=== PATIENT | male | born 1950 | race Caucasian/White ===

== ENCOUNTER 2018-01-09 10:57 | Day surgery (SDC) | payer MEDICARE, OTHER, SELFPAY ==
[2018-01-09] VITALS (7 sets, daily range): BP systolic 111–142; BP diastolic 48–86; PULSE 61–77; RESP 16; TEMP 36.2–37.3; O2SAT 96–100; BMI 25.4
--- NOTE | 2018-01-09 13:11 | PCM.OPRPT ---
Report of Operation Date of Procedure: 01/09/18 Pre-Operative Diagnosis: Left spermatocele Post-Operative Diagnosis: The same Surgery/Procedure Performed:: Left spermatocelectomy Description of Surgical Findings:: 67-year-old male taken back to the operating room after smooth induction of anesthesia he has been testicles were prepped and draped in usual sterile fashion palpated the spermatocele above the left testicle made a small incision above the left testicle infiltrated with Marcaine, dissected to the skin dartos layer and then came back on the 2 tunica snap on the tunica cut to the tunica and then delivered the spermatocele greatest medicine seal with a clamp and then dissected the spermatocele using electrocautery off the testicle top obtain hemostasis and then closed the small incision with 2 layers of chromic stitches. Type of Anesthesia:: General Drains: none - Admit VTE Documentation VTE Present on Admission: No
[2018-01-09] MEDS: Bupivacaine 0.25% 30 ML Vial (13:50)
--- NOTE | 2018-01-09 14:10 | PCM.DC.HER ---
Discharge Diet: Light diet - advance as tolerated Discharge Activity: Return to Normal Activity, May Not Drive - for 2-3 days or while taking narcotic pain meds., May Shower - 1 day after surgery. Lifting Restrictions: 20 pounds for 6 weeks. Additional Activity Instructions:: Climbing stairs is fine, walking is encouraged. Sitting in bed may be uncomfortable. Sitting up using your lateral muscles (sitting up sideways) is usually more comfortable. Do not drive, work heavy equipment of sign legal documents for 24 hours. If your hernia repair was an ingunial repair, you may have scrotal swelling, an ice pack and/or athletic support can provide more comfort. Pain medications may cause nausea, you should typically eat light foods as you take your pain medications. Pain medications may also cause constipation. If you have difficulty with this, discuss with your doctor. Call your doctor if your incision/area has: Continuous Slow Oozing, Sudden Increased Bleeding, Increased Pain/ Swelling, Increased Redness, Foul Smelling Discharge Call your doctor if you observe: Fever of 101 or Higher Suture Line Care: Avoid Pulling/Pushing, Avoid Pinching/Bending Cleanse incision/area with: Keep Dressing Clean & Dry Additional Instructions: Resume aspirin on Sunday. Allergies/Adverse Reactions: Allergies amoxicillin Allergy (Mild, Verified 01/01/18 08:18) rash Sulfa (Sulfonamide Antibiotics) Allergy (Verified 01/01/18 08:18) Rash Medications to take at Discharge Aspirin [Aspirin, Baby] 81 mg PO DAILY@0800 09/30/16 Oxycodone HCl/Acetaminophen [Percocet 5/325] 1 - 2 tablet PO Q4H PRN PRN 7 Days #30 tablet 01/09/18 The following prescriptions were given: Oxycodone HCl/Acetaminophen [Percocet 5/325] 1 - 2 tablet PO Q4H PRN PRN 7 Days #30 tablet PRN Reason: Pain Orders to be completed after discharge: 12 Lead EKG [[facility]] Time Frame: 01/09/18, Location: None Selected Primary Care Physician: Vijay Zarco MD [Primary Care Provider] - Test Results: Test results from this visit will be discussed in further detail at your follow-up appointment, if applicable. Please Follow Up With: Foster Liu MD When: Call tomorrow to make 2 week follow up appt [phone] Please Follow Up With: Luis Dwyer MD When: call for appointment
--- NOTE | 2018-01-09 14:13 | DCINST_ITS ---
Discharge Diet: Light diet - advance as tolerated Discharge Activity: Return to Normal Activity, May Not Drive - for 2-3 days or while taking narcotic pain meds., May Shower - 1 day after surgery. Lifting Restrictions: 20 pounds for 6 weeks. Additional Activity Instructions:: Climbing stairs is fine, walking is encouraged. Sitting in bed may be uncomfortable. Sitting up using your lateral muscles (sitting up sideways) is usually more comfortable. Do not drive, work heavy equipment of sign legal documents for 24 hours. If your hernia repair was an ingunial repair, you may have scrotal swelling, an ice pack and/or athletic support can provide more comfort. Pain medications may cause nausea, you should typically eat light foods as you take your pain medications. Pain medications may also cause constipation. If you have difficulty with this, discuss with your doctor. Call your doctor if your incision/area has: Continuous Slow Oozing, Sudden Increased Bleeding, Increased Pain/ Swelling, Increased Redness, Foul Smelling Discharge Call your doctor if you observe: Fever of 101 or Higher Suture Line Care: Avoid Pulling/Pushing, Avoid Pinching/Bending Cleanse incision/area with: Keep Dressing Clean & Dry Additional Instructions: Resume aspirin on Sunday. Allergies/Adverse Reactions: Allergies amoxicillin Allergy (Mild, Verified 01/01/18 08:18) rash Sulfa (Sulfonamide Antibiotics) Allergy (Verified 01/01/18 08:18) Rash Medications to take at Discharge Aspirin [Aspirin, Baby] 81 mg PO DAILY@0800 09/30/16 Oxycodone HCl/Acetaminophen [Percocet 5/325] 1 - 2 tablet PO Q4H PRN PRN 7 Days #30 tablet 01/09/18 The following prescriptions were given: Oxycodone HCl/Acetaminophen [Percocet 5/325] 1 - 2 tablet PO Q4H PRN PRN 7 Days #30 tablet PRN Reason: Pain Orders to be completed after discharge: 12 Lead EKG [[facility]] Time Frame: 01/09/18, Location: None Selected Primary Care Physician: Vijay Zarco MD [Primary Care Provider] - Test Results: Test results from this visit will be discussed in further detail at your follow- up appointment, if applicable. Please Follow Up With: Foster Liu MD When: Call tomorrow to make 2 week follow up appt [phone] Please Follow Up With: Luis Dwyer MD When: call for appointment
--- NOTE | 2018-01-10 08:26 | OP.PCM_ITS ---
Problem List (1) Left inguinal hernia Status: Acute Report of Operation Date of Procedure: 01/09/18 Pre-Operative Diagnosis: Left inguinal hernia Post-Operative Diagnosis: The same Surgery/Procedure Performed:: Left inguinal hernia repair with mesh Type of Anesthesia:: General Drains: none Description of Procedure: Patient was brought back to the operating room and general anesthesia was induced. Patient had a spermatocelectomy by Dr Dwyer at the beginning of the procedure. Once he was done with his portion of the procedure I took over for the inguinal hernia repair. The patient's skin was marked in an area between the pubic tubercle and ASIS on the left. A scalpel was used to make an incision and deepened down to the external aponeurosis. Once the external aponeurosis and external ring were identified a scalpel was used to open the external aponeurosis and hemostats were used to grasp this and elevate them and scissors were used to extend this to the external ring opening the external ring of the inguinal canal. Next the spermatic cord was dissected free and elevated with a Katherine drain. The floor of the inguinal canal was inspected and the patient appeared to have a direct hernia. There appeared to be no indirect component. The hernia contents were imbricated into the abdomen using interrupted 3-0 Vicryl sutures and a keyhole mesh was then tacked to the pubic tubercle with 0 PDS suture. Next the mesh was sutured laterally to the shelving portion of the inguinal ligament with interrupted 0 PDS sutures. The medial portion of the mesh was sutured to the conjoined tendon using interrupted 0 PDS sutures as well. Next the tails were placed around the spermatic cord and sutured to themselves with an 0 PDS suture. There was ensured to be enough space as the pinky finger of the barrel lathe operator outside was placed into the hole adjacent to the spermatic cord. Next the tails were tucked under the external aponeurosis and inguinal canal was irrigated and suctioned dry. The nerves that were spared at the beginning of the case were brought back into the inguinal canal and the external aponeurosis was reapproximated with a running 3-0 Vicryl suture. This was left open enough to ensure adequate passage of the spermatic cord. Next the Olena's fascia was reapproximated using interrupted 3-0 Vicryl sutures. The skin was then anesthetized with Marcaine and the skin was closed with a running 4-0 Monocryl suture as well as glue. The testicles were checked at the end the case and both were present in the scrotum. The patient was awoken and taken to PACU in stable condition. The patient tolerated procedure well. Grafts/Implants Used: Bard keyhole polypropylene mesh - Admit VTE Documentation VTE Mechan Device Prophylaxis: SCD's
--- OUTSIDE RECORDS SUMMARY | 2018-03-06 19:33 | XMS RPT_ITS ---
:1950 Author Organization OHIP Care Team Providers Name Role Phone Ottoniel REYES (SAMEERC) Attending Unavailable Ottoniel REYES (PAJ LuisC) Referring Unavailable EDGARDO ZARCO Attending Unavailable EDGARDO ZARCO Referring Unavailable NAYAN PARNELL Attending Unavailable EDGARDO ZARCO Referring Unavailable EDGARDO ZARCO Referring Unavailable EDGARDO ZARCO Referring Unavailable HAROLDOEDGARDO Referring Unavailable SOHEILA, NAYAN T Attending Unavailable SOHEILA NAYAN T Referring Unavailable SOHEILA, NAYAN T Admitting Unavailable SOHEILA, NAYAN T Attending Unavailable SOHEILA, NAYAN T Referring Unavailable EDGARDO ZARCO Attending Unavailable EDGARDO ZARCO Referring Unavailable VANITA ENRIQUEZ ([facility]) Attending Unavailable HAM PATEL Attending Unavailable Emanuel Barboza Attending Unavailable Foster Liu Referring Unavailable Foster Liu Attending Unavailable Edgardo Zarco Referring Unavailable Foster Liu Attending Unavailable Edgardo Zarco Referring Unavailable Foster Liu Attending Unavailable Foster Liu Referring Unavailable Edgardo Zarco Primary Care Unavailable Foster Liu Attending Unavailable Calabretta, Foster Referring Unavailable Haroldo Edgardo Primary Care Unavailable Foster Liu Consulting Unavailable PROBLEMS PROBLEMS DATE TYPE CONDITION / CODE ATTENDING STATUS SOURCE 01/21/2018 Unknown K40.90 - Chas Liu Unilateral Foster Formerly [facility], [facility] inguinal hernia, Hospital without Repository obstruction or gangrene, not specified as recurrent / K40.90(ICD-10) 01/21/2018 Unknown R00.1 - Emanuel Barboza Active [facility], Community unspecified / Hospital R00.1(ICD-10) Repository 08/02/2017 Active Disorder of NA Active [facility] kidney and [place] ureter, Repository unspecified / N28.9(ICD-10) 06/19/2017 Active Testicular pain, NA Active [facility] unspecified / [place] N50.819(ICD-10) Repository 06/19/2017 Active Unknown / NA Active [facility] UNK(Unknown) [place] Repository 06/07/2017 Active Left lower NA Active [facility] quadrant pain / [place] R10.32(ICD-10) Repository 06/07/2017 Active Abnormal level of NA Active [facility] blood mineral / [place] R79.0(ICD-10) Repository 04/03/2017 Active Encounter for Active [facility] screening for [place] malignant Repository neoplasm of colon / Z12.11(ICD-10) PROCEDURES PROCEDURES No Procedure Records FoundRESULTS RESULTS SURGERY VISIT REPORT Observed: 01/23/2018 Status: F Source: [place] 9:51 AM [facility] REPOSITORY [facility] [address] [place] [address] [address] [place] [address] OFFICE VISIT Date of Service: 01/23/18 MR#: [id number] Acct: [id number] Name: TERRI MORALES Rep #: [id number] : 1950 Provider: Foster Liu MD Age/Sex: 67/M Location: [facility] Status: Signed Intake Intake Visit Reasons: LIH Repair 01/09 Chief Complaint: LIH and left spermatocele 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 He does experience some numbness just inferior to the incision. Objective Details: Incision is clean dry and intact. Assessment AND Plan Problems 1. Left inguinal hernia K40.90 Plan 1. Patient is doing well after inguinal hernia repair. He is having a little bit of numbness inferior to the incision. I explained that this could be nerve in. I would expect that it should decrease but I would not do anything for it for at least 6 weeks. 2. I explained he can return to full activity 6 weeks after surgery. Follow-up as needed. Foster Liu MD Pager: [facility] [address] [place] [address], [address] [place] [address] Office: Coding Level of Care Code Global Post Op Diagnoses Left inguinal hernia K40.90 01/23/18 0951 <Electronically signed by Foster Liu MD> Date Foster Liu MD Cosigner Signature: Date (if applicable) CC: Edgardo Zarco MD OPERATIVE REPORT Observed: 01/10/2018 Status: F Source: [place] 8:26 AM [facility] REPOSITORY [facility] Medical Records Department [address] [place] [address] Operative Report 01/10/18 0822 MR#: [id number] Acct: [id number] Name: TERRI MORALES Rep #: [id number] : 1950 67 From: Foster Liu MD PCP: Edgardo Zarco MD Status: DEP [facility] Y Location: [facility] Problem List (1) Left inguinal hernia Status: Acute Report of Operation Date of Procedure: 01/09/18 Pre-Operative Diagnosis: Left inguinal hernia Post-Operative Diagnosis: The same Surgery/Procedure Performed:: Left inguinal hernia repair with mesh Type of Anesthesia:: General Drains: none Description of Procedure: Patient was brought back to the operating room and general anesthesia was induced. Patient had a spermatocelectomy by Dr Dwyer at the beginning of the procedure. Once he was done with his portion of the procedure I took over for the inguinal hernia repair. The patient's skin was marked in an area between the pubic tubercle and ASIS on the left. A scalpel was used to make an incision and deepened down to the external aponeurosis. Once the external aponeurosis and external ring were identified a scalpel was used to open the external aponeurosis and hemostats were used to grasp this and elevate them and scissors were used to extend this to the external ring opening the external ring of the inguinal canal. Next the spermatic cord was dissected free and elevated with a Katherine drain. The floor of the inguinal canal was inspected and the patient appeared to have a direct hernia. There appeared to be no indirect component. The hernia contents were imbricated into the abdomen using interrupted 3-0 Vicryl sutures and a keyhole mesh was then tacked to the pubic tubercle with 0 PDS suture. Next the mesh was sutured laterally to the shelving portion of the inguinal ligament with interrupted 0 PDS sutures. The medial portion of the mesh was sutured to the conjoined tendon using interrupted 0 PDS sutures as well. Next the tails were placed around the spermatic cord and sutured to themselves with an 0 PDS suture. There was ensured to be enough space as the pinky finger of the press operator was placed into the hole adjacent to the spermatic cord. Next the tails were tucked under the external aponeurosis and inguinal canal was irrigated and suctioned dry. The nerves that were spared at the beginning of the case were brought back into the inguinal canal and the external aponeurosis was reapproximated with a running 3-0 Vicryl suture. This was left open enough to ensure adequate passage of the spermatic cord. Next the Olena's fascia was reapproximated using interrupted 3-0 Vicryl sutures. The skin was then anesthetized with Marcaine and the skin was closed with a running 4-0 Monocryl suture as well as glue. The testicles were checked at the end the case and both were present in the scrotum. The patient was awoken and taken to PACU in stable condition. The patient tolerated procedure well. Grafts/Implants Used: Bard keyhole polypropylene mesh - Admit VTE Documentation VTE Mechan Device Prophylaxis: SCD's 01/10/18 0826 <Electronically signed by Foster Liu MD> Date Foster Liu MD CC: Foster Liu MD; Edgardo Zarco MD Signed DISCHARGE INSTRUCTION Observed: 01/09/2018 Status: F Source: [place] 2:13 PM [facility] REPOSITORY [facility] Medical Records Department [address] [place] [address] [place] [address] Instructions for Home/Discharge Instructions 01/09/18 1410 MR#: [id number] Acct: [id number] Name: TERRI MORALES Rep #: [id number] : 1950 67 From: Foster Liu MD PCP: Edgardo Zarco MD Status: REG SDC Discharge Diet: Light diet - advance as tolerated Discharge Activity: Return to Normal Activity, May Not Drive - for 2-3 days or while taking narcotic pain meds., May Shower - 1 day after surgery. Lifting Restrictions: 20 pounds for 6 weeks. Additional Activity Instructions:: Climbing stairs is fine, walking is encouraged. Sitting in bed may be uncomfortable. Sitting up using your lateral muscles (sitting up sideways) is usually more comfortable. Do not drive, work heavy equipment of sign legal documents for 24 hours. If your hernia repair was an ingunial repair, you may have scrotal swelling, an ice pack and/or athletic support can provide more comfort. Pain medications may cause nausea, you should typically eat light foods as you take your pain medications. Pain medications may also cause constipation. If you have difficulty with this, discuss with your doctor. Call your doctor if your incision/area has: Continuous Slow Oozing, Sudden Increased Bleeding, Increased Pain/ Swelling, Increased Redness, Foul Smelling Discharge Call your doctor if you observe: Fever of 101 or Higher Suture Line Care: Avoid Pulling/Pushing, Avoid Pinching/Bending Cleanse incision/area with: Keep Dressing Clean AND Dry Additional Instructions: Resume aspirin on Sunday. Allergies/Adverse Reactions: Allergies amoxicillin Allergy (Mild, Verified 01/01/18 08:18) rash Sulfa (Sulfonamide Antibiotics) Allergy (Verified 01/01/18 08:18) Rash Medications to take at Discharge Aspirin [Aspirin, Baby] 81 mg PO DAILY@0800 09/30/16 Oxycodone HCl/Acetaminophen [Percocet 5/325] 1 - 2 tablet PO Q4H PRN PRN 7 Days #30 tablet 01/09/18 The following prescriptions were given: Oxycodone HCl/Acetaminophen [Percocet 5/325] 1 - 2 tablet PO Q4H PRN PRN 7 Days #30 tablet PRN Reason: Pain Orders to be completed after discharge: 12 Lead EKG [[facility]] Time Frame: 01/09/18, Location: None Selected Primary Care Physician: Edgardo Zarco MD [Primary Care Provider] - Test Results: Test results from this visit will be discussed in further detail at your follow-up appointment, if applicable. Please Follow Up With: Foster Liu MD When: Call tomorrow to make 2 week follow up appt [phone] Please Follow Up With: Luis Dwyer MD When: call for appointment 01/09/18 4362 <Electronically signed by Foster Liu MD> Date Foster Liu MD CC: Edgardo Zarco MD OPERATIVE REPORT Observed: 01/09/2018 Status: F Source: [place] 1:13 PM [facility] REPOSITORY [facility] Medical Records Department [address] [place] [address] Operative Report 01/09/18 1311 MR#: [id number] Acct: [id number] Name: TERRI MORALES Rep #: [id number] : 1950 67 From: Luis Dwyer MD PCP: Edgardo Zarco MD Status: REG [facility] Y Location: [place] [address] Report of Operation Date of Procedure: 01/09/18 Pre-Operative Diagnosis: Left spermatocele Post-Operative Diagnosis: The same Surgery/Procedure Performed:: Left spermatocelectomy Description of Surgical Findings:: 67-year-old male taken back to the operating room after smooth induction of anesthesia he has been testicles were prepped and draped in usual sterile fashion palpated the spermatocele above the left testicle made a small incision above the left testicle infiltrated with Marcaine, dissected to the skin dartos layer and then came back on the 2 tunica snap on the tunica cut to the tunica and then delivered the spermatocele greatest medicine seal with a clamp and then dissected the spermatocele using electrocautery off the testicle top obtain hemostasis and then closed the small incision with 2 layers of chromic stitches. Type of Anesthesia:: General Drains: none - Admit VTE Documentation VTE Present on Admission: No 01/09/18 1313 <Electronically signed by Luis Dwyer MD> Date Luis Dwyer MD CC: Foster Liu MD; Luis Dwyer MD; Edgardo Zarco MD Signed SURGERY VISIT REPORT Observed: 12/17/2017 Status: F Source: [place] 11:[address] 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 Required: No Is patient in pain?: Yes Pain scale (1-10): 1 Allergies amoxicillin Allergy (Mild, Verified 12/17/17 09:43) rash Sulfa (Sulfonamide Antibiotics) Allergy (Verified 12/17/17 09:43) Rash Medications Aspirin [Aspirin, Baby] 81 mg PO DAILY@0800 09/30/16 [History Confirmed 09/30/16] PFS Medical History Hemorrhoids (Acute) Left inguinal hernia (Acute) Osteoarthritis (Acute) Spermatocele (Acute) Surgical History History of arthroscopy of left knee (Acute) History of colonoscopy (Acute 2018) Family History Father Heart disease Mother Diabetes Social History Smoking Status: Never smoker HPI HPI HPI: TERRI MORALES, is a 66 M who presents to the office today for left groin bulging. The patient reports he has had this for years and it does not hinder his daily activity. He likes to lift weights and this interferes with that. He says the bulge gets much worse when he lifts weight. The patient also has a left spermatocele which is scheduled to be removed by urology. ROS General General: No weight change, appetite, fatigue, colon cancer, breast cancer or weakness HEENT HEENT: No difficulty swallowing, eye injury, eye surgery, swollen glands or hoarseness Endo Endocrine: No thyroid disease, diabetes mellitus, thyroid cancer, Hair loss, heat intolerance or cold intolerance Musc Musculoskeletal: Yes arthritis; no back problems, rheumatoid arthritis, gout or joint pain Cardio Cardiovascular: No murmur, pacemaker, heart disease, atrial fibrillation, high blood pressure, heart attack, heart stent, palpitations, shortness of breat with exertion or chest pain Resp Respiratory: No shortness of breath, No sleep apnea, No cough, No COPD, No asthma, No emphysema, No wheezing Gastro Gastrointestinal: Yes abdominal pain, No nausea or vomiting, No diarrhea, No constipation, No blood in stool, No acid reflux, Yes hemorrhoids, No ulcers, No gallbladder problem, No black,tarry stools Santos Hematologic: No blood thinners, No blood disorders, No bleeding, No anemia, No blood clots Neuro Neurologic: No weakness Exam Const General: cooperative Orientation: alert, oriented x3 Resp Effort AND Inspection: normal respiratory effort Auscultation: clear to auscultation bilaterally Cardio Rate: regular rate Rhythm: regular rhythm Heart Sounds: no murmurs GI Inspection: non-distended Palpation: soft, nontender Other: Patient does have a left inguinal hernia which appears to be direct. It is easily reducible and soft. Assessment AND Plan Problems 1. Left inguinal hernia K40.90 Plan 1. The patient does have a left inguinal hernia which appears to be direct in nature. It is soft and reducible. The patient also has a left spermatocele in the scrotum. 2. I explained left inguinal hernia repair with mesh. I explained that I would place mesh over the defect to buttress this. I explained that the patient would not be able lift anything for 6 weeks. I explained the risks including but not limited to bleeding, infection, chronic groin pain, spermatic cord injury, hernia recurrence. The patient understands all the risks and is willing to proceed with hernia repair at the same time his spermatocelectomy. Foster Liu MD Pager: [facility] [address] [place] [address] [address] [place] [address] Office: Coding Level of Care Code Off vis,new,level 3 Diagnoses Left inguinal hernia K40.90 12/17/17 1139 <Electronically signed by Foster Liu MD> Date Foster Liu MD [facility] Signature: Date (if applicable) CC: Luis Dwyer MD; Edgardo Zarco MD CNOV Observed: 12/08/2017 Status: COMPLETED Source: [place] 11:20 AM [facility] REPOSITORY Office Visit (INTMWS) TERRI MORALES ([id number]) 1950 M Date Time Provider Department 12/08/17 11:20 AM [facility] During your visit today, we recorded the following information about you: Referring Provider: SELF [200] Allergies As of Date: 12/08/2017 Noted Allergy Reaction AMOXIL (AMOXICILLIN) 01/14/2010 2 - Rash Comments: Generalized body rash- drug reaction Does well with omnicef SULFA (SULFONAMIDE ANTIBIOTICS) 03/02/2005 Date Reviewed: 12/07/2017 Reviewed by: Ban ChristinaRn) SEDA Hewitt - Fully Assessed Reason for Visit: Patient Left Without Being Seen [2006] Primary Visit Diagnosis:Patient left without being seen [Z53.21] Prescriptions as of 12/08/2017 Sig: IBUPROFEN 200 MG TABLET Take 200 mg by mouth every 6 * * ASPIRIN 81 MG TABLET Take 1 tablet by mouth once d* Problem List As Of Date 12/08/2017 Noted Resolved Diarrhea [R19.7] INVALID FOR*02/23/2014 INT HEMORRHOID W/O COMPL [K64.8] INVALID FOR* HEPATITIS IN VIRAL DIS [B19.9] INVALID FOR* Venous varices [I83.90] INVALID FOR* Encounter Status:Closed by CESAR LONGORIA CMA on 12/08/17 TABATHA Observed: 12/08/2017 Status: COMPLETED Source: [place] 12:00 AM [facility] REPOSITORY [facility] TERRI MORALES ([id number]) 1950 M Date Time Provider Department 12/08/17 EDGARDO ZARCO [facility] During your visit today, we recorded the following information about you: Neli Tobar Ma 12/08/2017 12:30 PM Signed Patient comes to office because he was advised by NOC. This NOEMY was advised by PCP that if patient was in acute distress, he would need to go to emergency dept. When speaking with patient, he said he is not in acute distress. The pain is the same, but has increased some. When asked if he has made appointment with urology, he said he did not want to travel and wanted to stay local. He asked that we schedule him with [facility]. I asked patient if he still would like to be seen today and patient declined as he felt it was unnecessary. Patient was advised that if pain became worse, he was to go to ED. Patient agrees. Edgardo Zarco MD 12/08/2017 12:45 PM Signed agree Neli Tobar Ma 12/10/2017 8:51 AM Signed This NOEMY called [facility] and scheduled patient on 12/13/17 at 9 am with Kadi Rodriguez. Call to patient, informed him of appt information and patient is agreeable. Office notes, images, and labs faxed to [facility]. Neli Tobar Ma Allergies As of Date: 12/08/2017 Noted Allergy Reaction AMOXIL (AMOXICILLIN) 01/14/2010 2 - Rash Comments: Generalized body rash- drug reaction Does well with omnicef SULFA (SULFONAMIDE ANTIBIOTICS) 03/02/2005 Date Reviewed: 12/07/2017 Reviewed by: Ban (Rn) SEDA Hewitt - Fully Assessed Reason for Visit: Testicular Pain [823] Prescriptions as of 12/08/2017 Sig: IBUPROFEN 200 MG TABLET Take 200 mg by mouth every 6 * * ASPIRIN 81 MG TABLET Take 1 tablet by mouth once d* Problem List As Of Date 12/08/2017 Noted Resolved Diarrhea [R19.7] INVALID FOR*02/23/2014 INT HEMORRHOID W/O COMPL [K64.8] INVALID FOR* HEPATITIS IN VIRAL DIS [B19.9] INVALID FOR* Venous varices [I83.90] INVALID FOR* Encounter Status:Closed by EDGARDO ZARCO MD on 12/08/17 PROGRESS Observed: 09/27/2017 Status: COMPLETED Source: [place] 11:15 AM [facility] [employer] REPOSITORY [facility] ID: [id number] Author: Vanita Enriquez Service: (none) Author Type: Nurse Practitioner Type: Progress Notes Filed: 09/27/2017 3:59 PM Note Text: This is a 66 year old male who presents today with: Patient presents with: Abdominal Pain: LLQ- radiates down to left testicle HISTORY OF PRESENT ILLNESS: Terri Morales is a 66 year old male. Patient presents with: Abdominal Pain: LLQ- radiates down to left testicle Pt presents today with ongoing complaint so LLQ pain and testicular pain. Requesting referral to urology for further eval. More bothered by the testicular pain. Feels as if something is pulling. Refers that it is most bothersome at night when he is trying to sleep -- not painful on his back, but painful on both sides. Refers that he lifting doesn't hurt, but more pressure. Not really pain. No diarrhea/constipation. No problems with urinary stream. No penile discharge. Up X 1, maybe twice over night to urinate. He had an u/s. IMPRESSION: Bilateral epididymal cysts and/or spermatocele. Small bilateral hydrocele. Left varicocele. No evidence of solid testicular mass. CT: Scans through the pelvis show no evidence of ascites or mass. ?No lymphadenopathy is seen. ?Partially visualized appendix appears normal. ? No bowel obstruction. Had eval by surg and didn't feel that pain r/t small hernia. PAST MEDICAL HISTORY: PAST MEDICAL HISTORY Diagnosis Date - Diarrhea - Internal hemorrhoids without mention of complication PAST SURGICAL HISTORY Procedure Laterality Date - COLONOSCOP W/ OR W/O BRSH SPEC 07/17/2017 Colonoscopy - COLONOSCOPY W/BX 01/02/06 - KNEE SCOPE,DIAGNOSTIC 2002 Arthroscopy, knee ALLERGIES Amoxil [Amoxicillin]; Sulfa (Sulfonamide Antibiotics) MEDICATIONS Current Outpatient Prescriptions: ibuprofen (MOTRIN) 200 mg tablet Take 200 mg by mouth every 6 hours as needed. Aspirin 81 mg Tab Take 1 tablet by mouth once daily. Take with food. No current facility-administered medications for this visit. FAMILY HISTORY Problem Relation Age of Onset - Diabetes Mother - Heart Father Social History Marital status: Single Spouse name: Years of education: Number of children: 2 Occupational History Occupation Employer Comment [employer] Social History Main Topics Smoking status: Never Smoker Smokeless tobacco: Never Used Alcohol use: No Drug use: No EXAM: BP 124/70 (BP Site: Left Arm, BP Position: Sitting, BP Cuff Size: Regular Adult) Pulse 72 Temp 36.2 ?C (97.2 ?F) (Left Tympanic) Resp 14 Wt 86.8 kg (191 lb 6.4 oz) BMI 26.50 kg/m? PHYSICAL EXAM: General Appearance: Well appearing, alert, in no acute distress, well-hydrated, well nourished.. Skin: Skin color, texture, turgor normal, no suspicious rashes or lesions. Head: Normocephalic, no masses, lesions, tenderness or abnormalities. Eyes: Anicteric sclera. Extraocular movements are intact. . Lungs: Lungs clear to auscultation. No wheezing, rhonchi, rales. Heart: RRR without murmur, gallop, or rubs. No ectopy. Abdomen: Abdomen soft, non-tender. Bowel sounds normal. No masses, organomegaly. Neurologic: Gait normal. ASSESSMENT/PLAN: 1. Testicular pain, left - ICD9: 608.9, ICD10: N50.812 (primary diagnosis) - CONSULT TO UROLOGY - discussed propping. Can also try support. 2. Chronic LLQ pain - ICD9: 789.04, 338.29, ICD10: R10.32, G89.29 Negative work-up thus far. ? If radiation from testicle. Urology referral. Discussed treatment plan and patient voices understanding. Patient's questions answered appropriately. Medications and potential side effects were discussed and patient voices understanding. Return to the office as scheduled or as needed for worsening/no improvement. Vanita Enriquez APRN.CNP CNOV Observed: 09/27/2017 Status: COMPLETED Source: [place] 10:40 AM [facility] REPOSITORY Office Visit (FAMPWS) TERRI MORALES ([id number]) 1950 M Date Time Provider Department 09/27/17 10:40 AM VANITA ENRIQUEZ (JAIME) [facility] During your visit today, we recorded the following information about you: Temperature Pulse Respiration Blood pressure 97.2 degrees 72/minute 14/minute 124/70 Weight 86.8 kg Vanita Enriquez APRN.CNP 09/27/2017 3:59 PM Signed This is a 66 year old male who presents today with: Patient presents with: Abdominal Pain: LLQ- radiates down to left testicle HISTORY OF PRESENT ILLNESS: Terri Morales is a 66 year old male. Patient presents with: Abdominal Pain: LLQ- radiates down to left testicle Pt presents today with ongoing complaint so LLQ pain and testicular pain. Requesting referral to urology for further eval. More bothered by the testicular pain. Feels as if something is pulling. Refers that it is most bothersome at night when he is trying to sleep -- not painful on his back, but painful on both sides. Refers that he lifting doesn't hurt, but more pressure. Not really pain. No diarrhea/constipation. No problems with urinary stream. No penile discharge. Up X 1, maybe twice over night to urinate. He had an u/s. IMPRESSION: Bilateral epididymal cysts and/or spermatocele. Small bilateral hydrocele. Left varicocele. No evidence of solid testicular mass. CT: Scans through the pelvis show no evidence of ascites or mass. ?No lymphadenopathy is seen. ?Partially visualized appendix appears normal. ? No bowel obstruction. Had eval by surg and didn't feel that pain r/t small hernia. PAST MEDICAL HISTORY: PAST MEDICAL HISTORY Diagnosis Date - Diarrhea - Internal hemorrhoids without mention of complication PAST SURGICAL HISTORY Procedure Laterality Date - COLONOSCOP W/ OR W/O [facility] SPEC 07/17/2017 Colonoscopy - COLONOSCOPY W/BX 01/02/06 - KNEE SCOPE,DIAGNOSTIC 2002 Arthroscopy, knee ALLERGIES Amoxil [Amoxicillin]; Sulfa (Sulfonamide Antibiotics) MEDICATIONS Current Outpatient Prescriptions: ibuprofen (MOTRIN) 200 mg tablet Take 200 mg by mouth every 6 hours as needed. Aspirin 81 mg Tab Take 1 tablet by mouth once daily. Take with food. No current facility-administered medications for this visit. FAMILY HISTORY Problem Relation Age of Onset - Diabetes Mother - Heart Father Social History Marital status: Single Spouse name: Years of education: Number of children: 2 Occupational History Occupation Employer Comment [employer] Social History Main Topics Smoking status: Never Smoker Smokeless tobacco: Never Used Alcohol use: No Drug use: No EXAM: BP 124/70 (BP Site: Left Arm, BP Position: Sitting, BP Cuff Size: Regular Adult) Pulse 72 Temp 36.2 ?C (97.2 ?F) (Left Tympanic) Resp 14 Wt 86.8 kg (191 lb 6.4 oz) BMI 26.50 kg/m? PHYSICAL EXAM: General Appearance: Well appearing, alert, in no acute distress, well-hydrated, well nourished.. Skin: Skin color, texture, turgor normal, no suspicious rashes or lesions. Head: Normocephalic, no masses, lesions, tenderness or abnormalities. Eyes: Anicteric sclera. Extraocular movements are intact. . Lungs: Lungs clear to auscultation. No wheezing, rhonchi, rales. Heart: RRR without murmur, gallop, or rubs. No ectopy. Abdomen: Abdomen soft, non-tender. Bowel sounds normal. No masses, organomegaly. Neurologic: Gait normal. ASSESSMENT/PLAN: 1. Testicular pain, left - ICD9: 608.9, ICD10: N50.812 (primary diagnosis) - CONSULT TO UROLOGY - discussed propping. Can also try support. 2. Chronic LLQ pain - ICD9: 789.04, 338.29, ICD10: R10.32, G89.29 Negative work-up thus far. ? If radiation from testicle. Urology referral. Discussed treatment plan and patient voices understanding. Patient's questions answered appropriately. Medications and potential side effects were discussed and patient voices understanding. Return to the office as scheduled or as needed for worsening/no improvement. Vanita Enriquez APRN.SCALING MACHINE OPERATOR Referring Provider: SELF [200] Allergies As of Date: 09/27/2017 Noted Allergy Reaction AMOXIL (AMOXICILLIN) 01/14/2010 2 - Rash Comments: Generalized body rash- drug reaction Does well with omnicef SULFA (SULFONAMIDE ANTIBIOTICS) 03/02/2005 Date Reviewed: 09/27/2017 Reviewed by: Nancy Valentine Cement Conveyor Operator - Fully Assessed Reason for Visit: Abdominal Pain [1] Cmt: LLQ- radiates down to left testicle Primary Visit Diagnosis:Testicular pain, left [N50.812] Other Visit Diagnosis:Chronic LLQ pain [R10.32, G89.29] Order(s):CONSULT TO UROLOGY [9041] Order #: [id number]: 1 Prescriptions as of 09/27/2017 Sig: IBUPROFEN 200 MG TABLET Take 200 mg by mouth every 6 * * ASPIRIN 81 MG TABLET Take 1 tablet by mouth once d* Problem List As Of Date 09/27/2017 Noted Resolved Diarrhea [R19.7] INVALID FOR*02/23/2014 INT HEMORRHOID W/O COMPL [K64.8] INVALID FOR* HEPATITIS IN VIRAL DIS [B19.9] INVALID FOR* Venous varices [I83.90] INVALID FOR* Follow-up and Disposition History Recorded Encounter Status:Closed by VANITA ENRIQUEZ CNP on 09/27/17 CNCO Observed: 08/03/2017 Status: COMPLETED Source: [place] 12:00 AM [facility] REPOSITORY Letter Text Edgardo Zarco MD [facility] Terri Shin [address] [facility] [address] Clinic #: [id number] 08/03/2017 Dear Mr. Morales, I have received the results of your recent tests. The results of your BMP (Basi Metabolic Panel) tests were either normal or within the acceptable range. We can discuss this at your next visit. Please do not hesitate to contact me with any questions. Sincerely, Edgardo Zarco MD [facility] Department electronically signed to expedite mailing BASIC METABOLIC PANL Collected: 08/02/2017 Status: F Source: [place] 8:42 AM [facility] REPOSITORY TYPE CODE TESTS RESULT OUT OF REFERENCE UNITS RANGE LAB GLU 74-99 mg/dL Glucose 95 Result Comment: The [place] Diabetes [employer] (ADA) provides guidance for cutoff values for fasting glucose and random glucose. The ADA defines fasting as no caloric intake for at least 8 hours. Fas ting plasma glucose results between 100 to 125 mg/dL indicate increased risk for diabetes (prediabetes). Fasting plasma glucose results greater than or equal to 126 mg/dL meet the criteria for diagnosis of diabetes. In the absence of unequivocal hyperglycemia, results should be confirmed by repeat testing. In a patient with classic symptoms of hyperglycemia or hyperglycemic crisis, random plasma glucose results greater than or equal to 200 mg/dL meet the criteria for diagnosis of diabetes. Reference: Standards of Medical Care in Diabetes 2016, [place] [employer]. Diabetes Care. 2016.39(Suppl 1). LAB BUN 9-24 mg/dL BUN 17 LAB CRET 0.73-1.22 mg/dL Creatinine 1.11 LAB NA 136-144 mmol/L Sodium 139 LAB K 3.7-5.1 mmol/L Potassium 4.4 LAB CL 97-105 mmol/L Chloride 100 LAB CO2 22-30 mmol/L CO2 30 LAB AGAP 9-18 mmol/L Anion Gap 9 LAB CA 8.5-10.2 mg/dL Calcium, Total 9.3 LAB GFRAA eGFR- Amer. >60 LAB GFRNAA . eGFR-All Other Races >60 Result Comment: eGFR (Estimated GFR) Units of measure: mL/min/1.73 meters squared eGFR is derived from the reexpressed MDRD Study equation using the following parameters: serum creatinine, age, gender and race. The creatinine assay has been calibrated to be traceable to IDMS. An eGFR <60 mL/min/1.73m2 for >3 months is consistent with chronic kidney disease. Refer to KDOQI guidelines for clinical interpretation. In patients with unstable renal function, e.g. those with acute kidney injury, the eGFR may not accurately reflect actual GFR. Performed By: #### BMP #### [facility] [address], [place] [address] PROGRESS Observed: 08/02/2017 Status: COMPLETED Source: [place] 8:19 AM [facility] REPOSITORY HNO ID: [id number] Author: Edgardo Zarco Service: (none) Author Type: Physician Type: Progress Notes Filed: 08/02/2017 8:40 AM Note Text: Patient presents with: Abdominal Pain Mole HPI: Patient presents today for office visit for follow up. Nursing Notes: Neli Tobar Ma 08/02/2017 8:03 AM Signed ABDOMINAL PAIN: Pt still c/o LLQ pain. Pt saw general surgery and had colonoscopy done, normal. Pain wakes him up at night. MOLE: Mole on top of his head for one month. Has had ct and negative gi work up. Has been there for years. He does have some pain in his back as well. Offered urology referral if he desires. Has a lot of gas pain. Has used metamucil in the past which helped some. Offered bentyl. Xray and possible physical therapy. Suggested fluids and fiber and he will call if any issues. His renal function was slightly reduced. Discussed avoiding nsaids. Has a mole on his scalp for three or four weeks. No pain or itching. See previous notes: ABDOMINAL PAIN: Pt complains of LLQ pain intermittently. It will wake him up at night. About 12 years ago was diagnosed with Diverticulitis and pain feels similar to that. Pt had a normal colonoscopy over 10 years ago. Has been happening on and off for years. No fever or chills. No constipation or diarrhea. No bloody or black stools. No issues with urination. Last episode was several nights ago. ABDOMINAL PAIN: Pt c/o LLQ pain for the last 2 months. The pain occurs about 3-4 hours after going to bed. He will wake up with severe pain that feels like something pulling. Pain radiates into left testicle. He has in most nights, intensity of pain will vary. Patient has a history of diverticulitis in 2005, pain is in same location and similar. He did have a colonoscopy which was normal. ? Seen in September for pain in lower abd that had been on and off for 12 years. Was to have ct of the abdomen and to see gi. Was also asked several times to follow up in two weeks and did not return. He did come in for repeat iron which was ok and had an ifobt that was negative. ? He says it feels different than that. He has been getting a pain that is on his left side. Four or five hours into sleep it is pulling. Mild back pain. Is uncomfortable now. Was feeling normal between September and now it was ok. No cough or sneeze. No issues with lifting. Has been exercising regularly. No urinary symptoms. No testicular swelling. No nausea or vomiting or changes in the bowels. No radicular pain in the leg. He has had issues that are similar on and off in the chart for years. Also had an ultrasound several years ago that he was to have a repeat ultrasound on the testicle when I reviewed old records. ? MEDICATIONS: Current Outpatient Prescriptions: ibuprofen (MOTRIN) 200 mg tablet Take 200 mg by mouth every 6 hours as needed. Aspirin 81 mg Tab Take 1 tablet by mouth once daily. Take with food. No current facility-administered medications for this visit. ALLERGIES: ALLERGIES Allergen Reactions - Amoxil [Amoxicillin] Rash Generalized body rash- drug reaction Does well with omnicef - Sulfa (Sulfonamide * PAST MEDICAL HISTORY Diagnosis Date - Diarrhea - Internal hemorrhoids without mention of complication PAST SURGICAL HISTORY Procedure Laterality Date - COLONOSCOP W/ OR W/O [facility] SPEC 07/17/2017 Colonoscopy - COLONOSCOPY W/BX 01/02/06 - KNEE SCOPE,DIAGNOSTIC 2003 Arthroscopy, knee FAMILY HISTORY Problem Relation Age of Onset - Diabetes Mother - Heart Father Social History Marital status: Single Spouse name: Years of education: Number of children: 2 Occupational History Occupation Employer Comment [employer] Social History Main Topics Smoking status: Never Smoker Smokeless tobacco: Never Used Alcohol use: No Drug use: No Reviewed current medications, allergies, past medical history, surgical history, family history and social history today. REVIEW OF SYSTEMS All other reviewed and negative other than HPI. VITALS: BP 132/74 Pulse 64 Resp 16 Wt 86.6 kg (191 lb) BMI 26.45 kg/m? Last 4 Encounter Wt Readings: Date: Wt: 08/02/2017 86.6 kg (191 lb) 07/10/2017 89.4 kg (197 lb 1.5 oz) 06/11/2017 89.4 kg (197 lb) 04/03/2017 91.2 kg (201 lb) PHYSICAL EXAMINATION: General appearance: Well appearing, alert, in no acute distress, well-hydrated, well nourished. Skin: benign appearing mole. Appears to be a small sk. Lungs: Lungs clear to auscultation. No wheezing, rhonchi, rales Heart: RRR without murmur, gallop, or rubs. No ectopy Abdomen: Normal abdominal exam, Abdomen soft, non-tender. Bowel sounds normal. No masses, organomegaly Extremities: No deformities, edema, skin discoloration, clubbing or cyanosis. Good capillary refill. Musculoskeletal: No joint swelling, deformity, or tenderness ASSESSMENT/PLAN: 1. LLQ abdominal pain - ICD9: 789.04, ICD10: R10.32 (primary diagnosis) - Offered a number of options as above. For now he wishes to simply watch things. Suggested fluids and fiber. Call if worsens. 2. Skin lesion - ICD9: 709.9, ICD10: L98.9 - Red flags for re-assessment reviewed with patient in detail. 3. Renal insufficiency - ICD9: 593.9, ICD10: N28.9 - push fluids and avoid nsaids. - BASIC METABOLIC PNL Edgardo Zarco MD CNOV Observed: 08/02/2017 Status: COMPLETED Source: [place] 8:00 AM [facility] REPOSITORY Office Visit (FAMPWS) TERRI MORALES ([id number]) 1950 M Date Time Provider Department 08/02/17 8:00 AM [facility] During your visit today, we recorded the following information about you: Pulse Respiration Blood pressure Weight 64/minute 16/minute 132/74 86.6 kg Neli Tobar Ma 08/02/2017 8:03 AM Signed ABDOMINAL PAIN: Pt still c/o LLQ pain. Pt saw general surgery and had colonoscopy done, normal. Pain wakes him up at night. MOLE: Mole on top of his head for one month. Edgardo Zarco MD 08/02/2017 8:40 AM Signed Patient presents with: Abdominal Pain Mole HPI: Patient presents today for office visit for follow up. Nursing Notes: Neli Tobar Ma 08/02/2017 8:03 AM Signed ABDOMINAL PAIN: Pt still c/o LLQ pain. Pt saw general surgery and had colonoscopy done, normal. Pain wakes him up at night. MOLE: Mole on top of his head for one month. Has had ct and negative gi work up. Has been there for years. He does have some pain in his back as well. Offered urology referral if he desires. Has a lot of gas pain. Has used metamucil in the past which helped some. Offered bentyl. Xray and possible physical therapy. Suggested fluids and fiber and he will call if any issues. His renal function was slightly reduced. Discussed avoiding nsaids. Has a mole on his scalp for three or four weeks. No pain or itching. See previous notes: ABDOMINAL PAIN: Pt complains of LLQ pain intermittently. It will wake him up at night. About 12 years ago was diagnosed with Diverticulitis and pain feels similar to that. Pt had a normal colonoscopy over 10 years ago. Has been happening on and off for years. No fever or chills. No constipation or diarrhea. No bloody or black stools. No issues with urination. Last episode was several nights ago. ABDOMINAL PAIN: Pt c/o LLQ pain for the last 2 months. The pain occurs about 3-4 hours after going to bed. He will wake up with severe pain that feels like something pulling. Pain radiates into left testicle. He has in most nights, intensity of pain will vary. Patient has a history of diverticulitis in 2005, pain is in same location and similar. He did have a colonoscopy which was normal. ? Seen in September for pain in lower abd that had been on and off for 12 years. Was to have ct of the abdomen and to see gi. Was also asked several times to follow up in two weeks and did not return. He did come in for repeat iron which was ok and had an ifobt that was negative. ? He says it feels different than that. He has been getting a pain that is on his left side. Four or five hours into sleep it is pulling. Mild back pain. Is uncomfortable now. Was feeling normal between September and now it was ok. No cough or sneeze. No issues with lifting. Has been exercising regularly. No urinary symptoms. No testicular swelling. No nausea or vomiting or changes in the bowels. No radicular pain in the leg. He has had issues that are similar on and off in the chart for years. Also had an ultrasound several years ago that he was to have a repeat ultrasound on the testicle when I reviewed old records. ? MEDICATIONS: Current Outpatient Prescriptions: ibuprofen (MOTRIN) 200 mg tablet Take 200 mg by mouth every 6 hours as needed. Aspirin 81 mg Tab Take 1 tablet by mouth once daily. Take with food. No current facility-administered medications for this visit. ALLERGIES: ALLERGIES Allergen Reactions - Amoxil [Amoxicillin] Rash Generalized body rash- drug reaction Does well with omnicef - Sulfa (Sulfonamide * PAST MEDICAL HISTORY Diagnosis Date - Diarrhea - Internal hemorrhoids without mention of complication PAST SURGICAL HISTORY Procedure Laterality Date - COLONOSCOP W/ OR W/O [facility] SPEC 07/17/2017 Colonoscopy - COLONOSCOPY W/BX 01/02/06 - KNEE SCOPE,DIAGNOSTIC 2003 Arthroscopy, knee FAMILY HISTORY Problem Relation Age of Onset - Diabetes Mother - Heart Father Social History Marital status: Single Spouse name: Years of education: Number of children: 2 Occupational History Occupation Employer Comment [employer] Social History Main Topics Smoking status: Never Smoker Smokeless tobacco: Never Used Alcohol use: No Drug use: No Reviewed current medications, allergies, past medical history, surgical history, family history and social history today. REVIEW OF SYSTEMS All other reviewed and negative other than HPI. VITALS: BP 132/74 Pulse 64 Resp 16 Wt 86.6 kg (191 lb) BMI 26.45 kg/m? Last 4 Encounter Wt Readings: Date: Wt: 08/02/2017 86.6 kg (191 lb) 07/10/2017 89.4 kg (197 lb 1.5 oz) 06/11/2017 89.4 kg (197 lb) 04/03/2017 91.2 kg (201 lb) PHYSICAL EXAMINATION: General appearance: Well appearing, alert, in no acute distress, well-hydrated, well nourished. Skin: benign appearing mole. Appears to be a small sk. Lungs: Lungs clear to auscultation. No wheezing, rhonchi, rales Heart: RRR without murmur, gallop, or rubs. No ectopy Abdomen: Normal abdominal exam, Abdomen soft, non-tender. Bowel sounds normal. No masses, organomegaly Extremities: No deformities, edema, skin discoloration, clubbing or cyanosis. Good capillary refill. Musculoskeletal: No joint swelling, deformity, or tenderness ASSESSMENT/PLAN: 1. LLQ abdominal pain - ICD9: 789.04, ICD10: R10.32 (primary diagnosis) - Offered a number of options as above. For now he wishes to simply watch things. Suggested fluids and fiber. Call if worsens. 2. Skin lesion - ICD9: 709.9, ICD10: L98.9 - Red flags for re-assessment reviewed with patient in detail. 3. Renal insufficiency - ICD9: 593.9, ICD10: N28.9 - push fluids and avoid nsaids. - BASIC METABOLIC PNL Edgardo Zarco MD Referring Provider: SELF [200] Allergies As of Date: 08/02/2017 Noted Allergy Reaction AMOXIL (AMOXICILLIN) 01/14/2010 2 - Rash Comments: Generalized body rash- drug reaction Does well with omnicef SULFA (SULFONAMIDE ANTIBIOTICS) 03/02/2005 Date Reviewed: 08/02/2017 Reviewed by: Neli Tobar Ma - Fully Assessed Reason for Visit: Abdominal Pain [1] Mole [923] Primary Visit Diagnosis:LLQ abdominal pain [R10.32] Other Visit Diagnoses:Skin lesion [L98.9] Renal insufficiency [N28.9] Order(s):BASIC METABOLIC PNL [SQBMP] Order #: [id number] FUTURE Prescriptions as of 08/02/2017 Sig: IBUPROFEN 200 MG TABLET Take 200 mg by mouth every 6 * * ASPIRIN 81 MG TABLET Take 1 tablet by mouth once d* Problem List As Of Date 08/02/2017 Noted Resolved Diarrhea [R19.7] INVALID FOR*02/23/2014 INT HEMORRHOID W/O COMPL [K64.8] INVALID FOR* HEPATITIS IN VIRAL DIS [B19.9] INVALID FOR* Venous varices [I83.90] INVALID FOR* Visit Notes: >> Neli Tobar Ma [facility] Aug 02, 2017 8:00 AM Status: Signed ABDOMINAL PAIN: Pt still c/o LLQ pain. Pt saw general surgery and had colonoscopy done, normal. Pain wakes him up at night. MOLE: Mole on top of his head for one month. Disposition: Return if symptoms worsen or fail to improve. Follow-up and Disposition History Recorded Encounter Status:Closed by EDGARDO ZARCO MD on 08/02/17 NURSING PROG Observed: 07/17/2017 Status: COMPLETED Source: [place] 7:45 AM [facility] REPOSITORY HNO ID: [id number] Author: Flor Rubio RN Service: (none) Author Type: Registered Nurse Type: Nursing Progress Note Filed: 07/17/2017 7:46 AM Note Text: Patient did not experience a fall prior to discharge. Patient did not experience a burn prior to discharge. Flor Rubio RN NURSING PROG Observed: 07/17/2017 Status: COMPLETED Source: [place] 7:31 AM [facility] REPOSITORY HNO ID: [id number] Author: Flor Rubio RN Service: (none) Author Type: Registered Nurse Type: Nursing Progress Note Filed: 07/17/2017 7:32 AM Note Text: Pt sitting up in bed tolerating snack and drink. Denies pain or nausea. Girlfriend at bedside. Abd soft and nondistended. No complaints. Flor Rubio RN NURSING PROG Observed: 07/17/2017 Status: COMPLETED Source: [place] 7:20 AM [facility] REPOSITORY HNO ID: [id number] Author: Flor ChristinaRnKaye Rubio RN Service: (none) Author Type: Registered Nurse Type: Nursing Progress Note Filed: 07/17/2017 7:25 AM Note Text: Dr. Parnell was by and spoke with pt and girlfriend Demetria. Flor Rubio RN PT ED Observed: 07/17/2017 Status: COMPLETED Source: [place] 7:18 AM [facility] REPOSITORY HNO ID: [id number] Author: Flor Rubio RN Service: (none) Author Type: Registered Nurse Type: Patient Education Filed: 07/17/2017 7:18 AM Note Text: POST OP LEARNING RESPONSE INSTRUCTION PROVIDED TO: Patient and Significant Other METHOD OF INSTRUCTION: Individual instruction Written instruction - handouts Verbal instruction PATIENT / FAMILY RESPONSE: Verbalizes understanding of: MEDICAL REGIMEN-Importance of following prescribed medical regimen POST-PROCEDURE INSTRUCTIONS-Correct actions to take to reduce post procedure complications WORSENING CONDITION-Signs and symptoms of a worsening condition that warrant a call to the physician FOLLOW-UP PLAN: Patient instructed to call with any further issues Follow up phone call. Contact information given. SUPPLEMENTAL MATERIAL: Procedure discharge instructions REFERRAL (RECOMMENDATION): None Electronically Signed By: Flor Rubio RN In Department: AMBULATORY SURGERY NURSING PROG Observed: 07/17/2017 Status: COMPLETED Source: [place] 7:08 AM [facility] REPOSITORY HNO ID: [id number] Author: Breanna Mullins RN Service: Nursing Author Type: Registered Nurse Type: Nursing Progress Note Filed: 07/17/2017 7:09 AM Note Text: Patient did not experience a fall within the Intraoperative area. Patient did not experience a burn within the Intraoperative area. Breanna Mullins RN NURSING PROG Observed: 07/17/2017 Status: COMPLETED Source: [place] 6:36 AM [facility] REPOSITORY HNO ID: [id number] Author: Peyton ChristinaRnKaye Malagon RN Service: Nursing Author Type: Registered Nurse Type: Nursing Progress Note Filed: 07/17/2017 6:40 AM Note Text: [facility] PRE-OP NURSING HAND OFF NOTE SBAR Hand off given to Breanna Mullins RN. Hand off was communicated verbally and at the patient's bedside and all questions were answered. FALLS/BRAND Patient did not experience a fall within the Preoperative area. Patient did not experience a burn within the Preoperative area. Peyton Malagon RN HISTORY PHYSICAL Observed: 07/17/2017 Status: COMPLETED Source: [place] 6:21 AM [facility] REPOSITORY HNO ID: [id number] Author: Nayan Janelle Parnell Service: General Surgery Author Type: Physician Type: HANDP Filed: 07/17/2017 6:21 AM Note Text: HISTORY AND PHYSICAL ? Terri Morales 1950 ? ? REFERRING PHYSICIAN: Edgardo Zarco MD ? CHIEF COMPLAINT: Consult (abdominal pain) ? HPI: The patient is a 66 year old male with a complaint of left lower quadrant pain. The patient notes a long-standing history of episodic left lower quadrant pain. The patient's noted. He has had this pain for greater than 12 years. The patient was seen in the past and had a colonoscopy for both diarrhea and left lower quadrant pain in 2005, which was unremarkable. This was performed by Dr. Calderon. The patient had a low volume prep and blamed liver function abnormalities/questionable hepatitis on the bowel prep at that time. He also comes stating that he is not wish to consider other colonoscopy and and states he was informed by his physician that a stool card test is more accurate than an endoscopy. ? He had a CT scan of the abdomen and pelvis in 2007, which was also relatively unremarkable but my review that scan does show what looked like a small left inguinal hernia at that time. ? The patient denies pain after eating. He denies pain with lifting or moving. He notes the pain will typically bother him occasionally at night. He is seen primary care for these complaints. He has orders for both CT scans and ultrasound of the scrotum, which he has not had performed yet. ? ? The patient is being seen by me today at the request of Dr. Edgardo Zarco MD for my opinion and advice regarding left lower quadrant pain. ? Follow-up CT scan was reviewed unremarkable, but I still felt there was likely a small left inguinal hernia present. ? PAST MEDICAL HISTORY PAST MEDICAL HISTORY Diagnosis Date - Diarrhea ? - Internal hemorrhoids without mention of complication ? ? ? PAST SURGICAL HISTORY PAST SURGICAL HISTORY Procedure Laterality Date - COLONOSCOPY W/BX ? 01/02/06 - KNEE SCOPE,DIAGNOSTIC ? 2002 ? Arthroscopy, knee ? ? ? CURRENT MEDICATIONS ? Current Outpatient Prescriptions: ibuprofen (MOTRIN) 200 mg tablet Take 200 mg by mouth every 6 hours as needed. Aspirin 81 mg Tab Take 1 tablet by mouth once daily. Take with food. ? No current facility-administered medications for this visit. ? ALLERGIES: Amoxil [Amoxicillin]; Sulfa (Sulfonamide Antibiotics) ? PERSONAL HISTORY: SOCIAL HISTORY Social History Marital status: Single Spouse name: Years of education: Number of children: 2 ? Occupational History Occupation Employer Comment [employer] ? Social History Main Topics Smoking status: Never Smoker ? Smokeless tobacco: Never Used Alcohol use: No Drug use: No ? FAMILY HISTORY: FAMILY HISTORY FAMILY HISTORY Problem Relation Age of Onset - Diabetes Mother ? - Heart Father ? ? ? REVIEW OF SYMPTOMS: The review of systems data was entered by the nurse and reviewed by me ? There are no exam notes on file for this visit. PHYSICAL EXAMINATION: ? General: The patient is 66 year old male, well nourished, well hydrated in no acute distress. The patient is oriented to time, place, and person. ? VITALS: There were no vitals taken for this visit. ? HEENT: Normal cephalic, ataumatic, pupils are equally round, sclera are anicteric, mucous membranes are moist, oropharynx is clear. Neck has no masses, asymmetry or lymphadenopathy. Thyroid is unremarkable. ? Respiratory: Clear to auscultation and percussion. Normal respiratory excursion and pattern. ? Cardiac: Examination is regular rate and rhythm. ? Abdominal exam: Soft, nontender, with no palpable masses. No hepatosplenomegaly. A small , reducible left inguinal hernia, otherwise no umbilical or right palpable hernias. ? Rectal exam: exam deferred ? Extremities: no clubbing, cyanosis or edema. No adenopathy. ? Other: ? ? LABORATORY VALUES: As Noted ? RADIOLOGIC STUDIES: As Noted ? Assessment IMPRESSION: Left lower quadrant pain, clinically not suspicious for chronic diverticulitis. Atypical for a left inguinal hernia ? PLAN: I would recommend colonoscopy. We discussed the risk and benefits of colonoscopy versus fecal occult blood testing versus new stool DNA type testing. I discussed with the patient that this would not demonstrate any abnormalities related to chronic diverticulitis or colonic narrowing which might be causing his symptoms. He will return after CT scan and we will discuss the next steps in his evaluation. The patient has elected to undergo colonoscopy. We discussed the risks and benefits of the planned endoscopy. I have informed the patient that complications can occur including failure to complete the endoscopy and perforation. The patient had the opportunity to ask questions concerning the planned endoscopy. My staff has also explained the procedure to the patient in understandable terms and has given the patient printed material concerning the procedure. The patient freely consents to surgery. ? ? Diagnoses: (Z12.11) Screening for colon cancer (primary encounter diagnosis) ? My findings have been communicated to Dr. Edgardo Zarco MD via shared medical record. This note will be forwarded to Dr. Edgardo Zarco MD. Return to Clinic: The patient is instructed to follow-up with me after the testing has been completed. ? This note was partially generated using VeriWave voice recognition system, and there may be some incorrect words, spellings, and punctuation that were not noted in checking the note before saving. ? Nayan Parnell MD PT ED Observed: 07/17/2017 Status: COMPLETED Source: [place] 6:05 AM [facility] REPOSITORY HNO ID: [id number] Author: Peyton (Rn) SEDA Malagon Service: Nursing Author Type: Registered Nurse Type: Patient Education Filed: 07/17/2017 6:05 AM Note Text: PRE OP LEARNING ASSESSMENT PROCEDURE/SURGERY: GI PROCEDURES: Colonoscopy READINESS TO LEARN COGNITIVE ABILITY: Alert and oriented MOTIVATION TO LEARN: Eager Interested FAMILY SUPPORT: None - Unavailable/disinterested PATIENT LEARNS BEST BY: Individual Instruction Written Instruction - Hand-outs Verbal Instruction FACTORS AFFECTING LEARNING: None PHYSICAL LIMITATIONS AFFECTING LEARNING: None Electronically Signed By: Peyton Malagon RN In Department: AMBULATORY SURGERY PROGRESS Observed: 07/11/2017 Status: COMPLETED Source: [place] 7:45 PM [facility] REPOSITORY HNO ID: [id number] Author: Nayan Parnell Service: (none) Author Type: Physician Type: Progress Notes Filed: 07/11/2017 7:46 PM Note Text: HISTORY AND PHYSICAL Terri Morales 1950 REFERRING PHYSICIAN: Edgardo Zarco MD CHIEF COMPLAINT: Consult (abdominal pain) HPI: The patient is a 66 year old male with a complaint of left lower quadrant pain. The patient notes a long-standing history of episodic left lower quadrant pain. The patient's noted. He has had this pain for greater than 12 years. The patient was seen in the past and had a colonoscopy for both diarrhea and left lower quadrant pain in 2005, which was unremarkable. This was performed by Dr. Calderon. The patient had a low volume prep and blamed liver function abnormalities/questionable hepatitis on the bowel prep at that time. He also comes stating that he is not wish to consider other colonoscopy and and states he was informed by his physician that a stool card test is more accurate than an endoscopy. He had a CT scan of the abdomen and pelvis in 2007, which was also relatively unremarkable but my review that scan does show what looked like a small left inguinal hernia at that time. The patient denies pain after eating. He denies pain with lifting or moving. He notes the pain will typically bother him occasionally at night. He is seen primary care for these complaints. He has orders for both CT scans and ultrasound of the scrotum, which he has not had performed yet. The patient is being seen by me today at the request of Dr. Edgardo Zarco MD for my opinion and advice regarding left lower quadrant pain. Follow-up CT scan was reviewed unremarkable, but I still felt there was likely a small left inguinal hernia present. PAST MEDICAL HISTORY Diagnosis Date - Diarrhea - Internal hemorrhoids without mention of complication PAST SURGICAL HISTORY Procedure Laterality Date - COLONOSCOPY W/BX 01/02/06 - KNEE SCOPE,DIAGNOSTIC 2002 Arthroscopy, knee Current Outpatient Prescriptions: ibuprofen (MOTRIN) 200 mg tablet Take 200 mg by mouth every 6 hours as needed. Aspirin 81 mg Tab Take 1 tablet by mouth once daily. Take with food. No current facility-administered medications for this visit. ALLERGIES: Amoxil [Amoxicillin]; Sulfa (Sulfonamide Antibiotics) PERSONAL HISTORY: Social History Marital status: Single Spouse name: Years of education: Number of children: 2 Occupational History Occupation Employer Comment [employer] Social History Main Topics Smoking status: Never Smoker Smokeless tobacco: Never Used Alcohol use: No Drug use: No FAMILY HISTORY: FAMILY HISTORY Problem Relation Age of Onset - Diabetes Mother - Heart Father REVIEW OF SYMPTOMS: The review of systems data was entered by the nurse and reviewed by me There are no exam notes on file for this visit. PHYSICAL EXAMINATION: General: The patient is 66 year old male, well nourished, well hydrated in no acute distress. The patient is oriented to time, place, and person. VITALS: There were no vitals taken for this visit. HEENT: Normal cephalic, ataumatic, pupils are equally round, sclera are anicteric, mucous membranes are moist, oropharynx is clear. Neck has no masses, asymmetry or lymphadenopathy. Thyroid is unremarkable. Respiratory: Clear to auscultation and percussion. Normal respiratory excursion and pattern. Cardiac: Examination is regular rate and rhythm. Abdominal exam: Soft, nontender, with no palpable masses. No hepatosplenomegaly. A small , reducible left inguinal hernia, otherwise no umbilical or right palpable hernias. Rectal exam: exam deferred Extremities: no clubbing, cyanosis or edema. No adenopathy. Other: LABORATORY VALUES: As Noted RADIOLOGIC STUDIES: As Noted Assessment IMPRESSION: Left lower quadrant pain, clinically not suspicious for chronic diverticulitis. Atypical for a left inguinal hernia PLAN: I would recommend colonoscopy. We discussed the risk and benefits of colonoscopy versus fecal occult blood testing versus new stool DNA type testing. I discussed with the patient that this would not demonstrate any abnormalities related to chronic diverticulitis or colonic narrowing which might be causing his symptoms. He will return after CT scan and we will discuss the next steps in his evaluation. The patient has elected to undergo colonoscopy. We discussed the risks and benefits of the planned endoscopy. I have informed the patient that complications can occur including failure to complete the endoscopy and perforation. The patient had the opportunity to ask questions concerning the planned endoscopy. My staff has also explained the procedure to the patient in understandable terms and has given the patient printed material concerning the procedure. The patient freely consents to surgery. Diagnoses: (Z12.11) Screening for colon cancer (primary encounter diagnosis) My findings have been communicated to Dr. Edgardo Zarco MD via shared medical record. This note will be forwarded to Dr. Edgardo Zarco MD. Return to Clinic: The patient is instructed to follow-up with me after the testing has been completed. This note was partially generated using VeriWave voice recognition system, and there may be some incorrect words, spellings, and punctuation that were not noted in checking the note before saving. Nayan Parnell MD CNOV Observed: 07/10/2017 Status: COMPLETED Source: [place] 3:30 PM [facility] REPOSITORY Office Visit (GENSWS) MORALESTERRI Shin ([id number]) 1950 M Date Time Provider Department 07/10/17 3:30 PM NAYAN PARNELL During your visit today, we recorded the following information about you: Nayan Parnell MD 07/10/2017 5:03 PM Signed How to Prepare for Your Colonoscopy Using Golytely, Nulytely, Trilyte or Colyte Preparations with Conscious Sedation IMPORTANT - Read These Instructions at Least 2 Weeks Before your Colonoscopy [place] Instructions: ? Your bowel must be empty so that your doctor can clearly view your colon. Follow all of the instructions in this handout EXACTLY as they are written. If you do NOT follow the directions for when to start drinking the bowel preparation, your colonoscopy WILL be cancelled. ? Do NOT eat any solid food the ENTIRE day before your colonoscopy. ? Buy your bowel preparation at least 5 days before your colonoscopy. ? Do NOT mix the solution until the day before your colonoscopy. Designated Mat Machine Tender on the Day of Your Exam A responsible family member or friend MUST come with you to your colonoscopy and REMAIN in the endoscopy area until you are discharged. You are NOT ALLOWED to drive, take a taxi or bus, or leave the Endoscopy Center ALONE. If you do not have a responsible certified driver examiner (family member or friend) with you to take you home, you exam cannot be done with sedation and will be cancelled. Medications Some of the medications you take may need to be stopped or adjusted before your colonoscopy. You MUST call the doctor who ordered any of the following medicines at least 2 weeks before your colonoscopy. ? Blood thinners - such as Coumadin (warfarin), Plavix (clopidogrel), Ticlid (ticlopidine hydrochloride), Agrylin (anagrelide), Xarelto (Rivaroxaban), Pradaxa (Dabigatran), Eliquis (Apixaban), and Effient (Prasugrel). ? Insulin or diabetes pills. Please call the doctor that monitors your glucose levels. Your insulin dosage may need to be adjusted due to the diet restrictions required with this bowel preparation. (Please bring your diabetes medicines with you on the day of your procedure.) If you take aspirin, take it and ALL other medications prescribed by your doctor. On the day of your colonoscopy, take your medications with a sip of water. Five (5) Days Before Your Colonoscopy ? Do NOT take medicines that stop diarrhea - such as Imodium, Kaopectate, or Pepto Bismol. ? Do NOT take fiber supplements - such as Metamucil, Citrucel, or Perdiem. ? Do NOT take products that contain iron - such as multi-vitamins (the label lists what is in the products). ? Do NOT take Vitamin E. Buy the prescription bowel preparation solution at your local pharmacy or drugstore pharmacy. Three (3) Days Before Your Colonoscopy ? Do NOT eat high-fiber foods - such as popcorn, beans, seeds (flax, sunflower, quinoa), multigrain bread, nuts, salad/vegetables, or fresh and dried fruit. One (1) Day Before Your Colonoscopy Only drink clear liquids the ENTIRE DAY before your colonoscopy. Do NOT eat any solid foods. Drink at least 8 ounces of clear liquids every hour after waking up. The clear liquids you can drink include: ? Water, apple, or white grape juice; broth; coffee or tea (without milk or creamer); clear carbonated beverages such as maxim aidee or lemon-seldovia soda; Gatorade or other sports drinks (not red); Jt-Aid or other flavored drinks (not red). You may eat plain jello or other gelatins (not red) or popsicles (not red). Do NOT drink alcohol on the day before or the day of the procedure. When to Mix and Drink Your Bowel Prep Follow the instructions on the label. After mixing, place the solution in the refrigerator for a couple of hours before drinking. You may add the flavor pack that came with the bowel preparation. Do NOT add ice, sugar or any flavorings to the solution. Morning Appointment (Before 12 noon) Step 1: ? Start drinking the bowel preparation at 6 PM the evening before your colonoscopy. Drink an 8-oz glass of bowel preparation every 10 minutes for a total of 8 glasses. ? You may continue to drink clear liquids until bedtime. Step 2: The day of the colonoscopy (4 hours before your exam). ? Drink an 8-oz glass of bowel preparation every 10 minutes for a total of 8 glasses. ? You may continue to drink clear liquids up to 2 hours before your exam. If you take aspirin, take it and ALL other prescribed medicines with a sip of water on the day of your colonoscopy. Afternoon Appointment (After 12 noon) ? Start drinking the bowel preparation at 6 AM the day of your colonoscopy. Drink an 8-oz glass of bowel preparation every 10 minutes. You must finish drinking the solution by 9 AM. ? You may continue to drink clear liquids up to 2 hours before your exam. If you take aspirin, take it and ALL other prescribed medicines with a sip of water on the day of your colonoscopy. Nayan Parnell MD 07/11/2017 7:46 PM Signed HISTORY AND PHYSICAL Terri Lisa Morales 1950 REFERRING PHYSICIAN: Edgardo Zarco MD CHIEF COMPLAINT: Consult (abdominal pain) HPI: The patient is a 66 year old male with a complaint of left lower quadrant pain. The patient notes a long-standing history of episodic left lower quadrant pain. The patient's noted. He has had this pain for greater than 12 years. The patient was seen in the past and had a colonoscopy for both diarrhea and left lower quadrant pain in 2005, which was unremarkable. This was performed by Dr. Calderon. The patient had a low volume prep and blamed liver function abnormalities/questionable hepatitis on the bowel prep at that time. He also comes stating that he is not wish to consider other colonoscopy and and states he was informed by his physician that a stool card test is more accurate than an endoscopy. He had a CT scan of the abdomen and pelvis in 2007, which was also relatively unremarkable but my review that scan does show what looked like a small left inguinal hernia at that time. The patient denies pain after eating. He denies pain with lifting or moving. He notes the pain will typically bother him occasionally at night. He is seen primary care for these complaints. He has orders for both CT scans and ultrasound of the scrotum, which he has not had performed yet. The patient is being seen by me today at the request of Dr. Edgardo Zarco MD for my opinion and advice regarding left lower quadrant pain. Follow-up CT scan was reviewed unremarkable, but I still felt there was likely a small left inguinal hernia present. PAST MEDICAL HISTORY Diagnosis Date - Diarrhea - Internal hemorrhoids without mention of complication PAST SURGICAL HISTORY Procedure Laterality Date - COLONOSCOPY W/BX 01/02/06 - KNEE SCOPE,DIAGNOSTIC 2002 Arthroscopy, knee Current Outpatient Prescriptions: ibuprofen (MOTRIN) 200 mg tablet Take 200 mg by mouth every 6 hours as needed. Aspirin 81 mg Tab Take 1 tablet by mouth once daily. Take with food. No current facility-administered medications for this visit. ALLERGIES: Amoxil [Amoxicillin]; Sulfa (Sulfonamide Antibiotics) PERSONAL HISTORY: Social History Marital status: Single Spouse name: Years of education: Number of children: 2 Occupational History Occupation Employer Comment [employer] Social History Main Topics Smoking status: Never Smoker Smokeless tobacco: Never Used Alcohol use: No Drug use: No FAMILY HISTORY: FAMILY HISTORY Problem Relation Age of Onset - Diabetes Mother - Heart Father REVIEW OF SYMPTOMS: The review of systems data was entered by the nurse and reviewed by me There are no exam notes on file for this visit. PHYSICAL EXAMINATION: General: The patient is 66 year old male, well nourished, well hydrated in no acute distress. The patient is oriented to time, place, and person. VITALS: There were no vitals taken for this visit. HEENT: Normal cephalic, ataumatic, pupils are equally round, sclera are anicteric, mucous membranes are moist, oropharynx is clear. Neck has no masses, asymmetry or lymphadenopathy. Thyroid is unremarkable. Respiratory: Clear to auscultation and percussion. Normal respiratory excursion and pattern. Cardiac: Examination is regular rate and rhythm. Abdominal exam: Soft, nontender, with no palpable masses. No hepatosplenomegaly. A small , reducible left inguinal hernia, otherwise no umbilical or right palpable hernias. Rectal exam: exam deferred Extremities: no clubbing, cyanosis or edema. No adenopathy. Other: LABORATORY VALUES: As Noted RADIOLOGIC STUDIES: As Noted Assessment IMPRESSION: Left lower quadrant pain, clinically not suspicious for chronic diverticulitis. Atypical for a left inguinal hernia PLAN: I would recommend colonoscopy. We discussed the risk and benefits of colonoscopy versus fecal occult blood testing versus new stool DNA type testing. I discussed with the patient that this would not demonstrate any abnormalities related to chronic diverticulitis or colonic narrowing which might be causing his symptoms. He will return after CT scan and we will discuss the next steps in his evaluation. The patient has elected to undergo colonoscopy. We discussed the risks and benefits of the planned endoscopy. I have informed the patient that complications can occur including failure to complete the endoscopy and perforation. The patient had the opportunity to ask questions concerning the planned endoscopy. My staff has also explained the procedure to the patient in understandable terms and has given the patient printed material concerning the procedure. The patient freely consents to surgery. Diagnoses: (Z12.11) Screening for colon cancer (primary encounter diagnosis) My findings have been communicated to Dr. Edgardo Zarco MD via shared medical record. This note will be forwarded to Dr. Edgardo Zarco MD. Return to Clinic: The patient is instructed to follow-up with me after the testing has been completed. This note was partially generated using VeriWave voice recognition system, and there may be some incorrect words, spellings, and punctuation that were not noted in checking the note before saving. Nayan Parnell MD Referring Provider: NAYAN PARNELL [[id number]] Allergies As of Date: 07/10/2017 Noted Allergy Reaction AMOXIL (AMOXICILLIN) 01/14/2010 2 - Rash Comments: Generalized body rash- drug reaction Does well with omnicef SULFA (SULFONAMIDE ANTIBIOTICS) 03/02/2005 Date Reviewed: 07/10/2017 Reviewed by: Mykel Engel LPN - Fully Assessed Reason for Visit: Established Patient [175] Cmt: F/u Abd pain /CT results Reason For Visit History Recorded Primary Visit Diagnosis:Screening for colon cancer [Z12.11] Order(s):[] peg 3350-Electrolytes (GOLYTELY) 236-22.74-6.74 -5.86 gram suspensionTake 4,000 mL by mouth one time only for 1 dose. Refer to printed prep instructions from your doctor.Disp: 1 BottleRfl: 0 FAY PT ED DIGESTIVE DISEASES [[id number]] Order #: [id number]. #:[id number]: 1 COLONOSCOPY SCRN NOT HIGH RISK [[id number]] Order #: [id number] FUTURE Prescriptions as of 07/10/2017 Sig: IBUPROFEN 200 MG TABLET Take 200 mg by mouth every 6 * * ASPIRIN 81 MG TABLET Take 1 tablet by mouth once d* PEG 3350-ELECTROLYTES 236 GRA* Take 4,000 mL by mouth one ti* Problem List As Of Date 07/10/2017 Noted Resolved Diarrhea [R19.7] INVALID FOR*02/23/2014 INT HEMORRHOID W/O COMPL [K64.8] INVALID FOR* HEPATITIS IN VIRAL DIS [B19.9] INVALID FOR* Venous varices [I83.90] INVALID FOR* Other instructions from your clinician: How to Prepare for Your Colonoscopy Using Golytely, Nulytely, Trilyte or Colyte Preparations with Conscious Sedation IMPORTANT - Read These Instructions at Least 2 Weeks Before your Colonoscopy [place] Instructions: ? Your bowel must be empty so that your doctor can clearly view your colon. Follow all of the instructions in this handout EXACTLY as they are written. If you do NOT follow the directions for when to start drinking the bowel preparation, your colonoscopy WILL be cancelled. ? Do NOT eat any solid food the ENTIRE day before your colonoscopy. ? Buy your bowel preparation at least 5 days before your colonoscopy. ? Do NOT mix the solution until the day before your colonoscopy. Designated Mat Machine Tender on the Day of Your Exam A responsible family member or friend MUST come with you to your colonoscopy and REMAIN in the endoscopy area until you are discharged. You are NOT ALLOWED to drive, take a taxi or bus, or leave the Endoscopy Center ALONE. If you do not have a responsible certified driver examiner (family member or friend) with you to take you home, you exam cannot be done with sedation and will be cancelled. Medications Some of the medications you take may need to be stopped or adjusted before your colonoscopy. You MUST call the doctor who ordered any of the following medicines at least 2 weeks before your colonoscopy. ? Blood thinners - such as Coumadin (warfarin), Plavix (clopidogrel), Ticlid (ticlopidine hydrochloride), Agrylin (anagrelide), Xarelto (Rivaroxaban), Pradaxa (Dabigatran), Eliquis (Apixaban), and Effient (Prasugrel). ? Insulin or diabetes pills. Please call the doctor that monitors your glucose levels. Your insulin dosage may need to be adjusted due to the diet restrictions required with this bowel preparation. (Please bring your diabetes medicines with you on the day of your procedure.) If you take aspirin, take it and ALL other medications prescribed by your doctor. On the day of your colonoscopy, take your medications with a sip of water. Five (5) Days Before Your Colonoscopy ? Do NOT take medicines that stop diarrhea - such as Imodium, Kaopectate, or Pepto Bismol. ? Do NOT take fiber supplements - such as Metamucil, Citrucel, or Perdiem. ? Do NOT take products that contain iron - such as multi- vitamins (the label lists what is in the products). ? Do NOT take Vitamin E. Buy the prescription bowel preparation solution at your local pharmacy or drugstore pharmacy. Three (3) Days Before Your Colonoscopy ? Do NOT eat high-fiber foods - such as popcorn, beans, seeds (flax, sunflower, quinoa), multigrain bread, nuts, salad/vegetables, or fresh and dried fruit. One (1) Day Before Your Colonoscopy Only drink clear liquids the ENTIRE DAY before your colonoscopy. Do NOT eat any solid foods. Drink at least 8 ounces of clear liquids every hour after waking up. The clear liquids you can drink include: ? Water, apple, or white grape juice; broth; coffee or tea (without milk or creamer); clear carbonated beverages such as maxim aidee or lemon-seldovia soda; Gatorade or other sports drinks (not red); Jt- Aid or other flavored drinks (not red). You may eat plain jello or other gelatins (not red) or popsicles (not red). Do NOT drink alcohol on the day before or the day of the procedure. When to Mix and Drink Your Bowel Prep Follow the instructions on the label. After mixing, place the solution in the refrigerator for a couple of hours before drinking. You may add the flavor pack that came with the bowel preparation. Do NOT add ice, sugar or any flavorings to the solution. Morning Appointment (Before 12 noon) Step 1: ? Start drinking the bowel preparation at 6 PM the evening before your colonoscopy. Drink an 8-oz glass of bowel preparation every 10 minutes for a total of 8 glasses. ? You may continue to drink clear liquids until bedtime. Step 2: The day of the colonoscopy (4 hours before your exam). ? Drink an 8-oz glass of bowel preparation every 10 minutes for a total of 8 glasses. ? You may continue to drink clear liquids up to 2 hours before your exam. If you take aspirin, take it and ALL other prescribed medicines with a sip of water on the day of your colonoscopy. Afternoon Appointment (After 12 noon) ? Start drinking the bowel preparation at 6 AM the day of your colonoscopy. Drink an 8-oz glass of bowel preparation every 10 minutes. You must finish drinking the solution by 9 AM. ? You may continue to drink clear liquids up to 2 hours before your exam. If you take aspirin, take it and ALL other prescribed medicines with a sip of water on the day of your colonoscopy. Prescriptions ordered this encounter Disp Refills Start End PEG 3350-ELECTROLYTES 236 GRAM-22.74* 1 Alber* 0 07/10/2017 07/10/2017 Route: ORAL Sig: Take 4,000 mL by mouth one time only for 1 dose. Refer to printed prep instructions from your doctor. Encounter Status:Closed by NAYAN PARNELL MD on 07/11/17 HOSP Observed: 07/10/2017 Status: COMPLETED Source: [place] 12:00 AM [facility] REPOSITORY Patient:Terri Morales MRN: <[id number]> Height:5' 11.26(1.81 m) Weight:197 lb 1.5 oz (89.4 kg) Outpatient Medications as of 07/17/17: ibuprofen (MOTRIN) 200 mg tablet Aspirin 81 mg Tab Admission/Clinic Administered Medications as of 07/17/17: lactated ringers infusion Problem List: Internal hemorrhoids without mention of complication [K64.8] Hepatitis in viral diseases classified elsewhere(573.1) [B19.9] Venous varices [I83.90] Allergies: Amoxil [Amoxicillin] Sulfa (Sulfonamide Antibiotics) Date Verified: 07/17/17 Lab Values No results within the last 30 days for the following basenames: K,HCT Progress Notes ([facility]): Matt Maurer Surg Coord 07/10/2017 5:14 PM Signed 07-17-2017 Colon [facility] Matt Maurer Surg Coord Progress Notes ([facility]): Nayan Parnell MD 07/10/2017 5:03 PM Signed How to Prepare for Your Colonoscopy Using Golytely, Nulytely, Trilyte or Colyte Preparations with Conscious Sedation IMPORTANT - Read These Instructions at Least 2 Weeks Before your Colonoscopy Graham Instructions: ? Your bowel must be empty so that your doctor can clearly view your colon. Follow all of the instructions in this handout EXACTLY as they are written. If you do NOT follow the directions for when to start drinking the bowel preparation, your colonoscopy WILL be cancelled. ? Do NOT eat any solid food the ENTIRE day before your colonoscopy. ? Buy your bowel preparation at least 5 days before your colonoscopy. ? Do NOT mix the solution until the day before your colonoscopy. Designated Mat Machine Tender on the Day of Your Exam A responsible family member or friend MUST come with you to your colonoscopy and REMAIN in the endoscopy area until you are discharged. You are NOT ALLOWED to drive, take a taxi or bus, or leave the Endoscopy Center ALONE. If you do not have a responsible certified driver examiner (family member or friend) with you to take you home, you exam cannot be done with sedation and will be cancelled. Medications Some of the medications you take may need to be stopped or adjusted before your colonoscopy. You MUST call the doctor who ordered any of the following medicines at least 2 weeks before your colonoscopy. ? Blood thinners - such as Coumadin (warfarin), Plavix (clopidogrel), Ticlid (ticlopidine hydrochloride), Agrylin (anagrelide), Xarelto (Rivaroxaban), Pradaxa (Dabigatran), Eliquis (Apixaban), and Effient (Prasugrel). ? Insulin or diabetes pills. Please call the doctor that monitors your glucose levels. Your insulin dosage may need to be adjusted due to the diet restrictions required with this bowel preparation. (Please bring your diabetes medicines with you on the day of your procedure.) If you take aspirin, take it and ALL other medications prescribed by your doctor. On the day of your colonoscopy, take your medications with a sip of water. Five (5) Days Before Your Colonoscopy ? Do NOT take medicines that stop diarrhea - such as Imodium, Kaopectate, or Pepto Bismol. ? Do NOT take fiber supplements - such as Metamucil, Citrucel, or Perdiem. ? Do NOT take products that contain iron - such as multi-vitamins (the label lists what is in the products). ? Do NOT take Vitamin E. Buy the prescription bowel preparation solution at your local pharmacy or drugstore pharmacy. Three (3) Days Before Your Colonoscopy ? Do NOT eat high-fiber foods - such as popcorn, beans, seeds (flax, sunflower, quinoa), multigrain bread, nuts, salad/vegetables, or fresh and dried fruit. One (1) Day Before Your Colonoscopy Only drink clear liquids the ENTIRE DAY before your colonoscopy. Do NOT eat any solid foods. Drink at least 8 ounces of clear liquids every hour after waking up. The clear liquids you can drink include: ? Water, apple, or white grape juice; broth; coffee or tea (without milk or creamer); clear carbonated beverages such as maxim aidee or lemon-seldovia soda; Gatorade or other sports drinks (not red); Jt-Aid or other flavored drinks (not red). You may eat plain jello or other gelatins (not red) or popsicles (not red). Do NOT drink alcohol on the day before or the day of the procedure. When to Mix and Drink Your Bowel Prep Follow the instructions on the label. After mixing, place the solution in the refrigerator for a couple of hours before drinking. You may add the flavor pack that came with the bowel preparation. Do NOT add ice, sugar or any flavorings to the solution. Morning Appointment (Before 12 noon) Step 1: ? Start drinking the bowel preparation at 6 PM the evening before your colonoscopy. Drink an 8-oz glass of bowel preparation every 10 minutes for a total of 8 glasses. ? You may continue to drink clear liquids until bedtime. Step 2: The day of the colonoscopy (4 hours before your exam). ? Drink an 8-oz glass of bowel preparation every 10 minutes for a total of 8 glasses. ? You may continue to drink clear liquids up to 2 hours before your exam. If you take aspirin, take it and ALL other prescribed medicines with a sip of water on the day of your colonoscopy. Afternoon Appointment (After 12 noon) ? Start drinking the bowel preparation at 6 AM the day of your colonoscopy. Drink an 8-oz glass of bowel preparation every 10 minutes. You must finish drinking the solution by 9 AM. ? You may continue to drink clear liquids up to 2 hours before your exam. If you take aspirin, take it and ALL other prescribed medicines with a sip of water on the day of your colonoscopy. Nayan Parnell MD 07/11/2017 7:46 PM Signed HISTORY AND PHYSICAL Terri Lisa Morales 1950 REFERRING PHYSICIAN: Edgardo Zarco MD CHIEF COMPLAINT: Consult (abdominal pain) HPI: The patient is a 66 year old male with a complaint of left lower quadrant pain. The patient notes a long-standing history of episodic left lower quadrant pain. The patient's noted. He has had this pain for greater than 12 years. The patient was seen in the past and had a colonoscopy for both diarrhea and left lower quadrant pain in 2005, which was unremarkable. This was performed by Dr. Calderon. The patient had a low volume prep and blamed liver function abnormalities/questionable hepatitis on the bowel prep at that time. He also comes stating that he is not wish to consider other colonoscopy and and states he was informed by his physician that a stool card test is more accurate than anendoscopy. He had a CT scan of the abdomen and pelvis in 2007, which was also relatively unremarkable but my review that scan does show what looked like a small left inguinal hernia at that time. The patient denies pain after eating. He denies pain with lifting or moving. He notes the pain will typically bother him occasionally at night. He is seen primary care for these complaints. He has orders for both CT scans and ultrasound of the scrotum, which he has not had performed yet. The patient is being seen by me today at the request of Dr. Edgardo Zarco MD for my opinion and advice regarding left lower quadrant pain. Follow-up CT scan was reviewed unremarkable, but I still felt there was likely a small left inguinal hernia present. PAST MEDICAL HISTORY Diagnosis Date - Diarrhea - Internal hemorrhoids without mention of complication PAST SURGICAL HISTORY Procedure Laterality Date - COLONOSCOPY W/BX 01/02/06 - KNEE SCOPE,DIAGNOSTIC 2002 Arthroscopy, knee Current Outpatient Prescriptions: ibuprofen (MOTRIN) 200 mg tablet Take 200 mg by mouth every 6 hours as needed. Aspirin 81 mg Tab Take 1 tablet by mouth once daily. Take with food. No current facility-administered medications for this visit. ALLERGIES: Amoxil [Amoxicillin]; Sulfa (Sulfonamide Antibiotics) PERSONAL HISTORY: Social History Marital status: Single Spouse name: Years of education: Number of children: 2 Occupational History Occupation Employer Comment [employer] Social History Main Topics Smoking status: Never Smoker Smokeless tobacco: Never Used Alcohol use: No Drug use: No FAMILY HISTORY: FAMILY HISTORY Problem Relation Age of Onset - Diabetes Mother - Heart Father REVIEW OF SYMPTOMS: The review of systems data was entered by the nurse and reviewed by me There are no exam notes on file for this visit. PHYSICAL EXAMINATION: General: The patient is 66 year old male, well nourished, well hydrated in no acute distress. The patient is oriented to time, place, and person. VITALS: There were no vitals taken for this visit. HEENT: Normal cephalic, ataumatic, pupils are equally round, sclera are anicteric, mucous membranes are moist, oropharynx is clear. Neck has no masses, asymmetry or lymphadenopathy. Thyroid is unremarkable. Respiratory: Clear to auscultation and percussion. Normal respiratory excursion and pattern. Cardiac: Examination is regular rate and rhythm. Abdominal exam: Soft, nontender, with no palpable masses. No hepatosplenomegaly. A small , reducible left inguinal hernia, otherwise no umbilical or right palpable hernias. Rectal exam: exam deferred Extremities: no clubbing, cyanosis or edema. No adenopathy. Other: LABORATORY VALUES: As Noted RADIOLOGIC STUDIES: As Noted Assessment IMPRESSION: Left lower quadrant pain, clinically not suspicious for chronic diverticulitis. Atypical for a left inguinal hernia PLAN: I would recommend colonoscopy. We discussed the risk and benefits of colonoscopy versus fecal occult blood testing versus new stool DNA type testing. I discussed with the patient that this would not demonstrate any abnormalities related to chronic diverticulitis or colonic narrowing which might be causing his symptoms. He will return after CT scan and we will discuss the next steps in his evaluation. The patient has elected to undergo colonoscopy. We discussed the risks and benefits of the planned endoscopy. I have informed the patient that complications can occur including failure to complete the endoscopy and perforation. The patient had the opportunity to ask questions concerning the planned endoscopy. My staff has also explained the procedure to the patient in understandable terms and has given the patient printed material concerning the procedure. The patient freely consents to surgery. Diagnoses: (Z12.11) Screening for colon cancer (primary encounter diagnosis) My findings have been communicated to Dr. Edgardo Zarco MD via shared medical record. This note will be forwarded to Dr. Edgardo Zarco MD. Return to Clinic: The patient is instructed to follow-up with me after the testing has been completed. This note was partially generated using [employer] voice recognition system, and there may be some incorrect words, spellings, and punctuation that were not noted in checking the note before saving. Nayan Parnell MD PROGRESS Observed: 06/19/2017 Status: COMPLETED Source: [place] 10:54 AM [facility] REPOSITORY O ID: [id number] Author: Patti Matthews Service: (none) Author Type: (none) Type: Progress Notes Filed: 06/19/2017 10:55 AM Note Text: Radiology Service Progress Note PATIENT NAME: Terri Morales DATE OF SERVICE: June 19, 2017 TIME: 10:55 AM PATIENT IDENTITY VERIFICATION COMPLETED USING TWO (2) METHODS: Patient confirmed name verbally and Date of . PATIENT GENDER DATA: Male PATIENT RELEVANT IMPLANT DATA REVIEWED: Not Applicable CONTRAST INDUCED NEPHROPATHY RISK FACTORS: Patient age > 60 years CREATININE: Creatinine Date Value Ref Range Status 06/07/2017 1.27 (H) 0.73 - 1.22 mg/dL Final 04/15/2016 1.10 0.73 - 1.22 mg/dL Final 02/23/2014 1.20 0.70 - 1.40 mg/dL Final eGFR-All Other Races Date Value Ref Range Status 06/07/2017 57 . Final Comment: eGFR (Estimated GFR) Units of measure: mL/min/1.73 meters squared eGFR is derived from the reexpressed MDRD Study equation using the following parameters: serum creatinine, age, gender and race. The creatinine assay has been calibrated to be traceable to IDMS. An eGFR <60 mL/min/1.73m2 for >3 months is consistent with chronic kidney disease. Refer to KDOQI guidelines for clinical interpretation. In patients with unstable renal function, e.g. those with acute kidney injury, the eGFR may not accurately reflect actual GFR. eGFR- Date Value Ref Range Status 06/07/2017 >60 Final P.O.C.T. RESULTS: POC done: Yes, See Lab Tab June 19, 2017 RADIOLOGIST NOTIFIED?: No ALLERGIES: Reviewed and unchanged CONTRAST ALLERGY: NO. PERIPHERAL IV ACCESS: Ambulatory: IV type: A peripheral IV was started in the Left antecubital site with a Angio cath: 20 gauge., Site assessment: Clean,Dry and Intact, Site disposition Discontinued RADIOLOGY DEPARTMENT: CT; Exam(s) Completed: Abdomen/Pelvis SIGNED BY: Patti Haque Ct June 19, 2017 10:55 AM [employer] Observed: 06/19/2017 Status: F Source: [place] 10:43 AM [facility] REPOSITORY * * *Final Report* * * DATE OF EXAM: Jun 19 2017 10:43AM [facility] 1250 - [employer] / PROCEDURE REASON: Testicular pain, unspecified * * * * Physician Interpretation * * * * HISTORY: Left scrotal pain COMPARISON: 05/10/2007 TECHNIQUE: Color flow Doppler imaging and spectral analysis was performed for duplex scans of the scrotal contents. RESULT: The testicles are normal in size, configuration and echogenicity. No focal abnormality or solid mass on either side. The right measures 4.2 x 1.8 x 3.2 cm. The left measures 3.9 x 1.6 x 3.2 cm. Arterial and venous Doppler interrogation of both testicles is normal. Right epididymal head measures 1.3 x 1 x 1 cm. The left measures 1.4 x 1 x 1.1 cm. Multiple epididymal cysts are seen bilaterally. The largest on the right is 1.3 cm. The largest on the left is 2.3 cm. Small bilateral hydrocele. Left varicocele. IMPRESSION: Bilateral epididymal cysts and/or spermatocele. Small bilateral hydrocele. Left varicocele. No evidence of solid testicular mass. Pipe Fittings Molder: PSCB Transcribe Date/Time: Jun 19 2017 1:12P Dictated by : YUNIEL GARCIA MD This examination was interpreted and the report reviewed and electronically signed by: YUNIEL GARCIA MD on Jun 19 2017 1:17PM EST [id number] US SCROTUM AND Observed: 06/19/2017 Status: F Source: [facility] 10:43 AM [facility] REPOSITORY * * *Final Report* * * DATE OF EXAM: Jun 19 2017 10:43AM [facility] 1063 - US SCROTUM AND CONTENTS / PROCEDURE REASON: Testicular pain, unspecified * * * * Physician Interpretation * * * * HISTORY: Left scrotal pain COMPARISON: 05/10/2007 TECHNIQUE: Color flow Doppler imaging and spectral analysis was performed for duplex scans of the scrotal contents. RESULT: The testicles are normal in size, configuration and echogenicity. No focal abnormality or solid mass on either side. The right measures 4.2 x 1.8 x 3.2 cm. The left measures 3.9 x 1.6 x 3.2 cm. Arterial and venous Doppler interrogation of both testicles is normal. Right epididymal head measures 1.3 x 1 x 1 cm. The left measures 1.4 x 1 x 1.1 cm. Multiple epididymal cysts are seen bilaterally. The largest on the right is 1.3 cm. The largest on the left is 2.3 cm. Small bilateral hydrocele. Left varicocele. IMPRESSION: Bilateral epididymal cysts and/or spermatocele. Small bilateral hydrocele. Left varicocele. No evidence of solid testicular mass. Pipe Fittings Molder: TAMIR Transcribe Date/Time: Jun 19 2017 1:12P Dictated by : YUNIEL GARCIA MD This examination was interpreted and the report reviewed and electronically signed by: YUNIEL GARCIA MD on Jun 19 2017 1:17PM EST [id number] PROGRESS Observed: 06/19/2017 Status: COMPLETED Source: [place] 9:57 AM [facility] REPOSITORY HNO ID: [id number] Author: Ana Rosa Amos Rdms Service: (none) Author Type: (none) Type: Progress Notes Filed: 06/19/2017 10:44 AM Note Text: Radiology Service Progress Note PATIENT NAME: Terri Morales DATE OF SERVICE: June 19, 2017 TIME: 9:57 AM PATIENT IDENTITY VERIFICATION COMPLETED USING TWO (2) METHODS: Patient confirmed name verbally and Date of . PATIENT GENDER DATA: Male PATIENT RELEVANT IMPLANT DATA REVIEWED: Not Applicable RADIOLOGY DEPARTMENT: Ultrasound PERIPHERAL IV DATA: Not applicable SIGNED BY: Ana Rosa Amos Rdms June 19, 2017 9:[address] ABD/PEL W IVCON Observed: 06/19/2017 Status: F Source: [place] 9:56 AM [facility] REPOSITORY * * *Final Report* * * DATE OF EXAM: Jun 19 2017 9:56AM [facility] 0530 - CT ABD/PEL W IVCON / PROCEDURE REASON: Left lower quadrant pain * * * * Physician Interpretation * * * * HISTORY: Left lower abdominal pain TECHNIQUE: Contrast 1: [address] Contrast 2: 50 50ML Omnipaque [address] Ionizing Radiation: CT Dose Length Product (DLP): 595 mG*y cm CT Dose Reduction Employed: Automated exposure control (AEC) RESULT: Scans through the abdomen and pelvis are performed following oral and intravenous contrast administration. Comparison is made with 06/13/2007. Minimal atelectasis or fibrosis is seen at both lung bases. Unchanged. No developing focal hepatic or splenic abnormality is seen. The adrenal glands and pancreas appear normal. Left renal cysts are unchanged. No definite solid renal mass or gross obstructive uropathy. No ascites or lymphadenopathy within the abdomen. Scans through the pelvis show no evidence of ascites or mass. No lymphadenopathy is seen. Partially visualized appendix appears normal. No bowel obstruction. The bony structures appear intact. IMPRESSION: Renal cysts. No developing suspicious mass or adenopathy within the abdomen or pelvis. Pipe Fittings Molder: PSCB Transcribe Date/Time: Jun 19 2017 1:17P Dictated by : YUNIEL GARCIA MD This examination was interpreted and the report reviewed and electronically signed by: YUNIEL GARCIA MD on Jun 19 2017 1:24PM EST [id number] PROGRESS Observed: 06/11/2017 Status: COMPLETED Source: [place] 4:53 PM [facility] REPOSITORY HNO ID: [id number] Author: Nayan Parnell Service: (none) Author Type: Physician Type: Progress Notes Filed: 06/11/2017 5:07 PM Note Text: HISTORY AND PHYSICAL Terri Morales 1950 REFERRING PHYSICIAN: Edgardo Zarco MD CHIEF COMPLAINT: Consult (abdominal pain) HPI: The patient is a 66 year old male with a complaint of left lower quadrant pain. The patient notes a long-standing history of episodic left lower quadrant pain. The patient's noted. He has had this pain for greater than 12 years. The patient was seen in the past and had a colonoscopy for both diarrhea and left lower quadrant pain in 2005, which was unremarkable. This was performed by Dr. Calderon. The patient had a low volume prep and blamed liver function abnormalities/questionable hepatitis on the bowel prep at that time. He also comes stating that he is not wish to consider other colonoscopy and and states he was informed by his physician that a stool card test is more accurate than an endoscopy. He had a CT scan of the abdomen and pelvis in 2007, which was also relatively unremarkable but my review that scan does show what looked like a small left inguinal hernia at that time. The patient denies pain after eating. He denies pain with lifting or moving. He notes the pain will typically bother him occasionally at night. He is seen primary care for these complaints. He has orders for both CT scans and ultrasound of the scrotum, which he has not had performed yet. The patient is being seen by me today at the request of Dr. Edgardo Zarco MD for my opinion and advice regarding left lower quadrant pain. PAST MEDICAL HISTORY Diagnosis Date - Diarrhea - Internal hemorrhoids without mention of complication PAST SURGICAL HISTORY Procedure Laterality Date - COLONOSCOPY W/BX 01/02/06 - KNEE SCOPE,DIAGNOSTIC 2002 Arthroscopy, knee Current Outpatient Prescriptions: ibuprofen (MOTRIN) 200 mg tablet Take 200 mg by mouth every 6 hours as needed. Aspirin 81 mg Tab Take 1 tablet by mouth once daily. Take with food. No current facility-administered medications for this visit. ALLERGIES: Amoxil [Amoxicillin]; Sulfa (Sulfonamide Antibiotics) PERSONAL HISTORY: Social History Marital status: Single Spouse name: Years of education: Number of children: 2 Occupational History Occupation Employer Comment [employer] Social History Main Topics Smoking status: Never Smoker Smokeless tobacco: Never Used Alcohol use: No Drug use: No FAMILY HISTORY: FAMILY HISTORY Problem Relation Age of Onset - Diabetes Mother - Heart Father REVIEW OF SYMPTOMS: The review of systems data was entered by the nurse and reviewed by me Nursing Notes: Mykel Engel LPN 06/11/2017 10:00 AM Signed REVIEW OF SYSTEMS: General: The patient denies fatigue, denies weight loss, denies weight gain, denies feeling hot, and denies feelings of cold. Eyes: The patient denies glaucoma, denies eye injury/surgery, wears glasses or contacts. Ear/Nose/Throat: The patient NOTES allergies, denies hayfever, denies ear infections, and denies bloody noses. Cardiovascular: The patient denies chest pain, denies heart disease, denies high blood pressure,denies cardiac stent, denies prior heart attack, denies irregular heart beat, denies high cholesterol, denies poor circulation, denies heart failure, other cardiac issues, denies claudication, denies cold feet, denies peripheral arterial stent. Respiratory: The patient denies tuberculosis, denies pneumonia, denies frequent cough, denies pulmonary embolism, NOTES shortness of breath, and denies coughing up blood. Gastrointestinal: The patient denies difficulty swallowing, denies acid reflux, denies ulcers, denies vomiting, denies jaundice/hepatitis, denies gallbladder problems, denies black or tarry stools, NOTES hemorrhoids, denies bleeding from rectum, denies diverticulitis, denies constipation, denies diarrhea, denies loss of stool control, and denies hernias. Kidney/Bladder: The patient denies kidney stones, denies urine infections, and denies bloody urine. Skin: The patient denies a history of skin cancer, denies bleeding/changing moles, and denies a history of skin rash. Neurologic: The patient denies a history of epilepsy/convulsions, denies headaches, denies head/spinal injuries, and denies stroke/TIA. Psychiatric: The patient denies psychiatric medications, denies depression, and denies voices, denies substance abuse. Endocrine: The patient denies thyroid disorders, denies diabetes, and denies hormonal problems. Hematologic: The patient denies a history of bruising, denies bleeding, and denies anemia, denies blood clots. Infections: The patient NOTES a history of measles and mumps, denies rheumatic fever, and denies sexually transmitted diseases. Musculoskeletal: The patient denies back pain/injury, NOTES back problems, NOTES sciatica, denies knee/foot trouble, denies arthritis, or denies gout. When was patient's last Mammogram screening? N/A Last Colonoscopy: 2005 Mykel Engel STATU[employer] PAINTER PHYSICAL EXAMINATION: General: The patient is 66 year old male, well nourished, well hydrated in no acute distress. The patient is oriented to time, place, and person. VITALS: Blood pressure 164/80, pulse 60, temperature 36.2 ?C (97.2 ?F), weight 89.4 kg (197 lb). HEENT: Normal cephalic, ataumatic, pupils are equally round, sclera are anicteric, mucous membranes are moist, oropharynx is clear. Neck has no masses, asymmetry or lymphadenopathy. Thyroid is unremarkable. Respiratory: Clear to auscultation and percussion. Normal respiratory excursion and pattern. Cardiac: Examination is regular rate and rhythm. Abdominal exam: Soft, nontender, with no palpable masses. No hepatosplenomegaly. A small , reducible left inguinal hernia, otherwise no umbilical or right palpable hernias. Rectal exam: exam deferred Extremities: no clubbing, cyanosis or edema. No adenopathy. Other: LABORATORY VALUES: As Noted RADIOLOGIC STUDIES: As Noted Assessment IMPRESSION: Left lower quadrant pain, clinically not suspicious for chronic diverticulitis. Atypical for a left inguinal hernia PLAN: I did recommend the patient undergo his CT scan area if there are changes in the left lower quadrant incision consistent with chronic diverticulitis, then I would recommend colonoscopy. We discussed the risk and benefits of colonoscopy versus fecal occult blood testing versus new stool DNA type testing. I discussed with the patient that this would not demonstrate any abnormalities related to chronic diverticulitis or colonic narrowing which might be causing his symptoms. He will return after CT scan and we will discuss the next steps in his evaluation. Diagnoses: (R10.32) LLQ pain (primary encounter diagnosis) (K40.90) Left inguinal hernia My findings have been communicated to Dr. Edgardo Zarco MD via shared medical record. This note will be forwarded to Dr. Edgardo Zarco MD. Return to Clinic: The patient is instructed to follow-up with me after the testing has been completed. This note was partially generated using VeriWave voice recognition system, and there may be some incorrect words, spellings, and punctuation that were not noted in checking the note before saving. Nayan Parnell MD CNOV Observed: 06/11/2017 Status: COMPLETED Source: [place] 9:30 AM [facility] REPOSITORY Office Visit (GENSWS) ANDREWTERRI ([id number]) 1950 M Date Time Provider Department 06/11/17 9:30 AM NAYAN PARNELL During your visit today, we recorded the following information about you: Temperature Pulse Blood pressure Weight 97.2 degrees 60/minute 164/80 89.4 kg Mykel Engel [facility] 06/11/2017 10:00 AM Signed REVIEW OF SYSTEMS: General: The patient denies fatigue, denies weight loss, denies weight gain, denies feeling hot, and denies feelings of cold. Eyes: The patient denies glaucoma, denies eye injury/surgery, wears glasses or contacts. Ear/Nose/Throat: The patient NOTES allergies, denies hayfever, denies ear infections, and denies bloody noses. Cardiovascular: The patient denies chest pain, denies heart disease, denies high blood pressure,denies cardiac stent, denies prior heart attack, denies irregular heart beat, denies high cholesterol, denies poor circulation, denies heart failure, other cardiac issues, denies claudication, denies cold feet, denies peripheral arterial stent. Respiratory: The patient denies tuberculosis, denies pneumonia, denies frequent cough, denies pulmonary embolism, NOTES shortness of breath, and denies coughing up blood. Gastrointestinal: The patient denies difficulty swallowing, denies acid reflux, denies ulcers, denies vomiting, denies jaundice/hepatitis, denies gallbladder problems, denies black or tarry stools, NOTES hemorrhoids, denies bleeding from rectum, denies diverticulitis, denies constipation, denies diarrhea, denies loss of stool control, and denies hernias. Kidney/Bladder: The patient denies kidney stones, denies urine infections, and denies bloody urine. Skin: The patient denies a history of skin cancer, denies bleeding/changing moles, and denies a history of skin rash. Neurologic: The patient denies a history of epilepsy/convulsions, denies headaches, denies head/spinal injuries, and denies stroke/TIA. Psychiatric: The patient denies psychiatric medications, denies depression, and denies voices, denies substance abuse. Endocrine: The patient denies thyroid disorders, denies diabetes, and denies hormonal problems. Hematologic: The patient denies a history of bruising, denies bleeding, and denies anemia, denies blood clots. Infections: The patient NOTES a history of measles and mumps, denies rheumatic fever, and denies sexually transmitted diseases. Musculoskeletal: The patient denies back pain/injury, NOTES back problems, NOTES sciatica, denies knee/foot trouble, denies arthritis, or denies gout. When was patient's last Mammogram screening? N/A Last Colonoscopy: 2005 Mykel Parnell MD 06/11/2017 5:07 PM Signed HISTORY AND PHYSICAL Terri Callejaston 1950 REFERRING PHYSICIAN: Edgardo Zarco MD CHIEF COMPLAINT: Consult (abdominal pain) HPI: The patient is a 66 year old male with a complaint of left lower quadrant pain. The patient notes a long-standing history of episodic left lower quadrant pain. The patient's noted. He has had this pain for greater than 12 years. The patient was seen in the past and had a colonoscopy for both diarrhea and left lower quadrant pain in 2005, which was unremarkable. This was performed by Dr. Calderon. The patient had a low volume prep and blamed liver function abnormalities/questionable hepatitis on the bowel prep at that time. He also comes stating that he is not wish to consider other colonoscopy and and states he was informed by his physician that a stool card test is more accurate than an endoscopy. He had a CT scan of the abdomen and pelvis in 2007, which was also relatively unremarkable but my review that scan does show what looked like a small left inguinal hernia at that time. The patient denies pain after eating. He denies pain with lifting or moving. He notes the pain will typically bother him occasionally at night. He is seen primary care for these complaints. He has orders for both CT scans and ultrasound of the scrotum, which he has not had performed yet. The patient is being seen by me today at the request of Dr. Edgardo Zarco MD for my opinion and advice regarding left lower quadrant pain. PAST MEDICAL HISTORY Diagnosis Date - Diarrhea - Internal hemorrhoids without mention of complication PAST SURGICAL HISTORY Procedure Laterality Date - COLONOSCOPY W/BX 01/02/06 - KNEE SCOPE,DIAGNOSTIC 2002 Arthroscopy, knee Current Outpatient Prescriptions: ibuprofen (MOTRIN) 200 mg tablet Take 200 mg by mouth every 6 hours as needed. Aspirin 81 mg Tab Take 1 tablet by mouth once daily. Take with food. No current facility-administered medications for this visit. ALLERGIES: Amoxil [Amoxicillin]; Sulfa (Sulfonamide Antibiotics) PERSONAL HISTORY: Social History Marital status: Single Spouse name: Years of education: Number of children: 2 Occupational History Occupation Employer [employer] Social History Main Topics Smoking status: Never Smoker Smokeless tobacco: Never Used Alcohol use: No Drug use: No FAMILY HISTORY: FAMILY HISTORY Problem Relation Age of Onset - Diabetes Mother - Heart Father REVIEW OF SYMPTOMS: The review of systems data was entered by the nurse and reviewed by me Nursing Notes: Mykel Engel LPN 06/11/2017 10:00 AM Signed REVIEW OF SYSTEMS: General: The patient denies fatigue, denies weight loss, denies weight gain, denies feeling hot, and denies feelings of cold. Eyes: The patient denies glaucoma, denies eye injury/surgery, wears glasses or contacts. Ear/Nose/Throat: The patient NOTES allergies, denies hayfever, denies ear infections, and denies bloody noses. Cardiovascular: The patient denies chest pain, denies heart disease, denies high blood pressure,denies cardiac stent, denies prior heart attack, denies irregular heart beat, denies high cholesterol, denies poor circulation, denies heart failure, other cardiac issues, denies claudication, denies cold feet, denies peripheral arterial stent. Respiratory: The patient denies tuberculosis, denies pneumonia, denies frequent cough, denies pulmonary embolism, NOTES shortness of breath, and denies coughing up blood. Gastrointestinal: The patient denies difficulty swallowing, denies acid reflux, denies ulcers, denies vomiting, denies jaundice/hepatitis, denies gallbladder problems, denies black or tarry stools, NOTES hemorrhoids, denies bleeding from rectum, denies diverticulitis, denies constipation, denies diarrhea, denies loss of stool control, and denies hernias. Kidney/Bladder: The patient denies kidney stones, denies urine infections, and denies bloody urine. Skin: The patient denies a history of skin cancer, denies bleeding/changing moles, and denies a history of skin rash. Neurologic: The patient denies a history of epilepsy/convulsions, denies headaches, denies head/spinal injuries, and denies stroke/TIA. Psychiatric: The patient denies psychiatric medications, denies depression, and denies voices, denies substance abuse. Endocrine: The patient denies thyroid disorders, denies diabetes, and denies hormonal problems. Hematologic: The patient denies a history of bruising, denies bleeding, and denies anemia, denies blood clots. Infections: The patient NOTES a history of measles and mumps, denies rheumatic fever, and denies sexually transmitted diseases. Musculoskeletal: The patient denies back pain/injury, NOTES back problems, NOTES sciatica, denies knee/foot trouble, denies arthritis, or denies gout. When was patient's last Mammogram screening? N/A Last Colonoscopy: 2005 Mykel Engel STATUARY PAINTER PHYSICAL EXAMINATION: General: The patient is 66 year old male, well nourished, well hydrated in no acute distress. The patient is oriented to time, place, and person. VITALS: Blood pressure 164/80, pulse 60, temperature 36.2 ?C (97.2 ?F), weight 89.4 kg (197 lb). HEENT: Normal cephalic, ataumatic, pupils are equally round, sclera are anicteric, mucous membranes are moist, oropharynx is clear. Neck has no masses, asymmetry or lymphadenopathy. Thyroid is unremarkable. Respiratory: Clear to auscultation and percussion. Normal respiratory excursion and pattern. Cardiac: Examination is regular rate and rhythm. Abdominal exam: Soft, nontender, with no palpable masses. No hepatosplenomegaly. A small , reducible left inguinal hernia, otherwise no umbilical or right palpable hernias. Rectal exam: exam deferred Extremities: no clubbing, cyanosis or edema. No adenopathy. Other: LABORATORY VALUES: As Noted RADIOLOGIC STUDIES: As Noted Assessment IMPRESSION: Left lower quadrant pain, clinically not suspicious for chronic diverticulitis. Atypical for a left inguinal hernia PLAN: I did recommend the patient undergo his CT scan area if there are changes in the left lower quadrant incision consistent with chronic diverticulitis, then I would recommend colonoscopy. We discussed the risk and benefits of colonoscopy versus fecal occult blood testing versus new stool DNA type testing. I discussed with the patient that this would not demonstrate any abnormalities related to chronic diverticulitis or colonic narrowing which might be causing his symptoms. He will return after CT scan and we will discuss the next steps in his evaluation. Diagnoses: (R10.32) LLQ pain (primary encounter diagnosis) (K40.90) Left inguinal hernia My findings have been communicated to Dr. Edgardo Zarco MD via shared medical record. This note will be forwarded to Dr. Edgardo Zarco MD. Return to Clinic: The patient is instructed to follow-up with me after the testing has been completed. This note was partially generated using VeriWave voice recognition system, and there may be some incorrect words, spellings, and punctuation that were not noted in checking the note before saving. Nayan Parnell MD Referring Provider: EDGARDO ZARCO [[id number]] Allergies As of Date: 06/11/2017 Noted Allergy Reaction AMOXIL (AMOXICILLIN) 01/14/2010 2 - Rash Comments: Generalized body rash- drug reaction Does well with omnicef SULFA (SULFONAMIDE ANTIBIOTICS) 03/02/2005 Date Reviewed: 06/11/2017 Reviewed by: Nayan Parnell - Fully Assessed Reason for Visit: Consult [173] Cmt: abdominal pain Primary Visit Diagnosis:LLQ pain [R10.32] Other Visit Diagnosis:Left inguinal hernia [K40.90] Prescriptions as of 06/11/2017 Sig: IBUPROFEN 200 MG TABLET Take 200 mg by mouth every 6 * * ASPIRIN 81 MG TABLET Take 1 tablet by mouth once d* Problem List As Of Date 06/11/2017 Noted Resolved Diarrhea [R19.7] INVALID FOR*02/23/2014 INT HEMORRHOID W/O COMPL [K64.8] INVALID FOR* HEPATITIS IN VIRAL DIS [B19.9] INVALID FOR* Venous varices [I83.90] INVALID FOR* Visit Notes: >> Mykel Engel LPN SunJun 11, 2017 9:57 AM Status: Signed REVIEW OF SYSTEMS: General: The patient denies fatigue, denies weight loss, denies weight gain, denies feeling hot, and denies feelings of cold. Eyes: The patient denies glaucoma, denies eye injury/surgery, wears glasses or contacts. Ear/Nose/Throat: The patient NOTES allergies, denies hayfever, denies ear infections, and denies bloody noses. Cardiovascular: The patient denies chest pain, denies heart disease, denies high blood pressure,denies cardiac stent, denies prior heart attack, denies irregular heart beat, denies high cholesterol, denies poor circulation, denies heart failure, other cardiac issues, denies claudication, denies cold feet, denies peripheral arterial stent. Respiratory: The patient denies tuberculosis, denies pneumonia, denies frequent cough, denies pulmonary embolism, NOTES shortness of breath, and denies coughing up blood. Gastrointestinal: The patient denies difficulty swallowing, denies acid reflux, denies ulcers, denies vomiting, denies jaundice/hepatitis, denies gallbladder problems, denies black or tarry stools, NOTES hemorrhoids, denies bleeding from rectum, denies diverticulitis, denies constipation, denies diarrhea, denies loss of stool control, and denies hernias. Kidney/Bladder: The patient denies kidney stones, denies urine infections, and denies bloody urine. Skin: The patient denies a history of skin cancer, denies bleeding/changing moles, and denies a history of skin rash. Neurologic: The patient denies a history of epilepsy/convulsions, denies headaches, denies head/spinal injuries, and denies stroke/TIA. Psychiatric: The patient denies psychiatric medications, denies depression, and denies voices, denies substance abuse. Endocrine: The patient denies thyroid disorders, denies diabetes, and denies hormonal problems. Hematologic: The patient denies a history of bruising, denies bleeding, and denies anemia, denies blood clots. Infections: The patient NOTES a history of measles and mumps, denies rheumatic fever, and denies sexually transmitted diseases. Musculoskeletal: The patient denies back pain/injury, NOTES back problems, NOTES sciatica, denies knee/foot trouble, denies arthritis, or denies gout. When was patient's last Mammogram screening? N/A Last Colonoscopy: 2005 Mykel Engel LPN Encounter Status:Closed by NAYAN PARNELL MD on 06/11/17 URINALYSIS WITH Collected: 06/07/2017 Status: F Source: [facility] 5:05 PM [facility] REPOSITORY TYPE CODE TESTS RESULT OUT OF REFERENCE UNITS RANGE LAB UCOL Yellow Color Yellow LAB [facility] Clear Clarity Clear LAB UGLUC Negative mg/dL Glucose, Urine Negative LAB UBIL Negative Bilirubin, Urine Negative LAB UKET Negative Ketones, Urine Negative LAB USPG 1.005-1.030 Specific Revloc, Ur 1.019 LAB UHGB Negative Hemoglobin/Blood, Negative Ur LAB UPH 4.5-8.0 pH 6.0 LAB UPROT Negative mg/dL Protein, Urine Negative LAB UUROB Normal Urobilinogen Normal LAB UNITR Negative Nitrites Negative LAB ULKEST Negative Leukest Negative LAB UCOM Comments SEE COMMENT Result Comment: N/A LAB UMCOM Urine SEE Cain Comment COMMENT Result Comment: N/A LAB UWBC 0-5 /HPF WBC 0-5 LAB URBC 0-3 /HPF RBC 0-3 Performed By: #### UAWMIC #### [facility] [address] [place], [place] [address] Observed: 06/07/2017 Status: F Source: [place] URINE CULTURE 5:05 PM [facility] REPOSITORY Sp. Request/Comment: - Specimen received in preservative Culture Result - No growth (<1,000 CFU/ml) Performed By: #### URCUL #### [facility] [address] [place] [id number] CBC AND DIFFERENTIAL Collected: 06/07/2017 Status: F Source: [place] 4:56 PM [facility] REPOSITORY TYPE CODE TESTS RESULT OUT OF REFERENCE UNITS RANGE LAB WBC 3.70-11.00 k/uL WBC 7.74 LAB RBC 4.20-6.00 m/uL RBC 4.71 LAB HGB 13.0-17.0 g/dL Hemoglobin 14.8 LAB HCT 39.0-51.0 % Hematocrit 44.1 LAB MCV 80.0-100.0 fL MCV 93.6 LAB MCH 26.0-34.0 pG MCH 31.4 LAB MCHC 30.5-36.0 g/dL MCHC 33.6 LAB RDWCV 11.5-15.0 % RDW-CV 12.1 LAB PLTCT 150-400 k/uL Platelet Count 165 LAB MPV 9.0-12.7 fL MPV 9.9 LAB ANEUT % Neut% 62.9 LAB AANEUT 1.45-7.50 k/uL Abs Neut 4.85 LAB ALYMP % Lymph% 24.3 LAB AALYMP 1.00-4.00 k/uL Abs Lymph 1.88 LAB AMONO % [place]% 9.4 LAB AAMONO <0.87 k/uL Abs [place] 0.73 LAB AEOS % Eosin% 3.0 LAB AAEOS <0.46 k/uL Abs Eosin 0.23 LAB ABASO % Baso% 0.4 LAB AABASO <0.11 k/uL Abs Baso 0.03 LAB AUNRBC 0 /100 WBC NRBCs 0.0 LAB ABNRBC <0.01 k/uL Absolute nRBC <0.01 LAB DTYP DTYPE Auto Diff Performed By: #### CBCDIF, BMP, IRON #### [facility] [address] [place], [place] [address] BASIC METABOLIC PANL Collected: 06/07/2017 Status: F Source: [place] 4:56 PM [facility] REPOSITORY TYPE CODE TESTS RESULT OUT OF REFERENCE UNITS RANGE LAB GLU 74-99 mg/dL Glucose 96 Result Comment: The [place] [employer] (ADA) provides guidance for cutoff values for fasting glucose and random glucose. The ADA defines fasting as no caloric intake for at least 8 hours. Fas ting plasma glucose results between 100 to 125 mg/dL indicate increased risk for diabetes (prediabetes). Fasting plasma glucose results greater than or equal to 126 mg/dL meet the criteria for diagnosis of diabetes. In the absence of unequivocal hyperglycemia, results should be confirmed by repeat testing. In a patient with classic symptoms of hyperglycemia or hyperglycemic crisis, random plasma glucose results greater than or equal to 200 mg/dL meet the criteria for diagnosis of diabetes. Reference: Standards of Medical Care in Diabetes 2016, [place] [employer]. Diabetes Care. 2016.39(Suppl 1). LAB BUN 9-24 mg/dL BUN 20 LAB CRET 0.73-1.22 mg/dL Creatinine High 1.27 LAB NA 136-144 mmol/L Sodium 140 LAB K 3.7-5.1 mmol/L Potassium 4.3 LAB CL 97-105 mmol/L Chloride 100 LAB CO2 22-30 mmol/L CO2 30 LAB AGAP 9-18 mmol/L Anion Gap 10 LAB CA 8.5-10.2 mg/dL Calcium, Total 9.2 LAB GFRAA eGFR- Amer. >60 LAB GFRNAA . eGFR-All Other Races 57 Result Comment: eGFR (Estimated GFR) Units of measure: mL/min/1.73 meters squared eGFR is derived from the reexpressed MDRD Study equation using the following parameters: serum creatinine, age, gender and race. The creatinine assay has been calibrated to be traceable to IDMS. An eGFR <60 mL/min/1.73m2 for >3 months is consistent with chronic kidney disease. Refer to KDOQI guidelines for clinical interpretation. In patients with unstable renal function, e.g. those with acute kidney injury, the eGFR may not accurately reflect actual GFR. Performed By: #### CBCDIF, BMP, IRON #### [facility] [address] [place], [place] [id number] IRON AND TIBC Collected: 06/07/2017 Status: F Source: [place] 4:56 PM [facility] REPOSITORY TYPE CODE TESTS RESULT OUT OF REFERENCE UNITS RANGE LAB IRN 41-186 ug/dL Iron 44 LAB TIBC 232-386 ug/dL TIBC 263 LAB SAT 15-57 % Transferrin Saturatn 17 Performed By: #### CBCDIF, BMP, IRON #### [facility] [address] [place], [place] [id number] PROGRESS Observed: 06/07/2017 Status: COMPLETED Source: [place] 4:28 PM [facility] REPOSITORY HNO ID: [id number] Author: Edgardo Zarco Service: (none) Author Type: Physician Type: Progress Notes Filed: 06/07/2017 5:26 PM Note Text: Patient presents with: Abdominal Pain HPI: Patient presents today for office visit for follow up. Nursing Notes: Neli Tobar Ma 06/07/2017 4:16 PM Signed ABDOMINAL PAIN: Pt c/o LLQ pain for the last 2 months. The pain occurs about 3-4 hours after going to bed. He will wake up with severe pain that feels like something pulling. Pain radiates into left testicle. He has in most nights, intensity of pain will vary. Patient has a history of diverticulitis in 2005, pain is in same location and similar. He did have a colonoscopy which was normal. Seen in September for pain in lower abd that had been on and off for 12 years. Was to have ct of the abdomen and to see gi. Was also asked several times to follow up in two weeks and did not return. He did come in for repeat iron which was ok and had an ifobt that was negative. He says it feels different than that. He has been getting a pain that is on his left side. Four or five hours into sleep it is pulling. Mild back pain. Is uncomfortable now. Was feeling normal between September and now it was ok. No cough or sneeze. No issues with lifting. Has been exercising regularly. No urinary symptoms. No testicular swelling. No nausea or vomiting or changes in the bowels. No radicular pain in the leg. He has had issues that are similar on and off in the chart for years. Also had an ultrasound several years ago that he was to have a repeat ultrasound on the testicle when I reviewed old records. MEDICATIONS: Current Outpatient Prescriptions: ibuprofen (MOTRIN) 200 mg tablet Take 200 mg by mouth every 6 hours as needed. Aspirin 81 mg Tab Take 1 tablet by mouth once daily. Take with food. No current facility-administered medications for this visit. ALLERGIES: ALLERGIES Allergen Reactions - Amoxil [Amoxicillin] Rash Generalized body rash- drug reaction Does well with omnicef - Sulfa (Sulfonamide * PAST MEDICAL HISTORY Diagnosis Date - Diarrhea - Internal hemorrhoids without mention of complication PAST SURGICAL HISTORY Procedure Laterality Date - COLONOSCOPY W/BX 01/02/06 - KNEE SCOPE,DIAGNOSTIC 2003 Arthroscopy, knee FAMILY HISTORY Problem Relation Age of Onset - Diabetes Mother - Heart Father Social History Marital status: Single Spouse name: Years of education: Number of children: 2 Occupational History Occupation Employer [employer] Social History Main Topics Smoking status: Never Smoker Smokeless status: Never Used Alcohol use: No Reviewed current medications, allergies, past medical history, surgical history, family history and social history today. REVIEW OF SYSTEMS All other reviewed and negative other than HPI. VITALS: BP 132/74 Pulse 72 Temp 36.1 ?C (96.9 ?F) (Tympanic) Resp 16 Last 4 Encounter Wt Readings: Date: Wt: 04/03/2017 91.2 kg (201 lb) 06/01/2016 89.4 kg (197 lb) 04/15/2016 88.9 kg (196 lb) 03/25/2016 88.9 kg (196 lb) PHYSICAL EXAMINATION: General appearance: Well appearing, alert, in no acute distress, well-hydrated, well nourished. Skin: Skin color, texture, turgor normal, no suspicious rashes or lesions Head: Normocephalic, no masses, lesions, tenderness or abnormalities Lungs: Lungs clear to auscultation. No wheezing, rhonchi, rales Heart: RRR without murmur, gallop, or rubs. No ectopy Abdomen: Normal abdominal exam, Abdomen soft, non-tender. Bowel sounds normal. No masses, organomegaly ? Left inguinal hernia. Reducible. Not sure it is causing his symptoms. Testicle shows ? Enlarged area near the testicle No cva tenderness. ASSESSMENT/PLAN: 1. LLQ pain - ICD9: 789.04, ICD10: R10.32 (primary diagnosis) - Call if any worsening issues. - do ct to rule out masses etc. - reinforced importance. - call if worsens. - CBC + DIFF - CONSULT TO GENERAL SURGERY - BASIC METABOLIC PNL - URINALYSIS WITH MICROSCOPIC - URINE CULTURE - CT ABD/PEL W IVCON - IV CONTRAST (RADIOLOGY PROCEDURE) - ENTERIC CONTRAST (RADIOLOGY PROCEDURE) 2. Decreased iron stores - ICD9: 790.6, ICD10: R79.0 - recheck labs. - IRON + TIBC 3. Testicular pain - ICD9: 608.9, ICD10: N50.819 - do work up. - US SCROTUM AND CONTENTS 4. Unilateral inguinal hernia without obstruction or gangrene, recurrence not specified - ICD9: 550.90, ICD10: K40.90 - not sure is cause of symptoms but see surgery. Edgardo Zarco MD CNOV Observed: 06/07/2017 Status: COMPLETED Source: [place] 3:20 PM [facility] REPOSITORY Office Visit (FAMPWS) TERRI MORALES ([id number]) 1950 M Date Time Provider Department 06/07/17 3:20 PM EDGARDO ZARCO During your visit today, we recorded the following information about you: Temperature Pulse Respiration Blood pressure 96.9 degrees 72/minute 16/minute 132/74 Neli Tobar Ma 06/07/2017 4:16 PM Signed ABDOMINAL PAIN: Pt c/o LLQ pain for the last 2 months. The pain occurs about 3-4 hours after going to bed. He will wake up with severe pain that feels like something pulling. Pain radiates into left testicle. He has in most nights, intensity of pain will vary. Patient has a history of diverticulitis in 2005, pain is in same location and similar. He did have a colonoscopy which was normal. Edgardo Zarco MD 06/07/2017 5:26 PM Signed Patient presents with: Abdominal Pain HPI: Patient presents today for office visit for follow up. Nursing Notes: Neli Tobar Ma 06/07/2017 4:16 PM Signed ABDOMINAL PAIN: Pt c/o LLQ pain for the last 2 months. The pain occurs about 3-4 hours after going to bed. He will wake up with severe pain that feels like something pulling. Pain radiates into left testicle. He has in most nights, intensity of pain will vary. Patient has a history of diverticulitis in 2005, pain is in same location and similar. He did have a colonoscopy which was normal. Seen in September for pain in lower abd that had been on and off for 12 years. Was to have ct of the abdomen and to see gi. Was also asked several times to follow up in two weeks and did not return. He did come in for repeat iron which was ok and had an ifobt that was negative. He says it feels different than that. He has been getting a pain that is on his left side. Four or five hours into sleep it is pulling. Mild back pain. Is uncomfortable now. Was feeling normal between September and now it was ok. No cough or sneeze. No issues with lifting. Has been exercising regularly. No urinary symptoms. No testicular swelling. No nausea or vomiting or changes in the bowels. No radicular pain in the leg. He has had issues that are similar on and off in the chart for years. Also had an ultrasound several years ago that he was to have a repeat ultrasound on the testicle when I reviewed old records. MEDICATIONS: Current Outpatient Prescriptions: ibuprofen (MOTRIN) 200 mg tablet Take 200 mg by mouth every 6 hours as needed. Aspirin 81 mg Tab Take 1 tablet by mouth once daily. Take with food. No current facility-administered medications for this visit. ALLERGIES: ALLERGIES Allergen Reactions - Amoxil [Amoxicillin] Rash Generalized body rash- drug reaction Does well with omnicef - Sulfa (Sulfonamide * PAST MEDICAL HISTORY Diagnosis Date - Diarrhea - Internal hemorrhoids without mention of complication PAST SURGICAL HISTORY Procedure Laterality Date - COLONOSCOPY W/BX 01/02/06 - KNEE SCOPE,DIAGNOSTIC 2002 Arthroscopy, knee FAMILY HISTORY Problem Relation Age of Onset - Diabetes Mother - Heart Father Social History Marital status: Single Spouse name: Years of education: Number of children: 2 Occupational History Occupation Employer Comment [employer] Social History Main Topics Smoking status: Never Smoker Smokeless status: Never Used Alcohol use: No Reviewed current medications, allergies, past medical history, surgical history, family history and social history today. REVIEW OF SYSTEMS All other reviewed and negative other than HPI. VITALS: BP 132/74 Pulse 72 Temp 36.1 ?C (96.9 ?F) (Tympanic) Resp 16 Last 4 Encounter Wt Readings: Date: Wt: 04/03/2017 91.2 kg (201 lb) 06/01/2016 89.4 kg (197 lb) 04/15/2016 88.9 kg (196 lb) 03/25/2016 88.9 kg (196 lb) PHYSICAL EXAMINATION: General appearance: Well appearing, alert, in no acute distress, well-hydrated, well nourished. Skin: Skin color, texture, turgor normal, no suspicious rashes or lesions Head: Normocephalic, no masses, lesions, tenderness or abnormalities Lungs: Lungs clear to auscultation. No wheezing, rhonchi, rales Heart: RRR without murmur, gallop, or rubs. No ectopy Abdomen: Normal abdominal exam, Abdomen soft, non-tender. Bowel sounds normal. No masses, organomegaly ? Left inguinal hernia. Reducible. Not sure it is causing his symptoms. Testicle shows ? Enlarged area near the testicle No cva tenderness. ASSESSMENT/PLAN: 1. LLQ pain - ICD9: 789.04, ICD10: R10.32 (primary diagnosis) - Call if any worsening issues. - do ct to rule out masses etc. - reinforced importance. - call if worsens. - CBC + DIFF - CONSULT TO GENERAL SURGERY - BASIC METABOLIC PNL - URINALYSIS WITH MICROSCOPIC - URINE CULTURE - CT ABD/PEL W IVCON - IV CONTRAST (RADIOLOGY PROCEDURE) - ENTERIC CONTRAST (RADIOLOGY PROCEDURE) 2. Decreased iron stores - ICD9: 790.6, ICD10: R79.0 - recheck labs. - IRON + TIBC 3. Testicular pain - ICD9: 608.9, ICD10: N50.819 - do work up. - US SCROTUM AND CONTENTS 4. Unilateral inguinal hernia without obstruction or gangrene, recurrence not specified - ICD9: 550.90, ICD10: K40.90 - not sure is cause of symptoms but see surgery. Edgardo Zarco MD Referring Provider: SELF [200] Allergies As of Date: 06/07/2017 Noted Allergy Reaction AMOXIL (AMOXICILLIN) 01/14/2010 2 - Rash Comments: Generalized body rash- drug reaction Does well with omnicef SULFA (SULFONAMIDE ANTIBIOTICS) 03/02/2005 Date Reviewed: 06/07/2017 Reviewed by: Neli Tobar Ma - Fully Assessed Reason for Visit: Abdominal Pain [1] Primary Visit Diagnosis:LLQ pain [R10.32] Other Visit Diagnoses:Decreased iron stores [R79.0] Testicular pain [N50.819] Unilateral inguinal hernia without obstruction or gangrene, recurrence not specified [K40.90] Order(s):CBC + DIFF [SQCBCDIF] Order #: [id number] FUTURE CONSULT TO GENERAL SURGERY [9011] Order #: [id number]: 1 IRON + TIBC [SQIRON] Order #: [id number] FUTURE US SCROTUM AND CONTENTS [1469634] Order #: [id number] FUTURE BASIC METABOLIC PNL [SQBMP] Order #: [id number] FUTURE URINALYSIS WITH MICROSCOPIC [SQUAWMIC] Order #: [id number]. #:[id number] URINE CULTURE [SQURCUL] Order #: [id number] FUTURE CT ABD/PEL W IVCON [0432298] Order #: [id number] FUTURE iv contrast (radiology procedure)CT ABD/PEL -Inject, intravenously, once for 1 dose.No IV access, insert saline lock prior to the beginning of sedation, infusion, injection of imaging exam. Discontinue saline lock post exam. If Pt. has a central line or IVAD, may access for administration according to line specific nursing protocol. Once exam is complete flush line and de- access according to line specific nursing protocol in the CT contrast administration guidelines link.Disp: 1 EachRfl: 0 enteric contrast (radiology procedure)For CT ABD/PEL W IVCON Routine order Administer, As Directed One Time Only, via Oral, Rectal, both Oral and Rectal, Enteric Tube, Stoma or Indwelling Catheter, Enteric Contrast as designated per enteric contrast guidelinesDisp: 1 EachRfl: 0 Prescriptions as of 06/07/2017 Sig: IBUPROFEN 200 MG TABLET Take 200 mg by mouth every 6 * * ASPIRIN 81 MG TABLET Take 1 tablet by mouth once d* IV CONTRAST (RADIOLOGY PROCED* CT ABD/PEL -Inject, intraveno* ENTERIC CONTRAST (RADIOLOGY P* For CT ABD/PEL W IVCON Routin* Problem List As Of Date 06/07/2017 Noted Resolved Diarrhea [R19.7] INVALID FOR*02/23/2014 INT HEMORRHOID W/O COMPL [K64.8] INVALID FOR* HEPATITIS IN VIRAL DIS [B19.9] INVALID FOR* Venous varices [I83.90] INVALID FOR* Visit Notes: >> Nelilisa Tobar Ma [facility] Jun 07, 2017 4:03 PM Status: Signed ABDOMINAL PAIN: Pt c/o LLQ pain for the last 2 months. The pain occurs about 3-4 hours after going to bed. He will wake up with severe pain that feels like something pulling. Pain radiates into left testicle. He has in most nights, intensity of pain will vary. Patient has a history of diverticulitis in 2006, pain is in same location and similar. He did have a colonoscopy which was normal. Prescriptions ordered this encounter Disp Refills Start End IV CONTRAST (RADIOLOGY PROCEDURE) 1 Ea* 0 06/07/2017 06/08/2017 Class: In Office Sig: CT ABD/PEL -Inject, intravenously, once for 1 dose.No IV access, insert saline lock prior to the beginning of sedation, infusion, injection of imaging exam. Discontinue saline lock post exam. If Pt. has a central line or IVAD, may access for administration according to line specific nursing protocol. Once exam is complete flush line and de-access according to line specific nursing protocol in the CT contrast administration guidelines link. ENTERIC CONTRAST (RADIOLOGY PROCEDUR* 1 Ea* 0 06/07/2017 06/08/2017 Class: In Office Sig: For CT ABD/PEL W IVCON Routine order Administer, As Directed One Time Only, via Oral, Rectal, both Oral and Rectal, Enteric Tube, Stoma or Indwelling Catheter, Enteric Contrast as designated per enteric contrast guidelines Disposition: Return if symptoms worsen or fail to improve. Follow-up and Disposition History Recorded Encounter Status:Closed by EDGARDO ZARCO MD on 06/07/17 PROGRESS Observed: 04/06/2017 Status: COMPLETED Source: [place] 8:48 AM [facility] REPOSITORY HNO ID: [id number] Author: Deidre Fonseca Service: (none) Author Type: (none) Type: Progress Notes Filed: 04/06/2017 8:49 AM Note Text: Patient does not want to have a colonoscopy says he will do the IFOBT test when the time comes Deidre Fonseca PROGRESS Observed: 04/04/2017 Status: COMPLETED Source: [place] 8:25 AM [facility] REPOSITORY HNO ID: [id number] Author: Deidre Fonseca Service: (none) Author Type: (none) Type: Progress Notes Filed: 04/04/2017 8:26 AM Note Text: 1st failed attempt to contact patient, left voice message Deidre Fonseca XR ELBOW 3V AP/LAT/OTHER Observed: 04/03/2017 Status: F Source: [facility] 11:05 AM [facility] REPOSITORY * * *Final Report* * * DATE OF EXAM: Apr 03 2017 11:05AM WOX [id number] - XR ELBOW 3V AP/LAT/OTHER LT / PROCEDURE REASON: Encounter for screening for malignant neoplasm of colon * * * * Physician Interpretation * * * * HISTORY: 66-YEAR-OLD MALE WITH Encounter for screening for malignant neoplasm of colon . Pt. states pain posterior elbow for 1 month. Pt. has a sack around posterior elbow for 1 month. TECHNIQUE: XR ELBOW 3V AP/LAT/OTHER LT Laterality: LEFT Number of different views (projections): 3 COMPARISON: None RESULT: Elbow joint spaces are maintained. No joint effusion. There is a calcification proximal to the olecranon most likely representing either a fractured enthesophyte or possibly calcific tendinosis. There is soft tissue swelling the region of olecranon bursa consistent with olecranon bursitis. IMPRESSION: OLECRANON BURSITIS. FRACTURED OLECRANON ENTHESOPHYTE OF INDETERMINATE AGE MAY REPRESENT TRICEPS TENDON INJURY. Pipe Fittings Molder: TAMIR Transcribe Date/Time: Apr 03 2017 11:37A Dictated by : DANNY JEFFERSON MD This examination was interpreted and the report reviewed and electronically signed by: DANNY JEFFERSON MD on Apr 03 2017 11:40AM EST [id number] PROGRESS Observed: 04/03/2017 Status: COMPLETED Source: [place] 11:00 AM [facility] REPOSITORY HNO ID: [id number] Author: Grupo ChristinaRtLane Adams Service: (none) Author Type: Community Mental Health Worker Type: Progress Notes Filed: 04/03/2017 11:03 AM Note Text: Radiology Service Progress Note PATIENT NAME: Terri Morales DATE OF SERVICE: April 03, 2017 TIME: 11:00 AM PATIENT IDENTITY VERIFICATION COMPLETED USING TWO (2) METHODS: Patient confirmed name verbally and Date of . PATIENT GENDER DATA: Male PATIENT RELEVANT IMPLANT DATA REVIEWED: Not Applicable RADIOLOGY DEPARTMENT: General X-ray: Exam(s) Completed: Upper Extremity X-Ray(s): Elbow, left : PERIPHERAL IV DATA: Not applicable SIGNED BY: RT John April 03, 2017 11:00 AM PROGRESS Observed: 04/03/2017 Status: COMPLETED Source: [place] 10:16 AM [facility] REPOSITORY HNO ID: [id number] Author: Ottoniel Reyes Service: (none) Author Type: Physician Gang Leader Type: Progress Notes Filed: 04/03/2017 11:52 AM Note Text: This is a 66 year old male who presents today with left olecranon swelling over last month. Not really painful. Noted some irritation with pressure in sheets in bed. No specific injury or overuse recalled. Has been wrapping with HUMERA. No fever/chills. No new sexually partners. No gout or known RA. No pain with any ROM. PAST MEDICAL HISTORY: PAST MEDICAL HISTORY Diagnosis Date - Diarrhea - Internal hemorrhoids without mention of complication PAST SURGICAL HISTORY Procedure Laterality Date - COLONOSCOPY W/BX 01/02/06 - KNEE SCOPE,DIAGNOSTIC 2002 Arthroscopy, knee ALLERGIES Amoxil [Amoxicillin]; Sulfa (Sulfonamide Antibiotics) MEDICATIONS Current Outpatient Prescriptions: ibuprofen (MOTRIN) 200 mg tablet Take 200 mg by mouth every 6 hours as needed. Aspirin 81 mg Tab Take 1 tablet by mouth once daily. Take with food. No current facility-administered medications for this visit. FAMILY HISTORY Problem Relation Age of Onset - Diabetes Mother - Heart Father Social History Marital status: Single Spouse name: Years of education: Number of children: 2 Occupational History Occupation Employer Comment [employer] Social History Main Topics Smoking status: Never Smoker Smokeless status: Never Used Alcohol use: No EXAM: BP 130/80 Pulse 88 Temp 36.7 ?C (98 ?F) (Tympanic) Resp 20 Wt 91.2 kg (201 lb) BMI 27.83 kg/m2 Pleasant adult man in no acute distress. Skin warm, dry, pink to lips and nailbeds. No unusual rashes. Respirations regular, unlabored Chest CTA. HRRR without murmur or gallop. Right elbow with moderate olecranon swelling. No erythema or warmth. Non-tender. Full flexion, extension, suppination, pronation of forearm without pain. XR: calcific tendonitis ASSESSMENT/PLAN: 1. Olecranon bursitis of left elbow - ICD9: 726.33, ICD10: M70.22 (primary diagnosis) Discussed rest for 2 months with padding to avoid any pressure. If still swollen consider aspiration and cortisone or referral to ortho. - XR ELBOW SPECIAL VIEWS AP/LAT/OTHER LT 2. Special screening for malignant neoplasms, colon - ICD9: V76.51, ICD10: Z12.11 Patient change his mind and declined colonoscopy All questions answered F/u as above M Unruly Reyes PA-C PROGRESS Observed: 04/03/2017 Status: COMPLETED Source: [place] 10:11 AM [facility] REPOSITORY O ID: [id number] Author: Brittny Yu LPN Service: (none) Author Type: (none) Type: Progress Notes Filed: 04/03/2017 11:52 AM Note Text: WSTR OPEN ACCESS QUESTIONNAIRE 1. Are you or could you be ? No 2. Are you currently having any stomach/gastrointestinal issues at this time such as constipation, diarrhea, abdominal pain, rectal bleeding etc? Yes / some right mid abdominal pain during the night at times 3. Do you have an implanted device such as a defibrillator, pacemaker, Cardiac Stent or deep brain stimulation device? No 4. Do you have any new or past cardiac (heart) or pulmonary (lung) issues? Yes / had a collapsed lung after a fall and broken ribs. Shortness of breath at times 5. Is the patient's BMI 40 or greater? No:Body mass index is 27.83 kg/(m2).. Last Wt 04/03/17 : 91.2 kg (201 lb) Last Ht 04/15/16 : 181 cm (5' 11.26) 6. Have you had difficulty with prior sedations or complications with other procedures? No 7. Have you had difficulty with anesthesia previously re: ? Difficult intubation? No ? Other difficulty or allergic reaction to anesthesia other than post op N/V? No 8. Do you currently use oxygen or a breathing machine at night? No 9. Do you take any narcotics, depression or anti-Anxiety medications or 3 or more prescription drugs on a daily basis? No 10. Do you use any illegal or recreational drugs? No 11. Have you been hospitalized in the past 6 weeks? No 12. Are you on dialysis or have Chronic Kidney Disease? No 13. Have you been diagnosed with chronic liver disease such as hepatitis or cirrhosis? Yes, see problem list 14. Do you have a seizure disorder? No 15. Do you have difficulty swallowing? No 16. Do you have ulcerative colitis or Crohn's disease? No 17. Do you take any Blood thinners, including Aspirin or fish oil? YES:ASA 81 mg daily 18. Do you have any blood disorders (re:hemophiliac)? No 19. Are you Diabetic? No 20. Any other important health information we should be made aware of prior to your colonoscopy? No Checklist: Prior to closing the encounter: ? Complete questionnaire: Yes ? Confirm Prep order has been Ordered/Pended: Yes. ? Patient's procedure could be delayed if not given the script for the prep. Please ensure the prep is escripted to pharmacy or printed. Instructions for the prep will print upon filing or pending this smartset. ? Please send all open access questionnaires to [facility] Sched Pool #[id number] ALLERGIES ALLERGIES DATE TYPE / CODE NAME / CODE REACTION SEVERITY SOURCE 01/23/2018 Drug Sulfa (Sulfonamide Rash Unknown [place] Allergy/416 Antibiotics)/F0010 Community 114934(SNOM 50682(RXNORM) [facility] ED CT) Repository 01/23/2018 Drug amoxicillin/E04732 Rash [place] Allergy/416 3675(RXNORM) Community 457748([facility] ED CT) Repository 01/14/2010 DRUG AMOXICILLIN RASH [facility] INGREDI/[address] [place] 140903(SNOM Repository ED CT) 03/02/2005 Drug SULFA (SULFONAMIDE [facility] Class/19363 ANTIBIOTICS) [place] 1003(SNOMED Repository CT) ENCOUNTERS ENCOUNTERS ADMIT/DISCHARGE ACCOUNT ADMITTING ENCOUNTER LOCATION SOURCE NUMBER CLASS 01/23/2018/01/24/20 [id number] Ambulatory BMSBuilding:[place] [address] [place].[facility] Repository 01/10/2018 [id number] Ambulatory BMSBuilding:[place] MS.CF.[facility] Repository 01/09/2018 [id number] Ambulatory BMSBuilding:W [place] [facility] Repository 01/09/2018/01/10/20 [id number] Ambulatory [address] Hospital ing:SDCRoom: Repository AC12 12/17/2017/12/18/19 [id number] Ambulatory BMSBuilding:[place] [address] [place].[facility] Repository 12/08/2017 [id number] Ambulatory [facility] Repository 09/27/2017/09/29/19 [id number] Ambulatory [address] Repository 08/02/2017/08/03/19 [id number] Ambulatory [address] Repository 08/02/2017/08/04/19 [id number] Ambulatory [address] Repository 07/17/2017/07/18/19 [id number] [place], Ambulatory [address] Repository 07/10/2017 [id number] Ambulatory [facility] Repository 06/19/2017/06/20/19 [id number] Ambulatory [address] Repository 06/19/2017/06/22/19 [id number] Ambulatory [address] Repository 06/19/2017/06/20/19 [id number] Ambulatory [address] Repository 06/11/2017/06/13/19 [id number] Ambulatory [address] Repository 06/07/2017 [id number] Ambulatory [facility] Repository 06/07/2017/06/09/19 [id number] Ambulatory [address] Repository 04/03/2017/04/03/19 [id number] Ambulatory [address] Repository 04/03/2017/04/04/19 [id number] Ambulatory [address] Repository PAYERS PAYERS ENCOUNTER GUARANTOR PAYER SUBSCRIBER SOURCE 01/23/2018 TERRI A Primary TERRI A [place] [id number] Insurance:MEDICARE [place]OB: [facility] PART A [facility] [id number] Repository 17280Kkj: [phone] [id number] [phone] (HP) Date:2018-01-10 01/23/2018 Secondary TERRI A [place] Insurance:MEDICO [place]IA [place]: Community LIFE INS [facility] [id number] Hospital Number: Repository [id number] Date:[id number] [address]XN: 01/23/2018 Tertiary NOT GIVENUNK [place] Insurance:SELF PAY [facility] Number: Effective Repository Date:2018-01-23 01/10/2018 TERRI A Primary NOT GIVENUNK [place] [id number] Insurance:SELF PAY [place] Number: Effective Repository [id number]: [phone]) Date:2018-01-10 [id number] (HP) 01/09/2018 TERRI A Primary TERRI A [place] [id number] Insurance:MEDICARE [place]OB: [facility] PART A [facility] [id number] Number: Repository [id number]: [phone] [id number] [phone] (HP) Date:2017-12-24 01/09/2018 Secondary TERRI A [place] Insurance:MEDICO SY[place]IA [place]OB: [facility] LIFE [facility] [id number] Hospital Number: Repository [id number] Date:[id number] [address] [address]VB: 01/09/2018 Tertiary NOT GIVENUNK [place] Insurance:SELF PAY [facility] Number: Effective Repository Date:2018-01-09 01/09/2018 TERRI A Primary TERRI A [place] [id number] Insurance:MEDICARE [place]OB: [facility] PART A [facility] [id number] Number: Repository [address]Epv: [phone] [id number] [phone] () Date:2017-12-24 01/09/2018 Secondary TERRI A [place] Insurance:MEDICO SYLVIA [place]LETONDOB: Community LIFE INS COPolicy [id number] Hospital Number: Repository [id number] Date:[id number] [address] [address]RC: 01/09/2018 Tertiary NOT GIVENUNK [place] Insurance:SELF PAY [facility] Number: Effective Repository Date:2017-12-24 12/17/2017 TERRI A Primary TERRI A [place] [id number] Insurance:MEDICARE MIDDLETONDOB: [facility] PART A [facility] [id number] Number: Repository [id number]: 330 [id number] [phone] () Date:2017-12-13 12/17/2017 Secondary TERRI A [place] Insurance:MEDICO SYLVIA [place]LETONDOB: Community LIFE INS COPolicy [id number] Hospital Number: Repository [id number] Date:[id number] [address] [address]SX: 12/17/2017 Tertiary NOT GIVENUNK [place] Insurance:SELF PAY [facility] Number: Effective Repository Date:2017-12-17
== END 2018-01-09 16:38 | disposition home or self-care (01) ==
LOC: SDC 10:58 → AC 11:00
PROVIDERS: Urology; Family Provider Family Medicine; PCP Family Medicine; Referring Provider Surgery; Visit Provider Surgery
PROC: (CPT 54840; 2018-01-09 12:15)
DX: N43.41 Spermatocele of epididymis, single (principal); K40.90 Unilateral inguinal hernia, without obstruction or gangrene, not specified as recurrent; M19.90 Unspecified osteoarthritis, unspecified site; Z86.2 Personal history of diseases of the blood and blood-forming organs and certain disorders involving the immune mechanism; Z79.82 Long term (current) use of aspirin
CPT/HCPCS: 00830; 49505; 54840; J7120; C1781; J2405

== ENCOUNTER → 2018-11-20 06:27 | Outpatient (CLI) | payer MEDICARE, OTHER, SELFPAY ==
[2018-01-09 11:30] VITALS: BMI 25.4
--- NOTE | 2018-11-27 13:43 | STRESSREP ---
Stress Test Report Date: 11/20/2018 Procedure: Exercise tolerance test/imaging study Indications: Shortness of breath Consent: Per the patient Procedure: The patient exercised on a Gomez protocol for 8 minutes achieving a peak heart rate of 136 bpm (88 % predicted maximal heart rate) with a peak blood pressure 200/82 mmHg and a peak MET capacity of 10.1 METs. The baseline ECG demonstrated normal sinus rhythm. The peak exercise ECG demonstrated significant baseline artifact. However there appears to be about half a millimeter horizontal ST depressions in aVF and about [address] depression in the lateral leads. EKG during recovery revealed no significant ischemic changes [There were no significant cardiac dysrhythmias pretest, during exercise, or recovery]. Patient had occasional PVCs in the recovery. The functional capacity was considered excellent for age. There was [no complaint of chest discomfort during exercise or recovery]. The examination was discontinued secondary to shortness of breath. Impression: 1. Technically adequate (percent predicted maximal heart rate greater than 85%) exercise tolerance test 2. Stress test is negative for exercise-induced EKG changes of ischemia 3. The test test is negative for exercise-induced chest pain 4. Functional capacity is excellent for age 5. Nuclear images pending Myocardial perfusion imaging study: Technique: The patient was injected with 10 mCi of technetium 99m Cardiolite and subsequently rest SPECT Cardiolite nuclear imaging was obtained in the horizontal long, vertical long, and short axis views. The patient exercised on a Gomez protocol. Please see above for details. The patient was injected with 35 mCi of technetium 99m Cardiolite and subsequently stress SPECT Cardiolite nuclear imaging was obtained in the horizontal long, vertical long, and short axis views. A gated Cardiolite study at peak stress was obtained. Interpretation: Rest and stress SPECT Cardiolite nuclear imaging status post realignment, normalization, and attenuation correction, demonstrates mildly decreased radioisotope uptake in the inferior wall prior to attenuation correction. After attenuation correction there appears to be normal myocardial radioisotope uptake. This is suggestive of diaphragmatic attenuation artifact. The gated Cardiolite study demonstrates no significant regional wall motion abnormalities. The reported LVEF is 64 %. Impression: 1. There is no evidence of significant ischemia or infarction. 2. The gated Cardiolite study reports an LVEF of 64 %. This note was generated with [employer] software. It may contain incorrect words, spelling, and punctuation that were not noted in checking the note before signing.
== END ==
PROVIDERS: Family Provider Family Medicine; PCP Family Medicine; Referring Provider Family Medicine; Visit Provider Family Medicine
DX: R06.02 Shortness of breath (principal); Z82.49 Family history of ischemic heart disease and other diseases of the circulatory system
CPT/HCPCS: 78452; 93017; A9500; A4216

== ENCOUNTER 2020-07-20 12:30 | Outpatient (RCR) | payer MEDICARE, OTHER, SELFPAY ==
[2018-01-09 11:30] VITALS: BMI 25.4
--- NOTE | 2020-06-21 10:27 | HP.PTEVAL_ITS ---
Patient's Visit Information TERRI HERNANDEZ is a 69 year old M referred to Physical Therapy by Dr. Case Rdz DPM with a diagnosis of Achilles Tendonitis. Date of Evaluation: 06/21/20 Physical Therapist: Maye Varghese DPT - Visit Plan Frequency: 2x /Week Duration: 4 Weeks Plan: Achilles Tendonitis- Modality of Ultrasound and Graston- possible canidate for DN- Proprioception and eccentrics. HEP Given IE: gastroc stretch, solues stretch, SLS, eccentric heel raise - Subjective Left sided heel spur- has been bothering him for a couple of month- if he uses it- worse but if he stays off of it he is better. Agg: walking, stairs, s tretching, mowing the yard. Worst: 6/10 Best: 0/10 Eases: sitting down. As soon as he takes the weight off the pain goes away. The pain is located in the left heel on the bone. No radiating pain. Describes the pain as more a sharp and achy pain. No N/T. Has had x-rays taken- No MRI or injection. They gave him exercises to do- but they don't really seem to help. Is normally wearing good tennis shoes and has inserts from the podiatris but does not feel like they help a lot. Sleep: Not disturbed. If he is not standing on it its not a bother at all. 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 He does not sit very well. Fully I with ADL's just painful. No boot or night splint. No prior injuries to the left foot. PMHx:none Meds: baby asprin - Objective Posture: FH, RS, can correct but does not maintain. Gait: slight deviation- decreased stance on the left LE with poor heel/toe pattern. HR/TR: able without pain. Eccentric HR: increased pain. SLS: 3 sec then LOB and used UE to right himself. Stairs: asc/desc 8 recip- reports discomfort with descend. Observation: achilles has visible deformity and pes planus left>right - Goals Goal 1:: Patient will be I with HEP and progression Goal Time Frame: 4-6 Weeks Goal 2:: Patient will demo 10 degrees of DF Goal Time Frame: 4-6 Weeks Goal 3:: Patient will report no pain for 1 week with all ADL's Goal Time Frame: 4-6 Weeks Goal 4:: Patient will demo SLS for 15 sec without LOB Goal Time Frame: 4-6 Weeks Goal 5:: Patient will perform eccentric HR with 0/10 pain Goal Time Frame: 4-6 Weeks - Rehabilitation Potential Physical Therapy Diagnosis: Patient presents with hypomobility- he has decreased ROM, flex, proprioception and muscular endurance leading to poor posture and increased pain with gait and ADL's. Rehabilitation Potential: Fair - Anticipated Interventions Patient/Client Instruction: Educate patient on: Benefits of Fitness Program Therapeutic Exercise to Include: Strength training, Endurance training, Balance training, Agility training, Body mechanics, Postural training, Flexibilty training, Gait and locomotor training, Neuromotor development, Dynamic Lumbar Stabilization For the Purpose of:: To improve muscle performance and motor function Manual Therapy Techniques to Include: Functional dry needling, Soft tissue mobilization TENS: Yes Cryotherapy (ice pack, ice massage): Yes Thermo therapy (hot pack): Yes Ultrasound (thermal/non thermal): Yes Thank you for the opportunity to evaluate your patient. For Medicare and Medicare HMO plans, please review the plan of care and approve it. It will need to be FAXED BACK to us at [phone] for Medicare purposes. For Medicare only, by signing this I certify the plan of care. Please let me know if there are questions or concerns regarding this plan of care. Physician Signature: Date:
--- NOTE | 2020-07-20 12:54 | HP.PTDCSUM ---
It has been my pleasure to treat TERRI HERNANDEZ referred by Dr. Case Rdz DPM, with the diagnosis of Left Achilles Tendonitis for a total of 9 visit(s). Discharge Date: Please see the following information for a summary of their discharge status. Subjective: Patient reports that he is 75% better- is able to walk without pain. L Heel Pain Intensity (Out of 10): 0 % Improvement: 75 Objective/Function: Posture: FH, RS, can correct but does not maintain. Gait: no deviation noted. HR/TR: able without pain. Eccentric HR: no pain full ROM SLS: 20 sec then LOB and used UE to right himself. Stairs: asc/desc 8 recip- no pain Observation: achilles has visible deformity and pes planus left>right. ROM: WFL in all planes of the ankle Strength: 5/5 throughout, Flex: HS: moderate, Gastroc: mild Solues: mild Goal 1:: Patient will be I with HEP and progression Goal 2:: Patient will demo 10 degrees of DF Goal Progress: Goal Met Goal 3:: Patient will report no pain for 1 week with all ADL's Goal Progress: Progressing Goal 4:: Patient will demo SLS for 15 sec without LOB Goal Progress: Goal Met Goal 5:: Patient will perform eccentric HR with 0/10 pain Goal Progress: Goal Met Plan: 07/20/2020: Discharge to HEP including slant board he made. Achilles Tendonitis- Modality of Ultrasound and Graston- possible candidate for DN- Proprioception and eccentrics If there are questions or concerns regarding this patient's physical therapy, please feel free to call me at [phone]. Thank you for the referral of this patient. Sincerely, Maye Varghese DPT
== END 2020-07-20 19:00 | disposition home or self-care (01) ==
LOC: PT 12:30
PROVIDERS: PCP Family Medicine; Referring Provider Podiatrist; Visit Provider Podiatrist
DX: M76.62 Achilles tendinitis, left leg (principal); M77.32 Calcaneal spur, left foot
CPT/HCPCS: 97035; 97110; 97140; 97161; 97164

== ENCOUNTER → 2020-12-21 12:46 | Outpatient (CLI) | payer SELFPAY ==
--- NOTE | 2020-12-21 12:53 | CT_ITS ---
STUDY: CARDIAC CALCIUM SCORING - CT CHEST REASON FOR EXAM: Male, 70 years old. SOB RADIATION DOSAGE (If Supplied By Facility): CTDIvol = ( 12 ) mGy, DLP = ( 244 ) mGycm TECHNIQUE: Axial non-enhanced images were acquired through the heart for the sole purpose of measuring coronary artery calcium. Individualized dose optimization techniques were used for this CT. COMPARISON: None. FINDINGS: Visualized surrounding anatomy: Mild emphysema. Left Main Coronary Artery: 46.3 Left Anterior Descending Artery: 0 Left Circumflex Artery: 0 Right Coronary Artery: 290 Total Calcium Score: 336 CT/Limited Chest CT w/CCTA IMPRESSION: A Calcium Score of 336 places the patient in the approximate 59 percentile, based on the [facility] data calculator. Mild emphysema. Please go to: [email or web address] , for a description of the calculator. Electronically Signed: Macrelo Johnson MD at 15:45 EST Tel , Service support ,
[2020-12-21 13:03] VITALS: BP 148/84; PULSE 68; RESP 16; O2SAT 97; BMI 265.5
--- NOTE | 2020-12-21 17:48 | CA.SCORE ---
Calcium Scoring Date of Study:: 12/21/20 Coronary Calcium Scoring: High-resolution Computed Tomographic imaging of the chest was performed on 12/21/2020 with particular attention paid to the coronary arteries. Images from the examination were analyzed for the presence and extent of coronary artery calcification , using coronary calcium quantification software. The patient tolerated the procedure well and there were no complications. The results of the coronary calcification analysis are provided below. Findings Coronary Artery Left Main (LM): 46.3 Left Anterior Descending (LAD): 0 Left Circumflex (LCX): 0 Right Coronary Artery (RCA): 290 Total Agatston Score: 336.3 Percentile Ranking: According to prepublished reference is approximately 50 to 75% of patients of the same gender and/or similar age had the same and/or lower scores Calcium Scoring Interpretation: 0 No identifiable atherosclerotic plaque. Very low cardiovascular disease risk. <5% chance of presence coronary artery disease A Negative Examination 1-10 Minimal Plaque burden. Significant coronary artery disease very unlikely. 11-100 Mild plaque burden. Likely mild or minimal coronary atherosclerosis. 101-400 Moderate plaque burden Moderate non-obstructive coronary artery disease highly likely. Over 400 Extensive plaque burden. High likelihood of at least one significant coronary stenosis (>50% diameter) Calcium Score: 101 - 400 Moderate non-obstructive coronary artery disease highly like Conclusion: Continue cardiovascular evaluation and care as deemed appropriate. This note was generated using a voice recognition system and there may be incorrect words, spelling or punctuation that were not noted when reviewing the office note prior to saving.
== END ==
PROVIDERS: PCP Family Medicine
DX: J43.9 Emphysema, unspecified (principal)
CPT/HCPCS: 75571; 76380

== ENCOUNTER → 2021-02-08 14:30 | Outpatient (CLI) | payer MEDICARE, OTHER, SELFPAY ==
[2021-02-08 18:23] LABS: Absolute Lymphocyte Count 0.97 X10^3/uL (0.83-4.51); Basophil# 0.04 X10^3/uL; Basophil% 0.6 % (0-1); Eosinophil# 0.25 X10^3/uL; Eosinophils% 3.6 % (0-5); Hemoglobin 16.5 g/dL (13.0-16.5); Lymphocyte # 0.97 X10^3/ul (0.83-4.51); Lymphocyte % 13.9 % (19-41); Mean Platelet Vol. 10.3 fl (6.2-12.0); Monocyte# 0.68 X10^3/uL; Monocyte% 9.8 % (0-10); NRBC Flagged by Analyzer 0 % (0-5); Neutrophil # 4.99 X10^3/uL (2.7-7.7); Neutrophil % 71.7 % (47-70); Platelet Count 159 K/mm3 (150-450); RBC Distribution Width CV 12.6 % (11.6-14.6); Red Blood Count 5.32 M/mm3 (4.6-6.2)
[2021-02-08 18:25] LABS: Color, Urine Yellow (Yellow); Glucose, Dipstick Normal (Normal); Ketone-Dipstick Negative (Negative); Leukocyte Esterase-Dipstick Negative /ul (Negative); Nitrite-Dipstick Negative (Negative); Occult Blood-Urine Negative /ul (Negative); Protein-Dipstick Negative (Negative); Urine Bilirubin Dipstick Negative (Negative); Urine Clarity Clear (Clear); Urine Urobilinogen Normal (Normal)
[2021-02-08 19:02] LABS: AST(SGOT) 31 U/L (15-37); Alanine Aminotransfer ALT/SGPT 40 U/L (16-61); Albumin, Serum 4.3 g/dL (3.2-5.0); Alkaline Phosphatase 107 U/L (45-117); Anion Gap 6 (5-15); BUN 17 mg/dL (7-18); BUN/Creat Ratio 12.3 RATIO (10-20); Calcium,Total 9.3 mg/dL (8.5-10.1); Chloride 103 mmol/L (98-107); Creatinine, Serum 1.38 mg/dL (0.70-1.30); EST Glomerular Filtration Rate 54 mL/min (>60); Est Glom Filt Rate - Afr Amer 66 mL/min (>60); Globulin 4.2 g/dL (2.2-4.2); Glucose 98 mg/dL (74-106); Potassium 4.5 mmol/L (3.5-5.1); Protein, Total 8.5 g/dL (6.4-8.2); Protein, Urine (Random) < 6.0 mg/dL (<11.9); Protein:Creat Ratio 66 mg/g CRE (0-200); Sodium Level 139 mmol/L (136-145)
[2021-02-09 09:05] LABS: Hepatitis B Surface Antibody Non-Reactive; Hepatitis B Surface Antigen Non-Reactive (Nonreactive); Hepatitis C Antibody Non-Reactive (Nonreactive)
[2021-02-11 07:07] LABS: Dilute Prothrombin Time (dPT) 40.9 sec (0.0-47.6); Dilute Russell Viper Venom 42.3 sec (0.0-47.0); Thrombin Time 19.3 sec (0.0-23.0); dPT Confirm Ratio 1.15 Ratio (0.00-1.34)
[2021-02-11 10:07] LABS: Interpretation Comment: (.)
== END ==
PROVIDERS: PCP Family Medicine; Visit Provider Internal Medicine Rheumatology
DX: M06.4 Inflammatory polyarthropathy (principal); M19.041 Primary osteoarthritis, right hand; M19.042 Primary osteoarthritis, left hand; D86.9 Sarcoidosis, unspecified; D69.6 Thrombocytopenia, unspecified; N18.9 Chronic kidney disease, unspecified; H93.13 Tinnitus, bilateral; R76.8 Other specified abnormal immunological findings in serum
CPT/HCPCS: 36415; 80053; 81002; 82570; 84156; 85025; 86706; 86803; 87340

== ENCOUNTER 2022-07-25 06:41 | Inpatient (IN) | payer MEDICARE, OTHER, SELFPAY ==
[2022-07-25] VITALS (12 sets, daily range): BP systolic 134–180; BP diastolic 70–90; PULSE 58–81; RESP 16–21; TEMP 36.2–37.2; O2SAT 94–99; BMI 25.8; BMI 25.0
--- NOTE | 2022-07-25 06:52 | EKG12_ITS ---
Test Reason : SOB Blood Pressure : / mmHG Vent. Rate : 082 BPM Atrial Rate : 082 BPM P-R Int : 166 ms QRS Dur : 092 ms QT Int : 354 ms P-R-T Axes : 051 019 042 degrees QTc Int : 413 ms Normal sinus rhythm Nonspecific ST abnormality Abnormal ECG Confirmed by DAMIÁN CACERES, CHAD ([id number]), desk editor REMA JAMES ([id number]) on 07/26/2022 11:17:14 AM Referred By: Confirmed By:CHAD STEEL MD
--- NOTE | 2022-07-25 06:54 | RAD_ITS ---
INDICATION: chest pain EXAMINATION/TECHNIQUE: X-RAY - XR Chest 1 View COMPARISON: CT chest September 30, 2016. FINDINGS: LINES/DEVICES: None. LUNGS: Lungs symmetrically mildly hyperexpanded. No consolidation, edema or effusion. No pneumothorax. MEDIASTINUM AND CARDIOVASCULAR STRUCTURES: Cardiac silhouette not enlarged. Mild aortic atherosclerosis. BONES AND SOFT TISSUES: Unremarkable. RAD/Chest 1 View (Portable) IMPRESSION: Mild hyperexpansion as can be seen with chronic obstructive pulmonary disease. No radiographic evidence of consolidative pneumonia or florid edema. Electronically Signed: Edgar Cortez MD at 7:18 EDT ,
[2022-07-25] MEDS: Aspirin 81 MG TAB.CHEW 324 MG PO (07:02)
[2022-07-25 07:07] LABS: Absolute Lymphocyte Count 1.27 X10^3/uL (0.83-4.51); Absolute Neutrophil Count 2.4 X10^3/uL (2.0-7.7); Basophil# 0.02 X10^3/uL; Basophil% 0.4 % (0-1); Eosinophil# 0.21 X10^3/uL; Eosinophils% 4.6 % (0-5); Hematocrit 40.5 % (40-54); Hemoglobin 13.8 g/dL (13.0-16.5); Lymphocyte # 1.27 X10^3/ul (0.83-4.51); Lymphocyte % 27.7 % (19-41); Mean Corp Hgb Conc 34.1 g/dL (32-36); Mean Corpuscular Hgb 32.6 pg (27.0-32.0); Mean Corpuscular Volume 95.7 fL (80-94); Mean Platelet Vol. 9.8 fl (6.2-12.0); Monocyte# 0.71 X10^3/uL; Monocyte% 15.5 % (0-10); NRBC Flagged by Analyzer 0 % (0-5); Neutrophil # 2.37 X10^3/uL (2.7-7.7); Neutrophil % 51.6 % (47-70); Platelet Count 122 K/mm3 (150-450); RBC Distribution Width SD 42.4 fl (35.1-43.9); Red Blood Count 4.23 M/mm3 (4.6-6.2); White Blood Count 4.6 K/mm3 (4.4-11.0)
--- NOTE | 2022-07-25 07:07 | ED.VIS.CHEST ---
HPI History of Present Illness Chief Complaint: Chest Pain Narrative Narrative: 71-year-old male past medical history of COPD presents with 2 to 3 days of intermittent chest pain, right in the middle of his chest and nonradiating that is worse with exertion. He states he usually feels that from his COPD when he is walking the dogs. The other day he was walking uphill and he started having sharp chest pain. He denies any nausea or vomiting. No fevers or chills. No cough. He denies any leg swelling. No problems with prior coronary artery disease or stenting. This morning, when he awoke, while he was eating breakfast he started having the chest pain again. [facility] Medical History Hemorrhoids Left inguinal hernia Osteoarthritis Spermatocele Home Medications aspirin 81 mg chewable tablet 81 mg PO DAILY@0800 09/30/16 [History Last Taken 01/03/18] tiotropium 2.5 mcg-olodaterol 2.5 mcg/actuation mist for inhalation (InvodoolFrank & Oak Respimat) puff inhalation DAILY 07/25/22 [History Last Taken Unknown] Allergy/AdvReac Type Severity Reaction Status Date / Time amoxicillin Allergy Mild rash Verified 01/23/18 08:37 Sulfa (Sulfonamide Allergy Rash Verified 01/23/18 08:37 Antibiotics) Family History Father Heart disease Mother Diabetes Surgical History History of arthroscopy of left knee History of colonoscopy (~2017) S/P left inguinal hernia repair (~01/09/18) Social History Smoking Status: Never smoker ROS ROS ED ROS Narrative Constitutional: No fever, no chills. HEENT: No sore throat. No neck pain. No loss of vision. No rhinorrhea. Cardiovascular: Midsternal chest pain. No palpitations. No pedal edema. Respiratory: No cough, no shortness of breath. Abdominal: No abdominal pain. No nausea. No vomiting. Genitourinary: No dysuria. No hematuria. Musculoskeletal: No myalgias. No arthralgias. Neurologic: No headaches. No dizziness. No lightheadedness. Skin: No rash. No change in color. Psychiatric: No depression. No anxiety. EXAM Physical Exam Narrative Exam Narrative: Afebrile. Vital signs noted. HEENT: Normocephalic. Atraumatic. PERRL, EOMI. Neck soft and supple. No point tenderness or step off. Cardiovascular: Regular rate and rhythm. No murmurs, rubs, or gallops appreciated. Respiratory: No tachypnea. Lungs clear to auscultation bilaterally. Gastrointestinal: Abdomen soft, nontender, with normoactive bowel sounds. No rebound or guarding. Neurological: Awake. Alert. Nonfocal, nonlateralizing. Skin: No rash. Normal color. No pallor. Musculoskeletal: No pedal edema. Full range of motion extremities. Const Vital Signs: 07/25/22 06:41 07/25/22 06:53 07/25/22 06:55 Temperature 97.2 F L Temperature Source Temporal Pulse Rate 80 Respiratory Rate 19 H Respiratory Effort Normal Non-Labored Respiratory Pattern Irregular Blood Pressure 180/87 H Blood Pressure Mean 118 Pulse Ox 97 Oxygen Delivery Method Room Air Room Air 07/25/22 06:56 07/25/22 08:06 07/25/22 09:46 Temperature Temperature Source Pulse Rate 81 65 Respiratory Rate 21 H Respiratory Effort Respiratory Pattern Blood Pressure 167/90 H 163/87 H Blood Pressure Mean 115 Pulse Ox 99 Oxygen Delivery Method Room Air Room Air 07/25/22 09:51 Temperature Temperature Source Pulse Rate 74 Respiratory Rate Respiratory Effort Respiratory Pattern Blood Pressure 141/79 H Blood Pressure Mean 99 Pulse Ox Oxygen Delivery Method Heart Score History: Slightly/Non-Suspicious ECG: Normal Age: >/= 65 years Risk Factors: 1 or 2 Risk Factors Score: 3 MDM MDM MDM Narrative Medical decision making narrative: Chest pain work-up was pursued. In the differential is esophageal spasm versus acute coronary syndrome versus COPD exacerbation. He does have elevated blood pressure at 180/87 here. Chest pain protocol orders were entered and he was administered aspirin. Also in the differential is pulmonary embolism. D-dimer will be obtained with age adjustment. EKG interpreted by myself independently demonstrates normal sinus rhythm at 82 bpm without ectopy or acute ST changes. No STEMI. I reviewed his laboratory work, he has a normal white count of 4.6, hemoglobin normal at 13.8, hematocrit 40.5, platelet count low at 122, he has had thrombocytopenia in the past. D-dimer was elevated at 1.59, above his age-adjusted cutoff limit. CTA of the chest was obtained which shows on review of the radiology report no evidence of a pulmonary embolism or consolidation, no reason for his pleuritic chest pain. Patient had stated that he felt well before going to the CT scanner. Upon repeat examination, at around 8 10 in the morning he states he was having numbness underneath both of his arms, and chest pain. His blood pressure has come down to 167/90 even without the hydralazine that I had ordered. Review of his BMP shows slightly elevated creatinine of 1.37 but he has chronic kidney injury in review of his labs from the past. His initial high-sensitivity troponin was 38. Repeat 2-hour troponin is elevated at 127. He was having intermittent bouts of pain with slight elevation of his blood pressure in the 170 systolic. He was written for nitroglycerin. I will start him on heparin for his unstable angina and NSTEMI. I discussed the patient with the managed care manager, Dr. Dodson who would like the patient admitted to the hospitalist service for future heart catheterization. He does not want to take him to the catheterization lab emergently. I will discuss the patient with the hospitalist for admission. Patient was discussed with Dr. Almanza for admission to the PCU. Patient is in stable condition. History & Record Review Discussion w/independent historian: Patient and Significant other Additional record(s) reviewed:: Prior ED visit and Prior labs Lab Data Attestation: I reviewed the patient's lab results. Labs: Laboratory Results - last 24 hr 07/25/22 07/25/22 07/25/22 06:57 06:57 06:57 WBC 4.6 Corrected WBC RBC 4.23 L Hgb 13.8 Hct 40.5 MCV 95.7 H MCH 32.6 H MCHC 34.1 RDW Std Deviation 42.4 RDW Coeff of Opal 12.0 Plt Count 122 L MPV 9.8 Immature Gran % (Auto) 0.200 Neut % (Auto) 51.6 Lymph % (Auto) 27.7 [place] % (Auto) 15.5 H Eos % (Auto) 4.6 Baso % (Auto) 0.4 Absolute Neuts (auto) 2.4 Absolute Lymphs (auto) 1.27 Total Counted Neutrophils % (Manual) Band Neutrophils % Lymphocytes % (Manual) Monocytes % (Manual) Eosinophils % (Manual) Basophils % (Manual) Metamyelocytes % Myelocytes % Promyelocytes % Blast Cells % Plasma Cell % (Manual) Other Cells % Nucleated RBC % 0 Nucleated RBCs/100 WBC Differential Comment Diff Path Review Hypersegmented Neuts Atypical Lymphocytes Reactive Lymphocytes Smudge Cells Toxic Granulation Toxic Vacuolation Dohle Bodies Keyonna Rods Platelet Estimate Plt Morphology Comment RBC Morphology Polychromasia Hypochromasia Poikilocytosis Basophilic Stippling Anisocytosis Microcytosis Macrocytosis Spherocytes Sickle Cells Target Cells Tear Drop Cells Ovalocytes Stomatocytes [place] Bodies Tracy Cells Bite Cells Crenated Cell Acanthocytes (Spur) Rouleaux Schistocytes PT INR APTT D-Dimer Quant (PE/DVT) 1.59 H* Sodium 141 Potassium 4.1 Chloride 108 H Carbon Dioxide 28.0 Anion Gap 5 BUN 25 H Creatinine 1.37 H Estim Creat Clear Calc 55.07 Est GFR (MDRD) Af Amer 66 Est GFR (MDRD) Non-Af 55 L BUN/Creatinine Ratio 18.2 Glucose 104 Calcium 8.8 Troponin I High Sens 38 07/25/22 07/25/22 07/25/22 06:57 06:57 06:57 WBC Cancelled Corrected WBC Cancelled RBC Cancelled Hgb Cancelled Hct Cancelled MCV Cancelled MCH Cancelled MCHC Cancelled RDW Std Deviation Cancelled RDW Coeff of Opal Cancelled Plt Count Cancelled MPV Cancelled Immature Gran % (Auto) Cancelled Neut % (Auto) Cancelled Lymph % (Auto) Cancelled [place] % (Auto) Cancelled Eos % (Auto) Cancelled Baso % (Auto) Cancelled Absolute Neuts (auto) Cancelled Absolute Lymphs (auto) Cancelled Total Counted Cancelled Neutrophils % (Manual) Cancelled Band Neutrophils % Cancelled Lymphocytes % (Manual) Cancelled Monocytes % (Manual) Cancelled Eosinophils % (Manual) Cancelled Basophils % (Manual) Cancelled Metamyelocytes % Cancelled Myelocytes % Cancelled Promyelocytes % Cancelled Blast Cells % Cancelled Plasma Cell % (Manual) Cancelled Other Cells % Cancelled Nucleated RBC % Cancelled Nucleated RBCs/100 WBC Cancelled Differential Comment Cancelled Diff Path Review Cancelled Hypersegmented Neuts Cancelled Atypical Lymphocytes Cancelled Reactive Lymphocytes Cancelled Smudge Cells Cancelled Toxic Granulation Cancelled Toxic Vacuolation Cancelled Dohle Bodies Cancelled Keyonna Rods Cancelled Platelet Estimate Cancelled Plt Morphology Comment Cancelled RBC Morphology Cancelled Polychromasia Cancelled Hypochromasia Cancelled Poikilocytosis Cancelled Basophilic Stippling Cancelled Anisocytosis Cancelled Microcytosis Cancelled Macrocytosis Cancelled Spherocytes Cancelled Sickle Cells Cancelled Target Cells Cancelled Tear Drop Cells Cancelled Ovalocytes Cancelled Stomatocytes Cancelled [place] Bodies Cancelled Kavita Cells Cancelled Bite Cells Cancelled Crenated Cell Cancelled Acanthocytes (Spur) Cancelled Rouleaux Cancelled Schistocytes Cancelled PT 14.8 INR 1.2 APTT 31.7 D-Dimer Quant (PE/DVT) Sodium Cancelled Potassium Cancelled Chloride Cancelled Carbon Dioxide Cancelled Anion Gap Cancelled BUN Cancelled Creatinine Cancelled Estim Creat Clear Calc Cancelled Est GFR (MDRD) Af Amer Cancelled Est GFR (MDRD) Non-Af Cancelled BUN/Creatinine Ratio Cancelled Glucose Cancelled Calcium Cancelled Troponin I High Sens Cancelled 07/25/22 08:56 WBC Corrected WBC RBC Hgb Hct MCV MCH MCHC RDW Std Deviation RDW Coeff of Opal Plt Count MPV Immature Gran % (Auto) Neut % (Auto) Lymph % (Auto) [place] % (Auto) Eos % (Auto) Baso % (Auto) Absolute Neuts (auto) Absolute Lymphs (auto) Total Counted Neutrophils % (Manual) Band Neutrophils % Lymphocytes % (Manual) Monocytes % (Manual) Eosinophils % (Manual) Basophils % (Manual) Metamyelocytes % Myelocytes % Promyelocytes % Blast Cells % Plasma Cell % (Manual) Other Cells % Nucleated RBC % Nucleated RBCs/100 WBC Differential Comment Diff Path Review Hypersegmented Neuts Atypical Lymphocytes Reactive Lymphocytes Smudge Cells Toxic Granulation Toxic Vacuolation Dohle Bodies Keyonna Rods Platelet Estimate Plt Morphology Comment RBC Morphology Polychromasia Hypochromasia Poikilocytosis Basophilic Stippling Anisocytosis Microcytosis Macrocytosis Spherocytes Sickle Cells Target Cells Tear Drop Cells Ovalocytes Stomatocytes [place] Bodies [place]av[place] Cells Bite Cells Crenated Cell Acanthocytes (Spur) Rouleaux Schistocytes PT INR APTT D-Dimer Quant (PE/DVT) Sodium Potassium Chloride Carbon Dioxide Anion Gap BUN Creatinine Estim Creat Clear Calc Est GFR (MDRD) Af Amer Est GFR (MDRD) Non-Af BUN/Creatinine Ratio Glucose Calcium Troponin I High Sens 127 H* Radiography Diagnostic Testing: Clinical Impression(s) from Imaging Studies Chest X-Ray 07/25/22 06:54 IMPRESSION: Mild hyperexpansion as can be seen with chronic obstructive pulmonary disease. No radiographic evidence of consolidative pneumonia or florid edema. Electronically Signed: Edgar Cortez MD at 7:18 EDT , Chest CTA 07/25/22 07:31 IMPRESSION: No pulmonary embolus. No thoracic aortic aneurysm or dissection. No pulmonary infiltrates or pleural effusions. Electronically Signed: Marcelo Johnson MD at 8:04 EDT , Management Discussion w/another healthcare provider: Hospitalist and Continuous Miner Operator Helper Critical Care Time Critical Care Time: Yes Critical care time (excluding procedures): 30-74 minutes (31), Including time spent:, Discussing w/Patient &/or Family/Cargo Mate, Discussing w/Consultants (Dr. Dodson, Dr. Almanza), Arranging Admission or Transfer and Performing Direct Patient Care at Bedside Discharge Plan Dx/Rx/DC Orders Clinical Impression: Chest pain, Unstable angina, Non-ST elevation PR (NSTEMI) Disposition Disposition: Acute Care [facility]
[2022-07-25 07:24] LABS: D-Dimer Quantitative (DVT/PE) 1.59 FEU/ug/m (0.27-0.49)
[2022-07-25 07:25] LABS: Anion Gap 5 (5-15); BUN 25 mg/dL (7-18); BUN/Creat Ratio 18.2 RATIO (10-20); Calcium,Total 8.8 mg/dL (8.5-10.1); Chloride 108 mmol/L (98-107); Creatinine, Serum 1.37 mg/dL (0.70-1.30); EST Glomerular Filtration Rate 55 mL/min (>60); Est Glom Filt Rate - Afr Amer 66 mL/min (>60); Estimated Creatinine Clearance 55.07 ml/min; Glucose 104 mg/dL (74-106); Potassium 4.1 mmol/L (3.5-5.1); Sodium Level 141 mmol/L (136-145); Troponin-I HS (w/2H Reflex) 38 pg/mL (3.0-78.0)
--- NOTE | 2022-07-25 07:31 | CT_ITS ---
STUDY: CTA CHEST WITH CONTRAST REASON FOR EXAM: Male, 71 years old. Chest pain. Elevated d-dimer. RADIATION DOSAGE (If Supplied By Facility): CTDIvol = ( 10.98 ) mGy, DLP = ( 447.31 ) mGycm TECHNIQUE: Transaxial imaging was performed following intravenous administration of 100 ml of Isovue-370 contrast material. Coronal and sagittal reformatted images were created. 3D post processed images were created. Individualized dose optimization techniques were used for this CT. COMPARISON: 09/30/2016 FINDINGS: LUNGS: There are no pulmonary infiltrates. There are stable mild emphysematous changes. There are no pulmonary nodules or masses. PLEURAL SPACE: There are no pleural effusions. There is no pneumothorax. MEDIASTINUM: The heart and pericardium are within normal limits. There is no pneumomediastinum. There is no thoracic lymphadenopathy. VESSELS There is no pulmonary embolus. The pulmonary artery is normal in caliber. There is no thoracic aortic aneurysm or dissection. UPPER ABDOMEN: Images through the upper abdomen demonstrate no significant abnormality. BONES: There are mild degenerative changes noted in the spine. There are no destructive osseous lesions. SOFT TISSUES: The visualized soft tissues are unremarkable. CT/CTA Chest W/WO Contrast IMPRESSION: No pulmonary embolus. No thoracic aortic aneurysm or dissection. No pulmonary infiltrates or pleural effusions. Electronically Signed: Marcelo Johnson MD at 8:04 EDT ,
[2022-07-25 09:02] LABS: Reflex Troponin-HS? (from REC) Y
[2022-07-25 09:32] LABS: Troponin-I HS 127 pg/mL (3.0-78.0)
[2022-07-25] MEDS: Nitroglycerin SL (ED/IMG/CATH) 0.4 MG TABLET SL (09:46)
[2022-07-25 09:54] LABS: International Normalized Ratio 1.2; Prothrombin Time (Protime)PT. 14.8 SECONDS (11.7-14.9)
[2022-07-25 09:55] LABS: Partial Thromboplast Time 31.7 Seconds (24.1-36.2)
[2022-07-25] MEDS: Heparin Injection (Vial) 5,000 UNIT/ML VIAL 4000 UNIT IV (10:18)
[2022-07-25] MEDS: HEPARIN/D5w 25,000 UNITS 25,000 UNITS/250 ML IV.SOLN. 10 UNITS CONT INF (10:19)
--- NOTE | 2022-07-25 11:26 | PCM.HP.STD ---
HPI - General General Date of Admission: 07/25/22 Date of Service: 07/25/22 Chief Complaint: Chest pain HPI Narrative TERRI HERNANDEZ, is a 71 M who presents with chest pain. Symptoms began on Sunday. At that time, was related with exertion such as going up a hill and that were resolved. Persisted but it today, it was occurring mostly at rest. Symptoms were patient was having chest pain across his chest and was short of breath. Patient said he had similar symptom in the past when he had shingles that involved the right side of his chest. Patient denies any current rash. Patient presented to the emergency room and his troponins went from 38-1 27. They contacted cardiology recommended heparin drip and cardiology was seen in consultation. [facility] Medical History Hemorrhoids Left inguinal hernia Osteoarthritis Spermatocele Home Medications aspirin 81 mg chewable tablet 81 mg PO DAILY@0800 09/30/16 [History Last Taken 01/03/18] tiotropium 2.5 mcg-olodaterol 2.5 mcg/actuation mist for inhalation (Stiolto Respimat) puff inhalation DAILY 07/25/22 [History Last Taken Unknown] Allergy/AdvReac Type Severity Reaction Status Date / Time amoxicillin Allergy Mild rash Verified 01/23/18 08:37 Sulfa (Sulfonamide Allergy Rash Verified 01/23/18 08:37 Antibiotics) Family History Father Heart disease Mother Diabetes Surgical History History of arthroscopy of left knee History of colonoscopy (~2017) S/P left inguinal hernia repair (~01/09/18) Social History Smoking Status: Never smoker ROS ROS Narrative States for the past several months he does get dizzy when he stands per bends over and straightens up quickly. All review of systems were negative except as mentioned above in the history of present illness and the other review of systems. Vital Signs Vital Signs Vital Signs: 07/25/22 06:41 07/25/22 06:53 07/25/22 06:55 Temperature 36.2 C L Temperature Source Temporal Pulse Rate 80 Respiratory Rate 19 H Respiratory Effort Normal Non-Labored Respiratory Pattern Irregular Blood Pressure 180/87 H Blood Pressure Mean 118 Pulse Ox 97 Oxygen Delivery Method Room Air Room Air 07/25/22 06:56 07/25/22 08:06 07/25/22 09:46 Temperature Temperature Source Pulse Rate 81 65 Respiratory Rate 21 H Respiratory Effort Respiratory Pattern Blood Pressure 167/90 H 163/87 H Blood Pressure Mean 115 Pulse Ox 99 Oxygen Delivery Method Room Air Room Air 07/25/22 09:51 07/25/22 10:54 Temperature 36.2 C L Temperature Source Temporal Pulse Rate 74 80 Respiratory Rate 16 Respiratory Effort Respiratory Pattern Blood Pressure 141/79 H 167/90 H Blood Pressure Mean 99 115 Pulse Ox 97 Oxygen Delivery Method Room Air Weight Weight: 86.3 kg Body Mass Index (BMI) 25.8 Physical Exam Const alert and no apparent distress HEENT normocephalic and head/scalp atraumatic Neck no lymphadenopathy Neck Narrative: Bruit on the right Resp normal respiratory effort, no retractions and no use of accessory muscles Cardio regular rate, regular rhythm, S1 normal heart sound and S2 normal heart sound GI normal to inspection, nondistended, normoactive bowel sounds, soft to palpation, non-tender and non-distended Extremity normal to inspection and full ROM Neuro Sensorium / Orientation: awake and alert Psych affect normal Results Lab / Micro Data Attestation: I reviewed the patient's lab results. Result Diagrams: 07/25/22 06:57 07/25/22 06:57 Labs: Laboratory Results - last 24 hr 07/25/22 06:57: WBC 4.6, RBC 4.23 L, Hgb 13.8, Hct 40.5, MCV 95.7 H, MCH 32.6 H, MCHC 34.1, RDW Std Deviation 42.4, RDW Coeff of Opal 12.0, Plt Count 122 L, MPV 9.8, Immature Gran % (Auto) 0.200, Neut % (Auto) 51.6, Lymph % (Auto) 27.7, [place] % (Auto) 15.5 H, Eos % (Auto) 4.6, Baso % (Auto) 0.4, Absolute Neuts (auto) 2.4, Absolute Lymphs (auto) 1.27, Nucleated RBC % 0 07/25/22 06:57: Sodium 141, Potassium 4.1, Chloride 108 H, Carbon Dioxide 28.0, Anion Gap 5, BUN 25 H, Creatinine 1.37 H, Estim Creat Clear Calc 55.07, Est GFR (MDRD) Af Amer 66, Est GFR (MDRD) Non-Af 55 L, BUN/Creatinine Ratio 18.2, Glucose 104, Calcium 8.8, Troponin I High Sens 38 07/25/22 06:57: D-Dimer Quant (PE/DVT) 1.59 H* 07/25/22 06:57: WBC Cancelled, Corrected WBC Cancelled, RBC Cancelled, Hgb Cancelled, Hct Cancelled, MCV Cancelled, MCH Cancelled, MCHC Cancelled, RDW Std Deviation Cancelled, RDW Coeff of Opal Cancelled, Plt Count Cancelled, MPV Cancelled, Immature Gran % (Auto) Cancelled, Neut % (Auto) Cancelled, Lymph % (Auto) Cancelled, [place] % (Auto) Cancelled, Eos % (Auto) Cancelled, Baso % (Auto) Cancelled, Absolute Neuts (auto) Cancelled, Absolute Lymphs (auto) Cancelled, Total Counted Cancelled, Neutrophils % (Manual) Cancelled, Band Neutrophils % Cancelled, Lymphocytes % (Manual) Cancelled, Monocytes % (Manual) Cancelled, Eosinophils % (Manual) Cancelled, Basophils % (Manual) Cancelled, Metamyelocytes % Cancelled, Myelocytes % Cancelled, Promyelocytes % Cancelled, Blast Cells % Cancelled, Plasma Cell % (Manual) Cancelled, Other Cells % Cancelled, Nucleated RBC % Cancelled, Nucleated RBCs/100 WBC Cancelled, Differential Comment Cancelled, Diff Path Review Cancelled, Hypersegmented Neuts Cancelled, Atypical Lymphocytes Cancelled, Reactive Lymphocytes Cancelled, Smudge Cells Cancelled, Toxic Granulation Cancelled, Toxic Vacuolation Cancelled, Dohle Bodies Cancelled, Keyonna Rods Cancelled, Platelet Estimate Cancelled, Plt Morphology Comment Cancelled, RBC Morphology Cancelled, Polychromasia Cancelled, Hypochromasia Cancelled, Poikilocytosis Cancelled, Basophilic Stippling Cancelled, Anisocytosis Cancelled, Microcytosis Cancelled, Macrocytosis Cancelled, Spherocytes Cancelled, Sickle Cells Cancelled, Target Cells Cancelled, Tear Drop Cells Cancelled, Ovalocytes Cancelled, Stomatocytes Cancelled, [place] Bodies Cancelled, [place] Cells Cancelled, Bite Cells Cancelled, Crenated Cell Cancelled, Acanthocytes (Spur) Cancelled, Rouleaux Cancelled, Schistocytes Cancelled 07/25/22 06:57: Sodium Cancelled, Potassium Cancelled, Chloride Cancelled, Carbon Dioxide Cancelled, Anion Gap Cancelled, BUN Cancelled, Creatinine Cancelled, Estim Creat Clear Calc Cancelled, Est GFR (MDRD) Af Amer Cancelled, Est GFR (MDRD) Non-Af Cancelled, BUN/Creatinine Ratio Cancelled, Glucose Cancelled, Calcium Cancelled, Troponin I High Sens Cancelled 07/25/22 06:57: PT 14.8, INR 1.2, APTT 31.7 07/25/22 08:56: Troponin I High Sens 127 H* EKG Initial EKG: Attestation: I personally reviewed and interpreted this EKG as follows: Prior EKG tracings: available for review EKG Rhythm Intrepretation: Sinus Rhythm Radiology Impression Chest X-Ray 07/25/22 06:54 IMPRESSION: Mild hyperexpansion as can be seen with chronic obstructive pulmonary disease. No radiographic evidence of consolidative pneumonia or florid edema. Electronically Signed: Edgar Cortez MD at 7:18 EDT , Chest CTA 07/25/22 07:31 IMPRESSION: No pulmonary embolus. No thoracic aortic aneurysm or dissection. No pulmonary infiltrates or pleural effusions. Electronically Signed: Marcelo Johnson MD at 8:04 EDT , Assessment & Plan Assessment/Plan (1) Non-ST elevation MA (NSTEMI): PLAN: Started on heparin drip. Patient received aspirin in the emergency room and will continue on the floor. Consult cardiology Check echocardiogram Plan is for PCI in the next 1 to 2 days. (2) Carotid bruit: PLAN: Patient with dizziness when he straightens up. Check carotid duplex PLAN: Plan Chronic conditions COPD: Stable VTE prophylaxis: Not indicated as patient is anticoagulated. CODE STATUS addressed with the patient. Patient wishes to be full code. Charges/Coding Visit Charges Inpatient E&M: 39133 Init Hosp L2
--- NOTE | 2022-07-25 11:28 | CDU_ITS ---
Reason For Study: Rt Carotid Bruit Rt. Velocities/BP Lt. Velocities/BP Prox CCA 74.3/12.7 cm/sec. Prox CCA 95.3/17.9 cm/sec. Mid CCA 84.2/14.9 cm/sec. Mid CCA 80.6/16.7 cm/sec. Dist CCA 83.1/17.1 cm/sec. Dist CCA 76.9/16.7 cm/sec. Prox ICA 83.1/23.7 cm/sec. Prox ICA 76.9/22.8 cm/sec. Mid ICA 86.4/23.7 cm/sec. Mid ICA 80.6/21.6 cm/sec. Dist ICA 85.3/26.7 cm/sec. Dist ICA 74.4/25.3 cm/sec. Rt. ICA/CCA = 1.0. Lt. ICA/CCA = 1.0. Prox ECA 88.1/6.9 cm/sec. Prox ECA 87.5/11.7 cm/sec. Rt. Vert. 42.4/10.1 cm/sec. Lt. Vert. 63.4/16.7 cm/sec. Right Extracranial There is homogeneous, smooth atherosclerotic plaque noted in the right common carotid artery. There is homogeneous, smooth atherosclerotic plaque noted in the right internal carotid artery. There is intimal thickening but no significant atherosclerotic plaque noted in the right external carotid artery. Antegrade flow is noted in the right vertebral artery. Left Extracranial There is heterogeneous, irregular atherosclerotic plaque noted in the left common carotid artery. There is intimal thickening but no significant atherosclerotic plaque noted in the left internal carotid artery. There is heterogeneous, irregular atherosclerotic plaque noted in the left external carotid artery. Antegrade flow is noted in the left vertebral artery. Procedure Carotid Duplex 81694. This is a Carotid Duplex examination using B-mode, color flow and specral Doppler. The exam was diagnostic. Exam performed portable in patient room. VL/Carotid Duplex Ultrasound Interpretation Summary Smooth plaque at the proximal right internal carotid artery with less than 50% stenosis Less than 50% stenosis right external carotid artery Intimal thickening at the proximal left internal carotid artery with less than 50% stenosis Less than 50% stenosis left external carotid artery Patent and antegrade vertebral arteries bilaterally Ordering Physician: Jose Antonio Almanza Referring Physician: Vijay Zarco Performed By: Barry Barba RVT
--- NOTE | 2022-07-25 11:28 | ECHOD_ITS ---
Reason For Study: NSTEMI Procedure This was a 2D Doppler, Color Flow transthoracic echocardiogram. Exam performed portable in patient room. Left Ventricle Normal LV size. The estimated ejection fraction is 60 %. No evidence for diastolic dysfunction. No regional wall motion abnormalities noted. Right Ventricle Normal RV size. Normal systolic function. Atria Normal left atrium. Normal right atrium. No doppler evidence for ASD. Mitral Valve There is no mitral valve stenosis. Trivial mitral valve insufficiency. Tricuspid Valve There is no tricuspid stenosis. Trivial tricuspid valve insufficiency. Unable to estimate RV systolic pressure due to insufficient tricuspid regurgitant envelope. Aortic Valve Trisinus/trileaflet aortic valve. There is no aortic stenosis. Trivial aortic valve insufficiency. Pulmonic Valve There is no pulmonic valvular stenosis. No pulmonic valve insufficiency. Great Vessels Normal aortic root. Pericardium/Pleural No pericardial effusion. MMode/2D Measurements & Calculations LVIDd: 5.5 cm IVSd: 0.76 cm Ao root diam: 3.8 cm LVIDs: 4.0 cm LVPWd: 0.76 cm FS: 28.3 % LAV(MOD-bp): 52.9 ml LVAd ap4: 27.7 cm2 SV(MOD-sp4): 50.1 ml LAV(MOD-bp) Indexed: 25.7 ml/m2 LVLd ap4: 7.6 cm LAV(MOD-sp2): 57.7 ml EDV(MOD-sp4): 83.6 ml LAV(MOD-sp4): 42.0 ml EDV(sp4-el): 86.1 ml LVAs ap4: 15.8 cm2 LVLs ap4: 6.3 cm ESV(MOD-sp4): 33.5 ml ESV(sp4-el): 33.7 ml EF(MOD-sp4): 59.9 % EF(sp4-el): 60.8 % SV(sp4-el): 52.3 ml LA A4 area: 15.9 cm2 LA dimension(2D): 4.0 cm RA A4 area: 19.1 cm2 Time Measurements MV dec time: 0.27 sec Doppler Measurements & Calculations MV E max travis: 52.9 cm/sec Lat Peak E' Travis: 10.8 cm/sec Med Peak E' Travis: 9.5 cm/sec MV A max travis: 63.2 cm/sec E/E' lat: 4.9 E/E' med: 5.6 MV E/A: 0.84 MV V2 max: 69.9 cm/sec Ao V2 max: 108.1 cm/sec MV max P.0 mmHg MV dec slope: 216.7 cm/sec2 Ao max P.7 mmHg MV V2 mean: 42.5 cm/sec Ao V2 mean: 77.3 cm/sec MV mean P.81 mmHg Ao mean P.7 mmHg MV V2 VTI: 20.4 cm Ao V2 VTI: 24.3 cm AV (velocity ratio): 0.86 LV V1 max: 92.0 cm/sec PA V2 max: 95.8 cm/sec TR max travis: 261.5 cm/sec LV V1 max P.4 mmHg PA V2 mean: 62.5 cm/sec TR max P.3 mmHg LV V1 mean P.7 mmHg LV V1 mean: 60.7 cm/sec LV V1 VTI: 20.8 cm ECHO/Echo Complete Interpretation Summary The estimated ejection fraction is 60 %. No evidence for diastolic dysfunction. Trivial mitral valve insufficiency. Trivial aortic valve insufficiency. Ordering Physician: Jose Antonio Almanza Referring Physician: EDGARDO DEE Performed By: Ketty Berry RCS
--- NOTE | 2022-07-25 11:28 | EKG12_ITS ---
Test Reason : PCI Blood Pressure : / mmHG Vent. Rate : 074 BPM Atrial Rate : 074 BPM P-R Int : 142 ms QRS Dur : 088 ms QT Int : 398 ms P-R-T Axes : 026 007 088 degrees QTc Int : 441 ms Normal sinus rhythm T wave abnormality, consider anterolateral ischemia Abnormal ECG Confirmed by DAMIÁN CACERES, CHAD ([id number]), editorial director REMA JAMES ([id number]) on 07/26/2022 1:58:20 PM Referred By: SERGE Confirmed By:CHAD STEEL MD
[2022-07-25 12:26] LABS: Troponin-I HS 241 pg/mL (3.0-78.0)
--- NOTE | 2022-07-25 15:50 | PCM.CONS.C ---
Assessment & Plan Assessment/Plan (1) Chest pain: PLAN: Atypical chest pain. 2D echo reveals no significant regional wall motion abnormalities. Consider coronary angiography versus proceeding with stress testing. Due to the atypical nature of the chest pain and the intermediate level of troponin elevation it is reasonable to proceed with Lexiscan stress test. (2) Non-ST elevation MS (NSTEMI): PLAN: Patient had elevated calcium score on past CT. It is reasonable to keep the patient on aspirin, statin. We will proceed with stress testing tomorrow unless there is a clinical change overnight. HPI Consult Data Date of Consult: 07/25/22 HPI Narrative Reason for Consultation: Chest pain, elevated troponin HPI Narrative: TERRI HERNANDEZ, is a 71 M who presents with chest pain that has been going on for about 2 days. It is sharp, retrosternal worse with deep inspiration. His D-dimer was elevated and he had a chest CTA which was negative for PE. Patient has history of COPD and has been noticing slow worsening of dyspnea on exertion over several weeks to months. Patient's troponin went up to around 250. He is currently chest pain-free. He had a 2D echo which revealed no significant regional wall motion abnormalities. EF is preserved. Review of systems: All systems reviewed. All else is negative except as in HPI PFS Medical History Hemorrhoids Left inguinal hernia Osteoarthritis Spermatocele Home Medications aspirin 81 mg chewable tablet 81 mg PO DAILY@0800 09/30/16 [History Last Taken 01/03/18] tiotropium 2.5 mcg-olodaterol 2.5 mcg/actuation mist for inhalation (Stiolto Respimat) puff inhalation DAILY 07/25/22 [History Last Taken Unknown] Allergy/AdvReac Type Severity Reaction Status Date / Time amoxicillin Allergy Mild rash Verified 01/23/18 08:37 Sulfa (Sulfonamide Allergy Rash Verified 01/23/18 08:37 Antibiotics) Family History Father Heart disease Mother Diabetes Surgical History History of arthroscopy of left knee History of colonoscopy (~2017) S/P left inguinal hernia repair (~01/09/18) Social History Smoking Status: Never smoker Physical Exam Const alert and oriented x3 HEENT normocephalic Eyes no scleral icterus Resp normal respiratory effort Cardio regular rate Extremity no pedal edema Skin no rashes or lesions noted Risk Stratification Risk Stratification Applicable: No Charges/Coding Visit Charges Inpatient E&M: 48060 Init Hosp L2 Objective Data Vital Signs: Vital Signs Temp Pulse Resp BP Pulse Ox O2 Del Method 97.9 F 63 17 152/87 H 96 Room Air 07/25/22 11:29 07/25/22 11:55 07/25/22 11:29 07/25/22 11:55 07/25/22 12:00 07/25/22 12:28 Oxygen Delivery Method Room Air Weight: 184 lb 8.43 oz Body Mass Index (BMI) 25.0 Lab / Micro Data Result Diagrams: 07/25/22 06:57 07/25/22 06:57 Labs: Laboratory Results - last 24 hr 07/25/22 06:57: WBC 4.6, RBC 4.23 L, Hgb 13.8, Hct 40.5, MCV 95.7 H, MCH 32.6 H, MCHC 34.1, RDW Std Deviation 42.4, RDW Coeff of Opal 12.0, Plt Count 122 L, MPV 9.8, Immature Gran % (Auto) 0.200, Neut % (Auto) 51.6, Lymph % (Auto) 27.7, [place] % (Auto) 15.5 H, Eos % (Auto) 4.6, Baso % (Auto) 0.4, Absolute Neuts (auto) 2.4, Absolute Lymphs (auto) 1.27, Nucleated RBC % 0 07/25/22 06:57: Sodium 141, Potassium 4.1, Chloride 108 H, Carbon Dioxide 28.0, Anion Gap 5, BUN 25 H, Creatinine 1.37 H, Estim Creat Clear Calc 55.07, Est GFR (MDRD) Af Amer 66, Est GFR (MDRD) Non-Af 55 L, BUN/Creatinine Ratio 18.2, Glucose 104, Calcium 8.8, Troponin I High Sens 38 07/25/22 06:57: D-Dimer Quant (PE/DVT) 1.59 H* 07/25/22 06:57: WBC Cancelled, Corrected WBC Cancelled, RBC Cancelled, Hgb Cancelled, Hct Cancelled, MCV Cancelled, MCH Cancelled, MCHC Cancelled, RDW Std Deviation Cancelled, RDW Coeff of Opal Cancelled, Plt Count Cancelled, MPV Cancelled, Immature Gran % (Auto) Cancelled, Neut % (Auto) Cancelled, Lymph % (Auto) Cancelled, [place] % (Auto) Cancelled, Eos % (Auto) Cancelled, Baso % (Auto) Cancelled, Absolute Neuts (auto) Cancelled, Absolute Lymphs (auto) Cancelled, Total Counted Cancelled, Neutrophils % (Manual) Cancelled, Band Neutrophils % Cancelled, Lymphocytes % (Manual) Cancelled, Monocytes % (Manual) Cancelled, Eosinophils % (Manual) Cancelled, Basophils % (Manual) Cancelled, Metamyelocytes % Cancelled, Myelocytes % Cancelled, Promyelocytes % Cancelled, Blast Cells % Cancelled, Plasma Cell % (Manual) Cancelled, Other Cells % Cancelled, Nucleated RBC % Cancelled, Nucleated RBCs/100 WBC Cancelled, Differential Comment Cancelled, Diff Path Review Cancelled, Hypersegmented Neuts Cancelled, Atypical Lymphocytes Cancelled, Reactive Lymphocytes Cancelled, Smudge Cells Cancelled, Toxic Granulation Cancelled, Toxic Vacuolation Cancelled, Dohle Bodies Cancelled, Keyonna Rods Cancelled, Platelet Estimate Cancelled, Plt Morphology Comment Cancelled, RBC Morphology Cancelled, Polychromasia Cancelled, Hypochromasia Cancelled, Poikilocytosis Cancelled, Basophilic Stippling Cancelled, Anisocytosis Cancelled, Microcytosis Cancelled, Macrocytosis Cancelled, Spherocytes Cancelled, Sickle Cells Cancelled, Target Cells Cancelled, Tear Drop Cells Cancelled, Ovalocytes Cancelled, Stomatocytes Cancelled, [place] Bodies Cancelled, [place] Cells Cancelled, Bite Cells Cancelled, Crenated Cell Cancelled, Acanthocytes (Spur) Cancelled, Rouleaux Cancelled, Schistocytes Cancelled 07/25/22 06:57: Sodium Cancelled, Potassium Cancelled, Chloride Cancelled, Carbon Dioxide Cancelled, Anion Gap Cancelled, BUN Cancelled, Creatinine Cancelled, Estim Creat Clear Calc Cancelled, Est GFR (MDRD) Af Amer Cancelled, Est GFR (MDRD) Non-Af Cancelled, BUN/Creatinine Ratio Cancelled, Glucose Cancelled, Calcium Cancelled, Troponin I High Sens Cancelled 07/25/22 06:57: PT 14.8, INR 1.2, APTT 31.7 07/25/22 08:56: Troponin I High Sens 127 H* 07/25/22 11:50: Troponin I High Sens 241 H* Cardiology Labs/Tests 07/25/22 06:57: WBC 4.6, RBC 4.23 L, Hgb 13.8, Hct 40.5, MCV 95.7 H, MCH 32.6 H, MCHC 34.1, Plt Count 122 L, MPV 9.8, Immature Gran % (Auto) 0.200, Neut % (Auto) 51.6, Lymph % (Auto) 27.7, [place] % (Auto) 15.5 H, Eos % (Auto) 4.6, Baso % (Auto) 0.4, Absolute Neuts (auto) 2.4, Nucleated RBC % 0 07/25/22 06:57: Sodium 141, Potassium 4.1, Chloride 108 H, Carbon Dioxide 28.0, Anion Gap 5, BUN 25 H, Creatinine 1.37 H, Est GFR (MDRD) Af Amer 66, Est GFR (MDRD) Non-Af 55 L, BUN/Creatinine Ratio 18.2, Glucose 104, Calcium 8.8 07/25/22 06:57: D-Dimer Quant (PE/DVT) 1.59 H* 07/25/22 06:57: WBC Cancelled, Corrected WBC Cancelled, RBC Cancelled, Hgb Cancelled, Hct Cancelled, MCV Cancelled, MCH Cancelled, MCHC Cancelled, Plt Count Cancelled, MPV Cancelled, Immature Gran % (Auto) Cancelled, Neut % (Auto) Cancelled, Lymph % (Auto) Cancelled, [place] % (Auto) Cancelled, Eos % (Auto) Cancelled, Baso % (Auto) Cancelled, Absolute Neuts (auto) Cancelled, Total Counted Cancelled, Neutrophils % (Manual) Cancelled, Band Neutrophils % Cancelled, Lymphocytes % (Manual) Cancelled, Monocytes % (Manual) Cancelled, Eosinophils % (Manual) Cancelled, Basophils % (Manual) Cancelled, Metamyelocytes % Cancelled, Myelocytes % Cancelled, Promyelocytes % Cancelled, Blast Cells % Cancelled, Plasma Cell % (Manual) Cancelled, Other Cells % Cancelled, Nucleated RBC % Cancelled 07/25/22 06:57: Sodium Cancelled, Potassium Cancelled, Chloride Cancelled, Carbon Dioxide Cancelled, Anion Gap Cancelled, BUN Cancelled, Creatinine Cancelled, Est GFR (MDRD) Af Amer Cancelled, Est GFR (MDRD) Non-Af Cancelled, BUN/Creatinine Ratio Cancelled, Glucose Cancelled, Calcium Cancelled 07/25/22 06:57: PT 14.8, INR 1.2, APTT 31.7 Rhythm: EKG: ECHO: Stress Test: Cardiac Cath: PCI: CT Surgery: Holter monitor: EPS: PPM: CXR: Chest CT Scan: Radiography Diagnostic Testing: Radiology Impression Chest X-Ray 07/25/22 06:54 IMPRESSION: Mild hyperexpansion as can be seen with chronic obstructive pulmonary disease. No radiographic evidence of consolidative pneumonia or florid edema. Electronically Signed: Edgar Cortez MD at 7:18 EDT , Chest CTA 07/25/22 07:31 IMPRESSION: No pulmonary embolus. No thoracic aortic aneurysm or dissection. No pulmonary infiltrates or pleural effusions. Electronically Signed: Marcelo Johnson MD at 8:04 EDT , Echocardiogram 07/25/22 11:28 Interpretation Summary The estimated ejection fraction is 60 %. No evidence for diastolic dysfunction. Trivial mitral valve insufficiency. Trivial aortic valve insufficiency. Ordering Physician: Jose Antonio Almanza Referring Physician: EDGARDO DEE Performed By: Ketty Berry RCS
[2022-07-25 16:53] LABS: Partial Thromboplast Time 143.4 Seconds (24.1-36.2)
[2022-07-25] MEDS: 0.9% Saline Lock 10 ML Syringe IV (17:00)
[2022-07-25] MEDS: Ipratropium/Albuterol Sulfate 3 ML AMPUL.NEB INHALATION (18:43)
[2022-07-26] VITALS (27 sets, daily range): BP systolic 110–166; BP diastolic 16–79; PULSE 69–83; RESP 16–22; TEMP 36.5–37.1; O2SAT 95–98
[2022-07-26 00:47] LABS: Partial Thromboplast Time 58.7 Seconds (24.1-36.2)
--- NOTE | 2022-07-26 04:57 | EKG12_ITS ---
Test Reason : am ekg Blood Pressure : / mmHG Vent. Rate : 075 BPM Atrial Rate : 075 BPM P-R Int : 152 ms QRS Dur : 090 ms QT Int : 352 ms P-R-T Axes : 041 007 013 degrees QTc Int : 393 ms Normal sinus rhythm ST elevation consider anterior ischemia Abnormal ECG When compared with ECG of 25-JUL-2022 11:51, ST now depressed in Inferior leads T wave inversion now evident in Inferior leads Confirmed by DAMIÁN CACERES, CHAD ([id number]), editor farm journal REMA JAMES ([id number]) on 07/31/2022 11:17:33 AM Referred By: Cami Confirmed By:CHAD STEEL MD
[2022-07-26] MEDS: Aspirin 81 MG TAB.CHEW PO (05:08)
--- NOTE | 2022-07-26 05:08 | NURSING ---
PT CALLED C/O [facility] CP, 11/21, RESP WAS IN THE ROOM TO DO THE EKG PRIOR TO STRESS TEST, SHOWING AN ST ELEVATION AND INFARCT.
--- NOTE | 2022-07-26 05:25 | EKG12_ITS ---
Test Reason : CP Blood Pressure : / mmHG Vent. Rate : 059 BPM Atrial Rate : 059 BPM P-R Int : 190 ms QRS Dur : 092 ms QT Int : 380 ms P-R-T Axes : 048 016 054 degrees QTc Int : 376 ms Sinus bradycardia Otherwise normal ECG When compared with ECG of 09-JAN-2018 11:19, No significant change was found Confirmed by DAMIÁN CACERES, CHAD ([id number]), avid editor REMA JAMES ([id number]) on 07/26/2022 1:59:11 PM Referred By: Confirmed By:CHAD STEEL MD
[2022-07-26] MEDS: Nitroglycerin (INPATIENT USE) 0.4 MG TAB.SUBL SL ×2 (05:35→07:13)
--- NOTE | 2022-07-26 05:55 | EKG12_ITS ---
Test Reason : Blood Pressure : / mmHG Vent. Rate : 084 BPM Atrial Rate : 084 BPM P-R Int : 134 ms QRS Dur : 088 ms QT Int : 352 ms P-R-T Axes : 038 012 058 degrees QTc Int : 415 ms Normal sinus rhythm Normal ECG When compared with ECG of 25-JUL-2022 11:51, MANUAL COMPARISON REQUIRED, DATA IS UNCONFIRMED Confirmed by DAMIÁN CACERES, CHAD ([id number]), editor house organ REMA JAMES ([id number]) on 07/26/2022 1:58:35 PM Referred By: Cami Confirmed By:CHAD STEEL MD
[2022-07-26 06:22] LABS: Absolute Lymphocyte Count 0.91 X10^3/uL (0.83-4.51); Absolute Neutrophil Count 5.3 X10^3/uL (2.0-7.7); Basophil# 0.02 X10^3/uL; Basophil% 0.3 % (0-1); Eosinophil# 0.16 X10^3/uL; Eosinophils% 2.2 % (0-5); Hematocrit 40.9 % (40-54); Lymphocyte # 0.91 X10^3/ul (0.83-4.51); Lymphocyte % 12.7 % (19-41); Mean Corp Hgb Conc 34.2 g/dL (32-36); Mean Corpuscular Hgb 32.6 pg (27.0-32.0); Mean Corpuscular Volume 95.1 fL (80-94); Monocyte# 0.71 X10^3/uL; Monocyte% 9.9 % (0-10); NRBC Flagged by Analyzer 0 % (0-5); Neutrophil # 5.34 X10^3/uL (2.7-7.7); Neutrophil % 74.8 % (47-70); Platelet Count 117 K/mm3 (150-450); RBC Distribution Width CV 11.9 % (11.6-14.6); RBC Distribution Width SD 41.6 fl (35.1-43.9); White Blood Count 7.2 K/mm3 (4.4-11.0)
[2022-07-26 06:31] LABS: Partial Thromboplast Time 57.5 Seconds (24.1-36.2)
[2022-07-26 06:38] LABS: Cholesterol 117 mg/dL (200); High Density Lipoprotein 39 mg/dL; Triglycerides 95 mg/dL; Very Low Density Lipoprotein 19 mg/dL (5-40)
[2022-07-26 06:40] LABS: Anion Gap 4 (5-15); BUN 19 mg/dL (7-18); BUN/Creat Ratio 15.4 RATIO (10-20); Chloride 106 mmol/L (98-107); Creatinine, Serum 1.23 mg/dL (0.70-1.30); EST Glomerular Filtration Rate 62 mL/min (>60); Est Glom Filt Rate - Afr Amer 75 mL/min (>60); Estimated Creatinine Clearance 61.34 ml/min; Glucose 115 mg/dL (74-106); Potassium 3.8 mmol/L (3.5-5.1); Sodium Level 140 mmol/L (136-145); Troponin-I HS 98 pg/mL (3.0-78.0)
[2022-07-26] MEDS: Ipratropium/Albuterol Sulfate 3 ML AMPUL.NEB INHALATION ×3 (06:54→19:13)
[2022-07-26] MEDS: TICAGRELOR 90 MG TABLET 180 MG PO (06:58)
--- NOTE | 2022-07-26 07:56 | PCM.PN.HOSP ---
Reason for Visit Reason for Visit: Diagnoses Non-ST elevation (NSTEMI) myocardial infarction (07/25/22) Chest pain, unspecified (07/25/22) Other specified symptoms and signs involving the circulatory and respiratory systems (07/25/22) Subjective Subjective Had chest pain overnight. 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 Objective Data Objective Data Vital Signs: Vital Signs Temp Pulse Resp BP Pulse Ox O2 Del Method 36.9 C 82 16 153/71 H 96 Room Air 07/26/22 04:18 07/26/22 07:13 07/26/22 04:18 07/26/22 07:13 07/26/22 04:18 07/26/22 04:18 Oxygen Delivery Method Room Air Weight: 83.7 kg Body Mass Index (BMI) 25.0 Intake & Output: Intake and Output for Last 24 Hours 07/24/22 07/25/22 07/26/22 23:59 23:59 23:59 Intake Total 466.67 / 466.67 45.85 / 45.85 Balance 466.67 / 466.67 45.85 / 45.85 Lab / Micro Data Result Diagrams: 07/26/22 06:00 07/26/22 06:00 Labs: Laboratory Results - last 24 hr 07/25/22 06:57: PT 14.8, INR 1.2, APTT 31.7 07/25/22 08:56: Troponin I High Sens 127 H* 07/25/22 11:50: Troponin I High Sens 241 H* 07/25/22 16:15: APTT 143.4 H* 07/26/22 00:20: APTT 58.7 H 07/26/22 06:00: Triglycerides 95, Cholesterol 117, LDL Cholesterol 59, VLDL Cholesterol 19, HDL Cholesterol 39 L 07/26/22 06:00: APTT 57.5 H 07/26/22 06:00: WBC 7.2, RBC 4.30 L, Hgb 14.0, Hct 40.9, MCV 95.1 H, MCH 32.6 H, MCHC 34.2, RDW Std Deviation 41.6, RDW Coeff of Opal 11.9, Plt Count 117 L, MPV 10.0, Immature Gran % (Auto) 0.100, Neut % (Auto) 74.8 H, Lymph % (Auto) 12.7 L, [place] % (Auto) 9.9, Eos % (Auto) 2.2, Baso % (Auto) 0.3, Absolute Neuts (auto) 5.3, Absolute Lymphs (auto) 0.91, Nucleated RBC % 0 07/26/22 06:00: Sodium 140, Potassium 3.8, Chloride 106, Carbon Dioxide 30.0, Anion Gap 4 L, BUN 19 H, Creatinine 1.23, Estim Creat Clear Calc 61.34, Est GFR (MDRD) Af Amer 75, Est GFR (MDRD) Non-Af 62, BUN/Creatinine Ratio 15.4, Glucose 115 H, Calcium 9.0, Troponin I High Sens 98 H Radiography Diagnostic Testing: Radiology Impression Chest CTA 07/25/22 07:31 IMPRESSION: No pulmonary embolus. No thoracic aortic aneurysm or dissection. No pulmonary infiltrates or pleural effusions. Electronically Signed: Marcelo Johnson MD at 8:04 EDT , Carotid Duplex 07/25/22 11:28 Interpretation Summary Smooth plaque at the proximal right internal carotid artery with less than 50% stenosis Less than 50% stenosis right external carotid artery Intimal thickening at the proximal left internal carotid artery with less than 50% stenosis Less than 50% stenosis left external carotid artery Patent and antegrade vertebral arteries bilaterally Ordering Physician: oJse Antonio Almanza Referring Physician: Vijay Dee Performed By: Barry Barba Janelle Echocardiogram 07/25/22 11:28 Interpretation Summary The estimated ejection fraction is 60 %. No evidence for diastolic dysfunction. Trivial mitral valve insufficiency. Trivial aortic valve insufficiency. Ordering Physician: Jose Antonio Almanza Referring Physician: VIJAY DEE Performed By: Ketty Berry RCS Physical Exam Const alert and no apparent distress HEENT head/scalp atraumatic and moist oral mucous membranes Resp normal respiratory effort, no retractions, no use of accessory muscles and clear to auscultation bilaterally Cardio regular rate, regular rhythm, S1 normal heart sound and S2 normal heart sound GI normal to inspection, nondistended, normoactive bowel sounds, soft to palpation, non-tender and non-distended Extremity normal to inspection Assessment & Plan Assessment/Plan (1) Non-ST elevation [place] (NSTEMI): PLAN: Started on heparin drip. Patient received aspirin in the emergency room and will continue on the floor. Consult cardiology echocardiogram shows EF 60% PCI on 07/26: 90% stenosis LAD (2) Carotid bruit: PLAN: Patient with dizziness when he straightens up. Carotid duplex showed less than 50% stenosis bilaterally. PLAN: Plan Chronic conditions COPD: Stable VTE prophylaxis: Not indicated as patient is anticoagulated. CODE STATUS addressed with the patient. Patient wishes to be full code. Charges/Coding Visit Charges Inpatient E&M: 04985 Subs Hosp L2
--- NOTE | 2022-07-26 10:00 | EKG12_ITS ---
Test Reason : AM EKG Blood Pressure : / mmHG Vent. Rate : 070 BPM Atrial Rate : 070 BPM P-R Int : 178 ms QRS Dur : 098 ms QT Int : 390 ms P-R-T Axes : 048 024 092 degrees QTc Int : 421 ms Normal sinus rhythm with sinus arrhythmia Marked T wave abnormality, consider anterolateral ischemia Abnormal ECG When compared with ECG of 26-JUL-2022 10:19, No significant change was found Confirmed by DAMIÁN CACERES, CHAD ([id number]), state editor REMA JAMES ([id number]) on 07/31/2022 11:14:57 AM Referred By: Confirmed By:CHAD STEEL MD
--- NOTE | 2022-07-26 10:15 | CL.I_ITS ---
Patient Name: TERRI HERNANDEZ Study Date: 07/26/2022 Performing: Parviz Ddoson MD Ht: 72 inches 182.88 cm : 1950 Wt: 184.8 lbs 83.7 kg Age: 71 Gender: male BSA: 2.06 PROCEDURE(S) PERFORMED DC01-(31893)LHC/COR/LV IC12-(77123/C9600)ROBERT W/WO PTCA, SINGLE CORONARY ARTERY CLINICAL PROFILE AND CO-MORBIDITIES Heart Failure: None CAD Presentations: Non-STEMI. CONCLUSIONS CAD as described. Preserved EF. No significant or MR. Successful ROBERT to pLAD RECOMMENDATIONS DESCRIPTION OF PROCEDURE The patient arrived to the procedure lab. The risks and benefits of the procedure as well as a full description of our services here and lack of surgical backup were fully explained to the patient and/or their significant other prior to the catheterization. The Timeout was completed, verifying the correct patient and procedure. The patient's procedural site was prepped and draped in the usual fashion. Local anesthetic was given subcutaneously to right radial region with Lidocaine 2%. Using a modified Seldinger technique, arterial access was obtained via the right radial artery, a 6Fr sheath was inserted.. Left Coronary Artery selective angiography was performed in multiple views using a 5 Fr. JL3.5 catheter. Left Ventriculography was performed in LEE projection using a 5 Fr. JR4 catheter. LV to AO pullback pressures were then recorded. Right Coronary Artery selective angiography was then performed in multiple views using a 5 Fr. JR 4 catheterThe images were reviewed and options discussed. A decision was then made to proceed with an Intervention, IVUS or other adjunct procedure. XB 3.0 Guide catheter was inserted and engaged into the LCA. BMW Guide wire was advanced to the LAD. 2.5X8 RESOLUTE Drug Eluting stent was inserted. Drug Eluting stent was advanced across the lesion in the LAD, proximal. Angiogram performed post stent deployment. The arterial sheath was pulled and a TR Band was applied for hemostasis-10 cc air CORONARY ANGIOGRAPHY DOMINANCE: Right Dominant LEFT HEART ASSESSMENT Left Ventricular Ejection Fraction: by LV Gram 65 % Normal LV wall motion LEFT MAIN: Mild luminal irregularities LEFT ANTERIOR DESCENDING ARTERY: PROX LAD: 90 % Stenosis DIAGONAL 1: Ostial - 60 % Stenosis, Proximal - 60 % Stenosis CIRCUMFLEX ARTERY: Mild luminal irregularities RIGHT CORONARY ARTERY: Mild luminal irregularities VALVE FINDINGS: No Aortic Valve Stenosis No Mitral Insufficency INTERVENTION INFORMATION LESION SITE: LAD (Ostial) Lesion Complexity: High/C, chronic total occlusion: No, lesion at bifurcation: Yes, thrombus present: No, lesion length: 8 mm, culprit lesion: Yes, Previously treated lesion: No Pre Stenosis: 90 % Pre intervention BRAIN flow: 3 PROCEDURE: Drug Eluting Stent Post Stenosis: 0 % Post intervention BRAIN flow: 3 Lesion Devices: Cordis 6 Fr XB3.0 100cm Guide Catheter Hummel .014 190cm BMW [place] Straight Medtronic Resolute Morrison RX ROBERT 2.5x08 COMPLICATIONS No Complications PROCEDURE MEDICATIONS Versed 1 mg IV Fentanyl 50 mcg IV Oxygen: 2 L/min via nasal cannula Heparin given IA 07/26/2022 08:37:32 Heparin 3000 unit(s) IV 07/26/2022 08:51:54 Verapamil 2.5mg, Ntg 100mcgs, 3000 units of Heparin given IA 07/26/2022 08:37:32 SUMMARY OF HEMODYNAMIC DATA Time AIR REST ECG 08:27:16 AO 97/54 (74) SA 08:41:16 LV 116/0, 4 08:48:22 LV 112/0, 3 08:48:30 LVp 122/-11, 5 08:48:52 AOp 116/53 (79) 08:48:59 LV 116/53, 57 08:49:06 AO 118/56 (82) 08:55:06 Signed By Parviz Dodson MD On 07/27/2022 08:05:08 Signed By Parviz Dodson MD On 07/26/2022 10:14:37 Parviz Dodson MD
[2022-07-26] MEDS: 0.9% Normal Saline 1,000 ML 150 ML IV (11:51)
[2022-07-26] MEDS: Metoprolol Tartrate 25 MG Tablet 12.5 MG PO ×2 (11:53→20:57)
--- NOTE | 2022-07-26 12:00 | CASEMGMT ---
RN CM Face to Face with patient for initial transition planning/care coordination assessment. RN CM introduced self and role at [facility]. Patient lying in bed, alert and oriented. Patient willing to participate in assessment and is able to answer all questions appropriately. Care providers, pharmacy, and demographics verified. Patient wishes to discharge home, denies need for home health at this time. Patient states he has no further needs or concerns at this time. CM to follow for discharge planning needs that may arise. PCP: [facility] Specialists: Pulmonary LD [facility] Preferred Pharmacy: [facility] Insurance: [employer] other Prescription Benefit: yes Living Will/HPOA: none LNOK: Girlfriend Living Arrangements: Patient lives with girlfriend in a single story home with no steps to enter. Patient states he is independent at home. Transportation: self, Girlfriend DME/HHC: Patient denies DME. No previous HHC or SNF. Disposition Plan: Patient to discharge home with family support and follow-up plans in place. Janet HDEZ, RN, CM
--- NOTE | 2022-07-26 13:49 | CRPHASE1_ITS ---
Patient Communication PHII Cardiac Rehab Discussed with Patient:: Yes Guide to Cardiac Rehab Given to Patient:: Yes Cardiac Rehab Facility Choice List Given to Patient:: Yes Choice Program [facility] CR PHII:: Communication Given to CR Grain Mill Worker:: Chadd Dodson Phase II Cardiac Rehab:: Yes Sessions:: 36 sessions - 3 days/wk, 12 weeks Cardiac Rehabilitation Info Cardiac Rehabilitation Program Information: Cardiac Rehab The cardiac rehab team at [facility] consists of highly skilled exercise physiologists, nurses, respiratory therapists and physicians working together with you. Our purpose is to help you have a full recovery and achieve the goals you set for yourself. Over the years many of our patients have returned to activities they assumed they would never do again! We can help restore your confidence and motivation to make lifestyle changes that can have a significant impact on your health and quality of life! We can help answer questions and concerns you may have about exercise, lifestyle, medications, diet, stress and anxiety which are common following a hospitalization. WE monitor ECG and vital signs during exercise and discuss your progress with you and report to your physician(s). Cardiac Rehab is proven to help reduce readmissions, improve functional capacity and lower recurrence of problems with your heart. Our Cardiac Rehab program is Certified by the [place] [employer]io-Vascular and Pulmonary Rehabilitation (AACVPR) and Accredited by the [place] [employer] through our [facility]. You can contact us at . We invite you to call us with your questions or to get started in our program. If you have other questions or concerns be sure to ask your physician/provider during your follow-up visit. WE look forward to seeing you!
--- NOTE | 2022-07-26 13:50 | CRPH1.INSTRU ---
General Education CAD and cardiac anatomy and function:: Patient communicates acknowledgment, Needs reinforcement Explanation of diagnoses and procedures:: Patient communicates acknowledgment, Needs reinforcement Sign/Symptoms of DC:: Patient communicates acknowledgment, Needs reinforcement Antiplatelet therapy: Patient communicates acknowledgment, Needs reinforcement Proper use of NTG-SL: Patient communicates acknowledgment, Needs reinforcement Emergency procedures and activation of EMS: Patient communicates acknowledgment, Needs reinforcement Compliance of all prescribed medications: Patient communicates acknowledgment, Needs reinforcement Smoking Patient Nicotine/Smoking Risk Factors Are:: Non-smoker Dyslipidemia Patient Dyslipidemia Risk Factors Are:: Total Cholesterol, Triglycerides, HDL, LDL Recommendations Include:: Lipid profile not available Dyslipidemia Response Code:: Patient communicates acknowledgment, Needs reinforcement Overweight/Obesity Patient Overweight/Obesity Risk Factors Are:: BMI Normal [24-29 & > 65 years old] Recommendations Include:: Weight loss of 5-10%, Reduced calorie diet, Exercise 5-7 times/week Overweight/Obesity:: Patient communicates acknowledgment, Needs reinforcement Hypertension Patient Hypertension Risk Factors Are:: No documented hx of HTN Diabetes Patient Diabetes Risk Factors Are:: No documented hx of diabetes Sedentary Patient Sedentary Risk Factors Are:: Lack of regular exercise Recommendations Include:: Aerobic exercise 5-7 times/week for 20-30 minutes continuously, Benefits of regular exercise, Discussed home walking program, Monitored Outpatient Cardiac Rehab Sedentary Response Code:: Patient communicates acknowledgment, Needs reinforcement
[2022-07-26] MEDS: Atorvastatin Calcium 40 MG Tablet PO (20:57)
[2022-07-26] MEDS: TICAGRELOR 90 MG TABLET PO (20:57)
[2022-07-27 03:00] VITALS: BP 121/74; PULSE 78; RESP 14; TEMP 36.6; O2SAT 98
[2022-07-27 05:39] LABS: Hematocrit 39.7 % (40-54); Hemoglobin 13.4 g/dL (13.0-16.5); Mean Corp Hgb Conc 33.8 g/dL (32-36); Mean Corpuscular Hgb 32.3 pg (27.0-32.0); Mean Corpuscular Volume 95.7 fL (80-94); Mean Platelet Vol. 10.1 fl (6.2-12.0); Platelet Count 117 K/mm3 (150-450); RBC Distribution Width CV 12.1 % (11.6-14.6); RBC Distribution Width SD 42.3 fl (35.1-43.9); Red Blood Count 4.15 M/mm3 (4.6-6.2); White Blood Count 5.9 K/mm3 (4.4-11.0)
[2022-07-27 06:18] LABS: AST(SGOT) 23 U/L (15-37); Alanine Aminotransfer ALT/SGPT 22 U/L (16-61); Albumin, Serum 3.3 g/dL (3.2-5.0); Alkaline Phosphatase 78 U/L (45-117); Anion Gap 4 (5-15); BUN 19 mg/dL (7-18); BUN/Creat Ratio 14.4 RATIO (10-20); Chloride 107 mmol/L (98-107); Creatinine, Serum 1.32 mg/dL (0.70-1.30); EST Glomerular Filtration Rate 57 mL/min (>60); Est Glom Filt Rate - Afr Amer 69 mL/min (>60); Estimated Creatinine Clearance 57.15 ml/min; Globulin 3.4 g/dL (2.2-4.2); Glucose 100 mg/dL (74-106); Potassium 4.3 mmol/L (3.5-5.1); Protein, Total 6.7 g/dL (6.4-8.2); Sodium Level 140 mmol/L (136-145)
--- NOTE | 2022-07-27 07:44 | PN.HOSP_ITS ---
Reason for Visit Reason for Visit: Diagnoses Non-ST elevation (NSTEMI) myocardial infarction (07/25/22) Chest pain, unspecified (07/25/22) Other specified symptoms and signs involving the circulatory and respiratory systems (07/25/22) Subjective Subjective Feels good overnight. Objective Data Objective Data Vital Signs: Vital Signs Temp Pulse Resp BP Pulse Ox O2 Del Method O2 Flow Rate 36.6 C 78 14 121/74 H 98 Room Air 3 07/27/22 03:00 07/27/22 03:00 07/27/22 03:00 07/27/22 03:00 07/27/22 03:00 07/27/22 03:53 07/26/22 06:54 Oxygen Flow Rate (L/min) 3 Oxygen Delivery Method Room Air Weight: 83.7 kg Body Mass Index (BMI) 25.0 Intake & Output: Intake and Output for Last 24 Hours 07/25/22 07/26/22 07/27/22 23:59 23:59 23:59 Intake Total 466.67 / 466.67 1506.17 / 1506.17 Balance 466.67 / 466.67 1506.17 / 1506.17 Lab / Micro Data Result Diagrams: 07/27/22 05:12 07/27/22 05:12 Labs: Laboratory Results - last 24 hr 07/27/22 05:12: WBC 5.9, RBC 4.15 L, Hgb 13.4, Hct 39.7 L, MCV 95.7 H, MCH 32.3 H, MCHC 33.8, RDW Std Deviation 42.3, RDW Coeff of Opal 12.1, Plt Count 117 L, MPV 10.1 07/27/22 05:12: Sodium 140, Potassium 4.3, Chloride 107, Carbon Dioxide 29.0, Anion Gap 4 L, BUN 19 H, Creatinine 1.32 H, Estim Creat Clear Calc 57.15, Est GFR (MDRD) Af Amer 69, Est GFR (MDRD) Non-Af 57 L, BUN/Creatinine Ratio 14.4, Glucose 100, Calcium 9.0, Total Bilirubin 0.70, AST 23, ALT 22, Alkaline Phosphatase 78, Total Protein 6.7, Albumin 3.3, Globulin 3.4, Albumin/Globulin Ratio 1.0 Physical Exam Const alert and no apparent distress HEENT head/scalp atraumatic and moist oral mucous membranes Resp normal respiratory effort, no retractions and no use of accessory muscles Cardio regular rate, regular rhythm, S1 normal heart sound and S2 normal heart sound GI normal to inspection, nondistended, normoactive bowel sounds, soft to palpation, non-tender and non-distended Assessment & Plan Assessment/Plan (1) Non-ST elevation [place] (NSTEMI): PLAN: echocardiogram shows EF 60% PCI on 07/26: 90% stenosis LAD Treatment w ASA, Atorvastatin, Ticagrelor, metoprolol tartrate (2) Carotid bruit: PLAN: Patient with dizziness when he straightens up. Carotid duplex showed less than 50% stenosis bilaterally. PLAN: Plan Chronic conditions * COPD: Stable VTE prophylaxis: Not indicated as patient is anticoagulated. CODE STATUS addressed with the patient. Patient wishes to be full code.
[2022-07-27] MEDS: Ipratropium/Albuterol Sulfate 3 ML AMPUL.NEB INHALATION (07:47)
[2022-07-27 07:49] VITALS: PULSE 71; RESP 18; O2SAT 96
[2022-07-27 08:16] VITALS: BP 148/73; PULSE 73; RESP 16; TEMP 36.6; O2SAT 95
[2022-07-27 08:22] VITALS: BP 148/73; PULSE 73
[2022-07-27] MEDS: Metoprolol Tartrate 25 MG Tablet 12.5 MG PO (08:22)
[2022-07-27] MEDS: TICAGRELOR 90 MG TABLET PO (08:22)
[2022-07-27] MEDS: Aspirin 81 MG TAB.CHEW PO (08:22)
--- NOTE | 2022-07-27 10:00 | EKG12_ITS ---
Test Reason : cp Blood Pressure : / mmHG Vent. Rate : 072 BPM Atrial Rate : 072 BPM P-R Int : 154 ms QRS Dur : 096 ms QT Int : 390 ms P-R-T Axes : 040 027 072 degrees QTc Int : 427 ms Normal sinus rhythm T wave abnormality, consider anterior ischemia Abnormal ECG When compared with ECG of 25-JUL-2022 11:51, QT has lengthened Confirmed by DAMIÁN CACERES, CHAD ([id number]), senior technical editor REMA JAMES ([id number]) on 07/31/2022 11:15:30 AM Referred By: Mable Confirmed By:CHAD STEEL MD
--- NOTE | 2022-07-27 10:39 | PCM.DC ---
Discharge Instructions Diet Discharge Diet: Low fat / Low cholesterol Dressing / Incision Call your doctor if you observe: Shortness of breath and Chest pain Follow Up Care Test Results: Test results from this visit will be discussed in further detail at your follow-up appointment, if applicable. Discharge Plan Admission Admit Date/Time: 07/25/22 10:03 Primary Reason for Your Visit: Myocardial infarction. Attending Provider: Jose Antonio Almanza Primary Care Provider: Vijay Zarco Consulting Providers: Chadd Dodson Instructions Additional Instructions / Restrictions: You had a myocardial infarction (heart attack). You have a stent in a cardiac vessel. It is very important that you take your medication. Follow up with cardiology. Discharge Orders/Prescriptions Prescriptions: New atorvastatin 40 mg Tablet 40 mg PO QHS Qty: 30 0RF metoprolol tartrate 25 mg Tablet 12.5 mg PO BID Qty: 60 0RF Brilinta 90 mg Tablet 90 mg PO BID Qty: 60 0RF Continued aspirin 81 MG tablet,chewable 81 mg PO DAILY@0800 Stiolto Respimat 2.5-2.5 mcg/actuation mist INHALATION DAILY Referrals / Follow Up: [facility] [Provider Group] - Within 1 Month Vijay Zarco MD [Primary Care Provider] - Within 2 Weeks Disposition Disposition (needs filled in before D/C Order can be placed): Home, Self Care
--- NOTE | 2022-07-27 10:42 | DS.PCM_ITS ---
Providers Date of Admission: 07/25/22 Primary Care Physician: Dr. Vijay Zarco MD Consultations 07/25/22 11:28 Consult: Cardiology Routine Consulting Provider: Chadd Dodson Reason for Consult: NSTEMI EMERGENT Consult: No MD Notified: Yes Date Notified: 07/25/22 Time Notified: 10:06 Method of Notification: ED Physician Initiated Reason For Visit: NSTEMI Diagnosis Discharge Diagnosis (1) Non-ST elevation [place] (NSTEMI): Status: Acute Code(s): I21.4 - Non-ST elevation (NSTEMI) myocardial infarction Plan: echocardiogram shows EF 60% PCI on 07/26: 90% stenosis LAD Treatment w ASA, Atorvastatin, Ticagrelor, metoprolol tartrate (2) Carotid bruit: Status: Acute Code(s): R09.89 - Other specified symptoms and signs involving the circulatory and respiratory systems Plan: Patient with dizziness when he straightens up. Carotid duplex showed less than 50% stenosis bilaterally. Plan Chronic conditions * COPD: Stable VTE prophylaxis: Not indicated as patient is anticoagulated. CODE STATUS addressed with the patient. Patient wishes to be full code. Medications at Discharge Home Medications aspirin 81 mg chewable tablet 81 mg PO DAILY@0800 09/30/16 tiotropium 2.5 mcg-olodaterol 2.5 mcg/actuation mist for inhalation (Stiolto Respimat) puff inhalation DAILY 07/25/22 atorvastatin 40 mg tablet 40 mg PO QHS #30 tabs 07/27/22 metoprolol tartrate 25 mg tablet 12.5 mg PO BID #60 tabs 07/27/22 ticagrelor 90 mg tablet (Brilinta) 90 mg PO BID #60 tabs 07/27/22 Hospital Course Procedures 2-D Echocardiogram and Cardiac catheterization Summary of Care Provided Minutes Spent on Discharge: 28 Hospital Course: Patient presents with chest pain. Patient was found to have a ST elevation myocardial infarction. Troponins peaked at 241. Patient was still having ongoing chest pain. Initial plan was for patient go to stress test but given his ongoing chest pain, patient was taken to the [facility] where he had a stent placed in the LAD for 90% stenosis. Afterwards, patient felt well. Patient was observed overnight and had no issues. Patient had echocardiogram showed EF of 60%. Patient was aspirin, but also started on ticagrelor, atorvastatin and metoprolol tartrate. Patient will follow-up with cardiology as outpatient and likely benefit from cardiac rehab. Weight / BMI Weight Weight: 83.7 kg Body Mass Index (BMI) 25.0 ABG / Lab / Microbiology Data Result Diagrams: 07/27/22 05:12 07/27/22 05:12 Laboratory: Laboratory Results - last 24 hr 07/27/22 05:12: WBC 5.9, RBC 4.15 L, Hgb 13.4, Hct 39.7 L, MCV 95.7 H, MCH 32.3 H, MCHC 33.8, RDW Std Deviation 42.3, RDW Coeff of Opal 12.1, Plt Count 117 L, MPV 10.1 07/27/22 05:12: Sodium 140, Potassium 4.3, Chloride 107, Carbon Dioxide 29.0, A nion Gap 4 L, BUN 19 H, Creatinine 1.32 H, Estim Creat Clear Calc 57.15, Est GFR (MDRD) Af Amer 69, Est GFR (MDRD) Non-Af 57 L, BUN/Creatinine Ratio 14.4, Glucose 100, Calcium 9.0, Total Bilirubin 0.70, AST 23, ALT 22, Alkaline Phosphatase 78, Total Protein 6.7, Albumin 3.3, Globulin 3.4, Albumin/Globulin Ratio 1.0 D/C Instructions Discharge Diet: Low fat / Low cholesterol Call your doctor if you observe: Shortness of breath and Chest pain Meaningful Use Info Meaningful Use Diagnoses (Choose all that apply): None applicable and AMI AMI/Post PCI/Angioplasty Aspirin given w/in 24hrs of arrival?: Yes ASA at discharge?: Yes Antiplatelet Therapy at Discharge:: Yes Statins at discharge?: Yes Maverick/ARB at discharge?: No Reason Maverick/ARB not ordered:: Not indicated Beta Jonny at discharge?: Yes Done w/ Acute [place] measure.: Yes Documented LVEF (%): 60 Discharge Plan Admission Admit Date/Time: 07/25/22 10:03 Primary Reason for Your Visit: Myocardial infarction. Attending Provider: Jose Antonio Almanza Primary Care Provider: Vijay Zarco Consulting Providers: Chadd Dodson Instructions Additional Instructions / Restrictions: You had a myocardial infarction (heart attack). You have a stent in a cardiac vessel. It is very important that you take your medication. Follow up with cardiology. Discharge Orders/Prescriptions Prescriptions: New atorvastatin 40 mg Tablet 40 mg PO QHS Qty: 30 0RF metoprolol tartrate 25 mg Tablet 12.5 mg PO BID Qty: 60 0RF Brilinta 90 mg Tablet 90 mg PO BID Qty: 60 0RF Continued aspirin 81 MG tablet,chewable 81 mg PO DAILY@0800 Stiolto Respimat 2.5-2.5 mcg/actuation mist INHALATION DAILY Referrals / Follow Up: [facility] [Provider Group] - Within 1 Month Vijay Zarco MD [Primary Care Provider] - Within 2 Weeks Disposition Disposition (needs filled in before D/C Order can be placed): Home, Self Care Charges/Coding Visit Charges Inpatient E&M: 50371 Disch Hosp
--- NOTE | 2022-07-27 11:04 | CASEMGMT ---
SEDA BERNARD updated that patient is discharge. Patient discharging on Brilinta, SEDA BERNARD called [facility] Rx regarding cost. Patient has copay of $89.12, savings card applied. SEDA BERNARD updated patient, patient had no further questions or concerns at this time.
== END 2022-07-27 12:13 | disposition home or self-care (01) | DRG 247 ==
LOC: ED 09:43 → PCU 10:27
PROVIDERS: Specialist; Emergency Provider Emergency Medicine; PCP Family Medicine
DX: I21.4 Non-ST elevation (NSTEMI) myocardial infarction (principal); I65.23 Occlusion and stenosis of bilateral carotid arteries; J44.9 Chronic obstructive pulmonary disease, unspecified; I25.110 Atherosclerotic heart disease of native coronary artery with unstable angina pectoris; Z79.82 Long term (current) use of aspirin; Z79.899 Other long term (current) drug therapy
CPT/HCPCS: 36415; 71045; 71275; 80048; 80053; 80061; 84484; 85025; 85027; 85379; 85610; 85730; 92928; 93005; 93306; 93458; 93880; 94640; 99152; 99153; 99252; 99284; J7030; J7040; Q9967; A4216; C1769; C1874; C1887; C1894; C9600; G0463

== ENCOUNTER 2022-08-07 11:13 | Emergency (ER) | payer MEDICARE, OTHER, SELFPAY ==
[2022-08-07 11:14] VITALS: BP 112/64; PULSE 62; RESP 16; TEMP 36.3; O2SAT 98
--- NOTE | 2022-08-07 11:32 | CT_ITS ---
INDICATION: Vertigo EXAMINATION: CT BRAIN - CT Head or Brain W/O Contrast Injection TECHNIQUE: Multiple axial images were obtained of the head without intravenous contrast. A radiation dose optimization technique was used for this scan. IV Contrast dosage and agent: None. RADIATION DOSAGE (If Supplied By Facility): CTDIvol = ( 44.99 ) mGy, DLP = ( 812.98 ) mGycm COMPARISON: None available at this time. FINDINGS: BRAIN PARENCHYMA: No intra- or extra-axial hemorrhage. No evidence of acute infarct. No intracranial mass or mass effect. There is preservation of the salgado/white matter interface. Posterior fossa structures are unremarkable. CSF SPACES: Appropriate for age. No hydrocephalus. Basal cisterns are patent. CALVARIUM, SKULL BASE, PARANASAL SINUSES AND MASTOID AIR CELLS: Clear. No discrete lytic or blastic abnormalities. ORBITS: Both globes, extraocular muscles, optic nerves and retrobulbar fat appear unremarkable. ASPECTS Score for Acute Strokes: 10 CT/Brain/Head without Contrast IMPRESSION: Negative Brain CT without contrast. Electronically Signed: Kaveh Barajas MD at 12:02 EDT ,
--- NOTE | 2022-08-07 11:33 | EX.ED.DYSGE1 ---
HPI History of Present Illness Chief Complaint: Dizziness Informant: patient Onset/Context/Timing Onset: Month(s) (2) Context: Sudden Onset Timing: Intermittent and Lasts (couple mins) Quality: spinning Location: head Current Severity: Gone Maximum Severity: Moderate Worsened by: Position changing, bending over, getting up from lying down, etc. Relieved by: Remaining still Narrative Narrative: Patient presents out of concern for continuous episodes of vertigo. Has been having these episodes of spinning dizziness for the past 2 months or so, he had a stent placed in his heart 2 weeks or so ago, states he has been getting worse symptoms since then. He notices being off balance and spinning whenever he is walking up a flight of stairs, after he gets up out of bed and stands up, and especially if he bends over and then stands back up. States turning his head does not typically trigger this, he does rarely feel lightheaded or near syncopal. He denies any new headaches but he has had a pain at the base of his skull posteriorly, he feels like it is in his neck and hurts worse to turn his head that is associated when he gets the symptoms, and he has had occasional tinnitus in both ears, and decreased hearing that is temporary in both ears. When he gets these episodes they last for couple minutes until he rests and remain still and then it goes away, right the second sitting in the bed he is asymptomatic. He denies any more chest discomfort or shortness of breath but he was having that when he had a heart attack in the stent. He states he has had brief episodes of vertigo similarly in the past but never this bad or persistent. [facility] Medical History 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[place] heart without angina pectoris Hemorrhoids Left inguinal hernia Osteoarthritis Spermatocele Home Medications aspirin 81 mg chewable tablet 81 mg PO DAILY@0800 [facility] 09/30/16 [History Last Taken 01/03/18] tiotropium 2.5 mcg-olodaterol 2.5 mcg/actuation mist for inhalation (Stiolto Respimat) puff inhalation DAILY BREATHING 07/25/22 [History Last Taken Unknown] atorvastatin 40 mg tablet 40 mg PO QHS #30 tabs 07/27/22 [Rx Last Taken Unknown] metoprolol tartrate 25 mg tablet 12.5 mg PO BID #60 tabs 07/27/22 [Rx Last Taken Unknown] ticagrelor 90 mg tablet (Brilinta) 90 mg PO BID #60 tabs 07/27/22 [Rx Last Taken Unknown] meclizine 25 mg tablet 25 mg PO Q6H PRN PRN Dizziness #20 tabs 08/07/22 [Rx Last Taken Unknown] Allergy/AdvReac Type Severity Reaction Status Date / Time amoxicillin Allergy Mild rash Verified 08/07/22 11:17 Sulfa (Sulfonamide Allergy Rash Verified 08/07/22 11:17 Antibiotics) Family History Father Heart disease Mother Diabetes Surgical History History of arthroscopy of left knee History of colonoscopy (~2017) History of coronary artery stent placement (~07/26/22) S/P left inguinal hernia repair (~01/09/18) Social History Smoking Status: Never smoker ROS ROS ED Constitutional Constitutional ED: Denies chills or fever(s) Eyes Eyes: Denies change in vision or diplopia ENT ENT ED: Reports as per HPI, abnormal hearing, tinnitus and vertigo; Denies ear pain, rhinorrhea or sore throat Cardiovascular Cardiovascular: Denies chest pain or palpitations Respiratory/Chest Respiratory/Chest: Denies cough or dyspnea Gastrointestinal Gastrointestinal: Denies abdominal pain, diarrhea, nausea or vomiting Genitourinary Genitourinary ED: Denies dysuria or hematuria Musculoskeletal Musculoskeletal: Reports neck pain; Denies back pain Integumentary Denies abscess or rash Neurologic Neurologic: Denies headache(s), paresthesias or weakness Psychiatric Psychiatric: Denies anxiety or suicidal thoughts EXAM Physical Exam Const Vital Signs: 08/07/22 11:14 Temperature 97.3 F L Temperature Source Temporal Pulse Rate 62 Respiratory Rate 16 Blood Pressure 112/64 Blood Pressure Mean 80 Pulse Ox 98 Oxygen Delivery Method Room Air Positive well nourished and well developed General Appearance ED: well developed and NAD HEENT Reports moist mucous membranes normocephalic and atraumatic Eyes PERRL and EOMs intact bilaterally Eyes Narrative: No pathologic nystagmus; fatigable normal nystagmus to the right, no nonfatigable horizontal nor vertical/rotatory nystagmus noted. Neck full ROM and supple Resp normal respiratory effort and clear to auscultation bilaterally Cardio regular rate, regular rhythm and no murmurs Rate: Negative for tachycardic GI non-tender and non-distended Auscultation: normoactive bowel sounds Palpation: soft Back/Spine no CVA tenderness General Back: other FROM Extremity normal to inspection General Extremety ED: Negative for edema, pulses abnormal or tenderness General Extremity: Negative for edema or pulses abnormal Neuro oriented x3, CN's II-XII intact bilaterally and no sensory deficits noted Neuro Narrative: Normal [id number] and [id number] bilaterally, NIHSS 0. Negative Simran-Hallpike's bilaterally. Sensorium / Orientation: awake and alert Motor Exam: strength 5/5 throughout Psych mental status grossly normal Skin no rashes or lesions noted and no wounds MDM MDM MDM Narrative Medical decision making narrative: Differential here is less likely to be central vascular, much more likely to be peripheral, BPPV is in the differential but usually with that I can trigger the symptoms with the [place]-Hallpike and I could not today. Also cerebellar pontine angle mass is in the differential, we obtained a CT it was negative this does not fully rule that out but it is still rare and less likely. Since he has been having symptoms for a couple of months I recommend following up with otolaryngology, he was given that referral and given a prescription for meclizine to use as needed as well as a dose here. He is comfortable with that plan and understands. Radiography Diagnostic Testing: Clinical Impression(s) from Imaging Studies Brain CT 08/07/22 11:32 IMPRESSION: Negative Brain CT without contrast. Electronically Signed: Kaveh Barajas MD at 12:02 EDT , Rhythm Strip Rhythm Strip: Sinus Rhythm Rate: 60 Ectopy: None EKG Initial EKG: Attestation: I personally reviewed and interpreted this EKG as follows: Interpretation: Sinus Rhythm and No Acute Injury Pattern Discharge Plan Triage Chief Complaint: Dizziness ED Provider: David Richards Dx/Rx/DC Orders Clinical Impression: Peripheral vertigo, unspecified Instructions: ED Vertigo, Unspecified Prescriptions: New meclizine [meclizine] 25 mg tablet 25 mg PO Q6H PRN PRN (Reason: Dizziness) Qty: 20 0RF No Action aspirin 81 MG tablet,chewable 81 mg PO DAILY@0800 Stiolto Respimat 2.5-2.5 mcg/actuation mist INHALATION DAILY atorvastatin 40 mg Tablet 40 mg PO QHS Qty: 30 0RF metoprolol tartrate 25 mg Tablet 12.5 mg PO BID Qty: 60 0RF Brilinta 90 mg Tablet 90 mg PO BID Qty: 60 0RF Primary Care Provider: Vijay Zarco Referrals: Fercho Díaz MD [Med Staff - Active Staff] - As soon as possible Vijay Zarco MD [Primary Care Provider] - Disposition Disposition: Home, Self Care
[2022-08-07] MEDS: Meclizine HCl 25 MG Tablet PO (11:37)
[2022-08-07 11:44] VITALS: BMI 25.6
--- NOTE | 2022-08-07 12:49 | EKG12_ITS ---
Test Reason : DIZINESS Blood Pressure : / mmHG Vent. Rate : 059 BPM Atrial Rate : 059 BPM P-R Int : 162 ms QRS Dur : 094 ms QT Int : 388 ms P-R-T Axes : 045 019 064 degrees QTc Int : 384 ms Sinus bradycardia Otherwise normal ECG Confirmed by DAMIÁN CACERES, CHAD ([id number]), loan expeditor REMA JAMES ([id number]) on 08/08/2022 9:14:43 AM Referred By: BB Confirmed By:CHAD STEEL MD
[2022-08-07 12:54] VITALS: BP 129/67; PULSE 58; RESP 16; O2SAT 97
== END 2022-08-07 13:00 | disposition home or self-care (01) ==
PROVIDERS: Emergency Provider Emergency Medicine; PCP Family Medicine; Visit Provider Emergency Medicine
DX: R42 Dizziness and giddiness (principal); I25.10 Atherosclerotic heart disease of native coronary artery without angina pectoris; Z95.5 Presence of coronary angioplasty implant and graft
CPT/HCPCS: 70450; 93005; 99282

== ENCOUNTER 2022-08-11 09:41 | Emergency (ER) | payer MEDICARE, OTHER, SELFPAY ==
[2022-08-11 09:42] VITALS: BP 108/58; PULSE 61; RESP 16; TEMP 36.3; O2SAT 98; BMI 24.9
--- NOTE | 2022-08-11 10:20 | EKG12_ITS ---
Test Reason : DIZZINESS Blood Pressure : / mmHG Vent. Rate : 058 BPM Atrial Rate : 058 BPM P-R Int : 158 ms QRS Dur : 094 ms QT Int : 384 ms P-R-T Axes : 050 040 070 degrees QTc Int : 376 ms Sinus bradycardia Otherwise normal ECG Confirmed by DAMIÁN CACERES, CHAD ([id number]), research editor REMA JAMES ([id number]) on 08/14/2022 12:43:46 PM Referred By: ARTHUR Confirmed By:CHAD STEEL MD
--- NOTE | 2022-08-11 10:21 | EDS_ITS ---
HPI History of Present Illness Chief Complaint: Dizziness Detail of Chief Complaint: Lightheaded with standing. Informant: patient and spouse/S.O. Onset/Context/Timing Onset: Days Context: Sudden Onset Timing: Intermittent Current Severity: Mild Maximum Severity: Mild Narrative Narrative: 71-year-old male recent cardiac cath with stent placement. Prior to that he was not on blood pressure medication he has been placed on metoprolol 12 and half milligrams twice a day. Says when he stands up he is been feeling lightheaded. He thinks the blood pressure medication is too much.. He denies headache or chest pain. He denies abdominal pain. He denies shortness of breath other than with his chronic COPD. He denies any nausea, vomiting, diarrhea or melena. Today was seen in urgent care reportedly had orthostatic hypotension and was sent to the ER. Prior similar symptoms: No Recent Illness/Hospitalization: Yes [facility] Medical History 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[place] heart without angina pectoris Hemorrhoids Left inguinal hernia Osteoarthritis Spermatocele Home Medications aspirin 81 mg chewable tablet 81 mg PO DAILY@0800 [facility] 09/30/16 [History Last Taken 01/03/18] tiotropium 2.5 mcg-olodaterol 2.5 mcg/actuation mist for inhalation (Stiolto Respimat) puff inhalation DAILY BREATHING 07/25/22 [History Last Taken Unknown] atorvastatin 40 mg tablet 40 mg PO QHS #30 tabs 07/27/22 [Rx Last Taken Unknown] metoprolol tartrate 25 mg tablet 12.5 mg (1/2 x 25 mg) PO BID #60 tabs 07/27/22 [Rx Last Taken Unknown] ticagrelor 90 mg tablet (Brilinta) 90 mg PO BID #60 tabs 07/27/22 [Rx Last Taken Unknown] meclizine 25 mg tablet 25 mg PO Q6H PRN PRN Dizziness #20 tabs 08/07/22 [Rx Last Taken Unknown] Allergy/AdvReac Type Severity Reaction Status Date / Time amoxicillin Allergy Mild rash Verified 08/07/22 11:17 Sulfa (Sulfonamide Allergy Rash Verified 08/07/22 11:17 Antibiotics) Family History Father Heart disease Mother Diabetes Surgical History History of arthroscopy of left knee History of colonoscopy (~2017) History of coronary artery stent placement (~07/26/22) S/P left inguinal hernia repair (~01/09/18) Social History Smoking Status: Never smoker ROS ROS ED ROS Narrative Denies recent illness. Review of Systems ROS Unobtainable: Denies due to encephalopathy Constitutional Constitutional ED: Denies chills or fever(s) Eyes Eyes: Denies blurry vision ENT ENT ED: Denies ear pain Cardiovascular Cardiovascular: Denies chest pain Respiratory/Chest Respiratory/Chest: Denies cough Gastrointestinal Gastrointestinal: Denies abdominal pain Musculoskeletal Musculoskeletal: Denies arthralgias Integumentary Denies abscess Neurologic Neurologic: Denies headache(s) Psychiatric Psychiatric: Denies anxiety Endocrine Endocrinology: Denies cold intolerance Hematologic/Lymphatic Hematologic/Lymphatic: Reports none Allergic/Immunologic Allergic/Immunologic ED: Denies mouth swelling or tongue swelling EXAM Physical Exam Narrative Exam Narrative: 71-year-old male no acute distress. Vital signs stable afebrile. His current blood pressure is 108/58. He does not look septic toxic in any distress. at bedside. H EENT exam unremarkable. Moist extremities. Pupils round reactive light. Normal speech. Neck nontender no JVD. Lungs clear to auscultation. Heart regular rate and rhythm rate about 60 no murmur. Chest wall nontender. Abdomen soft nontender. Moving all 4 extremities. Calves are nontender without edema or cords. Normal motor strength. Back nontender. Neurologically is awake and alert with no focal motor deficits. Const Vital Signs: 08/11/22 09:42 08/11/22 10:48 08/11/22 10:20 Temperature 97.4 F L Temperature Source Temporal Pulse Rate 61 Pulse Rate [Lying] 59 L Pulse Rate [Sitting (for 1 minute prior to obtaining)] 57 L Pulse Rate [Standing (for 1 minute prior to obtaining)] 78 Respiratory Rate 16 Respiratory Effort Normal Non-Labored Respiratory Pattern Normal Blood Pressure 108/58 L Blood Pressure [Lying] 131/67 H Blood Pressure [Sitting (for 1 minute prior to obtaining)] 135/70 H Blood Pressure [Standing (for 1 minute prior to obtaining)] 97/60 Blood Pressure Mean 74 Blood Pressure Mean [Lying] 88 Blood Pressure Mean [Sitting (for 1 minute prior to obtaining)] 91 Blood Pressure Mean [Standing (for 1 minute prior to obtaining)] 72 Pulse Ox 98 Oxygen Delivery Method Room Air 08/11/22 10:20 Temperature Temperature Source Pulse Rate Pulse Rate [Lying] Pulse Rate [Sitting (for 1 minute prior to obtaining)] Pulse Rate [Standing (for 1 minute prior to obtaining)] Respiratory Rate Respiratory Effort Respiratory Pattern Blood Pressure Blood Pressure [Lying] Blood Pressure [Sitting (for 1 minute prior to obtaining)] Blood Pressure [Standing (for 1 minute prior to obtaining)] Blood Pressure Mean Blood Pressure Mean [Lying] Blood Pressure Mean [Sitting (for 1 minute prior to obtaining)] Blood Pressure Mean [Standing (for 1 minute prior to obtaining)] Pulse Ox Oxygen Delivery Method Room Air Positive well nourished and well developed; Negative for obese, cachectic, contractures or unkempt General Appearance ED: well developed and NAD; Negative for unkempt, cachectic, contractures, cyanotic, diaphoretic or pallor Nutritional Appearance: Negative for cachectic or obese HEENT Reports moist mucous membranes Negative for trauma or tenderness Eyes PERRL and EOMs intact bilaterally General Eye ED: Negative for pale conjunctiva or scleral icterus Neck no lymphadenopathy, supple and no JVD General: Negative for tenderness Lymph Lymphatic: Negative for other Chest Wall inspection of chest normal and palpation of chest normal Chest: Negative for other Resp normal respiratory effort and clear to auscultation bilaterally Effort and Inspection: Negative for retractions Auscultation: Negative for rales, rhonchi or wheezes Cardio regular rate, regular rhythm, S1 normal heart sound, S2 normal heart sound and no murmurs Palpation: Negative for palpable S3 Rate: Negative for bradycardia Rhythm: Negative for abnormal rhythm GI normal to inspection, nondistended, normoactive bowel sounds, non-tender, non- distended and no masses Inspection: Negative for abdominal distention Auscultation: normoactive bowel sounds Palpation: soft; Negative for tender or guarding Back/Spine no CVA tenderness General Back: Negative for CVA tenderness Cervical Spine: Negative for cervical spine tenderness Thoracic Spine / Upper Back: Negative for thoracic spinal tenderness Lumbar Spine / Lower Back: Negative for lumbar spinal tenderness Extremity normal to inspection General Extremety ED: Negative for edema or tenderness General Extremity: Negative for edema Neuro oriented x3 and CN's II-XII intact bilaterally Sensorium / Orientation: alert; Negative for orientation impaired, lethargic or stuporous Motor Exam: strength 5/5 throughout; Negative for general weakness Psych mental status grossly normal Appearance: Negative for unkempt Attitude: No agitated Mood & Affect: Negative for depressed or anxious Skin no rashes or lesions noted, no wounds and skin turgor normal General Skin Exam: Negative for elasticity normal, jaundice or pallor Lesions: No lesion noted Rashes: No rashes noted Trauma: Negative for abrasion Wounds: Negative for wounds noted MDM MDM MDM Narrative Medical decision making narrative: 79-year-old male recent heart catheter recently newly placed on blood pressure medication. Reportedly has orthostatic hypotension. Clinically stating when he stands he gets lightheaded. Exam is benign. Undergo a work-up including labs and orthostatic vital signs. This may be as simple as just adjusting his blood pressure medication having follow-up. Repeat exam patient doing well at 11:45 AM. His orthostatic vital signs were positive from a sitting of 135/72 standing and 97/60 with symptoms. He was given a liter normal saline. Patient be discharged home. He is currently on metoprolol 12 and half milligrams twice daily. I will decrease that to 12 and half milligrams once a day in the evening before bedtime. They will monitor his blood pressure and follow-up with his appointment with his environmental research scientist and then they can adjust his blood pressure medications as needed. If fever continues to run low and has symptoms he may need to stop the medication altogether are comfortable with the plan. History & Record Review Discussion w/independent historian: Patient Additional record(s) reviewed:: Prior inpatient record, Prior outpatient record, Prior ED visit and Prior labs Lab Data Attestation: I reviewed the patient's lab results. Lab results narrative: CBC shows white count 5.9. H&H 13.8 and 40. Platelets slightly low at 148. Electrolytes show a gap of 2. BUN and creatinine 20 and 1.45. Glucose 114. Troponin is normal at 10. Labs are not significantly changed from prior. Labs: Laboratory Results - last 24 hr 08/11/22 09:56 WBC 5.9 RBC 4.21 L Hgb 13.8 Hct 40.6 MCV 96.4 H MCH 32.8 H MCHC 34.0 RDW Std Deviation 43.8 RDW Coeff of Opal 12.5 Plt Count 148 L MPV 10.1 Immature Gran % (Auto) 0.300 Neut % (Auto) 77.0 H Lymph % (Auto) 9.1 L Reagan % (Auto) 10.3 H Eos % (Auto) 3.0 Baso % (Auto) 0.3 Absolute Neuts (auto) 4.6 Absolute Lymphs (auto) 0.54 L Nucleated RBC % 0 Differential Comment COMMENT Sodium 139 Potassium 4.3 Chloride 108 H Carbon Dioxide 29.0 Anion Gap 2 L BUN 20 H Creatinine 1.45 H Estim Creat Clear Calc 52.03 Est GFR (MDRD) Af Amer 62 Est GFR (MDRD) Non-Af 51 L BUN/Creatinine Ratio 13.8 Glucose 114 H Calcium 9.1 Troponin I High Sens 10 Discharge Plan Triage Chief Complaint: Dizziness ED Provider: Raj Justice Dx/Rx/DC Orders Clinical Impression: Orthostatic hypotension, Chronic anticoagulation, Medication reaction, History of coronary artery disease Instructions: ED Hypotension, Orthostatic Prescriptions: No Action aspirin 81 MG tablet,chewable 81 mg PO DAILY@0800 Stiolto Respimat 2.5-2.5 mcg/actuation mist INHALATION DAILY atorvastatin 40 mg Tablet 40 mg PO QHS Qty: 30 0RF metoprolol tartrate 25 mg Tablet 12.5 mg PO BID Qty: 60 0RF Brilinta 90 mg Tablet 90 mg PO BID Qty: 60 0RF meclizine [meclizine] 25 mg tablet 25 mg PO Q6H PRN PRN (Reason: Dizziness) Qty: 20 0RF Primary Care Provider: Vijay Zarco Referrals: Vijay Zarco MD [Primary Care Provider] - As Needed Activity Restrictions/Additional Instructions: I think your symptoms of feeling dizzy when you stand is from orthostatic hypotension. Caused by the blood pressure medication. Lets decrease your blood pressure medication to only once a day before bedtime. Log your blood pressures twice daily. If you are still having significant symptoms and your blood pressure is running low 110 or less I would stop the medication altogether for now. Make sure when you follow-up with your environmental research scientist you take your blood pressure readings so they can determine how to adjust or change her blood pressure medication long-term. Disposition Disposition: Home, Self Care
[2022-08-11 10:48] VITALS: BP 131/67; BP 135/70; BP 97/60; PULSE 57; PULSE 59; PULSE 78
[2022-08-11 11:06] LABS: Anion Gap 2 (5-15); BUN 20 mg/dL (7-18); BUN/Creat Ratio 13.8 RATIO (10-20); Calcium,Total 9.1 mg/dL (8.5-10.1); Chloride 108 mmol/L (98-107); Creatinine, Serum 1.45 mg/dL (0.70-1.30); EST Glomerular Filtration Rate 51 mL/min (>60); Est Glom Filt Rate - Afr Amer 62 mL/min (>60); Estimated Creatinine Clearance 52.03 ml/min; Glucose 114 mg/dL (74-106); Potassium 4.3 mmol/L (3.5-5.1); Sodium Level 139 mmol/L (136-145); Troponin-I HS 10 pg/mL (3.0-78.0)
[2022-08-11 11:11] LABS: Absolute Lymphocyte Count 0.54 X10^3/uL (0.83-4.51); Absolute Neutrophil Count 4.6 X10^3/uL (2.0-7.7); Basophil# 0.02 X10^3/uL; Basophil% 0.3 % (0-1); Eosinophil# 0.18 X10^3/uL; Hematocrit 40.6 % (40-54); Hemoglobin 13.8 g/dL (13.0-16.5); Lymphocyte # 0.54 X10^3/ul (0.83-4.51); Lymphocyte % 9.1 % (19-41); Mean Corpuscular Hgb 32.8 pg (27.0-32.0); Mean Corpuscular Volume 96.4 fL (80-94); Mean Platelet Vol. 10.1 fl (6.2-12.0); Monocyte# 0.61 X10^3/uL; Monocyte% 10.3 % (0-10); NRBC Flagged by Analyzer 0 % (0-5); Neutrophil # 4.56 X10^3/uL (2.7-7.7); POSITIVE DIFFERENTIAL YES; Platelet Count 148 K/mm3 (150-450); RBC Distribution Width CV 12.5 % (11.6-14.6); RBC Distribution Width SD 43.8 fl (35.1-43.9); Red Blood Count 4.21 M/mm3 (4.6-6.2); White Blood Count 5.9 K/mm3 (4.4-11.0)
[2022-08-11] MEDS: 0.9% Normal Saline 1,000 ML 999 ML IV (11:11)
[2022-08-11 11:12] LABS: Differential Indicated SCAN CRITERIA MET
[2022-08-11 12:09] VITALS: BP 157/92; PULSE 78
== END 2022-08-11 12:12 | disposition home or self-care (01) ==
PROVIDERS: Emergency Provider Emergency Medicine; PCP Family Medicine; Visit Provider Emergency Medicine
DX: I95.2 Hypotension due to drugs (principal); J44.9 Chronic obstructive pulmonary disease, unspecified; T44.7X5A Adverse effect of beta-adrenoreceptor antagonists, initial encounter; I25.10 Atherosclerotic heart disease of native coronary artery without angina pectoris; Z95.5 Presence of coronary angioplasty implant and graft; Z79.01 Long term (current) use of anticoagulants; Z79.82 Long term (current) use of aspirin; Z79.899 Other long term (current) drug therapy
CPT/HCPCS: 80048; 84484; 85025; 93005; 96360; 99285; J7030; A4216

== ENCOUNTER 2022-08-21 20:07 | Inpatient (IN) | payer MEDICARE, OTHER, SELFPAY ==
[2022-08-21 20:08] VITALS: BP 129/62; PULSE 63; RESP 14; TEMP 36.5; O2SAT 98; BMI 25.7
[2022-08-21 20:54] VITALS: BP 134/58; PULSE 57; RESP 24; O2SAT 98
--- NOTE | 2022-08-21 21:08 | EKG12_ITS ---
Test Reason : HYPOTENSION Blood Pressure : / mmHG Vent. Rate : 062 BPM Atrial Rate : 062 BPM P-R Int : 160 ms QRS Dur : 092 ms QT Int : 406 ms P-R-T Axes : 054 014 046 degrees QTc Int : 412 ms Normal sinus rhythm Normal ECG Confirmed by DAMIÁN CACERES, CHAD ([id number]), editorial manager REMA JAMES ([id number]) on 08/23/2022 10:12:05 AM Referred By: SHAQ Confirmed By:CHAD STEEL MD
--- NOTE | 2022-08-21 21:09 | EDS_ITS ---
HPI History of Present Illness Chief Complaint: Hypotension Narrative Narrative: 71-year-old male with headache with lightheadedness. He states he has had low blood pressures in the 80s and 90s today. He states previously he was on metoprolol 25 mg p.o. twice daily but was told to have this and was taking 12.5 mg p.o. twice daily. He still having lightheadedness and was told to take it once a day. He notes his blood pressures have been low all day. Its worse when he stands and walks. When he sitting he does not any symptoms. He denies chest pain. Patient with history of CAD and cardiac stent placement 07/26/2022. No fevers or chills. No nausea or vomiting. He states he is eating and drinking normally. He states he is making normal urine and stool. No black or bloody stools. [facility] Medical History 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[place] heart without angina pectoris Hemorrhoids Left inguinal hernia Osteoarthritis Spermatocele Home Medications aspirin 81 mg chewable tablet 81 mg PO DAILY@0800 [facility] [place] 09/30/16 [History Last Taken 01/03/18] tiotropium 2.5 mcg-olodaterol 2.5 mcg/actuation mist for inhalation (Stiolto Respimat) puff inhalation DAILY BREATHING 07/25/22 [History Last Taken Unknown] atorvastatin 40 mg tablet 40 mg PO QHS #30 tabs 07/27/22 [Rx Last Taken Unknown] metoprolol tartrate 25 mg tablet 12.5 mg (1/2 x 25 mg) PO BID #60 tabs 07/27/22 [Rx Last Taken Unknown] ticagrelor 90 mg tablet (Brilinta) 90 mg PO BID #60 tabs 07/27/22 [Rx Last Taken Unknown] meclizine 25 mg tablet 25 mg PO Q6H PRN PRN Dizziness #20 tabs 08/07/22 [Rx Last Taken Unknown] Allergy/AdvReac Type Severity Reaction Status Date / Time amoxicillin Allergy Mild rash Verified 08/21/22 20:08 Sulfa (Sulfonamide Allergy Rash Verified 08/21/22 20:08 Antibiotics) Family History Father Heart disease Mother Diabetes Surgical History History of arthroscopy of left knee History of colonoscopy (~2017) History of coronary artery stent placement (~07/26/22) S/P left inguinal hernia repair (~01/09/18) Social History Smoking Status: Never smoker ROS ROS ED Constitutional Constitutional ED: Denies chills, fever(s) or sweats Eyes Eyes: Denies blurry vision or change in vision ENT ENT ED: Denies ear pain or sore throat Cardiovascular Cardiovascular: Reports other Details: Lightheadedness ; Denies chest pain, palpitations or racing heartbeat Respiratory/Chest Respiratory/Chest: Denies cough, dyspnea or sputum Gastrointestinal Gastrointestinal: Denies abdominal pain, constipation, diarrhea, nausea or vomiting Genitourinary Genitourinary ED: Denies dysuria, hematuria or urinary frequency Musculoskeletal Musculoskeletal: Denies arthralgias, myalgias or neck pain Integumentary Denies abscess, Abrasions or rash Neurologic Neurologic: Denies headache(s), paresthesias or weakness Psychiatric Psychiatric: Denies anxiety, depression, suicidal ideation or suicidal thoughts Endocrine Endocrinology: Denies polydipsia or polyuria EXAM Physical Exam Const Vital Signs: 08/21/22 20:08 08/21/22 20:53 08/21/22 20:54 Temperature 97.7 F L Temperature Source Temporal Pulse Rate 63 57 L Pulse Rate [Lying] Pulse Rate [Sitting (for 1 minute prior to obtaining)] Pulse Rate [Standing (for 1 minute prior to obtaining)] Respiratory Rate 14 24 H Respiratory Effort Normal Non-Labored Respiratory Pattern Normal Blood Pressure 129/62 H 134/58 H Blood Pressure [Lying] Blood Pressure [Sitting (for 1 minute prior to obtaining)] Blood Pressure [Standing (for 1 minute prior to obtaining)] Blood Pressure Mean 84 83 Blood Pressure Mean [Lying] Blood Pressure Mean [Sitting (for 1 minute prior to obtaining)] Blood Pressure Mean [Standing (for 1 minute prior to obtaining)] Pulse Ox 98 98 Oxygen Delivery Method Room Air 08/21/22 21:14 08/21/22 21:31 08/21/22 22:30 Temperature Temperature Source Pulse Rate 57 L Pulse Rate [Lying] 59 L Pulse Rate [Sitting (for 1 minute prior to obtaining)] 76 Pulse Rate [Standing (for 1 minute prior to obtaining)] 81 Respiratory Rate 20 H Respiratory Effort Respiratory Pattern Blood Pressure 138/70 H Blood Pressure [Lying] 136/67 H Blood Pressure [Sitting (for 1 minute prior to obtaining)] 112/60 Blood Pressure [Standing (for 1 minute prior to obtaining)] 92/59 L Blood Pressure Mean 89 Blood Pressure Mean [Lying] 90 Blood Pressure Mean [Sitting (for 1 minute prior to obtaining)] 77 Blood Pressure Mean [Standing (for 1 minute prior to obtaining)] 70 Pulse Ox 98 Oxygen Delivery Method Room Air Positive well nourished General Appearance ED: NAD; Negative for pallor HEENT Reports moist mucous membranes Eyes PERRL and EOMs intact bilaterally Chest Wall inspection of chest normal Resp normal respiratory effort and clear to auscultation bilaterally Auscultation: Negative for rales, rhonchi or wheezes Cardio regular rate and regular rhythm GI normal to inspection, nondistended, normoactive bowel sounds Extremity normal to inspection General Extremety ED: Negative for edema or tenderness General Extremity: Negative for edema Neuro oriented x3 and CN's II-XII intact bilaterally Sensorium / Orientation: alert Motor Exam: strength 5/5 throughout Psych mental status grossly normal Skin no rashes or lesions noted and no wounds General Skin Exam: Negative for jaundice or pallor MDM MDM MDM Narrative Medical decision making narrative: Patient presenting with lightheadedness. I will check orthostatics. Differential includes acute coronary syndrome, dehydration, anemia, electrolyte abnormalities, dehydration, medication side effect, pneumonia. CBC to assess white blood cell count, hemoglobin, platelets. BMP to assess renal function, electrolytes. High-sensitivity troponin and EKG to assess for ischemia and dysrhythmia. Chest x-ray to rule out pneumonia. CBC is unremarkable. Creatinine is appears to be at baseline. Electrolytes unremarkable. High-sensi tivity troponin is 8. EKG is normal sinus rhythm with a ventricular rate of 62 bpm without sign of ischemic change or ectopy on my interpretation. Chest x-ray is negative for acute cardiopulmonary process on my interpretation. Radiologist interprets this and agrees. Patient significant orthostatic. He was given IV fluids. Discussed with Dr. Harden who is on-call for cardiology. He recommended holding the patient's metoprolol and admitting for observation and hydration. Patient was amenable to this. He is admitted in stable condition. Impression: 1. Orthostatic hypotension Lab Data Labs: Laboratory Results - last 24 hr 08/21/22 21:30 WBC 6.0 RBC 4.24 L Hgb 13.6 Hct 41.2 MCV 97.2 H MCH 32.1 H MCHC 33.0 RDW Std Deviation 45.2 H RDW Coeff of Opal 12.7 Plt Count 122 L MPV 9.9 Immature Gran % (Auto) 0.300 Neut % (Auto) 68.0 Lymph % (Auto) 15.1 L [place] % (Auto) 12.6 H Eos % (Auto) 3.7 Baso % (Auto) 0.3 Absolute Neuts (auto) 4.1 Absolute Lymphs (auto) 0.90 Nucleated RBC % 0 Sodium 140 Potassium 4.3 Chloride 107 Carbon Dioxide 32.0 Anion Gap 1 L BUN 20 H Creatinine 1.37 H Estim Creat Clear Calc 55.07 Est GFR (MDRD) Af Amer 66 Est GFR (MDRD) Non-Af 55 L BUN/Creatinine Ratio 14.6 Glucose 94 Calcium 9.0 Troponin I High Sens 8 Radiography Diagnostic Testing: Clinical Impression(s) from Imaging Studies Chest X-Ray 08/21/22 21:25 IMPRESSION: 1. No radiographic evidence of acute cardiopulmonary disease. Electronically Signed: Ponce Rivero DO at 21:55 EDT , Discharge Plan Triage Chief Complaint: Hypotension ED Provider: Keith Villar Dx/Rx/DC Orders Prescriptions: No Action aspirin 81 MG tablet,chewable 81 mg PO DAILY@0800 Stiolto Respimat 2.5-2.5 mcg/actuation mist INHALATION DAILY atorvastatin 40 mg Tablet 40 mg PO QHS Qty: 30 0RF metoprolol tartrate 25 mg Tablet 12.5 mg PO BID Qty: 60 0RF Brilinta 90 mg Tablet 90 mg PO BID Qty: 60 0RF meclizine [meclizine] 25 mg tablet 25 mg PO Q6H PRN PRN (Reason: Dizziness) Qty: 20 0RF Primary Care Provider: Vijay Zarco Referrals: Vijay Zarco MD [Primary Care Provider] -
[2022-08-21 21:14] VITALS: BP 112/60; BP 136/67; BP 92/59; PULSE 59; PULSE 76; PULSE 81
--- NOTE | 2022-08-21 21:25 | RAD_ITS ---
INDICATION: chest pain EXAMINATION/TECHNIQUE: X-RAY - XR Chest 1 View COMPARISON: Prior exam July 25, 2022. FINDINGS: LINES/DEVICES: None. LUNGS: Symmetric normal lung volumes. No airspace opacity or abnormal interstitial pattern. No nodule or mass. No pleural effusion or pneumothorax. MEDIASTINUM AND CARDIOVASCULAR STRUCTURES: Normal size and contour of the cardiomediastinal silhouette. No evidence of pulmonary vascular congestion. BONES AND SOFT TISSUES: No fracture or focal osseous lesion. RAD/Chest 1 View (Portable) IMPRESSION: 1. No radiographic evidence of acute cardiopulmonary disease. Electronically Signed: Ponce Rivero DO at 21:55 EDT ,
[2022-08-21 21:41] LABS: Absolute Neutrophil Count 4.1 X10^3/uL (2.0-7.7); Basophil# 0.02 X10^3/uL; Basophil% 0.3 % (0-1); Eosinophil# 0.22 X10^3/uL; Eosinophils% 3.7 % (0-5); Hematocrit 41.2 % (40-54); Hemoglobin 13.6 g/dL (13.0-16.5); Lymphocyte % 15.1 % (19-41); Mean Corpuscular Hgb 32.1 pg (27.0-32.0); Mean Corpuscular Volume 97.2 fL (80-94); Mean Platelet Vol. 9.9 fl (6.2-12.0); Monocyte# 0.75 X10^3/uL; Monocyte% 12.6 % (0-10); NRBC Flagged by Analyzer 0 % (0-5); Neutrophil # 4.05 X10^3/uL (2.7-7.7); Platelet Count 122 K/mm3 (150-450); RBC Distribution Width CV 12.7 % (11.6-14.6); RBC Distribution Width SD 45.2 fl (35.1-43.9); Red Blood Count 4.24 M/mm3 (4.6-6.2)
[2022-08-21] MEDS: 0.9% Normal Saline 1,000 ML 999 ML IV (21:46)
[2022-08-21 22:07] LABS: Anion Gap 1 (5-15); BUN 20 mg/dL (7-18); BUN/Creat Ratio 14.6 RATIO (10-20); Chloride 107 mmol/L (98-107); Creatinine, Serum 1.37 mg/dL (0.70-1.30); EST Glomerular Filtration Rate 55 mL/min (>60); Est Glom Filt Rate - Afr Amer 66 mL/min (>60); Estimated Creatinine Clearance 55.07 ml/min; Glucose 94 mg/dL (74-106); Potassium 4.3 mmol/L (3.5-5.1); Sodium Level 140 mmol/L (136-145); Troponin-I HS (w/2H Reflex) 8 pg/mL (3.0-78.0)
[2022-08-21 22:30] VITALS: BP 138/70; PULSE 57; RESP 20; O2SAT 98
[2022-08-21 23:33] LABS: Reflex Troponin-HS? (from REC) Y
[2022-08-22] VITALS (8 sets, daily range): BP systolic 69–165; BP diastolic 49–81; PULSE 44–84; RESP 16–20; TEMP 36.4–36.9; O2SAT 95–100; BMI 25.7
--- NOTE | 2022-08-22 00:04 | HP.PCM.HOS_ITS ---
[facility] - General General Date of Admission: 08/22/22 Date of Service: 08/22/22 HPI Narrative TERRI HERNANDEZ, is a 71 M who presents to the emergency room with chief c omplaint of dizziness and lightheadedness. Patient has significant past medical history of coronary artery disease status post [place] 1 month ago for which she received a stent and is about to start cardiac rehab. The patient has been reducing his beta-jada due to feeling lightheaded and dizzy but has continued to take it at a lesser dose. He continues to complain of lightheadedness and dizziness and is positive for orthostatic hypotension. Laboratory studies and chest x-ray are unremarkable. ER physician spoke with cardiology who requested observation overnight and to discontinue beta-jada therapy. The patient denies any chest pain, shortness of breath, fever or chills at this time. [facility] Medical History 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[place] heart without angina pectoris Hemorrhoids Left inguinal hernia Osteoarthritis Spermatocele Home Medications aspirin 81 mg chewable tablet 81 mg PO DAILY@0800 [facility] 09/30/16 [History Last Taken 01/03/18] tiotropium 2.5 mcg-olodaterol 2.5 mcg/actuation mist for inhalation (Stiolto Respimat) puff inhalation DAILY BREATHING 07/25/22 [History Last Taken Unknown] atorvastatin 40 mg tablet 40 mg PO QHS #30 tabs 07/27/22 [Rx Last Taken Unknown] metoprolol tartrate 25 mg tablet 12.5 mg (1/2 x 25 mg) PO BID #60 tabs 07/27/22 [Rx Last Taken Unknown] ticagrelor 90 mg tablet (Brilinta) 90 mg PO BID #60 tabs 07/27/22 [Rx Last Taken Unknown] meclizine 25 mg tablet 25 mg PO Q6H PRN PRN Dizziness #20 tabs 08/07/22 [Rx Last Taken Unknown] Allergy/AdvReac Type Severity Reaction Status Date / Time amoxicillin Allergy Mild rash Verified 08/21/22 20:08 Sulfa (Sulfonamide Allergy Rash Verified 08/21/22 20:08 Antibiotics) Family History Father Heart disease Mother Diabetes Surgical History History of arthroscopy of left knee History of colonoscopy (~2017) History of coronary artery stent placement (~07/26/22) S/P left inguinal hernia repair (~01/09/18) Social History Smoking Status: Never smoker ROS Constitutional Constitutional: Denies chills or fever(s) Eyes Eyes: Denies change in vision ENT HEENT: Denies abnormal hearing Cardiovascular Cardiovascular: Reports lightheadedness; Denies chest pain Respiratory/Chest Respiratory/Chest: Denies dyspnea Gastrointestinal Gastrointestinal: Denies abdominal pain Genitourinary Genitourinary: Denies difficulty urinating Musculoskeletal Musculoskeletal: Denies arthralgias Neurologic Neurologic: Denies abnormal gait Psychiatric Psychiatric: Denies anxiety Endocrine Endocrinology: Denies change in body appearance Hematologic/Lymphatic Hematologic/Lymphatic: Denies easy bleeding Vital Signs Vital Signs Vital Signs: 08/21/22 20:08 08/21/22 20:53 08/21/22 20:54 Temperature 97.7 F L Temperature Source Temporal Pulse Rate 63 57 L Pulse Rate [Lying] Pulse Rate [Sitting (for 1 minute prior to obtaining)] Pulse Rate [Standing (for 1 minute prior to obtaining)] Respiratory Rate 14 24 H Respiratory Effort Normal Non-Labored Respiratory Pattern Normal Blood Pressure 129/62 H 134/58 H Blood Pressure [Lying] Blood Pressure [Sitting (for 1 minute prior to obtaining)] Blood Pressure [Standing (for 1 minute prior to obtaining)] Blood Pressure Mean 84 83 Blood Pressure Mean [Lying] Blood Pressure Mean [Sitting (for 1 minute prior to obtaining)] Blood Pressure Mean [Standing (for 1 minute prior to obtaining)] Pulse Ox 98 98 Oxygen Delivery Method Room Air 08/21/22 21:14 08/21/22 21:31 08/21/22 22:30 Temperature Temperature Source Pulse Rate 57 L Pulse Rate [Lying] 59 L Pulse Rate [Sitting (for 1 minute prior to obtaining)] 76 Pulse Rate [Standing (for 1 minute prior to obtaining)] 81 Respiratory Rate 20 H Respiratory Effort Respiratory Pattern Blood Pressure 138/70 H Blood Pressure [Lying] 136/67 H Blood Pressure [Sitting (for 1 minute prior to obtaining)] 112/60 Blood Pressure [Standing (for 1 minute prior to obtaining)] 92/59 L Blood Pressure Mean 89 Blood Pressure Mean [Lying] 90 Blood Pressure Mean [Sitting (for 1 minute prior to obtaining)] 77 Blood Pressure Mean [Standing (for 1 minute prior to obtaining)] 70 Pulse Ox 98 Oxygen Delivery Method Room Air Weight Weight: 189 lb 14.4 oz Body Mass Index (BMI) 25.7 Physical Exam Const oriented x3 General Appearance: cooperative HEENT normocephalic and head/scalp atraumatic Eyes PERRL Neck no lymphadenopathy Resp normal respiratory effort, no use of accessory muscles and clear to auscultation bilaterally Cardio regular rate, regular rhythm, S1 normal heart sound and S2 normal heart sound GI soft to palpation and non-tender Extremity normal to inspection Neuro oriented x3 and CN's II-XII intact bilaterally Sensorium / Orientation: awake, alert and oriented to person Psych affect normal Results Lab / Micro Data 08/21/22 21:30 08/21/22 21:30 Labs: Laboratory Results - last 24 hr 08/21/22 21:30: WBC 6.0, RBC 4.24 L, Hgb 13.6, Hct 41.2, MCV 97.2 H, MCH 32.1 H, MCHC 33.0, RDW Std Deviation 45.2 H, RDW Coeff of Opal 12.7, Plt Count 122 L, MPV 9.9, Immature Gran % (Auto) 0.300, Neut % (Auto) 68.0, Lymph % (Auto) 15.1 L, [place] % (Auto) 12.6 H, Eos % (Auto) 3.7, Baso % (Auto) 0.3, Absolute Neuts (auto) 4.1, Absolute Lymphs (auto) 0.90, Nucleated RBC % 0, Sodium 140, Potassium 4.3, Chloride 107, Carbon Dioxide 32.0, Anion Gap 1 L, BUN 20 H, Creatinine 1.37 H, Estim Creat Clear Calc 55.07, Est GFR (MDRD) Af Amer 66, Est GFR (MDRD) Non-Af 55 L, BUN/Creatinine Ratio 14.6, Glucose 94, Calcium 9.0, Troponin I High Sens 8 Radiology Impression Chest X-Ray 08/21/22 21:25 IMPRESSION: 1. No radiographic evidence of acute cardiopulmonary disease. Electronically Signed: Ponce Rivero DO at 21:55 EDT , Assessment & Plan Assessment/Plan (1) History of coronary artery stent placement: (2) 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[place] heart without angina pectoris: (3) Orthostatic hypotension: PLAN: Plan 1 orthostatic hypotension?admit patient for observation to progressive care unit?continue telemetry, IV normal saline at a rate of 75 cc/h overnight, repeat BMP in the morning, orthostatic vital signs in the morning and discontinue beta- jada 2. coronary artery disease status post stent 1 mos ago 3. DVT prophylaxis?low molecular weight heparin Charges/Coding Visit Charges OBSV E&M: 46418 Observ/hosp same date L2
[2022-08-22 00:15] LABS: Troponin-I HS 9 pg/mL (3.0-78.0)
[2022-08-22] MEDS: 0.9% Normal Saline 1,000 ML 75 ML IV ×3 (01:30→21:41)
[2022-08-22] MEDS: 0.9% Saline Lock 10 ML Syringe IV (01:38)
[2022-08-22 06:43] LABS: Absolute Lymphocyte Count 0.88 X10^3/uL (0.83-4.51); Absolute Neutrophil Count 3.1 X10^3/uL (2.0-7.7); Basophil# 0.02 X10^3/uL; Basophil% 0.4 % (0-1); Eosinophil# 0.21 X10^3/uL; Eosinophils% 4.4 % (0-5); Hematocrit 37.6 % (40-54); Lymphocyte # 0.88 X10^3/ul (0.83-4.51); Lymphocyte % 18.5 % (19-41); Mean Corp Hgb Conc 34.6 g/dL (32-36); Mean Corpuscular Hgb 32.9 pg (27.0-32.0); Mean Corpuscular Volume 95.2 fL (80-94); Mean Platelet Vol. 10.5 fl (6.2-12.0); Monocyte# 0.56 X10^3/uL; Monocyte% 11.8 % (0-10); NRBC Flagged by Analyzer 0 % (0-5); Neutrophil # 3.06 X10^3/uL (2.7-7.7); Neutrophil % 64.5 % (47-70); POSITIVE COUNT YES; Platelet Count 103 K/mm3 (150-450); RBC Distribution Width CV 12.9 % (11.6-14.6); RBC Distribution Width SD 45.1 fl (35.1-43.9); Red Blood Count 3.95 M/mm3 (4.6-6.2); White Blood Count 4.8 K/mm3 (4.4-11.0)
[2022-08-22 06:44] LABS: Differential Indicated SCAN CRITERIA MET
[2022-08-22 07:13] LABS: Macrocytosis RARE; Platelet Estimate SLT DEC (ADEQ)
[2022-08-22 07:16] LABS: Anion Gap 2 (5-15); BUN 16 mg/dL (7-18); BUN/Creat Ratio 13.9 RATIO (10-20); Calcium,Total 8.4 mg/dL (8.5-10.1); Chloride 110 mmol/L (98-107); Creatinine, Serum 1.15 mg/dL (0.70-1.30); EST Glomerular Filtration Rate 67 mL/min (>60); Est Glom Filt Rate - Afr Amer 81 mL/min (>60); Glucose 90 mg/dL (74-106); Sodium Level 142 mmol/L (136-145)
--- NOTE | 2022-08-22 07:44 | PCM.PN.HOSP ---
Reason for Visit Reason for Visit: Diagnoses Atherosclerotic heart disease of [place] coronary artery without angina pectoris (08/22/22) Orthostatic hypotension (08/22/22) Presence of coronary angioplasty implant and graft (08/22/22) Subjective Subjective Was orthostatic again this AM. Objective Data Objective Data Vital Signs: Vital Signs Temp Pulse Resp BP Pulse Ox O2 Del Method 36.6 C 68 18 139/78 H 96 Room Air 08/22/22 05:51 08/22/22 05:51 08/22/22 05:51 08/22/22 05:51 08/22/22 05:51 08/22/22 05:51 Oxygen Delivery Method Room Air Weight: 86.1 kg Body Mass Index (BMI) 25.7 Intake & Output: Intake and Output for Last 24 Hours 08/20/22 08/21/22 08/22/22 23:59 23:59 23:59 Intake Total 1000 / 1000 Balance 1000 / 1000 Lab / Micro Data 08/22/22 05:43 08/22/22 05:43 Labs: Laboratory Results - last 24 hr 08/21/22 21:30: WBC 6.0, RBC 4.24 L, Hgb 13.6, Hct 41.2, MCV 97.2 H, MCH 32.1 H, MCHC 33.0, RDW Std Deviation 45.2 H, RDW Coeff of Opal 12.7, Plt Count 122 L, MPV 9.9, Immature Gran % (Auto) 0.300, Neut % (Auto) 68.0, Lymph % (Auto) 15.1 L, [place] % (Auto) 12.6 H, Eos % (Auto) 3.7, Baso % (Auto) 0.3, Absolute Neuts (auto) 4.1, Absolute Lymphs (auto) 0.90, Nucleated RBC % 0, Sodium 140, Potassium 4.3, Chloride 107, Carbon Dioxide 32.0, Anion Gap 1 L, BUN 20 H, Creatinine 1.37 H, Estim Creat Clear Calc 55.07, Est GFR (MDRD) Af Amer 66, Est GFR (MDRD) Non-Af 55 L, BUN/Creatinine Ratio 14.6, Glucose 94, Calcium 9.0, Troponin I High Sens 8 08/21/22 23:55: Troponin I High Sens 9 08/22/22 05:43: WBC 4.8, RBC 3.95 L, Hgb 13.0, Hct 37.6 L, MCV 95.2 H, MCH 32.9 H, MCHC 34.6, RDW Std Deviation 45.1 H, RDW Coeff of Opal 12.9, Plt Count 103 L, MPV 10.5, Immature Gran % (Auto) 0.400, Neut % (Auto) 64.5, Lymph % (Auto) 18.5 L, [place] % (Auto) 11.8 H, Eos % (Auto) 4.4, Baso % (Auto) 0.4, Absolute Neuts (auto) 3.1, Absolute Lymphs (auto) 0.88, Nucleated RBC % 0, Platelet Estimate SLT DEC, Macrocytosis RARE, Sodium 142, Potassium 4.0, Chloride 110 H, Carbon Dioxide 30.0, Anion Gap 2 L, BUN 16, Creatinine 1.15, Estim Creat Clear Calc 65.60, Est GFR (MDRD) Af Amer 81, Est GFR (MDRD) Non-Af 67, BUN/Creatinine Ratio 13.9, Glucose 90, Calcium 8.4 L Radiography Diagnostic Testing: Radiology Impression Chest X-Ray 08/21/22 21:25 IMPRESSION: 1. No radiographic evidence of acute cardiopulmonary disease. Electronically Signed: Ponce Rivero DO at 21:55 EDT , Physical Exam Const alert and no apparent distress Resp normal respiratory effort, no retractions, no use of accessory muscles and clear to auscultation bilaterally Cardio regular rate, regular rhythm, S1 normal heart sound and S2 normal heart sound GI normal to inspection, nondistended, normoactive bowel sounds, soft to palpation, non-tender and non-distended Extremity normal to inspection Assessment & Plan Assessment/Plan (1) Orthostatic hypotension: PLAN: Symptomatic. Adrenal insuf. POTS less likely. Doubt iatrogenic given low dose of metoprolol that he was on. IV normal saline at a rate of 75 cc/h BB held recheck orthostatic vitals Has had chronic dizziness Cortisol 6.3, which normal, but on the low-end Check ACTH stim in AM. PLAN: Plan Chronic conditions: coronary artery disease status post stent 1 mos ago. Continue ASA, ticagrelor and atorvastatin DVT prophylaxis?low molecular weight heparin Charges/Coding Visit Charges Inpatient E&M: 60980 Subs Hosp L2
[2022-08-22] MEDS: Aspirin 81 MG TAB.CHEW PO (09:16)
[2022-08-22] MEDS: TICAGRELOR 90 MG TABLET PO ×2 (09:16→21:41)
[2022-08-22] MEDS: Atorvastatin Calcium 40 MG Tablet PO (21:41)
[2022-08-23 03:19] VITALS: BP 151/73; PULSE 64; RESP 18; TEMP 36.5; O2SAT 98
[2022-08-23] MEDS: Cosyntropin 0.25 MG in 0.9% Normal Saline (Pres. free 1 ML 30 MG IV (06:05)
--- NOTE | 2022-08-23 08:23 | PN.HOSP_ITS ---
Reason for Visit Reason for Visit: Diagnoses Atherosclerotic heart disease of [place] coronary artery without angina pectoris (08/22/22) Orthostatic hypotension (08/22/22) Presence of coronary angioplasty implant and graft (08/22/22) Subjective Subjective Feels better. Yesterday was getting up and was feeling woozy but has not felt that way today. Objective Data Objective Data Vital Signs: Vital Signs Temp Pulse Resp BP Pulse Ox O2 Del Method 36.5 C L 64 18 151/73 H 98 Room Air 08/23/22 03:19 08/23/22 03:19 08/23/22 03:19 08/23/22 03:19 08/23/22 03:19 08/23/22 03:19 Oxygen Delivery Method Room Air Weight: 86.1 kg Body Mass Index (BMI) 25.7 Intake & Output: Intake and Output for Last 24 Hours 08/21/22 08/22/22 08/23/22 23:59 23:59 23:59 Intake Total 1000 / 1000 1513.75 / 1513.75 Balance 1000 / 1000 1513.75 / 1513.75 Lab / Micro Data 08/22/22 05:43 08/22/22 05:43 Labs: Laboratory Results - last 24 hr 08/22/22 05:43: Cortisol 6.30 08/23/22 06:05: Cortisol 10.40 08/23/22 07:05: Cortisol 25.00 H Physical Exam Const alert and no apparent distress Neuro Sensorium / Orientation: awake Psych affect normal Assessment & Plan Assessment/Plan (1) Orthostatic hypotension: PLAN: Ongoing, but currently asymptomatic. Unclear etiology. Adrenal insufficiency ruled out (ACTH stim test pre cortisol 10.4, post 25, not consistent with adrenal insufficiency.) POTS less likely as he has not been tachycardia (though he was on a beta jada). Doubt iatrogenic given low dose of metoprolol that he was on. 08/23: Patient still orthostatic where his blood pressure went from 141/80 laying down to 108/61 standing. Patient felt fine during this episode. Discussed with the patient and the plan is to continue to hold the metoprolol. Advised wearing compression stockings. Patient states that he already has compression sleeves at home and to get up slowly from laying. It may be advisable for the patient to have permissive hypertension in the future. No additional work-up at this time. PLAN: Plan Chronic conditions: * coronary artery disease status post stent 1 month ago. Continue ASA, ticagrelor and atorvastatin DVT prophylaxis?low molecular weight heparin
[2022-08-23 08:34] VITALS: BP 108/61; BP 117/65; BP 141/80; PULSE 70; PULSE 71; PULSE 79
[2022-08-23 08:40] VITALS: BP 141/80; PULSE 70; RESP 18; TEMP 36.6; O2SAT 96
[2022-08-23] MEDS: Aspirin 81 MG TAB.CHEW PO (08:41)
[2022-08-23] MEDS: TICAGRELOR 90 MG TABLET PO (08:41)
[2022-08-23] MEDS: Enoxaparin 40 MG/0.4 ML Syringe SC (08:42)
--- NOTE | 2022-08-23 10:42 | DCINST_ITS ---
Discharge Instructions Diet Discharge Diet: Low fat / Low cholesterol Dressing / Incision Call your doctor if you observe: Fainting spells and Chest pain Follow Up Care Test Results: Test results from this visit will be discussed in further detail at your follow- up appointment, if applicable. Discharge Plan Admission Admit Date/Time: 08/22/22 14:36 Primary Reason for Your Visit: orthostatic hypotension. Attending Provider: Jose Antonio Almanza Primary Care Provider: Vijay Zarco Consulting Providers: Emanuel Shen Instructions Additional Instructions / Restrictions: You presented with a symptomatic orthostatic hypotension, blood pressure drop when you stand. We have held your metoprolol and tamsulosin (Flomax). Your blood pressure still drops when you stand up but you have felt better. It is unclear if the discontinuing the metoprolol and tamsulosin has helped or not. I do recommend that you get up slowly from laying. If you do have further events please contact your physician or return to the emergency room. Discharge Orders/Prescriptions Prescriptions: Continued aspirin 81 MG tablet,chewable 81 mg PO DAILY@0800 Stiolto Respimat 2.5-2.5 mcg/actuation mist 2 puff INHALATION DAILY atorvastatin 40 mg Tablet 40 mg PO QHS Qty: 30 0RF Brilinta 90 mg Tablet 90 mg PO BID Qty: 60 0RF meclizine 25 mg tablet 25 mg PO Q6H PRN PRN (Reason: Dizziness) Qty: 20 0RF Discontinued tamsulosin 0.4 mg capsule 0.4 mg PO Q24H metoprolol tartrate 25 mg Tablet 12.5 mg PO QHS Referrals / Follow Up: Vijay Zarco MD [Primary Care Provider] - Disposition Disposition (needs filled in before D/C Order can be placed): Home, Self Care
--- NOTE | 2022-08-23 10:45 | DS.PCM_ITS ---
Providers Date of Admission: 08/22/22 Primary Care Physician: Dr. Vijay Zarco MD Reason For Visit: ORTHOSTATIC HYPOTENSION Diagnosis Discharge Diagnosis (1) Orthostatic hypotension: Status: Acute Code(s): I95.1 - Orthostatic hypotension Plan: Ongoing, but currently asymptomatic. Unclear etiology. Adrenal insufficiency ruled out (ACTH stim test pre cortisol 10.4, post 25, not consistent with adrenal insufficiency.) POTS less likely as he has not been tachycardia (though he was on a beta jada). Doubt iatrogenic given low dose of metoprolol that he was on. 08/23: Patient still orthostatic where his blood pressure went from 141/80 laying down to 108/61 standing. Patient felt fine during this episode. Discussed with the patient and the plan is to continue to hold the metoprolol and tamsulosin. Advised wearing compression stockings. Patient states that he already has compression sleeves at home and to get up slowly from laying. It may be advisable for the patient to have permissive hypertension in the future. No additional work-up at this time. Plan Chronic conditions: * coronary artery disease status post stent 1 month ago. Continue ASA, ticagrelor and atorvastatin Medications at Discharge Home Medications aspirin 81 mg chewable tablet 81 mg PO DAILY@0800 [facility] 09/30/16 tiotropium 2.5 mcg-olodaterol 2.5 mcg/actuation mist for inhalation (Stiolto Respimat) 2 puff inhalation DAILY BREATHING 07/25/22 atorvastatin 40 mg tablet 40 mg PO QHS #30 tabs 07/27/22 ticagrelor 90 mg tablet (Brilinta) 90 mg PO BID #60 tabs 07/27/22 meclizine 25 mg tablet 25 mg PO Q6H PRN PRN Dizziness #20 tabs 08/07/22 Hospital Course Operations None Procedures None Summary of Care Provided Minutes Spent on Discharge: 32 Weight / BMI Weight Weight: 86.1 kg Body Mass Index (BMI) 25.7 ABG / Lab / Microbiology Data 08/22/22 05:43 08/22/22 05:43 Laboratory: Laboratory Results - last 24 hr 08/23/22 06:05: Cortisol 10.40 08/23/22 07:05: Cortisol 25.00 H D/C Instructions Discharge Diet: Low fat / Low cholesterol Call your doctor if you observe: Fainting spells and Chest pain Meaningful Use Info Meaningful Use Diagnoses (Choose all that apply): None applicable Discharge Plan Admission Admit Date/Time: 08/22/22 14:36 Primary Reason for Your Visit: orthostatic hypotension. Attending Provider: Jose Antonio Almanza Primary Care Provider: Vijay Zarco Consulting Providers: Emanuel Shen Instructions Additional Instructions / Restrictions: You presented with a symptomatic orthostatic hypotension, blood pressure drop when you stand. We have held your metoprolol and tamsulosin (Flomax). Your blood pressure still drops when you stand up but you have felt better. It is unclear if the discontinuing the metoprolol and tamsulosin has helped or not. I do recommend that you get up slowly from laying. If you do have further events please contact your physician or return to the emergency room. Discharge Orders/Prescriptions Prescriptions: Continued aspirin 81 MG tablet,chewable 81 mg PO DAILY@0800 Stiolto Respimat 2.5-2.5 mcg/actuation mist 2 puff INHALATION DAILY atorvastatin 40 mg Tablet 40 mg PO QHS Qty: 30 0RF Brilinta 90 mg Tablet 90 mg PO BID Qty: 60 0RF meclizine 25 mg tablet 25 mg PO Q6H PRN PRN (Reason: Dizziness) Qty: 20 0RF Discontinued tamsulosin 0.4 mg capsule 0.4 mg PO Q24H metoprolol tartrate 25 mg Tablet 12.5 mg PO QHS Referrals / Follow Up: Vijay Zarco MD [Primary Care Provider] - Disposition Disposition (needs filled in before D/C Order can be placed): Home, Self Care Charges/Coding Visit Charges Inpatient E&M: 72584 Disch Hosp >30min
[2022-08-23 10:57] VITALS: BP 141/80; PULSE 70; RESP 18; TEMP 36.6; O2SAT 96
--- NOTE | 2022-08-23 11:00 | CASEMGMT ---
SEDA BERNARD Readmission Review: Index: 07/25 thru 07/27/2022 Dx: NSTEMI with PCI/ROBERT Readmission 08/21 thru 08/23/22 (observation to inpatient status), Dx: orthostatic hypotension Pt with COPD and osteoarthritis was admitted on the above noted dates for the corresponding dx's. Pt was discharged to home with a Brilinta savings card on index and support of family. Pt returned with c/o lightheadedness/dizziness and orthostatic hypotension. Face to face with pt by this SEDA BERNARD. Pt alert and appropriate. Pt states he has attended his follow-up appointment with his PCP since discharge and has an appointment with curbing stonecutter on this coming Sunday. Pt states he was to start cardiac rehab on this date and is scheduled to attend this Sunday also. Pt states he has been managing well at home with the exception of this complication from his medication. Pt denies any discharge needs at this time. Plan: Return home with support of family. Misbah Fritz RN CM
--- NOTE | 2022-08-23 11:00 | PHA.DC.MR.R ---
Pharmacy [place] Med Reconciliation Pharmacy Service has performed discharge medication reconciliation for this patient. The patient's discharge medication list was reviewed for discrepancies and discrepancies were resolved. Medications at Discharge Home Medications aspirin 81 mg chewable tablet 81 mg PO DAILY@0800 [facility] 09/30/16 tiotropium 2.5 mcg-olodaterol 2.5 mcg/actuation mist for inhalation (Stiolto Respimat) 2 puff inhalation DAILY BREATHING 07/25/22 atorvastatin 40 mg tablet 40 mg PO QHS #30 tabs 07/27/22 ticagrelor 90 mg tablet (Brilinta) 90 mg PO BID #60 tabs 07/27/22 meclizine 25 mg tablet 25 mg PO Q6H PRN PRN Dizziness #20 tabs 08/07/22
== END 2022-08-23 11:43 | disposition home or self-care (01) | DRG 312 ==
LOC: ED 23:56 → PCU 08-22 00:40
PROVIDERS: Admitting Provider Family Medicine; Emergency Provider Student in an Organized Health Care Education/Training Program; PCP Family Medicine
DX: I95.1 Orthostatic hypotension (principal); I25.10 Atherosclerotic heart disease of native coronary artery without angina pectoris; I25.2 Old myocardial infarction; Z95.5 Presence of coronary angioplasty implant and graft; Z79.02 Long term (current) use of antithrombotics/antiplatelets; Z79.82 Long term (current) use of aspirin; Z79.899 Other long term (current) drug therapy
CPT/HCPCS: 36415; 71045; 80048; 82533; 84484; 85025; 93005; 99285; J7030; A4216; J0834; J3490

== ENCOUNTER → 2022-08-25 | Outpatient (CLI) | payer MEDICARE, OTHER, SELFPAY ==
--- NOTE | 2022-08-25 07:59 | CR.ITP_ITS ---
Diagnosis General Information Admitting Diagnosis: Non-STEMI, PCI w/coronary stenting Secondary Diagnosis: HTN, HLD, COPD, Personal Learning Style:: Audio/Visual and Written Barriers to Learning: No Barriers Stage of change r/t lifestyle modifications:: Action Gave educational material for:: Treating Heart Disease, How The Heart Works, What it means to have Heart Disease, How Coronary Artery Disease is Diagnosed, Heart Procedures, What Heart Medications Do, Risk Factors & Modifications, Living an Active Life, Nutrition, Emotions & Heart Disease, Stress Management & Relaxation and Sleep Disorders & Heart Disease Education/Goals Individual Counseling: Initial Assessment: Abnormal Cholesterol Levels and High Blood Pressure Cardiac Rehabilitation Goals Personal Goals: Initial Assessment: Improve energy level, Participate in home exercise program, Get back to work, or to resume activities faster, Improve knowledge of cardiac disease, Improve muscle strength and endurance, Improve diet and eating habits (eat healthier) and Control risk factors (learn risk factor modification) Scale for measuring improvement of personal goals Diagnosis & Disease Process Outcomes/Goals: Pt IDs own risk factors & lifestyle modifications by Session 10, Verbalizes symptoms of angina & response by session 3. and Pt independently manages Plan/Interventions: Assist Pt to ID & engage in lifestyle modification to reduce CVD risk, Instruct on individual risk factors, Review symptoms of angina & emergency actions and Review secondary diagnosis & identify educational needs. Safety Referral to Physical Therapy: No Referral to [facility] Case Management: No Fall Risk Assessed:: Yes Assistive Devices:: None Exercise - Initial Assessment Visit Date of Eval: 08/25/22 Session #:: 0 (Pre-cardiac Rehab evaluation) Mets: Pre-: >7 METS for 30 minutes by discharge Physician Prescribed Exercise Modalities: Treadmill, Rower and Airdyne Frequency: 3x/week for 12 weeks [36 sessions] Intensity: 60-80% of age predicted maximum heart rate reserve Duration: 30 - 45 minutes Resting Blood Pressure: 121/74 EKG Type: NSR Current Physical Activity or Exercising minutes: walks daily Outcomes & Goals Goals:: Verbalizes understanding of THR, RPE & goal METS by session 6, Documents in home exercise log/reports 30 min aerobic 5 day/wk by DC and Demonstrates accurate pulse taking by DC Intervention & Plan Exercise Program Goals: Instruct on personal THR & RPE, Instruct on MET level & personal MET goal, Show patient to take own pulse /validate performance until accurate and Instruct on home exercise Physical Activity Home Exercise Physical Activity - Home Exercise: Safe Exercise, Warm-up, Self-monitoring, Cool-Down, Home Exercise > 30 min Daily and Sitting Time <3 hours/daily Outcomes & Goals Outcomes/Goals: Demonstrates correct Warm-up/exercise Cool-Down (S3) if = 2.5 METs, Verbalizes symptoms of exercise intolerance by Session 3 (S3) and Demonstrate safe equipment use (S3) & follows exercise prescrition (6) Intervention & Plan Plan/Intervention: Instruct warm-up & cool-down if exercising at > 2 METs, Instruct on symptoms of exercise intolerance & actions to take, Instruct & monitor on saf and Assess intial functional capacity & safety risk Nutrition - Initial Assessment Program Goals Nutrition Program Goals Patient has diagnosis of Hyperlipidemia (ICD E78)?: Yes Visit Date of Eval: 08/25/22 Session #:: 0 (Pre-cardiac rehab evaluation) Cholesterol/Lipids (Other Core Measures) Triglycerides (mg/dL): 95 Total Cholesterol (mg/dL): 117 LDL Cholesterol (mg/dL): 59 HDL Cholesterol (mg/dL): 39 Determine presence & major risk factors that modify LDL goal: Hypertension or hypertensive medication, Low HDL cholesterol <40 mg/dL*, Family history of premature CHD in Male < 55 years: female <65 yearsFa and Age men > 45 years; women >/= 55 years Outcomes/Goals: Pt IDs own risk factors & lifestyle modifications by Session 10, Verbalizes symptoms of angina & response by session 3. and Pt independently manages Intervention/Plan: Advocate for lipid panel cholesterol medication if applicable, Instruct on personal lipid levels & lipid goals/NCEP guidelines and Instruct on cholesterol Referral to dietitian:: Yes Diabetes (Other Core Measures) Diabetes Type: Not Applicable Weight Mgt (Other Care) Not Applicable: Yes Height: 6 ft Weight:: 184 lb BMI: 24.9 Diagnosis Overweight/Obesity BMI> 30% ICD-10 E66: No Diagnosis High BMI/Morbid Obesity BMI> 35% ICD-10 Z68: No Outcomes/Goals: Pt sets, maintains & shows weight loss goal & trend during rehab Intervention/Plan: Instruct on ideal BMI & set weight loss goal w/patient Healthy Eating Habits Will attend diet classes:: Yes Outcomes/Goals:: Consume diet rich in vegs,fruits,whole grain/high fiber,fish,lean meat and Limit sat/trans fats,cholesterol & added salts & sugars Intervention/Plan:: Assess current eating habits Education Gave educational materials for:: Signs & symptoms of hypoglycemia, Signs & symptoms of hyperglycemia and Relate diabetes to coronary artery disease Core - Initial Assessment Visit Date of Eval: 08/25/22 Session #:: 0 (Pre-cardiac Rehab evaluation) Medication Compliance Preventative Medication(s):: Aspirin, Ticagrelor/P2Y12 inhibitor, Statin/lipid and Beta jada H/O mental health issues: depression, anxiety, or addiction?: No Doesn?t believe in the benefits of treatment?: No Believes medications are unnecessary or harmful?: No Has a concern about medication side effects?: No Expresses concern over the cost of medications?: No Outcomes/Goals: Verbalizes medications,desired effect & common side effects @ DC, Pt self-reports following medication regimen and Keeps card in wallet w/medications listed by DC Interventions/plans: Instruct on medication effects & side effects, Review medication list w/patient every two weeks and Instruct importance of taking meds as ordered & assist problem solving Tobacco Use Tobacco Use: Non-smoker Hypertension Hypertension Diagnosis:: Hypertension ICD-10 I10 Resting Blood Pressure:: 121/74 [place] [employer] Hypertension Guidelines Outcomes/Goals: Able to verbalize/achieve optimal blood pressure <130/80 and Incorporates diet changes & exercise for blood pressure control by DC Interventions/plan: Instruct on optimal blood pressure, hypertension & medications and Instruct on effects of sodium, alcohol, stress, exercise &hypertension Tobacco Cessation Referral Smoking Cessation Referral:: No Individual Education/Counseling:: No Education Schedule Given:: Yes Psychosocial - Initial Assess VIsit Date of Eval: 08/25/22 Session #:: 0 (Pre-cardiac Rehab evaluation) Not Applicable: Yes History of previous Mental disease:: No Target Goals Target Goals Psychosocial Test Tool Used:: [employer] QOL Cardiac and PHQ-9 Questionnaire phq-9 Severity Referral to Behavioral Health PS - Interventions: Yes: Attend Stress Management Classes and No: Referral to Behavioral Health if PHQ-9 score >9:, No: Referral to [facility] and No: Referral to Physician if PHQ-9 if score is 5-9: Outcomes/Goals: See list Psychosocial Outcomes/Goals:: ID's personal stressors & 2 strategies to manage stress by discharge Intervention/Plan: See List Interventions/Plan:: Assess stressors,coping strategies & signs of derpression on admission, Instruct/assist pt to develop coping & personal stress Mgt strategies, Instruct patient to recognize signs & symptoms of depression and Instruct patient to recog Patient Health Questionnaire PHQ-9 Screening Initial Assessment: 1. Little interest or pleasure in doing things: Several days 2. Feeling down, depressed, or hopeless: Several days 3. Trouble falling or staying asleep, or sleeping too much: Not at all 4. Feeling tired or having little energy: Several days 5. Poor appetite or overeating: Not at all 6. Feeling bad about yourself -- or that you are a failure or have let yourself or your family down: Not at all 7. Trouble concentrating on things, such as reading the newspaper or watching television: Not at all 8. Moving or speaking so slowly that other people could have noticed. Or the opposite - being so fidgety or restless that you have been moving around a lot more than usual: Not at all 9. Thoughts that you would be better off , or of hurting yourself in some way: Not at all How difficult have these problems made it for you to do your work, take care of things at home, or get along with other people?: Somewhat difficult Total Score: 3 GUIDO-Q SV Test Statements CAD is a disease of the arteries in the heart: False Examples of risk factors for heart disease: True Angina is chest pain or discomfort: I Don't Know The benefits of resistance training include: False Eating more meat and dairy products: False Anti-platelet medications such as aspirin are important: True The only effective way to manage stress: False An exercise warm-up slowly increases heart rate: I Don't Know Prepared, processed foods usually have high sodium: True Depression is common after a heart attack: I Don't Know The statin medications lower cholesterol: I Don't Know To control blood pressure, lower the amount of sodium: True If someone gets chest discomfort during walking: False Transfats are partially hydrogenated vegetable oils: True Sleep apnea that is not treated increases the risk: False To control cholesterol, one should become a vegetarian: False Someone knows if he/she is exercising at the right level: True Diabetes cannot be prevented with exercise & health eating: False Stress is a large risk for heart attack: True A diet that can help lower blood pressure is rich in: True Total Score Total Correct Responses: 15 Self-Efficacy 6-Item Scale Initial Assessment: We would like to know how confident you are in doing certain activities. Please select your confidence level for: Fatigue Select Number: 1 Physical Discomfort or Pain Select Number: 1 Emotional Distress Select Number: 5 Other Symptoms or Health Problems Select Number: 2 Different Tasks and Activities Select Number: 2 Medication Select Number: 5 Total Score:: 2 Nutrition Survey Nutrition Survey Instructions Scoring Instructions Nutrition Survey Initial: Have you lost >10 lbs over the past 2 months without trying?: No Are you following a special diet at home for diabetes, low fat, or low salt?: No Are you interested in meeting with a dietitian for help understanding your diet?: Yes Do you eat less than 3 meals a day?: No Do you eat fatty meats (beatty, sausage, ribs, etc), fried foods, desserts, large amounts of salad dressings, margarine, butter, or cheese most days?: Yes Do you have food allergies? [Enter types in comment field]: No Do you eat in restaurants more than 3 times a week?: No Do you season food with salt, seasoning salt, or garlic salt?: Yes Do you used canned, boxed, frozen meals, or soups, seasoning packets?: Yes Total Score:: 4 Exercise - Final/Discharge Physician Prescribed Exercise Modalities: Treadmill, Rower and Airdyne Frequency: 3x/week for 12 weeks [36 sessions] Intensity: 60-80% of age predicted maximum heart rate reserve Nutrition - 30-Day Assessment Weight Mgt (Other Care) Height: 6 ft Weight:: 184 lb BMI: 24.9 Nutrition - 60-Day Assessment Weight Mgt (Other Care) Height: 6 ft Weight:: 184 lb BMI: 24.9 Core - 30-Day Assessment Visit Session #:: 0 (Pre-cardiac Rehab evaluation) Core - Final Assessment Hypertension Resting Blood Pressure:: 121/74 [place] [employer] Hypertension Guidelines Core - 60-Day Assessment Hypertension Resting Blood Pressure:: 121/74 [place] [employer] Hypertension Guidelines Psychosocial - 30-Day Assess Target Goals Target Goals Referral to Behavioral Health PS - Interventions: Yes: Attend Stress Management Classes and No: Referral to Behavioral Health if PHQ-9 score >9:, No: Referral to [facility] and No: Referral to Physician if PHQ-9 if score is 5-9: Psychosocial - 60-Day Assess Target Goals Target Goals Referral to Behavioral Health PS - Interventions: Yes: Attend Stress Management Classes and No: Referral to Behavioral Health if PHQ-9 score >9:, No: Referral to [facility] and No: Referral to Physician if PHQ-9 if score is 5-9: Psychosocial - 90-Day Assess Target Goals Target Goals Referral to Behavioral Health PS - Interventions: Yes: Attend Stress Management Classes and No: Referral to Behavioral Health if PHQ-9 score >9:, No: Referral to [facility] and No: Referral to Physician if PHQ-9 if score is 5-9: Psychosocial - Final Assessmen Target Goals Target Goals Referral to Behavioral Health PS - Interventions: Yes: Attend Stress Management Classes and No: Referral to Behavioral Health if PHQ-9 score >9:, No: Referral to [facility] and No: Referral to Physician if PHQ-9 if score is 5-9: Nutrition - 90-Day Assessment Weight Mgt (Other Care) Height: 6 ft Weight:: 184 lb BMI: 24.9 Nutrition - Final Assessment Program Goals Patient has diagnosis of Hyperlipidemia (ICD E78)?: Yes Weight Mgt (Other Care) Height: 6 ft Weight:: 184 lb BMI: 24.9
--- NOTE | 2022-08-25 07:59 | CR.HP_ITS ---
CR - History & Physical General Arrival date:: 08/25/22 Arrival time:: 07:59 Date of Referral:: 07/26/22 Date of CR Evaluation:: 08/25/22 Referring Physician: Dr. Chowdhury Primary Diagnosis: NonSTEMI, PCI w/coronary stenting History of Present Cardiac Event Onset Date Acute Myocardial Infarction within 12 months:: Yes (Non ST Elveated Myocardial Infarction) PTCA or coronary stenting:: Yes Type of Symptoms:: Pt history of COPD, 2 -3 days prior intermittent chest pain, right in the middle of his chest. Stated he usually felt that with his COPD but this was different. He was walking his dog and the pain became very sharp. Medications Ambulatory Orders Medication Instructions Recorded aspirin 81 mg chewable tablet 81 mg PO DAILY@0800 [facility] 09/30/16 tiotropium 2.5 mcg-olodaterol 2.5 2 puff inhalation DAILY BREATHING 07/25/22 mcg/actuation mist for inhalation (Stiolto Respimat) atorvastatin 40 mg tablet 40 mg PO QHS #30 tabs 07/27/22 ticagrelor 90 mg tablet (Brilinta) 90 mg PO BID #60 tabs 07/27/22 meclizine 25 mg tablet 25 mg PO Q6H PRN PRN Dizziness #20 08/07/22 tabs Allergies Allergies amoxicillin Allergy (Mild, Verified 08/21/22 20:08) rash Sulfa (Sulfonamide Antibiotics) Allergy (Verified 08/21/22 20:08) Rash Sleep Disorder Evaluation Hx of Sleep Apnea: No Do you snore loudly (louder than talking or can be heard through closed doors)?: No Do you often feel tired/ fatigued/ sleepy during daytime?: No Has anyone observed you stop breathing during sleep?: No History of Hypertension (for STOP score): Yes STOP Results: Negative Advanced Directives Advanced Directives Power of Supervisor Electronics Testing: No Living Will: No Advance Directives Information Provided: Yes Advance Directives on File: No DNR Order?:: No MOLST See MOLST form: No Past Medical History Covid-19 Screening Physicial Symptoms Fever: No Unexplained muscle aches: No Current respiratory symptoms: Yes (History of COPD frequently has tightness in the chest when walking) Upper respiratory infections symptoms: No Gastro-intestinal symptoms: No Trw-Dfyb-Ufyusq symptoms: No Other Clinical Concerns Has tested positive for COVID-19 in last 30 days: No Exposure Risk Had contact w/person w/symptoms or Covid-19 (+) last 14 days: No Has High Risk Exposures ID'd by Health dept/Inf Control team: No Pertinent Comorbidities 65 years or older:: Yes Lives in Assisted Living facility:: No Has a chronic lung disease or moderate to severe asthma:: Yes Has a serious heart condition:: No Immunocompromised:: No Severely obese (Body Mass Index of 40 or higher):: No Diabetic:: No Has chronic kidney disease undergoing dialysis:: No Has liver disease:: No Past Medical Illness Medical History 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[place] heart without angina pectoris Hemorrhoids Left inguinal hernia Osteoarthritis Spermatocele Past Surgical History Surgical History History of arthroscopy of left knee History of colonoscopy (~2017) History of coronary artery stent placement (~07/26/22) S/P left inguinal hernia repair (~01/09/18) Family History Summary Family History (Reviewed 08/25/22 @ 08:19 by Piotr Farley, GLOBE CLEANER, CROP SETTING OUT MACHINE OPERATOR, BS) Father Heart disease Mother Diabetes Social History Smoking History Smoking Status: Never smoker Hx Tobacco Use: No Hx Smoking Exposure: No Alcohol Use Alcohol Usage: No Substance Abuse Hx Substance Use: No Occupation Occupation (List type of work in comments):: Retired Hobbies, Recreation, Social Activities Hobbies: Woodworking and Walking (walked normally 3 miles per day until the heart attack.) Recreational Activities: I am able to engage in all my recreational activities, I am able to engage in most, but not all activities, I am able to engage in a few activities, I can hardly do any recreational activities and I cannot do any recreational activities at all Social Environment Current Living Arrangements Living Environment:: Spouse (Significant other) Children How many children do you have?: 2 Do any of your children live nearby?: Yes Safety Do you feel safe in your surroundings?: Yes Assistance Do you need any assistance at home?: no Review of Systems Review of Systems Hints Review of Present Symptoms: Reports Shortness of Breath with Exertion (related to the COPD not the heart.), Dizziness/Lightheadedness (related to the blood pressure problems, was recently in the ER for it.), Appetite - Normal and Sleep - Normal; Denies Shortness of Breath at Rest, Operative Discomfort, Angina, Wound Healing, Fatigue, Heart Arrhythmia/Irregularities, Appetite - Special Diet or Sexual Changes Pain Is Patient Pain Free?: Yes Pain Location: none Pain Level: 0/10 Risk Factor Assessment Vital Signs Temperature: 97.8 F Respiratory Rate: 14 Pulse Ox: 96 Blood Pressure: 121/74 Nailbeds:: normal Pulse Pulse Rate: 78 Pulse Rhythm: Regular Hypertension Blood Pressure Sitting - Left Arm: 121/74 Blood Cholesterol/Lipids Total Cholesterol (mg/dL) Goal = less than 200 mg/dL: 117 HDL Cholesterol (mg/dL) Goal = less than 40 mg/dL: 39 LDL Cholesterol (mg/dL) Goal = less than 70 mg/dL: 59 Triglycerides (mg/dL) Goal = less than 150 mg/dL: 95 Diabetes Nutrition Referral for Diabetes: No Obesity Height: 6 ft Weight:: 184 lb Weight in Pounds: 184.0 lbs Weight Source: Standing Scale Body Mass Index (BMI): 24.9 Nutritional Referral for Obesity: No Physical Inactivity Physical Inactivity: Reg Exercise 30 min/day (walks the dog daily) Risk Stratification Risk Guidelines: Lowest Risk: Risk Factor for Smoking, Risk Factor for Dyslipidemia, Risk Factor for Diabetes, Risk Factor for Obesity, Risk Factor for Hypertension, Risk Factor for Sedentary Lifestyle and Risk Factor for Depression For Smoking Smoking Risk Guidelines For Dyslipidemia Dyslipidemia Risk Guidelines For Diabetes Mellitus Diabetes Risk Guidelines For Obesity/Overweight Obesity/Overweight Risk Guidelines For Hypertension Hypertension Risk Guidelines For Sedentary Lifestyle Sedentary Lifestyle Risk Guidelines For Depression Depression Risk Guidelines Family History Family History (Reviewed 08/25/22 @ 08:19 by Piotr Farley, GLOBE CLEANER, CROP SETTING OUT MACHINE OPERATOR, BS) Father Heart disease Mother Diabetes Motivation Motivation to Participate On a scale of 1 to 10, how prepared are you to commit to attending program?: 10 What do you see as barriers to successfully being able to complete the program?: COPD What do you see as the benefits of succesfully completing the program? In other words, what do you hope to get out of participating in the program?: GEtting my health back Are there issues you are dealing with that will interfere with completing the program?: COPD Do you have a spouse or signficant other, family or friends who will help support you to complete the program?: Yes
[2022-08-25 08:15] VITALS: BP 121/74; BMI 24.9
[2022-08-25 08:31] VITALS: BP 121/74; PULSE 78; RESP 14; TEMP 36.6; O2SAT 96; BMI 24.9
== END | disposition home or self-care (01) ==
LOC: CR 07:55
PROVIDERS: PCP Family Medicine; Referring Provider Internal Medicine Cardiovascular Disease; Visit Provider Internal Medicine Cardiovascular Disease
DX: I25.10 Atherosclerotic heart disease of native coronary artery without angina pectoris (principal); I25.2 Old myocardial infarction; Z95.5 Presence of coronary angioplasty implant and graft

== ENCOUNTER 2022-09-11 09:30 | Outpatient (RCR) | payer MEDICARE, OTHER, SELFPAY ==
[2022-08-25 08:15] VITALS: BMI 24.9
== END 2022-09-11 23:59 ==
LOC: CR 09:30
PROVIDERS: PCP Family Medicine; Referring Provider Internal Medicine Cardiovascular Disease; Visit Provider Internal Medicine Cardiovascular Disease
DX: Z95.5 Presence of coronary angioplasty implant and graft (principal); I25.10 Atherosclerotic heart disease of native coronary artery without angina pectoris; I21.4 Non-ST elevation (NSTEMI) myocardial infarction
CPT/HCPCS: 93798

== ENCOUNTER 2022-10-11 09:30 | Outpatient (RCR) | payer MEDICARE, OTHER, SELFPAY ==
[2022-08-25 08:15] VITALS: BMI 24.9
--- NOTE | 2022-09-22 08:06 | PCM.CR.ITP ---
Exercise - Initial Assessment Visit Session #:: 11 Nutrition - Initial Assessment Weight Mgt (Other Care) Height: 6 ft Weight:: 189 lb BMI: 25.6 Psychosocial - Initial Assess Target Goals Target Goals Patient Health Questionnaire PHQ-9 Screening 30-Day Re-eval Assessment: 1. Little interest or pleasure in doing things: Several days 2. Feeling down, depressed, or hopeless: Several days 3. Trouble falling or staying asleep, or sleeping too much: Not at all 4. Feeling tired or having little energy: Several days 5. Poor appetite or overeating: Not at all 6. Feeling bad about yourself -- or that you are a failure or have let yourself or your family down: Not at all 7. Trouble concentrating on things, such as reading the newspaper or watching television: Not at all 8. Moving or speaking so slowly that other people could have noticed. Or the opposite - being so fidgety or restless that you have been moving around a lot more than usual: Not at all 9. Thoughts that you would be better off , or of hurting yourself in some way: Not at all How difficult have these problems made it for you to do your work, take care of things at home, or get along with other people?: Somewhat difficult Total Score: 3 Self-Efficacy 6-Item Scale 30-Day Re-eval Assessment: We would like to know how confident you are in doing certain activities. Please select your confidence level for: Fatigue Select Number: 1 Physical Discomfort or Pain Select Number: 1 Emotional Distress Select Number: 5 Other Symptoms or Health Problems Select Number: 2 Different Tasks and Activities Select Number: 2 Medication Select Number: 5 Total Score:: 2 Nutrition Survey Nutrition Survey Instructions Scoring Instructions Exercise - 30-day Assessment Visit Date of Eval: 09/22/22 Session #:: 11 Physician Prescribed Exercise Modalities: Treadmill, Airdyne and NuStep Frequency: 3x/week for 12 weeks [36 sessions] Intensity: 60-80% of age predicted maximum heart rate reserve Duration: 30 - 45 minutes Current METSs:: 5 Target Heart Rate:: 113-128 Current RPE:: 12-13 Maximum Excercise HR:: 115 Resting Blood Pressure: 150/68 Maximum Exercise Blood Pressure: 150/68 EKG Type: NSR to ST w/ rare PAC and PVC Outcomes & Goals Goals:: Verbalizes understanding of THR, RPE & goal METS by session 6, Documents in home exercise log/reports 30 min aerobic 5 day/wk by DC, Demonstrates accurate pulse taking by DC and Other additional outcome/goals: see below Intervention & Plan Exercise Program Goals: Instruct on personal THR & RPE, Instruct on MET level & personal MET goal, Show patient to take own pulse /validate performance until accurate, Instruct on home exercise and Other additional plan/int 30-day Reassessments 30 day Reassessments:: Progressing Reassessment Notes & Comments:: THR explained Physical Activity Home Exercise Physical Activity - Home Exercise: Safe Exercise, Warm-up, Self-monitoring, Cool-Down, Home Exercise > 30 min Daily and Sitting Time <3 hours/daily Outcomes & Goals Outcomes/Goals: Demonstrates correct Warm-up/exercise Cool-Down (S3) if = 2.5 METs, Verbalizes symptoms of exercise intolerance by Session 3 (S3), Demonstrate safe equipment use (S3) & follows exercise prescrition (6) and Other: See below Intervention & Plan Plan/Intervention: Instruct warm-up & cool-down if exercising at > 2 METs, Instruct on symptoms of exercise intolerance & actions to take, Instruct & monitor on saf, Assess intial functional capacity & safety risk and Other See below 30-day Reassessments 30 day Reassessments:: Progressing Reassessment Notes & Comments:: cool down encouraged Nutrition - 30-Day Assessment Program Goals Nutrition Program Goals Patient has diagnosis of Hyperlipidemia (ICD E78)?: Yes Visit Date of Eval: 09/22/22 Session #:: 11 Cholesterol/Lipids (Other Core Measures) Determine presence & major risk factors that modify LDL goal: Hypertension or hypertensive medication, Low HDL cholesterol <40 mg/dL*, Family history of premature CHD in Male < 55 years: female <65 yearsFa and Age men > 45 years; women >/= 55 years Outcomes/Goals: Pt IDs own risk factors & lifestyle modifications by Session 10, Verbalizes symptoms of angina & response by session 3., Pt independently manages and Other Additional Outcomes/Goals: Intervention/Plan: Advocate for lipid panel cholesterol medication if applicable, Instruct on personal lipid levels & lipid goals/NCEP guidelines, Instruct on cholesterol and Other additional plan/int Referral to dietitian:: Yes 30-day Reassessments:: Progressing Reassessment Notes & Comments:: pt to attend nutrition class Diabetes (Other Core Measures) Diabetes Type: Not Applicable Weight Mgt (Other Care) Height: 6 ft Weight:: 189 lb BMI: 25.6 Diagnosis Overweight/Obesity BMI> 30% ICD-10 E66: No Diagnosis High BMI/Morbid Obesity BMI> 35% ICD-10 Z68: No Outcomes/Goals: Pt sets, maintains & shows weight loss goal & trend during rehab and Other additional outcomes/goals Intervention/Plan: Instruct on ideal BMI & set weight loss goal w/patient, Assist pt to ID & incorporate diet changes for weight loss by S9, Refer to Structured Weight Loss program as appropriate, Encourage goal of using 250-300dcal per session for weight loss and Other additional plan/interventions 30 day Reassessments:: Progressing Reassessment Notes & Comments:: pt to attend nutrition class Healthy Eating Habits Will attend diet classes:: Yes Outcomes/Goals:: Consume diet rich in vegs,fruits,whole grain/high fiber,fish,lean meat, Limit sat/trans fats,cholesterol & added salts & sugars and Other additional outcome/goals: Intervention/Plan:: Assess current eating habits and Other Additional plan/interventions Nutrition - 60-Day Assessment Weight Mgt (Other Care) Height: 6 ft Weight:: 189 lb BMI: 25.6 Core - 30-Day Assessment Visit Date of Eval: 09/22/22 Session #:: 11 Medication Compliance Preventative Medication(s):: Aspirin, Ticagrelor/P2Y12 inhibitor, Statin/lipid and Beta jada H/O mental health issues: depression, anxiety, or addiction?: No Doesn?t believe in the benefits of treatment?: No Believes medications are unnecessary or harmful?: No Has a concern about medication side effects?: No Expresses concern over the cost of medications?: No Outcomes/Goals: Verbalizes medications,desired effect & common side effects @ DC, Pt self-reports following medication regimen, Keeps card in wallet w/medications listed by DC and Other additional outcome/goals: 30-day Reassessments:: Progressing Reassessment Notes & Comments:: pt encouraged to take meds Tobacco Use Tobacco Use: Non-smoker Hypertension Hypertension Diagnosis:: Hypertension ICD-10 I10 Resting Blood Pressure:: 150/68 [place] [employer] Hypertension Guidelines Peak Exercise Blood Pressure:: 150/68 Outcomes/Goals: Able to verbalize/achieve optimal blood pressure <130/80, Incorporates diet changes & exercise for blood pressure control by DC and Other additional outcomes/goals Interventions/plan: Instruct on optimal blood pressure, hypertension & medications, Instruct on effects of sodium, alcohol, stress, exercise &hypertension and Other additional plan/interventions 30 day Reassessments:: Progressing Reassessment Notes & Comments:: pt encouraged to take meds Tobacco Cessation Referral Smoking Cessation Referral:: No Individual Education/Counseling:: No Education Schedule Given:: Yes Psychosocial - 30-Day Assess VIsit Date of Eval: 09/22/22 Session #:: 11 History of previous Mental disease:: No Target Goals Target Goals Psychosocial - 60-Day Assess Target Goals Target Goals Psychosocial - 90-Day Assess Target Goals Target Goals Psychosocial - Final Assessmen Target Goals Target Goals Nutrition - 90-Day Assessment Weight Mgt (Other Care) Height: 6 ft Weight:: 189 lb BMI: 25.6 Nutrition - Final Assessment Weight Mgt (Other Care) Height: 6 ft Weight:: 189 lb BMI: 25.6
[2022-09-22 08:17] VITALS: BP 150/68; BMI 25.6
== END 2022-10-12 23:59 ==
LOC: CR 09:30
PROVIDERS: PCP Family Medicine; Referring Provider Internal Medicine Cardiovascular Disease; Visit Provider Internal Medicine Cardiovascular Disease
DX: I25.10 Atherosclerotic heart disease of native coronary artery without angina pectoris (principal); I21.4 Non-ST elevation (NSTEMI) myocardial infarction; Z95.5 Presence of coronary angioplasty implant and graft
CPT/HCPCS: 93798; 97802

== ENCOUNTER 2022-11-10 09:30 | Outpatient (RCR) | payer MEDICARE, OTHER, SELFPAY ==
[2022-09-22 08:17] VITALS: BMI 25.6
[2022-10-13 00:39] VITALS: BP 150/68
--- NOTE | 2022-10-23 07:06 | CR.ITP_ITS ---
Nutrition - Initial Assessment Weight Mgt (Other Care) Height: 6 ft Weight:: 186 lb 8 oz BMI: 25.2 Psychosocial - Initial Assess Target Goals Target Goals Patient Health Questionnaire PHQ-9 Screening 60-Day Re-eval Assessment: 1. Little interest or pleasure in doing things: Several days 2. Feeling down, depressed, or hopeless: Several days 3. Trouble falling or staying asleep, or sleeping too much: Not at all 4. Feeling tired or having little energy: Several days 5. Poor appetite or overeating: Not at all 6. Feeling bad about yourself -- or that you are a failure or have let yourself or your family down: Not at all 7. Trouble concentrating on things, such as reading the newspaper or watching television: Not at all 8. Moving or speaking so slowly that other people could have noticed. Or the opposite - being so fidgety or restless that you have been moving around a lot more than usual: Not at all 9. Thoughts that you would be better off , or of hurting yourself in some way: Not at all How difficult have these problems made it for you to do your work, take care of things at home, or get along with other people?: Somewhat difficult Total Score: 3 Self-Efficacy 6-Item Scale 60-Day Re-eval Assessment: We would like to know how confident you are in doing certain activities. Please select your confidence level for: Fatigue Select Number: 1 Physical Discomfort or Pain Select Number: 1 Emotional Distress Select Number: 5 Other Symptoms or Health Problems Select Number: 2 Different Tasks and Activities Select Number: 2 Medication Select Number: 5 Total Score:: 2 Nutrition Survey Nutrition Survey Instructions Scoring Instructions Exercise - 60-day Assessment Visit Date of Eval: 10/23/22 Session #:: 23 Physician Prescribed Exercise Modalities: Treadmill, Airdyne and NuStep Frequency: 3x/week for 12 weeks [36 sessions] Intensity: 60-80% of age predicted maximum heart rate reserve Duration: 30 - 45 minutes Current METSs:: 5.5 Target Heart Rate:: 113-128 Current RPE:: 12-14 Maximum Excercise HR:: 118 Resting Blood Pressure: 120/64 Maximum Exercise Blood Pressure: 134/62 EKG Type: NSR to ST w/rare PAC, PVC, and rare vent trigeminy and bigeminy Outcomes & Goals Goals:: Verbalizes understanding of THR, RPE & goal METS by session 6, Documents in home exercise log/reports 30 min aerobic 5 day/wk by DC, Demonstrates accurate pulse taking by DC and Other additional outcome/goals: see below Intervention & Plan Exercise Program Goals: Instruct on personal THR & RPE, Instruct on MET level & personal MET goal, Show patient to take own pulse /validate performance until accurate, Instruct on home exercise and Other additional plan/int 30-day Reassessments 30 day Reassessments:: Met Physical Activity Home Exercise Physical Activity - Home Exercise: Safe Exercise, Warm-up, Self-monitoring, Cool-Down, Home Exercise > 30 min Daily and Sitting Time <3 hours/daily Outcomes & Goals Outcomes/Goals: Demonstrates correct Warm-up/exercise Cool-Down (S3) if = 2.5 METs, Verbalizes symptoms of exercise intolerance by Session 3 (S3), Demonstrate safe equipment use (S3) & follows exercise prescrition (6) and Other: See below Intervention & Plan Plan/Intervention: Instruct warm-up & cool-down if exercising at > 2 METs, Instruct on symptoms of exercise intolerance & actions to take, Instruct & monitor on saf, Assess intial functional capacity & safety risk and Other See below 30-day Reassessments 30 day Reassessments:: Met Nutrition - 30-Day Assessment Weight Mgt (Other Care) Height: 6 ft Weight:: 186 lb 8 oz BMI: 25.2 Nutrition - 60-Day Assessment Program Goals Nutrition Program Goals Patient has diagnosis of Hyperlipidemia (ICD E78)?: Yes Visit Date of Eval: 10/23/22 Session #:: 23 Cholesterol/Lipids (Other Core Measures) Determine presence & major risk factors that modify LDL goal: Cigarette smoking, Hypertension or hypertensive medication, Low HDL cholesterol <40 mg/dL*, Family history of premature CHD in Male < 55 years: female <65 yearsFa and Age men > 45 years; women >/= 55 years Outcomes/Goals: Pt IDs own risk factors & lifestyle modifications by Session 10, Verbalizes symptoms of angina & response by session 3., Pt independently manages and Other Additional Outcomes/Goals: Intervention/Plan: Advocate for lipid panel cholesterol medication if applicable, Instruct on personal lipid levels & lipid goals/NCEP guidelines, Instruct on cholesterol and Other additional plan/int Referral to dietitian:: No 30-day Reassessments:: Met Reassessment Notes & Comments:: Pt met with artificial inseminator Diabetes (Other Core Measures) Diabetes Type: Not Applicable Weight Mgt (Other Care) Height: 6 ft Weight:: 186 lb 8 oz BMI: 25.2 Diagnosis Overweight/Obesity BMI> 30% ICD-10 E66: No Diagnosis High BMI/Morbid Obesity BMI> 35% ICD-10 Z68: No Outcomes/Goals: Pt sets, maintains & shows weight loss goal & trend during rehab and Other additional outcomes/goals Intervention/Plan: Instruct on ideal BMI & set weight loss goal w/patient, Assist pt to ID & incorporate diet changes for weight loss by S9, Refer to Structured Weight Loss program as appropriate, Encourage goal of using 250- 300dcal per session for weight loss and Other additional plan/interventions 30 day Reassessments:: Met Healthy Eating Habits Will attend diet classes:: Yes Outcomes/Goals:: Consume diet rich in vegs,fruits,whole grain/high fiber,fish,lean meat, Limit sat/trans fats,cholesterol & added salts & sugars and Other additional outcome/goals: Intervention/Plan:: Assess current eating habits and Other Additional plan/interventions 30-day Reassessments:: Met Education Gave educational materials for:: Signs & symptoms of hypoglycemia, Signs & symptoms of hyperglycemia, Relate diabetes to coronary artery disease and Health y eating Core - 60-Day Assessment Visit Date of Eval: 10/23/22 Session #:: 23 Medication Compliance Preventative Medication(s):: Aspirin, Ticagrelor/P2Y12 inhibitor, Statin/lipid and Beta jada H/O mental health issues: depression, anxiety, or addiction?: No Doesn?t believe in the benefits of treatment?: No Believes medications are unnecessary or harmful?: No Has a concern about medication side effects?: No Expresses concern over the cost of medications?: No Outcomes/Goals: Verbalizes medications,desired effect & common side effects @ DC, Pt self-reports following medication regimen, Keeps card in wallet w/medications listed by DC and Other additional outcome/goals: Interventions/plans: Instruct on medication effects & side effects, Review medication list w/patient every two weeks, Instruct importance of taking meds as ordered & assist problem solving and Other additional 30-day Reassessments:: Met Tobacco Use Tobacco Use: Non-smoker Hypertension Hypertension Diagnosis:: Hypertension ICD-10 I10 Resting Blood Pressure:: 120/64 [place] [employer] Hypertension Guidelines Peak Exercise Blood Pressure:: 134/62 Outcomes/Goals: Able to verbalize/achieve optimal blood pressure <130/80, Incorporates diet changes & exercise for blood pressure control by DC and Other additional outcomes/goals Interventions/plan: Instruct on optimal blood pressure, hypertension & medications, Instruct on effects of sodium, alcohol, stress, exercise &hypertension and Other additional plan/interventions 30 day Reassessments:: Met Reassessment Notes & Comments:: bp's are within normal limits Tobacco Cessation Referral Smoking Cessation Referral:: No Individual Education/Counseling:: No Education Schedule Given:: Yes Psychosocial - 30-Day Assess Target Goals Target Goals Psychosocial - 60-Day Assess VIsit Date of Eval: 10/23/22 Session #:: 23 History of previous Mental disease:: No Target Goals Target Goals Psychosocial - 90-Day Assess Target Goals Target Goals Psychosocial - Final Assessmen Target Goals Target Goals Nutrition - 90-Day Assessment Weight Mgt (Other Care) Height: 6 ft Weight:: 186 lb 8 oz BMI: 25.2 Nutrition - Final Assessment Weight Mgt (Other Care) Height: 6 ft Weight:: 186 lb 8 oz BMI: 25.2
[2022-10-23 07:14] VITALS: BP 120/64; BMI 25.2
== END 2022-11-11 23:59 ==
LOC: CR 09:30
PROVIDERS: PCP Family Medicine; Referring Provider Internal Medicine Cardiovascular Disease; Visit Provider Internal Medicine Cardiovascular Disease
DX: Z95.5 Presence of coronary angioplasty implant and graft (principal); I25.10 Atherosclerotic heart disease of native coronary artery without angina pectoris; I21.4 Non-ST elevation (NSTEMI) myocardial infarction
CPT/HCPCS: 93798

== ENCOUNTER 2022-11-20 09:30 | Outpatient (RCR) | payer MEDICARE, OTHER, SELFPAY ==
[2022-10-23 07:14] VITALS: BMI 25.2
[2022-11-12 00:24] VITALS: BP 120/64; BP 150/68
== END 2022-12-12 23:59 ==
LOC: CR 09:30
PROVIDERS: PCP Family Medicine; Referring Provider Internal Medicine Cardiovascular Disease; Visit Provider Internal Medicine Cardiovascular Disease
DX: Z95.5 Presence of coronary angioplasty implant and graft (principal); I25.10 Atherosclerotic heart disease of native coronary artery without angina pectoris; I21.4 Non-ST elevation (NSTEMI) myocardial infarction
CPT/HCPCS: 93798

== ENCOUNTER → 2023-04-12 | Outpatient (CLI) | payer MEDICARE, OTHER, SELFPAY ==
[2022-10-23 07:14] VITALS: BMI 25.2
--- OUTSIDE RECORDS SUMMARY | 2023-04-12 06:51 | XMS RPT_ITS | CCD ---
Author Name Unknown Address [address] [facility] [address] [place] [address] Organization [facility] Care Team Providers Care Brick Mason Name Role Phone Vijay Zarco MD Primary Care Provider LEILA, VIJAY Primary Care Unavailable ANURAG GALLO Referring Unavailable LEILA, VIJAY Referring Unavailable LEILA, VIJAY Primary Care Unavailable LEILA, VIJAY Primary Care Unavailable KEENA WILLSON Attending Unavailable ANURAG GALLO Referring Unavailable LEILA, VIJAY Primary Care Unavailable ROQUE KIDD Attending Unavailable LEILA, VIJAY Referring Unavailable LEILA, VIJAY Primary Care Unavailable KEENA WILLSON Referring Unavailable YUE ESCALONA Attending Unavailable LEILA, VIJAY Primary Care Unavailable YUE ESCALONA Referring Unavailable LEILA, VIJAY Primary Care Unavailable YUE ESCALONA Referring Unavailable UYE ESCALONA Attending Unavailable JUAN FRANCISCO TENA Referring Unavailable JUAN FRANCISCO TENA Attending Unavailable LEILA, VIJAY Primary Care Unavailable JUAN FRANCISCO TENA Referring Unavailable LEILA, VIJAY Primary Care Unavailable LEILA, VIAJY Primary Care Unavailable ROQUE KIDD Attending Unavailable LEILA, VIJAY Referring Unavailable LEILA, VIJAY Referring Unavailable LEILA, VIJAY Primary Care Unavailable LEILA, VIJAY Primary Care Unavailable LEILA, VIJAY Primary Care Unavailable KEENA WILLSON Referring Unavailable LEILA, VIJAY Attending Unavailable LEILA, VIJAY Primary Care Unavailable LEILA, VIJAY Referring Unavailable LEILA, VIJAY Primary Care Unavailable LEILA, VIJAY Primary Care Unavailable ANURAG GALLO Attending Unavailable LEILA, VIJAY Primary Care Unavailable LEILA, VIJAY Attending Unavailable LEILA, VIJAY Primary Care Unavailable JUAN FRANCISCO TENA Referring Unavailable LEILA, VIJAY Primary Care Unavailable LEILA, VIJAY Referring Unavailable LEILA, VIJAY Primary Care Unavailable LEILA, VIJAY Primary Care Unavailable LEILA, VIJAY Referring Unavailable ANNELIESE MUJICA Attending Unavailable LEILA, VIJAY Primary Care Unavailable ANNELIESE MUJICA Referring Unavailable LEILA, VIJAY Attending Unavailable LEILA, VIJAY Primary Care Unavailable LEILA, VIJAY Referring Unavailable LEILA, VIJAY Primary Care Unavailable LEILA, VIJAY Attending Unavailable LEILA, VIJAY Primary Care Unavailable LEILA, VIJAY Referring Unavailable LEILA, VIJAY Primary Care Unavailable JUAN FRANCISCO TENA Attending Unavailable LEILA, VIJAY Primary Care Unavailable LEILA, VIJAY Primary Care Unavailable KEENA WILLSON Referring Unavailable LEILA, VIJAY Primary Care Unavailable ROQUE KIDD Attending Unavailable LEILA, VIJAY Referring Unavailable LEILA, VIJAY Referring Unavailable NICOLAS ALVES Attending Unavailable LEILA, VIJAY Primary Care Unavailable LEILA, VIJAY Primary Care Unavailable ANURAG GALLO Attending Unavailable Vijay Zarco MD Primary Care Provider Allergies Allergy Classification Reported Allergen(s) Allergy Type Date of Onset Reaction(s) Facility (20 sources) Amoxicillin; Translations: [AMOXICILLIN] Drug Allergy 0 Rash [facility] Work Phone: (20 sources) Sulfonamides (Antibiotic); Translations: [SULFA (SULFONAMIDE ANTIBIOTICS)] Propensity to adverse reactions 6 [facility] Work Phone: Medications Current Medications Medication Drug Class(es) Dates Sig (Normalized) Sig (Original) atorvastatin 40 mg oral tablet (20 sources) HMG-CoA Reductase Inhibitor Start: 02-14-2023 End: 08-13-2023 take 1 tablet by mouth once daily atorvastatin (LIPITOR) 40 mg tablet Take 1 tablet by mouth once daily. 90 tablet 1 02/14/2023 08/13/2023 Active Completed/Discontinued Medications Medication Drug Class(es) Dates Sig (Normalized) Sig (Original) aspirin 81 mg oral tablet (20 sources) Platelet Aggregation Inhibitor, Nonsteroidal Anti-inflammatory Drug Start: 09-15-2011 take 1 tablet by mouth once daily at mealtime Aspirin 81 mg Tab Take 1 tablet by mouth once daily. Take with food. 30 tablet 11 09/15/2011 Active Problems Active Problems Problem Classification Problem Date Documented Da te Episodic/Chronic Abdominal pain (4 sources) Left lower quadrant pain; Translations: [Left lower quadrant pain] Episodic Acute myocardial infarction (13 sources) Myocardial infarction; Translations: [Non-ST elevation (NSTEMI) myocardial infarction] Onset: 07-27-2022 Chronic Chronic kidney disease (20 sources) Chronic kidney disease stage 3; Translations: [Stage 3 chronic kidney disease, unspecified whether stage 3a or 3b CKD (HCC)] Onset: 10-27-2020 Chronic Chronic kidney disease (1 source) Chronic kidney disease; Translations: [Stage 3 chronic kidney disease, unspecified whether stage 3a or 3b CKD (HCC)] Onset: 10-27-2020 Chronic obstructive pulmonary disease and bronchiectasis (20 sources) Chronic obstructive lung disease; Translations: [Chronic obstructive pulmonary disease, unspecified] Onset: 02-22-2021 Chronic Coagulation and hemorrhagic disorders (20 sources) Platelet count below reference range; Translations: [Thrombocytopenia, unspecified] Onset: 10-27-2020 10-27-2020 Chronic Coronary atherosclerosis and other heart disease (20 sources) Coronary atherosclerosis; Translations: [Atherosclerotic heart disease of [place] coronary artery without angina pectoris] Onset: 12-27-2020 12-27-2020 Chronic Coronary atherosclerosis and other heart disease (1 source) Patient post percutaneous transluminal coronary angioplasty; Translations: [Coronary angioplasty status] Episodic Essential hypertension (20 sources) Essential hypertension; Translations: [Essential (primary) hypertension] Onset: 12-02-2020 Chronic Hyperplasia of prostate (2 sources) Benign prostatic hyperplasia; Translations: [Benign prostatic hyperplasia with lower urinary tract symptoms] Onset: 03-06-2023 Chronic Immunizations and screening for infectious disease (2 sources) Anti-nuclear factor positive; Translations: [Other specified abnormal immunological findings in serum] 09-25-2022 Episodic Nonspecific chest pain (12 sources) Chest pain; Translations: [Chest pain, unspecified] Onset: 07-27-2022 09-14-2022 Episodic Nutritional deficiencies (6 sources) Cobalamin deficiency; Translations: [Deficiency of other specified B group vitamins] Onset: 03-21-2023 03-21-2023 Episodic Occlusion or stenosis of precerebral arteries (17 sources) Bilateral stenosis of carotid arteries; Translations: [Occlusion and stenosis of bilateral carotid arteries] Onset: 09-14-2022 09-14-2022 Chronic Other circulatory disease (1 source) Low blood pressure; Translations: [Hypotension, unspecified] Episodic Other diseases of kidney and ureters (1 source) Renal mass; Translations: [Other specified disorders of kidney and ureter] Chronic Other diseases of kidney and ureters (1 source) Complex renal cyst; Translations: [Cyst of kidney, acquired] Episodic Other diseases of kidney and ureters (4 sources) Cyst of kidney; Translations: [Cyst of kidney, acquired] Episodic Other diseases of kidney and ureters (1 source) Renal impairment; Translations: [Disorder of kidney and ureter, unspecified] Episodic Other diseases of veins and lymphatics (1 source) Peripheral venous insufficiency; Translations: [Venous insufficiency (chronic) (peripheral)] 04-05-2023 Episodic Other gastrointestinal disorders (1 source) Other constipation; Translations: [Chronic constipation] Onset: 03-13-2023 Episodic Other lower respiratory disease (1 source) Interstitial lung disease; Translations: [Interstitial pulmonary disease, unspecified] 09-19-2022 Chronic Other lower respiratory disease (1 source) Interstitial pulmonary disease, unspecified; Translations: [Interstitial pulmonary disease (HCC)] Onset: 09-19-2022 Chronic Other nervous system disorders (1 source) Neuropathy; Translations: [Polyneuropathy, unspecified] 11-23-2022 Chronic Other nervous system disorders (1 source) Polyneuropathy, unspecified; Translations: [Neuropathy] Onset: 10-25-2022 Chronic Other non-traumatic joint disorders (2 sources) Chronic pain of left upper limb; Translations: [Pain in left shoulder] Episodic Other screening for suspected conditions (not mental disorders or infectious disease) (11 sources) Patient encounter status; Translations: [Encounter for screening for malignant neoplasm of colon] Onset: 09-08-2022 Episodic Sprains and strains (2 sources) Rupture of tendon of biceps; Translations: [Strain of muscle, fascia and tendon of other parts of biceps, right arm, initial encounter] Episodic Unclassified (1 source) Lumbar pain; Translations: [Lumbar pain] Onset: 07-17-2022 Past or Other Problems Problem Classification Problem Date Documented Da te Episodic/Chronic Abdominal hernia (14 sources) Left inguinal hernia ; Translations: [Unilateral inguinal hernia, without obstruction or gangrene, not specified as recurrent] Onset: 09-14-2022 09-14-2022 Episodic Conditions associated with dizziness or vertigo (16 sources) Postural dizziness; Translations: [Dizziness and giddiness] Onset: 08-10-2022 Episodic E Codes: Adverse effects of medical drugs (10 sources) Adverse reaction to drug; Translations: [Adverse effect of unspecified drugs, medicaments and biological substances, initial encounter] Onset: 09-14-2022 09-14-2022 Episodic Hemorrhoids (20 sources) Internal hemorrhoids; Translations: [Other hemorrhoids] Onset: 01-02-2006 01-02-2006 Episodic Hepatitis (20 sources) Unspecified viral hepatitis without hepatic coma; Translations: [Hepatitis in viral diseases classified elsewhere] Onset: 05-11-2006 05-11-2006 Episodic Other aftercare (14 sources) Long-term current use of anticoagulant; Translations: [assisted (current) use of anticoagulants] Onset: 09-14-2022 09-14-2022 Episodic Other circulatory disease (20 sources) Elevated blood pressure; Translations: [Elevated blood-pressure reading, without diagnosis of hypertension] Onset: 09-09-2016 02-16-2022 Episodic Other circulatory disease (18 sources) Orthostatic hypotension; Translations: [Orthostatic hypotension] Onset: 08-23-2022 09-14-2022 Episodic Other circulatory disease (11 sources) Carotid bruit; Translations: [Other specified symptoms and signs involving the circulatory and respiratory systems] Onset: 07-27-2022 09-14-2022 Episodic Other circulatory disease (1 source) Orthostatic hypotension; Translations: [Orthostatic hypotension] Onset: 09-14-2022 Episodic Other diseases of kidney and ureters (1 source) Cyst of kidney, acquired; Translations: [Renal cyst] Onset: 07-31-2022 Episodic Other fractures (20 sources) Fracture of multiple ribs ; Translations: [Multiple fractures of ribs, unspecified side, initial encounter for closed fracture] Onset: 2015 02-16-2022 Episodic Other hematologic conditions (20 sources) H/O: Disorder; Translations: [Personal history of diseases of the blood and blood-forming organs and certain disorders involving the immune mechanism] Onset: 10-21-2018 Episodic Other lower respiratory disease (10 sources) Dyspnea on exertion; Translations: [Dyspnea, unspecified] Onset: 12-02-2020 12-02-2020 Episodic Pleurisy; pneumothorax; pulmonary collapse (20 sources) Pneumothorax; Translations: [Pneumothorax, unspecified] Onset: 12-07-2015 02-16-2022 Episodic Residual codes; unclassified (20 sources) FH: premature coronary heart disease; Translations: [Family history of ischemic heart disease and other diseases of the circulatory system] Onset: 12-02-2020 12-02-2020 Episodic Spondylosis; intervertebral disc disorders; other back problems (18 sources) Neck pain; Translations: [Cervicalgia] Onset: 07-17-2022 Episodic Varicose veins of lower extremity (20 sources) Varicose veins of lower extremity; Translations: [Asymptomatic varicose veins of bilateral lower extremities] Onset: 09-15-2011 Episodic Results Test Name Value Interpretation Reference Range Facil ity Vital Signs Date Time Vital Sign Value Performing Clinician Faci lity 03-21-2023 09:53-0500 Body height 182.9 cm Vijay Zarco MD Work Phone: [facility] 03-21-2023 09:53-0500 Body weight 87.82 kg Vijay Zarco MD Work Phone: [facility] 03-21-2023 09:53-0500 Diastolic blood pressure 66 mm[Hg] Vijay Zarco MD Work Phone: [facility] 03-21-2023 09:53-0500 Heart rate 69 /min Vijay Zarco MD Work Phone: [facility] 03-21-2023 09:53-0500 SaO2% (BldA) [Mass fraction] 97 % Vijay Zarco MD Work Phone: [facility] 03-21-2023 09:53-0500 Systolic blood pressure 130 mm[Hg] Vijay Zarco MD Work Phone: [facility] 12-12-2022 09:36-0400 Diastolic blood pressure 66 mm[Hg] Yue Escalona DO Work Phone: [facility] 12-12-2022 09:36-0400 Heart rate 77 /min Yue Escalona DO Work Phone: [facility] 12-12-2022 09:36-0400 SaO2% (BldA) [Mass fraction] 98 % Yue Escalona DO Work Phone: [facility] 12-12-2022 09:36-0400 Systolic blood pressure 117 mm[Hg] Yue Escalona DO Work Phone: [facility] 10-18-2022 11:12-0400 Body weight 83.92 kg Anurag Gallo [employer] Work Phone: [facility] 10-18-2022 11:12-0400 Diastolic blood pressure 60 mm[Hg] Anurag Gallo [employer] Work Phone: [facility] 10-18-2022 11:12-0400 Heart rate 84 /min Anurag Gallo [employer] Work Phone: [facility] 10-18-2022 11:12-0400 Respiratory rate 16 /min Anurag Gallo [employer] Work Phone: [facility] 10-18-2022 11:12-0400 Systolic blood pressure 114 mm[Hg] Anurag Gallo [employer] Work Phone: [facility] 09-19-2022 12:42-0400 Body height 178.2 cm Anneliese Mujica MD Work Phone: [facility] 09-19-2022 12:42-0400 Body weight 83.46 kg Anneliese Mujica MD Work Phone: [facility] 09-19-2022 12:42-0400 Diastolic blood pressure 68 mm[Hg] Anneliese Mujica MD Work Phone: [facility] 09-19-2022 12:42-0400 Heart rate 77 /min Anneliese Mujica MD Work Phone: [facility] 09-19-2022 12:42-0400 Respiratory rate 14 /min Anneliese Mujica MD Work Phone: [facility] 09-19-2022 12:42-0400 SaO2% (BldA) [Mass fraction] 99 % Anneliese Mujica MD Work Phone: [facility] 09-19-2022 12:42-0400 Systolic blood pressure 120 mm[Hg] Anneliese Mujica MD Work Phone: [facility] 09-19-2022 11:18-0400 Body height 178.2 cm Pulm Wstr Work Phone: [facility] 09-19-2022 11:18-0400 Body weight 83.46 kg Pulm Wstr Work Phone: [facility] 09-19-2022 11:18-0400 Heart rate 77 /min Pulm Wstr Work Phone: [facility] 09-19-2022 11:18-0400 Respiratory rate 14 /min Pulm Wstr Work Phone: [facility] 09-19-2022 11:18-0400 SaO2% (BldA) [Mass fraction] 99 % Pulm Wstr Work Phone: [facility] 09-14-2022 14:39-0400 Body height 182.9 cm Vijay Zarco MD Work Phone: [facility] 09-14-2022 14:39-0400 Body weight 85.37 kg Vijay Zarco MD Work Phone: [facility] 09-14-2022 14:39-0400 Diastolic blood pressure 70 mm[Hg] Vijay Zarco MD Work Phone: [facility] 09-14-2022 14:39-0400 Heart rate 68 /min Vijay Zarco MD Work Phone: [facility] 09-14-2022 14:39-0400 SaO2% (BldA) [Mass fraction] 97 % Vijay Zarco MD Work Phone: [facility] 09-14-2022 14:39-0400 Systolic blood pressure 126 mm[Hg] Vijay Zarco MD Work Phone: [facility] 08-11-2022 09:55-0400 Diastolic blood pressure 54 mm[Hg] Nurse Wstr Work Phone: [facility] 08-11-2022 09:55-0400 Heart rate 72 /min Nurse Wstr Work Phone: [facility] 08-11-2022 09:55-0400 Respiratory rate 18 /min Nurse Wstr Work Phone: [facility] 08-11-2022 09:55-0400 SaO2% (BldA) [Mass fraction] 96 % Nurse Wstr Work Phone: [facility] 08-11-2022 09:55-0400 Systolic blood pressure 88 mm[Hg] Nurse Wstr Work Phone: [facility] 08-11-2022 09:44-0400 Body temperature 97.3 [degF] Nurse Wstr Work Phone: [facility] 08-11-2022 09:44-0400 Body weight 83.83 kg Nurse Wstr Work Phone: [facility] 08-10-2022 10:23-0400 Body weight 83.46 kg Vijay Zarco MD Work Phone: [facility] 08-10-2022 10:23-0400 SaO2% (BldA) [Mass fraction] 98 % Vijay Zarco MD Work Phone: [facility] 08-01-2022 15:14-0400 Body height 182.9 cm Juan Francisco Tena PA-C Work Phone: [facility] 08-01-2022 15:14-0400 Body temperature 97.9 [degF] Juan Francisco Tena PA-C Work Phone: [facility] 08-01-2022 15:14-0400 Body weight 84.37 kg Juan Francisco Tena PA-C Work Phone: [facility] 08-01-2022 15:14-0400 Diastolic blood pressure 64 mm[Hg] Juan Francisco Tena PA-C Work Phone: [facility] 08-01-2022 15:14-0400 Heart rate 68 /min Juan Francisco Tena PA-C Work Phone: [facility] 08-01-2022 15:14-0400 Respiratory rate 14 /min Juan Francisco Tena PA-C Work Phone: [facility] 08-01-2022 15:14-0400 SaO2% (BldA) [Mass fraction] 97 % Juan Francisco Tena PA-C Work Phone: [facility] 08-01-2022 15:14-0400 Systolic blood pressure 112 mm[Hg] Juan Francisco SMITH-Javier Work Phone: [facility] 07-17-2022 09:32-0400 Body weight 85.73 kg Vijay Zarco MD Work Phone: [facility] 07-17-2022 09:32-0400 Diastolic blood pressure 62 mm[Hg] Vijay Zarco MD Work Phone: [facility] 07-17-2022 09:32-0400 Heart rate 71 /min Vijay Zarco MD Work Phone: [facility] 07-17-2022 09:32-0400 SaO2% (BldA) [Mass fraction] 98 % Vijay Zarco MD Work Phone: [facility] 07-17-2022 09:32-0400 Systolic blood pressure 108 mm[Hg] Vijay Zarco MD Work Phone: [facility] 02-16-2022 09:50-0500 Diastolic blood pressure 82 mm[Hg] Vijay Zarco MD Work Phone: [facility] 02-16-2022 09:50-0500 Systolic blood pressure 136 mm[Hg] Vijay Zarco MD Work Phone: [facility] 02-16-2022 09:15-0500 Body height 182.9 cm Vijay Zarco MD Work Phone: [facility] 02-16-2022 09:15-0500 Body weight 89.81 kg Vijay Zarco MD Work Phone: [facility] 02-16-2022 09:15-0500 Heart rate 66 /min Vijay Zarco MD Work Phone: [facility] 02-16-2022 09:15-0500 SaO2% (BldA) [Mass fraction] 98 % Vijay Zarco MD Work Phone: [facility] 08-08-2021 11:06-0400 Body weight 85.73 kg Vijay Zarco MD Work Phone: [facility] 08-08-2021 11:06-0400 Diastolic blood pressure 68 mm[Hg] Vijay Zarco MD Work Phone: [facility] 08-08-2021 11:06-0400 Heart rate 68 /min Vijay Zarco MD Work Phone: [facility] 08-08-2021 11:06-0400 SaO2% (BldA) [Mass fraction] 99 % Vijay Zarco MD Work Phone: [facility] 08-08-2021 11:06-0400 Systolic blood pressure 130 mm[Hg] Vijay Zarco MD Work Phone: [facility] 08-04-2021 09:06-0400 Body height 182.9 cm David Serrano MD Work Phone: [facility] 08-04-2021 09:06-0400 Body weight 86.18 kg David Serrano MD Work Phone: [facility] 07-26-2021 08:19-0400 Body height 182.9 cm Juan Francisco Tena PA-C Work Phone: [facility] 07-26-2021 08:19-0400 Body temperature 97.3 [degF] Juan Francisco Tena PA-C Work Phone: [facility] 07-26-2021 08:19-0400 Body weight 87.09 kg Juan Francisco Tena PA-C Work Phone: [facility] 07-26-2021 08:19-0400 Diastolic blood pressure 78 mm[Hg] Juan Francisco Tena PA-C Work Phone: [facility] 07-26-2021 08:19-0400 Heart rate 74 /min Juan Francisco Tena PA-C Work Phone: [facility] 07-26-2021 08:19-0400 Respiratory rate 14 /min Juan Francisco Tena PA-C Work Phone: [facility] 07-26-2021 08:19-0400 SaO2% (BldA) [Mass fraction] 99 % Juan Francisco Tena PA-C Work Phone: [facility] 07-26-2021 08:19-0400 Systolic blood pressure 140 mm[Hg] Juan Francisco Tena PA-C Work Phone: [facility] 07-08-2021 08:35-0400 Body weight 87.54 kg Vijay Zarco MD Work Phone: [facility] 07-08-2021 08:35-0400 Diastolic blood pressure 72 mm[Hg] Vijay Zarco MD Work Phone: [facility] 07-08-2021 08:35-0400 Heart rate 64 /min Vijay Zarco MD Work Phone: [facility] 07-08-2021 08:35-0400 Systolic blood pressure 146 mm[Hg] Vijay Zarco MD Work Phone: [facility] Encounters Encounter Date Encounter Type Care Provider Facility Start: 04-06-2023 ambulatory Vijay Zarco MD Work Phone: [facility] [place] Procedures Date Procedure Procedure Detail Performing Clinician Start: 11-23-2022 Nerve conduction studies 5-6 studies Keena Willson PA-C Work Phone: Start: 09-19-2022 Brncdilat rspse spmtry pre&post-brncdilat admn Anneliese Mujica MD Work Phone: Start: 09-14-2022 History of placement of stent for coronary artery disease History of coronary artery stent placement Vijay Zarco MD Work Phone: Start: 09-08-2022 Lipid 1996 panel - Serum or Plasma Vijay Zarco MD Work Phone: Start: 08-01-2022 Urnls dip stick/tablet rgnt auto w/o microscopy Juan Francisco Tena PA-C Work Phone: Start: 07-31-2022 Us retroperitoneal real time w/image complete Juan Francisco Tena PA-C Work Phone: Start: 07-26-2021 Urnls dip stick/tablet rgnt auto w/o microscopy Juan Francisco Tena PA-C Work Phone: Start: 07-19-2021 Us retroperitoneal real time w/image complete Vijay Zarco MD Work Phone: Start: 07-13-2021 Ct abdomen & pelvis w/contrast material Vijay Zarco MD Work Phone: Start: 07-08-2021 HEMOCCULT SINGLE B/O Vijay Zarco MD Work Phone: Start: 07-08-2021 Adult depression screening assessment Vijay Zarco MD Work Phone: Start: 07-17-2017 Colonoscopy Vijay Zarco MD Work Phone: Plan of Treatment Date Care Activity Detail Author Start: 09-09-2027 Lipid 1996 panel - S treasure or Plasma Lipid Screening [facility] Start: 09-09-2027 Lipid panel Lipid Screening [facility] Start: 09-09-2027 LIPID SCREEN LIPID SCREEN [facility] Start: 07-18-2027 Colonoscopy COLONOSCOPY [facility] Start: 07-18-2027 COLORECTAL CANCER SCREENING COLORECTAL CANCER SCREENING [facility] Start: 07-18-2027 Screening for malign ant neoplasm of colon [facility] Start: 07-09-2026 LIPID SCREEN LIPID SCREEN [facility] Start: 04-15-2026 Urine microalbumin profile [facility] Start: 03-17-2026 Diabetes Screening Diabetes Screenin g [facility] Start: 10-25-2025 Diabetes Screening Diabetes Screenin g [facility] Start: 09-08-2025 DIABETES SCREEN DIABETES SCREEN [facility] Start: 08-31-2025 LIPID SCREEN LIPID SCREEN [facility] Start: 08-10-2025 DIABETES SCREEN DIABETES SCREEN [facility] Start: 02-08-2025 DIABETES SCREEN DIABETES SCREEN [facility] Start: 07-09-2024 DIABETES SCREEN DIABETES SCREEN [facility] Start: 04-06-2024 Annual PCP Team [employer] tadeo Disease Visit Annual PCP Team Chronic Disease Visit [facility] Start: 03-21-2024 Annual PCP Team [employer] tadeo Disease Visit Annual PCP Team Chronic Disease Visit [facility] Start: 03-21-2024 Complete blood count Hemoglobin/Satnos tocrit [facility] Start: 03-21-2024 Covid-19 Vaccine ( season) Covid-19 Vaccine ( season) [facility] Immunizations Immunization Date Immunization Notes Care Provider Fa cility 03-21-2023 pneumococcal conjuga te (PCV20) vaccine, 20 valent (PREVNAR 20) Vijay Zarco MD Work Phone: [facility] 03-21-2023 pneumococcal Conjuga te, unspecified formulation Vijay Zarco MD Work Phone: [facility] Work Phone: 12-09-2020 COVID-19 vaccine, ag e 12+ yr (PFIZER-BIONTECH - PURPLE TOP) Vijay Zarco MD Work Phone: [facility] 10-27-2020 COVID-19 vaccine, ag e 12+ yr (PFIZER-BIONTECH - PURPLE TOP) Vijay Zarco MD Work Phone: [facility] 04-03-2017 influenza virus vaccine, unspecified formulation Vijay Zarco MD Work Phone: [facility] 04-15-2016 tetanus toxoid, redu tramaine diphtheria toxoid, and acellular pertussis vaccine, adsorbed Vijay Zarco MD Work Phone: [facility] 10-18-2005 tetanus toxoid, redu tramaine diphtheria toxoid, and acellular pertussis vaccine, adsorbed Vijay Zarco MD Work Phone: [facility] Work Phone: Payers Date Payer Category Payer Unknown [employer] D [id number] 2017-Present [phone] [address] [address] [place] [address] Indemnity [id number] 2017 Unknown [employer] D [id number] 2017-Present [phone] [address] [address] [place] [address] Indemnity [id number] 2017 Unknown [id number] 2016 Medicare MEDICARE MEDICAR E A AND B [id number] 2016-Present [phone] [place] [address] Medicare [id number] 2016 Medicare MEDICARE MEDICAR E A AND B [id number] 2016-Present [phone] [place] [address] Medicare [id number] 2016 Medicare [id number] Social History Date Type Detail Facility Start: 04-15-2016 End: 02-16-2022 Tobacco smoking status NHIS Never smoked tobacco [facility] Start: 07-08-2021 End: 03-21-2023 Alcohol intake Current non-drinker of alcohol (finding) [facility] Start: 1950 Sex Assigned At Not on file C [facility] Start: 06-28-2021 End: 08-08-2021 Exposure to SARS-CoV-2 (event) Not sure [facility] Start: 04-15-2016 End: 02-16-2022 Tobacco use and exposure Smokeless tobacco non-user [facility] Start: 02-15-2022 History SDOH Alcohol Frequency 1 [facility] Start: 02-15-2022 History SDOH Alcohol Std Drinks 0 [facility] Start: 02-15-2022 History SDOH Social Connections Phone 2 [facility] Start: 02-15-2022 History SDOH Social Connections Living 6 [facility] Start: 02-15-2022 History SDOH Physica l Activity DPW 4 [facility] Start: 02-15-2022 End: 08-01-2022 History of Social function [facility] Start: 02-15-2022 End: 08-01-2022 Social connection and isolation panel [facility] Do you belong to any clubs or organizations such as rastafarian groups, unions, fraternal or athletic groups, or school groups? No [facility] Are you now , , , , never or living with a partner? [facility] How often to you hav e a drink containing alcohol? Never [facility] How many standard dr inks containing alcohol do you have on a typical day? Patient does not drink [facility] Do you feel stress - tense, restless, nervous, or anxious, or unable to sleep at night because your mind is troubled all the time - these days [OSQ] Only a little [facility] (I/We) worried wheth er (my/our) food would run out before (I/we) got money to buy more. Never true [facility] Are you now , , , , never or living with a partner? Living with partner [facility] Do you feel stress - tense, restless, nervous, or anxious, or unable to sleep at night because your mind is troubled all the time - these days [OSQ] To some extent [facility] Clinical Notes 01-02-2006 to 04-06-2023 Telephone Encounter - Ottoniel Rhodes RN - 04/06/2023 9:12 AM ESTTelephone Encounter - Yue Escalona DO - 04/05/2023 12:39 PM ESTTelephone Encounter - Cynthia Gamez - 03/30/2023 4:03 PM EST Note Date & Type Note Facility 04-06-2023 Miscellaneous Notes Pt having constipation issues. Protocol reviewed and pt agreeable and has tried most of the recommendations. Asking if he can take mag citrate. D/t hx IA and new heart medication, with stress test scheduled 04-12-23, scheduled same day appt. Reason for Disposition Constipation is a chronic symptom (recurrent or ongoing AND present > 4 weeks) Answer Assessment - Initial Assessment Questions 1. STOOL PATTERN OR FREQUENCY: Use to be daily. Last BM was 2 days ago - had hard BM's. 2. STRAINING: Does have to strain to have BM 3. RECTAL PAIN: No rectal pain. Has hemorroids- they don't bother him. 4. STOOL COMPOSITION: Hard to get started but not hard. Has to push the whole time. 5. BLOOD ON STOOLS: No 6. CHRONIC CONSTIPATION: Saw provider 03-13-23 and instructed to use mag citrate, which helped. Has been taking stool softner, metamucil gummies, prunes, drinking plenty of water since then, 7. CHANGES IN DIET OR HYDRATION: Eats a salad almost every day, eats lots of fruit. Drinks 3 bottles of water in a 24 hour period- also drinks juice, chocolate milk in the mornings. 8. MEDICINES: No pain medication. Ranolazine (angina) started recently- 03-21-23. But constipation started before that. 9. LAXATIVES: Taking colace stool softner daily or twice daily, metamucil gummies daily, eating prunes. 10. ACTIVITY: Tries to walk 2 miles daily. Activity level has decreased a little in past week. Most general does not lay around, but sometimes he does. 11. CAUSE: No idea, maybe medication he takes but hasn't pinpointed what it could be. 12. OTHER SYMPTOMS: Bloating, passing gas. No fever. No nausea. 13. MEDICAL HISTORY: Hx hemorrhoids but not bothering him. No rectal history. 14. : N/A Protocols used: [id number] documented in this encounter [facility] 04-05-2023 Miscellaneous Notes A prescription for 20-30mmHg thigh compression stockings was escripted to [employer] Hi this is Jayla calling from [employer] in [facility] and I'm calling for mutual patient Yue Giles. Patient's name is Maykel Morales HAI RAMSEY and Gerald date of is 1950. I mean excuse me he came into my office today for compression stockings. However the paper work he has with him does not tell me what strength the compression or how hot you know whether we're doing the height I high which type. If you could send me a new prescription that would be wonderful or you may East script it or fax it to me at [phone]. If you have any questions my phone number is [phone] ext. 3. Thank you and have a great day. documented in this encounter [facility] 03-30-2023 Miscellaneous Notes Spoke to patient to schedule procedures encounter closed. Pt. calling. States they have not heard anything in regards to a follow up from Feb.20 office visit. States was going to have a procedure scheduled and someone was supposed to reach out to them to schedule this, but has not done so. Plesae call pt at [phone]. Kalie Anders RN documented in this encounter [facility] 03-21-2023 Note HNO ID: [id number] Author: VIJAY ZARCO MD Service: ? Author Type: Physician Type: Progress Notes Filed: 03/21/2023 10:39 Note Text: Patient presents with: 6 Month Exam HPI: Patient presents today for office visit for follow up. HLD: Continues on Atorvastatin No myalgias Does not watch diet Was seen recently for constipation. Still using fiber gummies. Was using Magnesium Citrate short term with relief. Back to having regular BM's. Normal shape, size and color. Denies nausea and vomiting. No bloody or black stool. Dizziness is better. However mentions at night after showering has sensation on back of neck only on left side that he can feel across shoulders. Refers to starting out as a tightness and then a pain. After he sits down it subsides. BP runs low after this happens. Wearing support hose. Discussed Hx of IA. Stent placed. Continues on Brilinta. Sees cardiology next month. Has been getting pains across chest when exercising. Saw cardiology in November and discussed with them. They Discussed that they thought it was musculoskeletal but were considering doing a repeat stress test if it continued He thinks it is lungs. Recommended he follow up with them. Refers to only getting these pains when he starts breathing heavier and exerting himself. Hx of COPD. No new or worsening shortness of breath. Still taking b12 Seeing vascular. They are considering surgery for his varicose veins. Has seen neuro and urology. Following with pulmonary. Component Latest Ref Rng AND Units 03/17/2023 Glucose 74 - 99 mg/dL 91 BUN 9 - 24 mg/dL 17 Creatinine 0.73 - 1.22 mg/dL 1.33 (H) Sodium 136 - 144 mmol/L 142 Potassium 3.7 - 5.1 mmol/L 4.4 Chloride 97 - 105 mmol/L 104 CO2 22 - 30 mmol/L 30 Anion Gap 9 - 18 mmol/L 8 (L) Calcium 8.5 - 10.2 mg/dL 9.2 eGFR >=60 mL/min/1.73mA? 57 (L) PSA Screening <2.60 ng/mL 1.69 MEDICATIONS: Current Outpatient Medications Medication Sig psyllium husk (METAMUCIL ORAL) Take by mouth. Gummies 2-3 per day atorvastatin (LIPITOR) 40 mg tablet Take 1 tablet by mouth once daily. ticagrelor (BRILINTA) 90 mg tablet Take 1 tablet by mouth two times a day. cyanocobalamin/folic acid (VITAMIN P23-HCYTE ACID) 2,500-400 mcg ODT Take 1 tablet by mouth once daily. tiotropium-olodaterol (STIOLTO RESPIMAT) 2.5-2.5 mcg/actuation Inhale 2 Puffs as instructed once daily. Aspirin 81 mg Tab Take 1 tablet by mouth once daily. Take with food. No current facility-administered medications for this visit. ALLERGIES: ALLERGIES Allergen Reactions Amoxil [Amoxicillin] Rash Generalized body rash- drug reaction Does well with omnicef Sulfa (Sulfonamide * PAST MEDICAL HISTORY Diagnosis Date BPH associated with nocturia CAD (coronary artery disease) S/p stent COPD (chronic obstructive pulmonary disease) ([facility]) 02/22/2021 Unspecified type. Non-smoker. 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 Diarrhea Elevated prostate specific antigen (PSA) Heart attack (HCC) 07/25/2022 Internal hemorrhoids without mention of complication Renal cyst Shingles PAST SURGICAL HISTORY Procedure Laterality Date ARTHROSCOPY KNEE DIAGNOSTIC W/WO SYNOVIAL BX SPX 2002 Arthroscopy, knee COLONOSCOPY FLX DX W/COLLJ SPEC WHEN PFRMD 07/17/2017 Colonoscopy COLONOSCOPY W/BIOPSY SINGLE/MULTIPLE 01/02/2006 PAST SURGICAL HISTORY OF 01/09/[address] Dwyer PAST SURGICAL HISTORY OF 07/25/2022 Stent in heart RPR,HIATAL HERNIA; W/MESH; THORACOABDOM 2017 FAMILY HISTORY Problem Relation Age of Onset Diabetes Mother Heart Attack Father 48 Social History Tobacco Use Smoking status: Never Smokeless tobacco: Never Vaping Use Vaping Use: Never used Substance Use Topics Alcohol use: No Drug use: Never Reviewed current medications, allergies, past medical history, surgical history, family history and social history today. REVIEW OF SYSTEMS All other reviewed and negative other than HPI. HEALTH MAINTENANCE: Reviewed health maintenance issues today and recommended the following in detail. Pneumococcal Vaccine: 65+(1 of 2 - PCV) Never done Shingrix Vaccine(1 of 2) Never done RSV Vaccine(1 - 1-dose 60+ series) Never done Advance Directive Discussion - children are his dpoa. Depression Assessment due on 02/12/2023 VITALS: BP 130/66 Pulse 69 Ht 182.9 cm (6') Wt 87.8 kg (193 lb 9.6 oz) SpO2 97% BMI 26.26 kg/m? Last 4 Encounter Wt Readings: Date: Wt: 03/21/2023 87.8 kg (193 lb 9.6 oz) 03/13/2023 86.2 kg (190 lb) 03/06/2023 88.6 kg (195 lb 6.4 oz) 10/25/2022 83.9 kg (185 lb) PHYSICAL EXAMINATION: General appearance: Well appearing, alert, in no acute distress, well-hydrated, well nourished. Skin: Skin color, texture, turgor normal, no suspicious rashes or lesions Head: Normocephalic, no masses, lesions, tenderness or abnormalities Lungs: Lungs clear to auscultation. No wh (more content not included)... [facility] 03-21-2023 Miscellaneous Notes Addended by: VIJAY ZARCO on: 03/21/2023 10:50 AM Modules accepted: Orders documented in this encounter [facility] 03-21-2023 History of Presen t illness Narrative Patient presents with: 6 Month Exam HPI: Patient presents today for office visit for follow up. HLD: Continues on Atorvastatin No myalgias Does not watch diet Was seen recently for constipation. Still using fiber gummies. Was using Magnesium Citrate short term with relief. Back to having regular BM's. Normal shape, size and color. Denies nausea and vomiting. No bloody or black stool. Dizziness is better. However mentions at night after showering has sensation on back of neck only on left side that he can feel across shoulders. Refers to starting out as a tightness and then a pain. After he sits down it subsides. BP runs low after this happens. Wearing support hose. Discussed Hx of IA. Stent placed. Continues on Brilinta. Sees cardiology next month. Has been getting pains across chest when exercising. Saw cardiology in November and discussed with them. They Discussed that they thought it was musculoskeletal but were considering doing a repeat stress test if it continued He thinks it is lungs. Recommended he follow up with them. Refers to only getting these pains when he starts breathing heavier and exerting himself. Hx of COPD. No new or worsening shortness of breath. Still taking b12 Seeing vascular. They are considering surgery for his varicose veins. Has seen neuro and urology. Following with pulmonary. Component Latest Ref Rng & Units 03/17/2023 Glucose 74 - 99 mg/dL 91 BUN 9 - 24 mg/dL 17 Creatinine 0.73 - 1.22 mg/dL 1.33 (H) Sodium 136 - 144 mmol/L 142 Potassium 3.7 - 5.1 mmol/L 4.4 Chloride 97 - 105 mmol/L 104 CO2 22 - 30 mmol/L 30 Anion Gap 9 - 18 mmol/L 8 (L) Calcium 8.5 - 10.2 mg/dL 9.2 eGFR >=60 mL/min/1.73m 57 (L) PSA Screening <2.60 ng/mL 1.69 MEDICATIONS: Current Outpatient Medications Medication Sig psyllium husk (METAMUCIL ORAL) Take by mouth. Gummies 2-3 per day atorvastatin (LIPITOR) 40 mg tablet Take 1 tablet by mouth once daily. ticagrelor (BRILINTA) 90 mg tablet Take 1 tablet by mouth two times a day. cyanocobalamin/folic acid (VITAMIN T37-BRTAC ACID) 2,500-400 mcg ODT Take 1 tablet by mouth once daily. tiotropium-olodaterol (STIOLTO RESPIMAT) 2.5-2.5 mcg/actuation Inhale 2 Puffs as instructed once daily. Aspirin 81 mg Tab Take 1 tablet by mouth once daily. Take with food. No current facility-administered medications for this visit. ALLERGIES: ALLERGIES Allergen Reactions Amoxil [Amoxicillin] Rash Generalized body rash- drug reaction Does well with omnicef Sulfa (Sulfonamide * PAST MEDICAL HISTORY Diagnosis Date BPH associated with nocturia CAD (coronary artery disease) S/p stent COPD (chronic obstructive pulmonary disease) ([facility]) 02/22/2021 Unspecified type. Non-smoker. 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 Diarrhea Elevated prostate specific antigen (PSA) Heart attack ([facility]) 07/25/2022 Internal hemorrhoids without mention of complication Renal cyst Shingles PAST SURGICAL HISTORY Procedure Laterality Date ARTHROSCOPY KNEE DIAGNOSTIC W/WO SYNOVIAL BX SPX 2002 Arthroscopy, knee COLONOSCOPY FLX DX W/COLLJ SPEC WHEN PFRMD 07/17/2017 Colonoscopy COLONOSCOPY W/BIOPSY SINGLE/MULTIPLE 01/02/2006 PAST SURGICAL HISTORY OF 01/09/[address] Dwyer PAST SURGICAL HISTORY OF 07/25/2022 Stent in heart RPR,HIATAL HERNIA; W/MESH; THORACOABDOM 2017 FAMILY HISTORY Problem Relation Age of Onset Diabetes Mother Heart Attack Father 48 Social History Tobacco Use Smoking status: Never Smokeless tobacco: Never Vaping Use Vaping Use: Never used Substance Use Topics Alcohol use: No Drug use: Never Reviewed current medications, allergies, past medical history, surgical history, family history and social history today. REVIEW OF SYSTEMS All other reviewed and negative other than HPI. HEALTH MAINTENANCE: Reviewed health maintenance issues today and recommended the following in detail. Pneumococcal Vaccine: 65+(1 of 2 - PCV) Never done Shingrix Vaccine(1 of 2) Never done RSV Vaccine(1 - 1-dose 60+ series) Never done Advance Directive Discussion - children are his dpoa. Depression Assessment due on 02/12/2023 VITALS: BP 130/66 Pulse 69 Ht 182.9 cm (6') Wt 87.8 kg (193 lb 9.6 oz) SpO2 97% BMI 26.26 kg/m Last 4 Encounter Wt Readings: Date: Wt: 03/21/2023 87.8 kg (193 lb 9.6 oz) 03/13/2023 86.2 kg (190 lb) 03/06/2023 88.6 kg (195 lb 6.4 oz) 10/25/2022 83.9 kg (185 lb) PHYSICAL EXAMINATION: General appearance: Well appearing, [...] joint swelling, deformity, or tenderness ASSESSMENT/PLAN: 1. Primary hypertension - ICD9: 401.9, ICD10: I10 (primary diagnosis) - Controlled 2. History of IA (myocardial infarction) - ICD9: 412, ICD10: I25.2 - was to have follow up if persists. - CONSULT TO CARDIOLOGY 3. Chronic obstructive pulmonary disease, unspecified COPD type (HCC) - ICD9: 496, ICD10: J44.9 - stable 4. Stage 3 chronic kidney disease, unspecified whether stage 3a or 3b CKD (HCC) - ICD9: 585.3, ICD10: N18.30 - stable. - check. 6. History of sarcoidosis - ICD9: V12.29, ICD10: Z86.2 - sees pulmonary. Is stable. 7. Vitamin B12 deficiency - ICD9: 266.2, ICD10: E53.8 - recheck b12 - CBC + DIFF - VITAMIN B12 BLOOD 8. Orthostatic hypotension - ICD9: 458.0, ICD10: I95.1 -support hose and shower chair. Follow with vascular. 9. Chest discomfort - ICD9: 786.59, ICD10: R07.89 - cardiology already aware. Reminded to follow up. Red flags for re-assessment reviewed with patient in detail. - CONSULT TO CARDIOLOGY Vijay Zarco MD documented in this encounter [facility] 03-13-2023 Note HNO ID: [id number] Author: NINA REESE RT(R) Service: ? Author Type: Lift Manager Type: Progress Notes Filed: 03/13/2023 09:30 Note Text: Radiology Service Progress Note PATIENT NAME: Maykel Morales DATE OF SERVICE: March 13, 2023 TIME: 9:19 AM PATIENT IDENTITY VERIFICATION COMPLETED USING TWO (2) IDENTIFIERS: Name and Date of confirmed by patient verbally. FALL SCREENING: Has the patient had 2 falls in the last year or 1 fall with injury or currently using an Ambulatory Assistive Device (Walker, Cane, Wheelchair, Crutches, etc.)? No PATIENT GENDER DATA: Male PATIENT RELEVANT IMPLANT DATA REVIEWED: Yes PATIENT PRESENTS WITH AN IMPLANTABLE OR ATTACHED POCKET SECRETARY ASSEMBLER: No RADIOLOGY DEPARTMENT: General X-ray: Exam(s) Completed: Abdomen X-Ray: Abdomen PERIPHERAL IV DATA: Not applicable SIGNED BY: RT Sandra(R) March 13, 2023 9:19 AM [facility] 03-13-2023 Note HNO ID: [id number] Author: ANURAG GALLO APRN.[facility] Service: ? Author Type: Nurse Practitioner Type: Progress Notes Filed: 03/13/2023 09:03 Note Text: Chief Complaint Patient presents with: Constipation HPI Maykel Morales is a 72 year old male who presents here today for Above Complaints.. Patient presents for constipation. Patient reports he has tried miralax, fiber gummies, and prunes with no improvement. Patient reports small hard pellet shaped stool. Last BM 03/12/2022, patient reports straining with bowel movements. Past medical history, appointments, medications, allergies reviewed. Previous Medical History PAST MEDICAL HISTORY Diagnosis Date BPH associated with nocturia CAD (coronary artery disease) S/p stent COPD (chronic obstructive pulmonary disease) (HCC) 02/22/2021 Unspecified type. Non-smoker. 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 Diarrhea Elevated prostate specific antigen (PSA) Heart attack (HCC) 07/25/2022 Internal hemorrhoids without mention of complication Renal cyst Shingles Previous Surgical History PAST SURGICAL HISTORY Procedure Laterality Date ARTHROSCOPY KNEE DIAGNOSTIC W/WO SYNOVIAL BX SPX 2002 Arthroscopy, knee COLONOSCOPY FLX DX W/COLLJ SPEC WHEN PFRMD 07/17/2017 Colonoscopy COLONOSCOPY W/BIOPSY SINGLE/MULTIPLE 01/02/2006 PAST SURGICAL HISTORY OF 01/09/[address] Dwyer PAST SURGICAL HISTORY OF 07/25/2022 Stent in heart RPR,HIATAL HERNIA; W/MESH; THORACOABDOM 2017 Family History FAMILY HISTORY Problem Relation Age of Onset Diabetes Mother Heart Attack Father 48 Patient Allergies ALLERGIES Allergen Reactions Amoxil [Amoxicillin] Rash Generalized body rash- drug reaction Does well with omnicef Sulfa (Sulfonamide * Current Medications Current Outpatient Medications on File Prior to Visit Medication Sig doxazosin (CARDURA) 4 mg tablet Take 1 tablet by mouth daily at bedtime. psyllium husk (METAMUCIL ORAL) Take by mouth. Gummies 2-3 per day atorvastatin (LIPITOR) 40 mg tablet Take 1 tablet by mouth once daily. ticagrelor (BRILINTA) 90 mg tablet Take 1 tablet by mouth two times a day. cyanocobalamin/folic acid (VITAMIN J08-FZKLG ACID) 2,500-400 mcg ODT Take 1 tablet by mouth once daily. tiotropium-olodaterol (STIOLTO RESPIMAT) 2.5-2.5 mcg/actuation Inhale 2 Puffs as instructed once daily. Aspirin 81 mg Tab Take 1 tablet by mouth once daily. Take with food. No current facility-administered medications on file prior to visit. Social History Social History Tobacco Use Smoking status: Never Smokeless tobacco: Never Vaping Use Vaping Use: Never used Substance Use Topics Alcohol use: No Drug use: Never Review of Symptoms REVIEW OF SYSTEMS SEE HPI EXAM: BP 118/64 Pulse 80 Resp 16 Wt 86.2 kg (190 lb) BMI 25.77 kg/m? General Appearance: Well appearing, alert, in no acute distress, well-hydrated, well nourished.. Abdomen: Normal abdominal exam, Abdomen soft, non-tender. Bowel sounds normal. No masses, organomegaly. Health Maintenance List Pneumococcal Vaccine: 65+(1 of 2 - PCV) Never done BP Controlled (<130/80) Never done Shingrix Vaccine(1 of 2) Never done RSV Vaccine(1 - 1-dose 60+ series) Never done Influenza Vaccine(1) due on 10/13/2022 Covid-19 Vaccine(3 - season) due on 10/13/2022 Advance Directive Discussion Never done Depression Assessment due on 02/12/2023 LDL Cholesterol due on 09/09/2023 Annual PCP Team Chronic Disease Visit due on 10/19/2023 Serum Creatinine due on 10/26/2023 Hemoglobin/Hematocrit due on 10/26/2023 Diabetes Screening due on 10/25/2025 DTaP,Tdap,Td Vaccine(3 - Td or Tdap) due on 04/15/2026 Colorectal Cancer Screening due on 07/18/2027 Lipid Screening due on 09/09/2027 Alpha-1 Antitrypsin Deficiency Screening Completed Spirometry Completed Hepatitis C Screening Completed ASSESSMENT/PLAN: 1. Chronic constipation - ICD9: 564.00, ICD10: K59.09 - XR ABDOMEN 1V SUPINE If XR negative for obstruction would recommend use of magnesium citrate. Anurag Gallo APRN.[facility] 03-06-2023 Note HNO ID: [id number] Author: JUAN FRANCISCO TENA PA-C Service: ? Author Type: Physician Slicing Machine Tender Type: Progress Notes Filed: 03/06/2023 18:14 Note Text: [facility] ESTABLISHED PATIENT CLINIC NOTE Some elements copied from his previous note, which have been updated where appropriate, and all reflect current medical decision making from date of this visit. SERVICE DATE: 03/06/2023 SERVICE TIME: 3:29 PM NAME: Maykel Morales CHIEF COMPLAINT: BPH and PSA tresting HISTORY OF PRESENT ILLNESS: Maykel Morales is a 72 year old male an established patient following up for BPH and PSA testing The patient reports he has no new LUTS and 08/2022 PSA is 2.76 this is an increase from 02/16/22 at 1.42 just 6 months ago We dicussed this and reviewed his PSA history and this has happened before and the PSA came back down We will get PSA in 6 months and 12 months and if PSA continues to increase we will discuss doing an IsoPSA if PSA is > 4.0 He was taken off of Flomax due to low BP and symptoms, we dicussed a trial of Cardura 4 mg and will check in after 3 months And will see him if concern or symptoms arise LABS: Hematocrit (%) Date Value 10/25/2022 40.0 09/08/2022 43.5 08/10/2022 42.8 02/01/2022 47.0 12/09/2020 46.4 09/30/2020 47.6 08/31/2020 47.6 10/21/2018 46.1 PSA (ng/mL) Date Value 09/08/2022 2.76 02/16/2022 1.42 09/02/2011 0.11 PSA Screening (ng/mL) Date Value 07/09/2021 2.89 No results found for: TESTOST PSA (ng/mL) Date Value 09/08/2022 2.76 02/16/2022 1.42 09/02/2011 0.11 PSA Screening (ng/mL) Date Value 07/09/2021 2.89 Creatinine Date Value Ref Range Status 10/25/2022 1.31 (H) 0.73 - 1.22 mg/dL Final 09/08/2022 1.41 (H) 0.73 - 1.22 mg/dL Final 08/10/2022 1.38 (H) 0.73 - 1.22 mg/dL Final 02/08/2022 1.39 (H) 0.73 - 1.22 mg/dL Final MEDICATIONS: psyllium husk (METAMUCIL ORAL) Take by mouth. Gummies 2-3 per day atorvastatin (LIPITOR) 40 mg tablet Take 1 tablet by mouth once daily. ticagrelor (BRILINTA) 90 mg tablet Take 1 tablet by mouth two times a day. cyanocobalamin/folic acid (VITAMIN Y85-DSBBX ACID) 2,500-400 mcg ODT Take 1 tablet by mouth once daily. tiotropium-olodaterol (STIOLTO RESPIMAT) 2.5-2.5 mcg/actuation Inhale 2 Puffs as instructed once daily. Aspirin 81 mg Tab Take 1 tablet by mouth once daily. Take with food. PAST MEDICAL HISTORY: PAST MEDICAL HISTORY Diagnosis Date BPH associated with nocturia CAD (coronary artery disease) S/p stent COPD (chronic obstructive pulmonary disease) (HCC) 02/22/2021 Unspecified type. Non-smoker. 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 Diarrhea Elevated prostate specific antigen (PSA) Heart attack (HCC) 07/25/2022 Internal hemorrhoids without mention of complication Renal cyst Shingles REVIEW OF SYSTEMS: GENERAL: No fever, chills, weight loss, or fatigue. All other systems reviewed and are negative PHYSICAL EXAMINATION: Blood pressure 140/80, pulse 82, temperature 36.8 ?C (98.2 ?F), temperature source Temporal, resp. rate 12, height 182.9 cm (6'), weight 88.6 kg (195 lb 6.4 oz), SpO2 97%. GENERAL: WNL nutrition, no deformities, healthy appearing LAW: 40 g benign PROBLEM LIST REVIEW: Yes LABS: Results for orders placed or performed in visit on 03/06/23 UA DIP, URINE (POC) Result Value Ref Range GLUCOSE UA (POCT) Negative Negative mg/dL BILIRUBIN UA (POCT) Negative Negative KETONE UA (POCT) Negative Negative mg/dL SPECIFIC GRAVITY UA (POCT) 1.015 1.005 - 1.030 HEMOGLOBIN/BLOOD UA (POCT) Negative Negative PH UA (POCT) 7.0 4.5 - 8.0 PROTEIN UA (POCT) Negative Negative mg/dL UROBILINOGEN UA (POCT) 0.2 Normal E.U./dL NITRITE UA (POCT) Negative Negative LEUKOCYTES UA (POCT) Negative Negative COLOR UA (POCT) Light yellow CLARITY UA (POCT) Slightly Cloudy PROCEDURES: PVR: 169 ml IMAGING: IMPRESSION/PLAN: 72 year old male with 1. Benign prostatic hyperplasia with lower urinary tract symptoms, symptom details unspecified - ICD9: 600.01, ICD10: N40.1 (primary diagnosis) 2. Urinary hesitancy - ICD9: 788.64, ICD10: R39.11 3. Screening for genitourinary condition - ICD9: V81.6, ICD10: Z13.89 4. Burning with urination - ICD9: 788.1, ICD10: R30.0 5. Screening PSA (prostate specific antigen) - ICD9: V76.44, ICD10: Z12.5 No further dysuria - UA negative today > Flomax stopped due to Low BP > Trial of Cardura 4 mg Rx sent - follow-up in 3 months or sooner if any SE's from Cardura arise > 6 months for PSA, No Appointment Needed 08/2023 > 1 year Appointment with PSA prior - 02/2024 > Future PSA orders are in EPIC ALBERTO Little, VICTOR M, ZINA [facility] 03-06-2023 Note HNO ID: [id number] Author: PATTI MORENO LPN Service: ? Author Type: LICENSED NURSE Type: Progress Notes Filed: 03/06/2023 18:14 Note Text: Verified name and date of . CC Post Void Residual HPI: Maykel Morales is a 72 year old male. The patient is here now for an appointment with ALBERTO Little [place], CARLITO. Procedure: Explained procedure to patient and verbalizes understanding. Performed a PVR. Patient urinated and instructed to empty bladder as much as possible just prior to having PVR done using bladder ultrasound scanner. Results of scan: 169 mL The patient tolerated the procedure well. Plan: Appointment with Juan Francisco. [facility] 02-20-2023 Note HNO ID: [id number] Author: YUE ESCALONA, Service: ? Author Type: Physician Type: Progress Notes Filed: 03/12/2023 10:07 Note Text: [facility] DEPARTMENT OF VASCULAR SURGERY OUTPATIENT VISIT DATE February 20, 2023 OUTPATIENT VISIT TYPE ESTABLISHED SERVICE DATE: 02/20/2023 SERVICE TIME: 8:53 AM PRIMARY CARE PHYSICIAN: Vijay Zarco MD HISTORY OF PRESENT ILLNESS: Mr. Morales is a 72 year old male who presents today for a vascular surgery follow-up visit to discuss venous reflux testing. He does have tender symptomatic varicose veins despite wearing compression stockings. PAST MEDICAL HISTORY Diagnosis Date BPH associated with nocturia CAD (coronary artery disease) S/p stent COPD (chronic obstructive pulmonary disease) (HCC) 02/22/2021 Unspecified type. Non-smoker. 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 Diarrhea Elevated prostate specific antigen (PSA) Heart attack (HCC) 07/25/2022 Internal hemorrhoids without mention of complication Renal cyst Shingles PAST SURGICAL HISTORY Procedure Laterality Date ARTHROSCOPY KNEE DIAGNOSTIC W/WO SYNOVIAL BX SPX 2002 Arthroscopy, knee COLONOSCOPY FLX DX W/COLLJ SPEC WHEN PFRMD 07/17/2017 Colonoscopy COLONOSCOPY W/BIOPSY SINGLE/MULTIPLE 01/02/2006 PAST SURGICAL HISTORY OF 01/09/[address] Dwyer PAST SURGICAL HISTORY OF 07/25/2022 Stent in heart RPR,HIATAL HERNIA; W/MESH; THORACOABDOM 2018 SOCIAL HISTORY Social History Tobacco Use Smoking status: Never Smokeless tobacco: Never Vaping Use Vaping Use: Never used Substance Use Topics Alcohol use: No Drug use: Never MEDICATIONS: atorvastatin (LIPITOR) 40 mg tablet Take 1 tablet by mouth once daily. ticagrelor (BRILINTA) 90 mg tablet Take 1 tablet by mouth two times a day. cyanocobalamin/folic acid (VITAMIN F83-RKQKW ACID) 2,500-400 mcg ODT Take 1 tablet by mouth once daily. tiotropium-olodaterol (STIOLTO RESPIMAT) 2.5-2.5 mcg/actuation Inhale 2 Puffs as instructed once daily. Aspirin 81 mg Tab Take 1 tablet by mouth once daily. Take with food. ALLERGIES: ALLERGIES Allergen Reactions Amoxil [Amoxicillin] Rash Generalized body rash- drug reaction Does well with omnicef Sulfa (Sulfonamide * PHYSICAL EXAM: There were no vitals taken for this visit. Gen- no distress Ext- large bilateral pretibial and calf varicose veins with hyperpigmentation Diagnostic tests reviewed for today's visit: Most recent labs Most recent imaging Venous Reflux Testing RIGHT SIDE - DEEP VEINS Negative for acute deep vein thrombosis in vessels visualized. Positive for valvular incompetency in the common femoral vein. RIGHT SIDE - SUPERFICIAL VEINS Positive for valvular incompetency in the great saphenous vein. Vein diameter just proximal to knee crease measures 1.3 cm. Vein becomes tortuous at the knee and varicosities arise and course to mid calf. Varicosities also course lateral, proximal to mid calf. Negative for valvular incompetency in the small saphenous vein. LEFT SIDE - DEEP VEINS Negative for acute deep vein thrombosis in vessels visualized. Positive for valvular incompetency in the femoral vein and popliteal vein. LEFT SIDE - SUPERFICIAL VEINS Positive for valvular incompetency in the great saphenous vein. Large varicosity arises at the distal knee crease and courses along the pichardo to mid calf. 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 Negative for valvular incompetency in the small saphenous vein. IMPRESSION: Mr. Morales is a 72 year old male with symptomatic varicose veins. CEAP CLASSIFICATION OF VENOUS DISEASE: CLINICAL C3: Edema C4a: Pigmentation or eczema S: Symptomatic, including ache, pain, tightness, skin irritation, heaviness, muscle cramps and other complaints attribultable to venous dysfunction ETIOLOGY Ep: Primary ANATOMIC As: Superficial veins PATHOPYSIOLOGIC Pr: Reflux INDICATION(S) FOR SURGERY: Left great saphenous vein reflux, Grade III-IV and Left painful varicose vein disease and Right great saphenous vein reflux, Grade III-IV and Right painful varicose vein disease PLAN and RECOMMENDATIONS: Recommend bilateral GSV EVLT as his symptoms persist despite non-interventional therapy. Continue compression, elevation and exercise. Discussed procedure with patient and he would like to proceed. SIGNATURE: Yue Escalona DO PATIENT NAME: Maykel Morales DATE: February 20, 2023 TIME: 8:53 AM [facility] 02-15-2023 Note HNO ID: [id number] Author: ROQUE KIDD PT Service: ? Author Type: Physical Therapist Type: Progress Notes Filed: 02/15/2023 08:50 Note Text: 02/15/2023 [facility]TS [facility]ER[facility] PHYSICAL THERAPY DISCONTINUANCE OF CARE Plan of Care Period: Start of Care Date: 10/26/22 Last Visit Date: 11/10/2022 Therapy Program: The following is a summary of the interventions provided for this episode of care; Therapeutic exercise, Manual therapy, and Patient/Family/Caregiver Education Assessment: Based on most recent visit, patient was progressing slower than expected toward functional goals based on documented subjective information on progress. Unable to formally assess goal achievement, as patient has not returned to therapy or scheduled additional follow-up appointments. Reason for Discontinuation of Care: Patient has not returned to therapy or scheduled additional follow-up appointments. Roque Kidd, PT [facility] 12-12-2022 Note HNO ID: [id number] Author: Yue Escalona DO Service: ? Author Type: Physician Type: Progress Notes Filed: 01/01/2023 9:45 AM Note Text: [facility] DEPARTMENT OF VASCULAR SURGERY OUTPATIENT VISIT DATE December 12, 2022 OUTPATIENT VISIT TYPE CONSULTATION SERVICE DATE: 12/12/2022 SERVICE TIME: 9:31 AM PRIMARY CARE PHYSICIAN: Vijay Zarco MD REFERRING PROVIDER: Keena Willson [address] [place], [place] [id number] Consult requested for an opinion regarding the evaluation and treatment of the above. My final impression and recommendations will be communicated back to the requesting physician by way of the shared medical record or letter via [place] mail. CHIEF COMPLAINT: Carotid artery stenosis HISTORY OF PRESENT ILLNESS: Vascular consultation at the request of Dr. Keena Willson. A copy of this consultation note will be provided to the requesting physician by way of shared Medical record or letter to requesting physician via [place] mail. Mr. Morales is a 71 year old male who is seen today for asymptomatic carotid artery disease. He denies any focal neurologic deficit. He had a carotid duplex performed during workup of hypotension. Denies previous stroke. Denies monocular vision loss. Denies significant lifestyle limiting claudication or rest pain. Does admit to varicose veins. Denies history of DVT. He has been wearing compression stockings for years. PAST MEDICAL HISTORY Diagnosis Date BPH associated with nocturia CAD (coronary artery disease) S/p stent COPD (chronic obstructive pulmonary disease) ([facility]) 02/22/2021 Unspecified type. Non-smoker. 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 Diarrhea Elevated prostate specific antigen (PSA) Heart attack (HCC) 07/25/2022 Internal hemorrhoids without mention of complication Renal cyst Shingles PAST SURGICAL HISTORY Procedure Laterality Date ARTHROSCOPY KNEE DIAGNOSTIC W/WO SYNOVIAL BX SPX 2002 Arthroscopy, knee COLONOSCOPY FLX DX W/COLLJ SPEC WHEN PFRMD 07/17/2017 Colonoscopy COLONOSCOPY W/BIOPSY SINGLE/MULTIPLE 01/02/2006 PAST SURGICAL HISTORY OF 01/09/[address] Dwyer PAST SURGICAL HISTORY OF 07/25/2022 Stent in heart RPR,HIATAL HERNIA; W/MESH; THORACOABDOM 2017 SOCIAL HISTORY: Social History Tobacco Use Smoking status: Never Smokeless tobacco: Never Vaping Use Vaping Use: Never used Substance Use Topics Alcohol use: No Drug use: Never FAMILY HISTORY Problem Relation Age of Onset Diabetes Mother Heart Attack Father 48 MEDICATIONS: atorvastatin (LIPITOR) 40 mg tablet Take 1 tablet by mouth once daily. ticagrelor (BRILINTA) 90 mg tablet Take 1 tablet by mouth twice daily. tiotropium-olodaterol (STIOLTO RESPIMAT) 2.5-2.5 mcg/actuation Inhale 2 Puffs as instructed once daily. Aspirin 81 mg Tab Take 1 tablet by mouth once daily. Take with food. ALLERGIES: ALLERGIES Allergen Reactions Amoxil [Amoxicillin] Rash Generalized body rash- drug reaction Does well with omnicef Sulfa (Sulfonamide * REVIEW of SYSTEM: Constitutional: No weight loss, malaise or fevers. HEENT: Negative for frequent or significant headaches, No changes in hearing or vision, no nose bleeds or other nasal problems Respiratory: Negative for cough and wheezing and Positive for shortness of breath on exertion Cardiovascular: Negative for chest pain, leg swelling or palpitations Gatrointestinal: Negative for abdominal discomfort, blood in stools or black stools or change in bowel habits Genitourinary: No difficulty urination, nocturia >1 times per night or hematuria and enlarged prostate, stage 3 kidney failure Musculoskeletal: Negative for joint pain or swelling and muscle pain and Positive for back pain Endocrine: Positive for cold intolerance Hematology/Lymphatic: Positive for bruises easily Neurologic: No history or headaches, syncope, paralysis, seizures or tremors Integumentary: Negative for lesions, rash, and itching. PHYSICAL EXAM: VITALS: There were no vitals taken for this visit. General: Alert and oriented Integumentary: Normal color, no rash, no lesions. HEENT: EOM, pupils equal, round and reactive. Cardiovascular: Pulse regular. Lungs: Normal breath sounds, no wheezes or crackles. Abdomen: Not examined Extremities: Varicose veins Neurological: Normal cognition and motor skills. Vascular: Dorsalis Pedal Right: Normal - Left: Normal Diagnostic tests reviewed for today's visit: Most recent labs Most recent imaging Carotid Duplex- from [facility] <50% ICA stenosis IMPRESSION: Mr. Morales is a 71 year old male with asymptomatic carotid artery disease and varicose veins . PLAN and RECOMMENDATIONS: Carotid in one year Venous incompetency and follow up Continue blood pressure and cholesterol control Continue compression,elevation and exercise Follow up after testing SIGNATURE: Diane (more content not included)... [facility] 12-12-2022 History of Presen t illness Narrative Images from the original note were not included. [facility] DEPARTMENT OF VASCULAR SURGERY OUTPATIENT VISIT DATE December 12, 2022 OUTPATIENT VISIT TYPE CONSULTATION SERVICE DATE: 12/12/2022 SERVICE TIME: 9:31 AM PRIMARY CARE PHYSICIAN: Vijay Zarco MD REFERRING PROVIDER: Keena Willson [id number] [phone] Consult requested for an opinion regarding the evaluation and treatment of the above. My final impression and recommendations will be communicated back to the requesting physician by way of the shared medical record or letter via [place] mail. CHIEF COMPLAINT: Carotid artery stenosis HISTORY OF PRESENT ILLNESS: Vascular consultation at the request of Dr. Keena Willson. A copy of this consultation note will be provided to the requesting physician by way of shared Medical record or letter to requesting physician via [place] mail. Mr. Morales is a 71 year old male who is seen today for asymptomatic carotid artery disease. He denies any focal neurologic deficit. He had a carotid duplex performed during workup of hypotension. Denies previous stroke. Denies monocular vision loss. Denies significant lifestyle limiting claudication or rest pain. Does admit to varicose veins. Denies history of DVT. He has been wearing compression stockings for years. PAST MEDICAL HISTORY Diagnosis Date BPH associated with nocturia CAD (coronary artery disease) S/p stent COPD (chronic obstructive pulmonary disease) ([facility]) 02/22/2021 Unspecified type. 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 Diarrhea Elevated prostate specific antigen (PSA) Heart attack (HCC) 07/25/2022 Internal hemorrhoids without mention of complication Renal cyst Shingles PAST SURGICAL HISTORY Procedure Laterality Date ARTHROSCOPY KNEE DIAGNOSTIC W/WO SYNOVIAL BX SPX 2002 Arthroscopy, knee COLONOSCOPY FLX DX W/COLLJ SPEC WHEN PFRMD 07/17/2017 Colonoscopy COLONOSCOPY W/BIOPSY SINGLE/MULTIPLE 01/02/2006 PAST SURGICAL HISTORY OF 01/09/[address] Dwyer PAST SURGICAL HISTORY OF 07/25/2022 Stent in heart RPR,HIATAL HERNIA; W/MESH; THORACOABDOM 2017 SOCIAL HISTORY: Social History Tobacco Use Smoking status: Never Smokeless tobacco: Never Vaping Use Vaping Use: Never used Substance Use Topics Alcohol use: No Drug use: Never FAMILY HISTORY Problem Relation Age of Onset Diabetes Mother Heart Attack Father 48 MEDICATIONS: atorvastatin (LIPITOR) 40 mg tablet Take 1 tablet by mouth once daily. ticagrelor (BRILINTA) 90 mg tablet Take 1 tablet by mouth twice daily. tiotropium-olodaterol (STIOLTO RESPIMAT) 2.5-2.5 mcg/actuation Inhale 2 Puffs as instructed once daily. Aspirin 81 mg Tab Take 1 tablet by mouth once daily. Take with food. ALLERGIES: ALLERGIES Allergen Reactions Amoxil [Amoxicillin] Rash Generalized body rash- drug reaction Does well with omnicef Sulfa (Sulfonamide * REVIEW of SYSTEM: Constitutional: No weight loss, malaise or fevers. HEENT: Negative for frequent or significant headaches, No changes in hearing or vision, no nose bleeds or other nasal problems Respiratory: Negative for cough and wheezing and Positive for shortness of breath on exertion Cardiovascular: Negative for chest pain, leg swelling or palpitations Gatrointestinal: Negative for abdominal discomfort, blood in stools or black stools or change in bowel habits Genitourinary: No difficulty urination, nocturia >1 times per night or hematuria and enlarged prostate, stage 3 kidney failure Musculoskeletal: Negative for joint pain or swelling and muscle pain and Positive for back pain Endocrine: Positive for cold intolerance Hematology/Lymphatic: Positive for bruises easily Neurologic: No history or headaches, syncope, paralysis, seizures or tremors Integumentary: Negative for lesions, rash, and itching. PHYSICAL EXAM: VITALS: There were no vitals taken for this visit. General: Alert and oriented Integumentary: Normal color, no rash, no lesions. HEENT: EOM, pupils equal, round and reactive. Cardiovascular: Pulse regular. Lungs: Normal breath sounds, no wheezes or crackles. Abdomen: Not examined Extremities: Varicose veins Neurological: Normal cognition and motor skills. Vascular: Dorsalis Pedal Right: Normal - Left: Normal Diagnostic tests reviewed for today's visit: Most recent labs Most recent imaging Carotid Duplex- from [facility] <50% ICA stenosis IMPRESSION: Mr. Morales is a 71 year old male with asymptomatic carotid artery disease and varicose veins . PLAN and RECOMMENDATIONS: Carotid in one year Venous incompetency and follow up Continue blood pressure and cholesterol control Continue compression,elevation and exercise Follow up after testing SIGNATURE: Yue Escalona DO PATIENT NAME: Maykel Morales DATE: December 12, 2022 TIME: 9:31 AM documented in this encounter [facility] 11-23-2022 Note HNO ID: [id number] Author: Jorje Lara MD Service: ? Author Type: Physician Type: Progress Notes Filed: 11/23/2022 10:20 AM Note Text: UNIVERSAL PROTOCOL / SAFETY CHECKLIST Procedure to be Performed: EMG Sign In: A Moment of CARE was completed. Personnel directly involved with the procedure wore the appropriate PPE (Personal Protective Equipment). Patient/Surrogate Stated/Verified: PATIENT VERIFIED(optional for EMERGENT procedures): Patient name, Date of , Relevant allergies, and The intended procedure Time Out Communication: Intended patient and procedure match the source documents. Correct side/site marked and visible. Sign Out: SIGN OUT (optional for EMERGENT procedures): Post-procedure follow-up management communicated and Plan of Care Visit completed when applicable. ABRAHAM Sharma MD [facility] 11-23-2022 History of Presen t illness Narrative UNIVERSAL PROTOCOL / SAFETY CHECKLIST Procedure to be Performed: EMG Sign In: A Moment of CARE was completed. Personnel directly involved with the procedure wore the appropriate PPE (Personal Protective Equipment). Patient/Surrogate Stated/Verified: PATIENT VERIFIED(optional for EMERGENT procedures): Patient name, Date of , Relevant allergies, and The intended procedure Time Out Communication: Intended patient and procedure match the source documents. Correct side/site marked and visible. Sign Out: SIGN OUT (optional for EMERGENT procedures): Post-procedure follow-up management communicated and Plan of Care Visit completed when applicable. ABRAHAM Sharma MD documented in this encounter [facility] 11-10-2022 Note HNO ID: [id number] Author: Roque Kidd PT Service: ? Author Type: Physical Therapist Type: Progress Notes Filed: 11/10/2022 3:36 PM Note Text: Episode Visit Count: 3 Therapist That Will Accept/Oversee The Plan Of Care: Roque Kidd Start of Care Date: 10/26/22 Onset Date: 08/25/22 Plan of Care Certification Date: 10/26/22 Next Certification Due Date: 11/30/22 Patient Identified by Name and Date of : Yes REHABILITATION AND SPORTS THERAPY PHYSICAL THERAPY TREATMENT NOTE ASSESSMENT: Maykel Morales tolerated the session with no issues. This PT is unable to bring on pt's symptoms with cervical movements and when any aerobic exercise. He demonstrated reported tension in the upper C-spine throughout session. The patient will continue to benefit from ongoing skilled physical therapy to progress toward set goals. PLAN FOR NEXT VISIT: PT on hold until pt has a follow-up for EMG testing and vascular assessment SUBJECTIVE: Some pain when resting last night. Sore and aching. 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 Sometimes the symptoms vary in intensity. Pain: Pain Pain Location: Neck OBJECTIVE MEASURES WITH LEVEL OF FUNCTION: Cervical Spine ROM Cervical ROM : Limitation AROM Cervical Flexion AROM: Normal Cervical Side-Bend Right AROM: Minimal limitation Cervical Side-Bend Left AROM: Minimal limitation Cervical Rotation Right AROM: Minimal limitation Cervical Rotation Left AROM: Normal UE and Cervical Strength Strength Tested: Cervical Deep Neck Flexor Endurance: 20 sec Some tenderness to palpation of the sub-occipitals TREATMENT: Therapeutic Exercise: 1: SciFit x 5 min (Discussed typically symptoms with vascular pathology during this) 2: DNE x 60 sec Skilled Intervention: Patient was educated in proper exercise technique and purpose for exercises. Correct performance of therapeutic exercises was facilitated with verbal and visual cuing. Manual Therapy: 1: SO release x 5 min Skilled Intervention: Manual skills to improve joint mobility, ROM, and decrease pain. Utilized anatomy knowledge of the therapist, and assessment of patient's response to intervention. Billing Therapeutic Exercise Treatment Minutes: 29 Manual TherapyTreatment Minutes: 5 Skilled Treatment Time Minutes (timed and untimed codes): 34 Total Session Time (minutes): 34 Session Start Time : 1456 Session Stop Time : 1530 Roque Kidd PT [facility] 11-02-2022 Note HNO ID: [id number] Author: Roque Kidd PT Service: ? Author Type: Physical Therapist Type: Progress Notes Filed: 11/02/2022 11:31 AM Note Text: Episode Visit Count: 2 Therapist That Will Accept/Oversee The Plan Of Care: Roque Kidd Start of Care Date: 10/26/22 Onset Date: 08/25/22 Plan of Care Certification Date: 10/26/22 Next Certification Due Date: 11/30/22 Patient Identified by Name and Date of : Yes REHABILITATION AND SPORTS THERAPY PHYSICAL THERAPY TREATMENT NOTE ASSESSMENT: Maykel Morales tolerated the session with no issues. He demonstrated improvements in thoracic mobility into extension after mobility exercises were performed. The patient will continue to benefit from ongoing skilled physical therapy to progress toward set goals. PLAN FOR NEXT VISIT: Thoracic mobility exercises. Neck retractions. SUBJECTIVE: Had some pain around the back of the neck when he was out walking but not at cardiac rehab. Pain: OBJECTIVE MEASURES WITH LEVEL OF FUNCTION: Lumbar Spine AROM Lumbar Flexion: Normal Lumbar Extension: Moderate limitation, Increased pain Lumbar R Side-Bend: Increased pain Lumbar L Side-Bend: Increased pain Lumbar R Rotation: End range pain Lumbar L Rotation: End range pain UE AROM R UE AROM: WNL L UE AROM: WNL [place] achieved in the thoracic spine during towel ext exercise TREATMENT: Therapeutic Exercise: 1: SKTC x 10 2: DKTC x 5 3: Thoracic ext over back of chair x 10 (Painful in LB so not given for home) 4: Hooklying ext over towel roll x 10 at mid thoracic spine 5: Child's pose with SB to stretch for lats 3 x 30 sec each side Skilled Intervention: Patient was educated in proper exercise technique and purpose for exercises. Provided written instruction for home exercise program to facilitate proper performance and compliance. Correct performance of therapeutic exercises was facilitated with verbal and visual cuing. Billing Therapeutic Exercise Treatment Minutes: 35 Manual TherapyTreatment Minutes: 5 Skilled Treatment Time Minutes (timed and untimed codes): 40 Total Session Time (minutes): 40 Session Start Time : 1050 Session Stop Time : 1130 Roque Kidd PT [facility] 11-02-2022 History of Presen t illness Narrative Episode Visit Count: 2 Therapist That Will Accept/Oversee The Plan Of Care: Roque Kidd Start of Care Date: 10/26/22 Onset Date: 08/25/22 Plan of Care Certification Date: 10/26/22 Next Certification Due Date: 11/30/22 Patient Identified by Name and Date of : Yes REHABILITATION AND SPORTS THERAPY PHYSICAL THERAPY TREATMENT NOTE ASSESSMENT: Maykel Morales tolerated the session with no issues. He demonstrated improvements in thoracic mobility into extension after mobility exercises were performed. The patient will continue to benefit from ongoing skilled physical therapy to progress toward set goals. PLAN FOR NEXT VISIT: Thoracic mobility exercises. Neck retractions. SUBJECTIVE: Had some pain around the back of the neck when he was out walking but not at cardiac rehab. Pain: OBJECTIVE MEASURES WITH LEVEL OF FUNCTION: Lumbar Spine AROM Lumbar Flexion: Normal Lumbar Extension: Moderate limitation, Increased pain Lumbar R Side-Bend: Increased pain Lumbar L Side-Bend: Increased pain Lumbar R Rotation: End range pain Lumbar L Rotation: End range pain UE AROM R UE AROM: WNL L UE AROM: WNL [place] achieved in the thoracic spine during towel ext exercise TREATMENT: Therapeutic Exercise: 1: SKTC x 10 2: DKTC x 5 3: Thoracic ext over back of chair x 10 (Painful in LB so not given for home) 4: Hooklying ext over towel roll x 10 at mid thoracic spine 5: Child's pose with SB to stretch for lats 3 x 30 sec each side Skilled Intervention: Patient was educated in proper exercise technique and purpose for exercises. Provided written instruction for home exercise program to facilitate proper performance and compliance. Correct performance of therapeutic exercises was facilitated with verbal and visual cuing. Billing Therapeutic Exercise Treatment Minutes: 35 Manual TherapyTreatment Minutes: 5 Skilled Treatment Time Minutes (timed and untimed codes): 40 Total Session Time (minutes): 40 Session Start Time : 1050 Session Stop Time : 1130 Roque Kidd PT documented in this encounter [facility] 10-26-2022 Miscellaneous Notes ----- Message from Roque Kidd PT sent at 10/26/2022 10:23 AM EDT ----- Regarding: PT Order Darius Zarco, Would you be willing to place another order into the system for physical therapy services for Alexandr? I have just evaluated him today. Hoping that therapy can give him some relief. Thank you. Respectfully, Roque documented in this encounter [facility] documented as of this encounter (statuses as of 03/21/2023) [facility]09-14-2023 History of Past illness Narrative* Problem Noted Date Diagnosed Date Resolved Date Neck pain 10/26/2022 03/21/2023 Adverse effect of drug 09/14/2022 09/14/202203/21 Unstable angina pectoris 08/30/2022 09/14/202208/2023 Carotid bruit 07/27/2022 09/14/2022 03/21/2023 Chest pain 07/27/2022 09/14/2022 03/21/2023 Myocardial infarction 07/27/2022 09/14/20222023 Dyspnea on exertion 12/02/2020 02/16/19 23 Elevated blood pressure reading 09/09/2016 03/21/2023 Overview: Updating deleted diagnoses Last Assessment & Plan: Patient instructed to follow up with PCP. No signs of lightheadedness or dizziness. Updating deleted diagnoses Rib fractures 2015 03/21/2023 Overview: Last Assessment & Plan: Pain control. Incentive spirometer with meals and at bedtime. He may use OTC SalonPas for additional pain relief as needed. Patient may return to work as discussed on 01.09.16. He is to let pain be his guide as far as activity. No further follow up needed in the trauma office, however, if he continues with pain 4-6 weeks out, if his pain worsens or he becomes short of breath, he is to call the trauma office or go to the ED in [place]. Pneumothorax 12/07/2015 03/21/2023 Overview: s/p fall Last Assessment & Plan: Reviewed CXR from [facility]. No sign of PTX. s/p fall Diarrhea 01/02/2006 02/23/2014 documented as of this encounter (statuses as of 03/30/2023) [facility]09-[facility]2023 History of Past illness Narrative* Problem Noted Date Diagnosed Date Resolved Date Neck pain 10/26/2022 03/21/2023 Adverse effect of drug 09/14/2022 09/14/202203/21 Unstable angina pectoris 08/30/2022 09/14/202208/2023 Carotid bruit 07/27/2022 09/14/2022 03/21/2023 Chest pain 07/27/2022 09/14/2022 03/21/2023 Myocardial infarction 07/27/2022 09/14/20222023 Dyspnea on exertion 12/02/2020 02/16/19 23 Elevated blood pressure reading 09/09/2016 03/21/2023 Overview: Updating deleted diagnoses Last Assessment & Plan: Patient instructed to follow up with PCP. No signs of lightheadedness or dizziness. Updating deleted diagnoses Rib fractures 2015 03/21/2023 Overview: Last Assessment & Plan: Pain control. Incentive spirometer with meals and at bedtime. He may use OTC SalonPas for additional pain relief as needed. Patient may return to work as discussed on 01.09.16. He is to let pain be his guide as far as activity. No further follow up needed in the trauma office, however, if he continues with pain 4-6 weeks out, if his pain worsens or he becomes short of breath, he is to call the trauma office or go to the ED in [place]. Pneumothorax 12/07/2015 03/21/2023 Overview: s/p fall Last Assessment & Plan: Reviewed CXR from [facility]. No sign of PTX. s/p fall Diarrhea 01/02/2006 02/23/2014 documented as of this encounter (statuses as of 04/05/2023) [facility]09-14-2023 History of Past illness Narrative* Problem Noted Date Diagnosed Date Resolved Date Neck pain 10/26/2022 03/21/2023 Adverse effect of drug 09/14/2022 09/14/202203/21 Unstable angina pectoris 08/30/2022 09/14/202208/2023 Carotid bruit 07/27/2022 09/14/2022 03/21/2023 Chest pain 07/27/2022 09/14/2022 03/21/2023 Myocardial infarction 07/27/2022 09/14/20222023 Dyspnea on exertion 12/02/2020 02/16/19 Elevated blood pressure reading 09/09/2016 03/21/2023 Overview: Updating deleted diagnoses Last Assessment & Plan: Patient instructed to follow up with PCP. No signs of lightheadedness or dizziness. Updating deleted diagnoses Rib fractures 2015 03/21/2023 Overview: Last Assessment & Plan: Pain control. Incentive spirometer with meals and at bedtime. He may use OTC SalonPas for additional pain relief as needed. Patient may return to work as discussed on 01.09.16. He is to let pain be his guide as far as activity. No further follow up needed in the trauma office, however, if he continues with pain 4-6 weeks out, if his pain worsens or he becomes short of breath, he is to call the trauma office or go to the ED in [place]. Pneumothorax 12/07/2015 03/21/2023 Overview: s/p fall Last Assessment & Plan: Reviewed CXR from [facility]. No sign of PTX. s/p fall Diarrhea 01/02/2006 02/23/2014 documented as of this encounter (statuses as of 04/06/2023) [place] [id number] NoteHNO ID: [id number] Author: Roque Kidd, PT Service: ? Author Type: Physical Therapist Type: Progress Notes Filed: 10/26/2022 10:25 AM Note Text: Episode Visit Count: 1 Therapist That Will Accept/Oversee The Plan Of Care: Roque Kidd Start of Care Date: 10/26/22 Onset Date: 08/25/22 Plan of Care Certification Date: 10/26/22 Next Certification Due Date: 11/30/22 Patient Identified by Name and Date of : Yes REHABILITATION AND SPORTS THERAPY PHYSICAL THERAPY EVALUATION PLAN OF CARE: Assessment: Maykel Morales presents with chief complaint of Neck and LBP that interferes with (dishes, transfers (due to an issue with BP)) . He presents with impairments in independence in exercise, range of motion, and symptom management. PROMIS? (Patient-Reported Outcomes Measurement Information System) scores were reviewed and physical function domain identified as a rehabilitation concern. Prognosis for therapy is Fair due to: clinical presentation . Trigger points palpated in the lumbar paraspinals bilaterally. Difficult to determine source of pain during this evaluation. Pt does demonstrate hypomobility in the lumbar and upper cervical spine which may improve with a mobility program. He will benefit from skilled therapy services to meet the goals established for this plan of care as noted below. Classification Low Back Pain Subgroup Classification: Spinal mobilization subgroup: recommended visits 6. Spinal Mobilization Subgroup Classification based on: ROM loss, endrange pain Goals for Episode of Care: created on 10/26/22 through 12/07/22 [place] in home exercise program. Perform doing dishes and chores without pain. Increase ROM of cervical spine to WNL for improved cervical mechanics with ADL's Patient Goals: Get rid of the pain Planned Interventions, Frequency, and Duration: Current Frequency: 1x/week Duration: 4 weeks Total Number of Visits Planned: 4 Planned Treatment Interventions: Therapeutic exercise (45907), Neuromuscular re-education (63595), Manual therapy (03355), Self-fpc management (00387), Patient/Family/Caregiver Education PLAN FOR NEXT VISIT: Stretch QL bilat in deshawn pose. Mobility exercises for the back. Patient demonstrates good understanding of plan of care and treatment. The above goals and plan of care were discussed and agreed upon by patient/family. SUBJECTIVE: Neck Pain. Trouble with BP. Pain up the back of the neck. Not sure if it goes hand in hand with the BP changes. Getting a little better since it started. Had BP taken yesterday and at home it runs around 110 systolic. Sits down and relaxes when the neck pain comes and it goes away after a few minutes. No N/T or burning. Patient Goals: Get rid of the pain Functional Limitations: (dishes, transfers (due to an issue with BP)) Prior Level of Function: Independent without limitations Intake Information: Prescription present Previous Treatment: None Pain: Pain Pain Level: 0 (Not rated when painful) Pain Location: Neck Description: Aching PROMIS Scales Higher is Better 10/24/2022 07/30/2022 Phys Func - Score 42 (mild dysfunction) 42 (mild dysfunction) Phys Func - Percentile 21 % 21 % Self-Eff Symptom - Score 44 (Average) 41 (Average) Self-Eff Symptom - Percentile 27 % 18 % T-scores: mean of general population = 50. 5 points is clinically meaningfully difference Percentiles provide an indication of how the patient's score ranks in relation to the general population. Higher percentile rankings indicate better function/quality of life. 50th percentile is the average of the general population and indicates half of respondents had a worse score. OBJECTIVE MEASURES WITH LEVEL OF FUNCTION: Posture / Alignment Sitting Posture: Decreased lumbar lordosis, Slump (Forward head) Lumbar Spine AROM Lumbar Flexion: Normal Lumbar Extension: Moderate limitation, Increased pain Cervical Spine ROM Cervical ROM : Limitation AROM Cervical Flexion AROM: Normal Cervical Extension AROM: Increased pain, Minimal limitation (Not familiar pain) Cervical Side-Bend Right AROM: Minimal limitation Cervical Side-Bend Left AROM: Minimal limitation Cervical Rotation Right AROM: Minimal limitation Cervical Rotation Left AROM: Normal Upper Cervical AROM: Limited R rotation UE AROM R UE AROM: WNL L UE AROM: WNL UE and Cervical Strength R UE Strength: Grossly 5/5 (Bicep not tested due to santosh deformity) L UE Strength: Grossly 5/5 Special Tests - Cervical Cervical Special Tests: Flexion-Rotation Test Flexion-Rotation Test: Left Negative, Left Positive Education: Education Learning Preferences: Demonstration, Explanation, Performance, Printed Materials Barriers: None Learning/educational needs: Home exercise program, Plan of Care Education Provided: Yes, see treatment interventions for education provided Education Provided To: Patient Education (more content not included)...[place] [id number] NoteHNO ID: [id number] Author: Keena Willson PA-C Service: ? Author Type: Physician Slicing Machine Tender Type: Progress Notes Filed: 10/25/2022 3:41 PM Note Text: Neurology Outpatient Clinic Date: October 25, 2022 Patient Name: Maykel Morales Referring provider: Anurag Gallo CNP [address] [facility] [address] Consult requested for dysautonomia by Anurag Gallo CNP. Recommendations will be communicated via shared medical record or US mail. Primary physician: Vijay Zarco [address] [place] [address] Reason for Evaluation: dysautonomia Subjective HPI Maykel Morales is a 71 year old male with history of CAD SP stent placement, IA, COPD, angina pectoris, vertigo, CKD stage 3, thrombocytopenia, carotid stenosis who presents for evaluation of positional lightheadedness. Anurag Gallo CNP is the referring provider. Dr. Vijay Zarco MD is the PCP. Chart review: Saw PCP 10/18/22- continued issues with low BP and neck pain. Patient follows with cardiology who has told him that his BP is not cardiac related. Starting PT soon as patient had to wait to start PT for neck following his recent heart attack. Per PCP 09/14/22 continued issues with low BP and neck pain. Patient follows with cardiology who has told him that his BP is not cardiac related. Starting PT soon as patient had to wait to start PT for neck following his recent heart attack Patient presents for evaluation of lightheadedness. Patient notes that for years he has experienced positional lightheadedness but notes that it is worsening over the last year. Recent IA status post stent placement currently on Brilinta, cardiology feels this is noncardiac issue and referred for further work-up of patient's lightheadedness. Patient notes that his symptoms occur only with position change, primarily from sitting to standing and not very often with lying to sitting. Do not occur at rest or with sitting. Do seem to worsen the longer he is up and moving, specifically worse with exertion. When this occurs she does get pain across the shoulders and the back of the neck and has vision changes. States that he describes his eyes darkening with the light in the center. No tunnel vision. Does take his blood pressure at home and states that he gets as low as 70 systolic when this occurs. Notes that today he is feeling better, went to cardiac rehab this morning. Notes that his symptoms seem to worsen towards the end of the day. States that after dinner around 5:00 at night he will sit on the couch and watch TV for hours at a time, when he goes to get up he will feel significantly lightheaded. Does not eat large meals, but does not move or change positions throughout the evening.. Does note that if he sits down his symptoms will resolve completely within a matter of seconds to minutes. Mostly drinks 2-3 bottles of water a day, no salt increase. No diet restrictions, no paresthesias to the lower extremities, no history of diabetes, chemotherapy use, supplements, diet restrictions. Denies any episodes of syncope, denies any headaches. Denies any smoking history. Has worn compression socks without much improvement. Notes he does have history of varicose veins but they will not operate as it is a cosmetic issue. Labs/Imaging US carotids Medications: Current Outpatient Medications Medication Sig Dispense Refill atorvastatin (LIPITOR) 40 mg tablet Take 1 tablet by mouth once daily. 90 tablet 1 ticagrelor (BRILINTA) 90 mg tablet Take 1 tablet by mouth twice daily. 180 tablet 1 tiotropium-olodaterol (STIOLTO RESPIMAT) 2.5-2.5 mcg/actuation Inhale 2 Puffs as instructed once daily. 1 Each 11 Aspirin 81 mg Tab Take 1 tablet by mouth once daily. Take with food. 30 tablet 11 No current facility-administered medications for this visit. ROS ROS: His ROS was positive for that mentioned in the HPI. Otherwise a 10-point ROS was completed and was negative. ALLERGIES Allergen Reactions Amoxil [Amoxicillin] Rash Generalized body rash- drug reaction Does well with omnicef Sulfa (Sulfonamide * Past Medical History: PAST MEDICAL HISTORY Diagnosis Date BPH associated with nocturia CAD (coronary artery disease) S/p stent COPD (chronic obstructive pulmonary disease) (HCC) 02/22/2021 Unspecified type. Non-smoker. 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 Diarrhea Elevated prostate specific antigen (PSA) Heart attack (HCC) 07/25/2022 Internal hemorrhoids without mention of complication Renal cyst Shingles Family History: FAMILY HISTORY Problem Relation Age of Onset Diabetes Mother Heart Attack Father 48 Also includes: . Social History: Social History Tobacco Use Smoking status: Never Smokeless tobacco: Never Vaping Use Vaping Use: Never used Substance Use Topics Alcohol use: No Drug use: (more content not included)...[facility]09-06-2023 NoteHNO ID: [id number] Author: Anurag Gallo APRN.[facility] Service: ? Author Type: Nurse Practitioner Type: Progress Notes Filed: 10/18/2022 11:25 AM Note Text: Chief Complaint Patient presents with: Neck Pain Blood Pressure HPI Maykel Morales is a 71 year old male who presents here today for Above Complaints.. Patient presents for continued issues with low BP and neck pain. Patient follows with cardiology who has told him that his BP is not cardiac related. Starting PT soon as patient had to wait to start PT for neck following his recent heart attack. Patient reports he completed cardiac rehab. Past medical history, appointments, medications, allergies reviewed. Previous Medical History PAST MEDICAL HISTORY Diagnosis Date BPH associated with nocturia CAD (coronary artery disease) S/p stent COPD (chronic obstructive pulmonary disease) ([facility]) 02/22/2021 Unspecified type. Non-smoker. 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 Diarrhea Elevated prostate specific antigen (PSA) Heart attack ([facility]) 07/25/2022 Internal hemorrhoids without mention of complication Renal cyst Shingles Previous Surgical History PAST SURGICAL HISTORY Procedure Laterality Date ARTHROSCOPY KNEE DIAGNOSTIC W/WO SYNOVIAL BX SPX 2002 Arthroscopy, knee COLONOSCOPY FLX DX W/COLLJ SPEC WHEN PFRMD 07/17/2017 Colonoscopy COLONOSCOPY W/BIOPSY SINGLE/MULTIPLE 01/02/2006 PAST SURGICAL HISTORY OF 01/09/[address] Dwyer PAST SURGICAL HISTORY OF 07/25/2022 Stent in heart RPR,HIATAL HERNIA; W/MESH; THORACOABDOM 2018 Family History FAMILY HISTORY Problem Relation Age of Onset Diabetes Mother Heart Attack Father 48 Patient Allergies ALLERGIES Allergen Reactions Amoxil [Amoxicillin] Rash Generalized body rash- drug reaction Does well with omnicef Sulfa (Sulfonamide * Current Medications Current Outpatient Medications on File Prior to Visit Medication Sig atorvastatin (LIPITOR) 40 mg tablet Take 1 tablet by mouth once daily. ticagrelor (BRILINTA) 90 mg tablet Take 1 tablet by mouth twice daily. tiotropium-olodaterol (STIOLTO RESPIMAT) 2.5-2.5 mcg/actuation Inhale 2 Puffs as instructed once daily. Aspirin 81 mg Tab Take 1 tablet by mouth once daily. Take with food. No current facility-administered medications on file prior to visit. Social History Social History Tobacco Use Smoking status: Never Smokeless tobacco: Never Vaping Use Vaping Use: Never used Substance Use Topics Alcohol use: No Drug use: Never Review of Symptoms REVIEW OF SYSTEMS SEE HPI EXAM: BP 114/60 Pulse 84 Resp 16 Wt 83.9 kg (185 lb) BMI 26.42 kg/m? General Appearance: Well appearing, alert, in no acute distress, well-hydrated, well nourished.. Neck: Supple, no adenopathy; thyroid symmetric, normal size, no bruits. Heart: RRR without murmur, gallop, or rubs. No ectopy. Neurologic: Gait normal. Reflexes normal and symmetric. Sensation grossly intact.. Health Maintenance List PNEUMOCOCCAL: 65+(1 - PCV) Never done SHINGRIX VACCINE(1 of 2) Never done COVID-19 VACCINE(3 - Pfizer series) due on 02/03/2021 ADVANCE DIRECTIVE DISCUSSION Never done INFLUENZA(1) due on 10/13/2022 LDL CHOLESTEROL due on 09/09/2023 SERUM CREATININE due on 09/09/2023 HEMOGLOBIN/HEMATOCRIT due on 09/09/2023 ANNUAL PCP TEAM CHRONIC DISEASE VISIT due on 09/15/2023 BP CONTROLLED (<130/80) due on 09/20/2023 DIABETES SCREEN due on 09/08/2025 DTAP,TDAP,TD(3 - Td or Tdap) due on 04/15/2026 COLORECTAL CANCER SCREENING due on 07/18/2027 LIPID SCREEN due on 09/09/2027 ALPHA-1 ANTITRYPSIN DEFICIENCY SCREENING Completed SPIROMETRY Completed DEPRESSION ASSESSMENT Completed HEPATITIS C SCREENING Completed ASSESSMENT/PLAN: 1. Orthostatic hypotension - ICD9: 458.0, ICD10: I95.1 - CONSULT TO NEUROLOGY [facility]ag Gallo APRN.[facility] History of Present illness Narrative* Anurag Gallo APRN.JAIME - 10/18/2022 11:16 AM EDT Chief Complaint Patient presents with: Neck Pain Blood Pressure HPI Maykel Morales is a 71 year old male who presents here today for Above Complaints.. Patient presents for continued issues with low BP and neck pain. Patient follows with cardiology who has told him that his BP is not cardiac related. Starting PT soon as patient had to wait to start PT for neck following his recent heart attack. Patient reports he completed cardiac rehab. Past medical history, appointments, medications, allergies reviewed. Previous Medical History PAST MEDICAL HISTORY Diagnosis Date BPH associated with nocturia CAD (coronary artery disease) S/p stent COPD (chronic obstructive pulmonary disease) ([facility]) 02/22/2021 Unspecified type. Non-smoker. 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 Diarrhea Elevated prostate specific antigen (PSA) Heart attack ([facility]) 07/25/2022 Internal hemorrhoids without mention of complication Renal cyst Shingles Previous Surgical History PAST SURGICAL HISTORY Procedure Laterality Date ARTHROSCOPY KNEE DIAGNOSTIC W/WO SYNOVIAL BX SPX 2002 Arthroscopy, knee COLONOSCOPY FLX DX W/COLLJ SPEC WHEN PFRMD 07/17/2017 Colonoscopy COLONOSCOPY W/BIOPSY SINGLE/MULTIPLE 01/02/2006 PAST SURGICAL HISTORY OF 01/09/[address] Dwyer PAST SURGICAL HISTORY OF 07/25/2022 Stent in heart RPR,HIATAL HERNIA; W/MESH; THORACOABDOM 2017 Family History FAMILY HISTORY Problem Relation Age of Onset Diabetes Mother Heart Attack Father 48 Patient Allergies ALLERGIES Allergen Reactions Amoxil [Amoxicillin] Rash Generalized body rash- drug reaction Does well with omnicef Sulfa (Sulfonamide * Current Medications Current Outpatient Medications on File Prior to Visit Medication Sig atorvastatin (LIPITOR) 40 mg tablet Take 1 tablet by mouth once daily. ticagrelor (BRILINTA) 90 mg tablet Take 1 tablet by mouth twice daily. tiotropium-olodaterol (STIOLTO RESPIMAT) 2.5-2.5 mcg/actuation Inhale 2 Puffs as instructed once daily. Aspirin 81 mg Tab Take 1 tablet by mouth once daily. Take with food. No current facility-administered medications on file prior to visit. Social History Social History Tobacco Use Smoking status: Never Smokeless tobacco: Never Vaping Use Vaping Use: Never used Substance Use Topics Alcohol use: No Drug use: Never Review of Symptoms REVIEW OF SYSTEMS SEE HPI EXAM: BP 114/60 Pulse 84 Resp 16 Wt 83.9 kg (185 lb) BMI 26.42 kg/m General Appearance: Well appearing, alert, in no acute distress, well-hydrated, well nourished.. Neck: Supple, no adenopathy; thyroid symmetric, normal size, no bruits. Heart: RRR without murmur, gallop, or rubs. No ectopy. Neurologic: Gait normal. Reflexes normal and symmetric. Sensation grossly intact.. Health Maintenance List PNEUMOCOCCAL: 65+(1 - PCV) Never done SHINGRIX VACCINE(1 of 2) Never done COVID-19 VACCINE(3 - Pfizer series) due on 02/03/2021 ADVANCE DIRECTIVE DISCUSSION Never done INFLUENZA(1) due on 10/13/2022 LDL CHOLESTEROL due on 09/09/2023 SERUM CREATININE due on 09/09/2023 HEMOGLOBIN/HEMATOCRIT due on 09/09/2023 ANNUAL PCP TEAM CHRONIC DISEASE VISIT due on 09/15/2023 BP CONTROLLED (<130/80) due on 09/20/2023 DIABETES SCREEN due on 09/08/2025 DTAP,TDAP,TD(3 - Td or Tdap) due on 04/15/2026 COLORECTAL CANCER SCREENING due on 07/18/2027 LIPID SCREEN due on 09/09/2027 ALPHA-1 ANTITRYPSIN DEFICIENCY SCREENING Completed SPIROMETRY Completed DEPRESSION ASSESSMENT Completed HEPATITIS C SCREENING Completed ASSESSMENT/PLAN: 1. Orthostatic hypotension - ICD9: 458.0, ICD10: I95.1 - CONSULT TO NEUROLOGY Anurag Gallo APRN.HUC documented in this encounter[facility] NoteHNO ID: [id number] Author: Anneliese Mujica MD Service: ? Author Type: Physician Type: Progress Notes Filed: 09/19/2022 4:45 PM Note Text: . Respiratory Hiller Note Patient name: Maykel Morales PCP: Vijay Zarco MD CC: Follow-up COPD HPI: Maykel Morales 71 year old male never smoker with PMH significant for CAD s/p IA, asthma COPD, significant occupational exposure history, CKD, h/o sarcoidosis ( 40 years ago, status post lung biopsy, treated with steroids for 1 year) former patient of Dr. Olbrych, new to me. Previously non-compliant with prescribed inhaled therapy, declining further PFT evaluation since dyspnea on exertion not relieved with therapy. He had a small IA in July requiring placement of a stent and is currently on Brilinta. Shortness of breath with exertion has improved since his heart stent. He is back to using his Stiolto Respimat at the insistence of his primary care physician. He denies any cough or wheezing. Brilinta can cause increased shortness of breath but patient actually feels better since his intervention. Pulmonary function test today show small airways obstruction and normal FVC. Previous pulmonary function test showed moderate obstruction. I reviewed images of his chest CT from [facility] which shows multiple bilateral cysts, some emphysema and peripheral reticular markings, progressed since last chest imaging. He denies any autoimmune symptoms, i.e. skin rashes, significant joint pain or swelling, dry eyes or mouth, visual changes. DATA: PFT: Review of pulmonary function test show small airways obstruction and normal diffusion PFT 04/2021: Review of pulmonary function test show moderate obstruction Labs: Component Ref Range AND Units 9 d ago (09/08/22) Protein, Total 6.3 - 8.0 g/dL 7.2 Albumin 3.9 - 4.9 g/dL 4.2 Calcium, Total 8.5 - 10.2 mg/dL 9.6 Bilirubin, Total 0.2 - 1.3 mg/dL 1.0 Alkaline Phosphatase 38 - 113 U/L 98 AST 14 - 40 U/L 27 ALT 10 - 54 U/L 26 Glucose 74 - 99 mg/dL 97 BUN 9 - 24 mg/dL 17 Creatinine 0.73 - 1.22 mg/dL 1.41 High Sodium 136 - 144 mmol/L 140 Potassium 3.7 - 5.1 mmol/L 4.6 Chloride 97 - 105 mmol/L 101 CO2 22 - 30 mmol/L 27 Anion Gap 9 - 18 mmol/L 12 Estimated Glomerular Filtration Rate >=60 mL/min/1.73m? 54 Low Component Ref Range AND Units 9 d ago (09/08/22) WBC 3.70 - 11.00 k/uL 5.34 RBC 4.20 - 6.00 m/uL 4.60 Hemoglobin 13.0 - 17.0 g/dL 14.7 Hematocrit 39.0 - 51.0 % 43.5 MCV 80.0 - 100.0 fL 94.6 MCH 26.0 - 34.0 pg 32.0 MCHC 30.5 - 36.0 g/dL 33.8 RDW-CV 11.5 - 15.0 % 13.1 Platelet Count 150 - 400 k/uL 146 Low MPV 9.0 - 12.7 fL 10.0 Absolute nRBC <0.01 k/uL <0.01 Imaging / Diagnostic Studies: CTA CHEST 07/2022 [facility]: PAST MEDICAL HISTORY Diagnosis Date BPH associated with nocturia CAD (coronary artery disease) S/p stent COPD (chronic obstructive pulmonary disease) ([facility]) 02/22/2021 Unspecified type. Non-smoker. 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 Diarrhea Elevated prostate specific antigen (PSA) Heart attack ([facility]) 07/25/2022 Internal hemorrhoids without mention of complication Renal cyst Shingles ALLERGIES Allergen Reactions Amoxil [Amoxicillin] Rash Generalized body rash- drug reaction Does well with omnicef Sulfa (Sulfonamide * atorvastatin (LIPITOR) 40 mg tablet Take 1 tablet by mouth once daily. ticagrelor (BRILINTA) 90 mg tablet Take 1 tablet by mouth twice daily. tiotropium-olodaterol (STIOLTO RESPIMAT) 2.5-2.5 mcg/actuation Inhale 2 Puffs as instructed once daily. Aspirin 81 mg Tab Take 1 tablet by mouth once daily. Take with food. Social History Tobacco Use Smoking status: Never Smokeless tobacco: Never Vaping Use Vaping Use: Never used Substance Use Topics Alcohol use: No Drug use: Never FAMILY HISTORY Problem Relation Age of Onset Diabetes Mother Heart Attack Father 48 PAST SURGICAL HISTORY Procedure Laterality Date ARTHROSCOPY KNEE DIAGNOSTIC W/WO SYNOVIAL BX SPX 2002 Arthroscopy, knee COLONOSCOPY FLX DX W/COLLJ SPEC WHEN PFRMD 07/17/2017 Colonoscopy COLONOSCOPY W/BIOPSY SINGLE/MULTIPLE 01/02/2006 PAST SURGICAL HISTORY OF 01/09/[address] Dwyer PAST SURGICAL HISTORY OF 07/25/2022 Stent in heart RPR,HIATAL HERNIA; W/MESH; THORACOABDOM 2017 PMH, Social history, family history and surgical history reviewed and updated. REVIEW OF SYSTEMS: CONSTITUTIONAL: No fevers, chills, nightsweats, unintended weight loss HEENT: Denies frequent or severe heaches, nasal congestion/sinus symptoms, problematic allergy problems. EYES: No diplopia or blurry vision. CARDIOVASCULAR: No chest pain, dyspnea, palpitations, orthopnea, PND, ankle edema. PULM: No dyspnea, unexplained cough. GI: No dysphagia/odynophagia, problematic reflux, constipation, diarrhea, christensen (more content not included)...[facility]08-08-2023 NoteHNO ID: [id number] Author: Patricia Steele RPFT Service: ? Author Type: Respiratory Therapist Type: Progress Notes Filed: 09/19/2022 11:19 AM Note Text: PULM FUNCTION SMARTBLOCK: Provider: Anneliese Mujica MD Assisting Tech: Patricia Steele RPFT Spirometry: 1 [facility] History of Present illness Narrative * Anneliese Mujica MD - 09/19/2022 12:45 PM EDT Images from the original note were not included. . Respiratory Hiller Note Patient name: Maykel Morales PCP: Vijay Zarco MD CC: Follow-up COPD HPI: Maykel Morales 71 year old male never smoker with PMH significant for CAD s/p IA, asthma COPD, significant occupational exposure history, CKD, h/o sarcoidosis ( 40 years ago, status post lung biopsy, treated with steroids for 1 year) former patient of Dr. Clayton, new to me. Previously non-compliant with prescribed inhaled therapy, declining further PFT evaluation since dyspnea on exertion not relieved with therapy. He had a small IA in July requiring placement of a stent and is currently on Brilinta. Shortness of breath with exertion has improved since his heart stent. He is back tousing his Stiolto Respimat at the insistence of his primary care physician. He denies any cough or wheezing. Brilinta can cause increased shortness of breath but patient actually feels better since his intervention. Pulmonary function test today show small airways obstruction and normal FVC. Previous pulmonary function test showed moderate obstruction. I reviewed images of his chest CT from [facility] which shows multiple bilateral cysts, some emphysema and peripheral reticular markings, progressed since last chest imaging. He denies any autoimmune symptoms, i.e. skin rashes, significant joint pain or swelling, dry eyes or mouth, visual changes. DATA: PFT: Review of pulmonary function test show small airways obstruction and normal diffusion PFT 04/2021: Review of pulmonary function test show moderate obstruction Labs: Component Ref Range & Units 9 d ago (09/08/22) Protein, Total 6.3 - 8.0 g/dL 7.2 Albumin 3.9 - 4.9 g/dL 4.2 Calcium, Total 8.5 - 10.2 mg/dL 9.6 Bilirubin, Total 0.2 - 1.3 mg/dL 1.0 Alkaline Phosphatase 38 - 113 U/L 98 AST 14 - 40 U/L 27 ALT 10 - 54 U/L 26 Glucose 74 - 99 mg/dL 97 BUN 9 - 24 mg/dL 17 Creatinine 0.73 - 1.22 mg/dL 1.41 High Sodium 136 - 144 mmol/L 140 Potassium 3.7 - 5.1 mmol/L 4.6 Chloride 97 - 105 mmol/L 101 CO2 22 - 30 mmol/L 27 Anion Gap 9 - 18 mmol/L 12 Estimated Glomerular Filtration Rate >=60 mL/min/1.73m 54 Low Component Ref Range & Units 9 d ago (09/08/22) WBC 3.70 - 11.00 k/uL 5.34 RBC 4.20 - 6.00 m/uL 4.60 Hemoglobin 13.0 - 17.0 g/dL 14.7 Hematocrit 39.0 - 51.0 % 43.5 MCV 80.0 - 100.0 fL 94.6 MCH 26.0 - 34.0 pg 32.0 MCHC 30.5 - 36.0 g/dL 33.8 RDW-CV 11.5 - 15.0 % 13.1 Platelet Count 150 - 400 k/uL 146 Low MPV 9.0 - 12.7 fL 10.0 Absolute nRBC <0.01 k/uL <0.01 Imaging / Diagnostic Studies: CTA CHEST 07/2022 [facility]: PAST MEDICAL HISTORY Diagnosis Date BPH associated with nocturia CAD (coronary artery disease) S/p stent COPD (chronic obstructive pulmonary disease) (HCC) 02/22/2021 Unspecified type. Non-smoker. 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 Diarrhea Elevated prostate specific antigen (PSA) Heart attack (HCC) 07/25/2022 Internal hemorrhoids without mention of complication Renal cyst Shingles ALLERGIES Allergen Reactions Amoxil [Amoxicillin] Rash Generalized body rash- drug reaction Does well with omnicef Sulfa (Sulfonamide * atorvastatin (LIPITOR) 40 mg tablet Take 1 tablet by mouth once daily. ticagrelor (BRILINTA) 90 mg tablet Take 1 tablet by mouth twice daily. tiotropium-olodaterol (STIOLTO RESPIMAT) 2.5-2.5 mcg/actuation Inhale 2 Puffs as instructed once daily. Aspirin 81 mg Tab Take 1 tablet by mouth once daily. Take with food. Social History Tobacco Use Smoking status: Never Smokeless tobacco: Never Vaping Use Vaping Use: Never used Substance Use Topics Alcohol use: No Drug use: Never FAMILY HISTORY Problem Relation Age of Onset Diabetes Mother Heart Attack Father 48 PAST SURGICAL HISTORY Procedure Laterality Date ARTHROSCOPY KNEE DIAGNOSTIC W/WO SYNOVIAL BX SPX 2002 Arthroscopy, knee COLONOSCOPY FLX DX W/COLLJ SPEC WHEN PFRMD 07/17/2017 Colonoscopy COLONOSCOPY W/BIOPSY SINGLE/MULTIPLE 01/02/2006 PAST SURGICAL HISTORY OF 01/09/[address] Dwyer PAST SURGICAL HISTORY OF 07/25/2022 Stent in heart RPR,HIATAL HERNIA; W/MESH; THORACOABDOM 2017 PMH, Social history, family history and surgical history reviewed and updated. REVIEW OF SYSTEMS: CONSTITUTIONAL: No fevers, chills, nightsweats, unintended weight loss HEENT: Denies frequent or severe heaches, nasal congestion/sinus symptoms, problematic allergy problems. EYES: No diplopia or blurry vision. CARDIOVASCULAR: No chest pain, dyspnea, palpitations, orthopnea, PND, ankle edema. PULM: No dyspnea, unexplained cough. GI: No dysphagia/odynophagia, problematic reflux, constipation, diarrhea, changes in stool habits, hematochezia, melena. : No new urinary complaints, including dysuria, gross hematuria or pyuria. NEURO: No new balance problems, peripheral weakness/paresthesias or numbness of concern. MUSC-SKEL: No new joint pain, swelling, or erythema. PSY: No concerns regarding depression, anxiety or panic. INTEGUMENTARY: No new skin changes (rash, new or changing mole, new growth) PHYSICAL EXAMINATION: BP 120/68 Pulse 77 Resp 14 Ht 5' 10.16 (1.78m) Wt 184 lb (83.5kg) SpO2 99% BMI 26.28 kg/(m^2). General Appearance: Age appropriate, NAD. Frequent throat clearing Skin: Skin color, texture, turgor normal, no suspicious rashes or lesions. Head: Normocephalic, no masses, lesions, tenderness or abnormalities. Eyes: Sclera,conjunctiva normal. Oropharynx: No oral lesions. Neck: No JVD, no masses, no TM. Lungs: Not labored, no wheezes or crackles. Heart: RRR, no murmur. Extremities: Compression stockings, no clubbing. No nail bed abnormalities Musculoskeletal: No joint deformities, no effusions or erythema. Neurologic: Alert and oriented, no focal findings. Lymph Nodes: No cervical lymphadenopathy and No supraclavicular lymphadenopathy. Assessment/Plan: ILD -Early fibrosis with peripheral reticular markings could be related to his past occupational exposure. Cannot exclude early IPF -Autoimmune serologies -Repeat CT chest in 6 months Mild COPD -Obstructive lung disease has improved per pulmonary function testing -Continue Stiolto Respimat Anneliese Mujica MD Respiratory Hiller documented in this encounterJoint [facility]08-[facility]-2023 Nurse Note* Yue Park LPN - 09/19/2022 12:43 PM EDT Intake information documented in the prior visit with MARCELA Sampson today. documented in this encounterJoint Township District [facility]08-08-2023 History of Present illness Narrative* Patricia Steele RPFT - 09/19/2022 11:18 AM EDT PULM FUNCTION SMARTBLOCK: Provider: Anneliese Mujica MD Assisting Tech: Patricia Steele RPFT Spirometry: 1 DLCO: 1 documented in this encounterJoint Township District [facility] Hospital08-03-2023 NoteHNO ID: [id number] Author: Vijay Zarco MD Service: ? Author Type: Physician Type: Progress Notes Filed: 09/14/2022 3:18 PM Note Text: Patient presents with: Follow Up HPI: Patient presents today for office visit for follow up. Still experiencing some lightheadedness. Getting better. More so in the evening. Happens if he stands up too fast. BP drops. Monitoring BP at home Is better since off of betablocker. Denies chest pain and shortness of breath Refers to a pinching sensation in his chest only with exertion. No headaches No palpitations No syncope No edema Is off flomax due to pressures as well. Urine Is slow but is tolerable. Seeing pulmonary soon. Was seen in [facility] on 08/22/22 for headache and lightheadedness. Orthostatic hypotensive. Taken off metoprolol. See previous: HOSPITAL/ER FOLLOW UP: Reason for visit: chest pain Which facility: [facility] Date of visit: 07/25/22 Discharge: 07/27/22 Diagnosis: NSTEMI, carotid bruit Testing done: 2D echo and cardiac cath-stent placed in the LAD for 90% stenosis, Echo showed EF of 60% Treatment given: started on ASA, Brilinta, metoprolol Current symptoms: still having some lightheaded dizzy spells comes and goes today is good yesterday was not good seems to happen with the tension in his neck as before the heart started Is taking blood pressure at home. [facility] is feeling well. No current chest pain. No shortness of breath that is new. No edema. Would like to resume physical therapy for his neck. Advised I would defer to cardiology until the ok since he just had an IA. Went to [facility] ER last week for dizziness. Did ct of the head and was negative. Told her had vertigo. No changes with moving head from side to side. Only when he gets up too quickly Sometimes can happen when his neck bothers him. Component Latest Ref Rng AND Units 09/08/2022 Protein, Total 6.3 - 8.0 g/dL 7.2 Albumin 3.9 - 4.9 g/dL 4.2 Calcium 8.5 - 10.2 mg/dL 9.6 Bilirubin, Total 0.2 - 1.3 mg/dL 1.0 Alkaline Phosphatase 38 - 113 U/L 98 AST 14 - 40 U/L 27 ALT 10 - 54 U/L 26 Glucose 74 - 99 mg/dL 97 BUN 9 - 24 mg/dL 17 Creatinine 0.73 - 1.22 mg/dL 1.41 (H) Sodium 136 - 144 mmol/L 140 Potassium 3.7 - 5.1 mmol/L 4.6 Chloride 97 - 105 mmol/L 101 CO2 22 - 30 mmol/L 27 Anion Gap 9 - 18 mmol/L 12 eGFR >=60 mL/min/1.73mA? 54 (L) WBC 3.70 - 11.00 k/uL 5.34 RBC 4.20 - 6.00 m/uL 4.60 Hemoglobin 13.0 - 17.0 g/dL 14.7 Hematocrit 39.0 - 51.0 % 43.5 MCV 80.0 - 100.0 fL 94.6 MCH 26.0 - 34.0 pg 32.0 MCHC 30.5 - 36.0 g/dL 33.8 RDW-CV 11.5 - 15.0 % 13.1 Platelet Count 150 - 400 k/uL 146 (L) MPV 9.0 - 12.7 fL 10.0 Absolute nRBC <0.01 k/uL <0.01 Cholesterol, Total <200 mg/dL 94 Triglyceride <150 mg/dL 127 HDL Cholesterol >39 mg/dL 38 (L) Non HDL Cholesterol <130 mg/dL 56 Fasting Time hrs 12 VLDL Cholesterol <30 mg/dL 25 TC:HDL Ratio <5.10 2.47 LDL Cholesterol <100 mg/dL 31 LDL:HDL Ratio <2.54 0.82 PSA <2.60 ng/mL 2.76 (H) MEDICATIONS: Current Outpatient Medications Medication Sig atorvastatin (LIPITOR) 40 mg tablet Take 1 tablet by mouth once daily. ticagrelor (BRILINTA) 90 mg tablet Take 1 tablet by mouth twice daily. tiotropium-olodaterol (STIOLTO RESPIMAT) 2.5-2.5 mcg/actuation Inhale 2 Puffs as instructed once daily. Aspirin 81 mg Tab Take 1 tablet by mouth once daily. Take with food. No current facility-administered medications for this visit. ALLERGIES: ALLERGIES Allergen Reactions Amoxil [Amoxicillin] Rash Generalized body rash- drug reaction Does well with omnicef Sulfa (Sulfonamide * PAST MEDICAL HISTORY Diagnosis Date BPH associated with nocturia COPD (chronic obstructive pulmonary disease) ([facility]) 02/22/2021 Unspecified type. Non-smoker. 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 Diarrhea Elevated prostate specific antigen (PSA) Heart attack (HCC) 07/25/2022 Internal hemorrhoids without mention of complication Renal cyst PAST SURGICAL HISTORY Procedure Laterality Date ARTHROSCOPY KNEE DIAGNOSTIC W/WO SYNOVIAL BX SPX 2002 Arthroscopy, knee COLONOSCOPY FLX DX W/COLLJ SPEC WHEN PFRMD 07/17/2017 Colonoscopy COLONOSCOPY W/BIOPSY SINGLE/MULTIPLE 01/02/2006 PAST SURGICAL HISTORY OF 01/09/[address] Dwyer PAST SURGICAL HISTORY OF 07/25/2022 Stent in heart RPR,HIATAL HERNIA; W/MESH; THORACOABDOM 2017 FAMILY HISTORY Problem Relation Age of Onset Diabetes Mother Heart Father Social History Tobacco Use Smoking status: Never Smokeless tobacco: Never Vaping Use Vaping Use: Never used Substance Use Topics Alcohol use: No Drug use: Never Reviewed current medications, allergies, past medical history, surgical history, family history and social history today. REVIEW OF SYSTEMS All other reviewed and negative other than HPI. VITALS: BP 126/70 Pulse 68 Ht 182.9 cm (6') Wt (more content not included)... [facility]08-[facility] History of Present illness Narrative* Vijay Zarco MD - 09/14/2022 2:40 PM EDT Patient presents with: Follow Up HPI: Patient presents today for office visit for follow up. Still experiencing some lightheadedness. Getting better. More so in the evening. Happens if he stands up too fast. BP drops. Monitoring BP at home Is better since off of betablocker. Denies chest pain and shortness of breath Refers to a pinching sensation in his chest only with exertion. No headaches No palpitations No syncope No edema Is off flomax due to pressures as well. Urine Is slow but is tolerable. Seeing pulmonary soon. Was seen in [facility] on 08/22/22 for headache and lightheadedness. Orthostatic hypotensive. Taken off metoprolol. See previous: HOSPITAL/ER FOLLOW UP: Reason for visit: chest pain Which facility: [facility] Date of visit: 07/25/22 Discharge: 07/27/22 Diagnosis: NSTEMI, carotid bruit Testing done: 2D echo and cardiac cath-stent placed in the LAD for 90% stenosis, Echo showed EF of 60% Treatment given: started on ASA, Brilinta, metoprolol Current symptoms: still having some lightheaded dizzy spells comes and goes today is good yesterdaywas not good seems to happen with the tension in his neck as before the heart started Is taking blood pressure at home. [facility] is feeling well. No current chest pain. No shortness of breath that is new. No edema. Would like to resume physical therapy for his neck. Advised I would defer to cardiology until the ok since he just had an IA. Went to [facility] ER last week for dizziness. Did ct of the head and was negative. Told her had vertigo. No changes with moving head from side to side. Only when he gets up too quickly Sometimes can happen when his neck bothers him. Component Latest Ref Rng & Units 09/08/2022 Protein, Total 6.3 - 8.0 g/dL 7.2 Albumin 3.9 - 4.9 g/dL 4.2 Calcium 8.5 - 10.2 mg/dL 9.6 Bilirubin, Total 0.2 - 1.3 mg/dL 1.0 Alkaline Phosphatase 38 - 113 U/L 98 AST 14 - 40 U/L 27 ALT 10 - 54 U/L 26 Glucose 74 - 99 mg/dL 97 BUN 9 - 24 mg/dL 17 Creatinine 0.73 - 1.22 mg/dL 1.41 (H) Sodium 136 - 144 mmol/L 140 Potassium 3.7 - 5.1 mmol/L 4.6 Chloride 97 - 105 mmol/L 101 CO2 22 - 30 mmol/L 27 Anion Gap 9 - 18 mmol/L 12 eGFR >=60 mL/min/1.73m 54 (L) WBC 3.70 - 11.00 k/uL 5.34 RBC 4.20 - 6.00 m/uL 4.60 Hemoglobin 13.0 - 17.0 g/dL 14.7 Hematocrit 39.0 - 51.0 % 43.5 MCV 80.0 - 100.0 fL 94.6 MCH 26.0 - 34.0 pg 32.0 MCHC 30.5 - 36.0 g/dL 33.8 RDW-CV 11.5 - 15.0 % 13.1 Platelet Count 150 - 400 k/uL 146 (L) MPV 9.0 - 12.7 fL 10.0 Absolute nRBC <0.01 k/uL <0.01 Cholesterol, Total <200 mg/dL 94 Triglyceride <150 mg/dL 127 HDL Cholesterol >39 mg/dL 38 (L) Non HDL Cholesterol <130 mg/dL 56 Fasting Time hrs 12 VLDL Cholesterol <30 mg/dL 25 TC:HDL Ratio <5.10 2.47 LDL Cholesterol <100 mg/dL 31 LDL:HDL Ratio <2.54 0.82 PSA <2.60 ng/mL 2.76 (H) MEDICATIONS: Current Outpatient Medications Medication Sig atorvastatin (LIPITOR) 40 mg tablet Take 1 tablet by mouth once daily. ticagrelor (BRILINTA) 90 mg tablet Take 1 tablet by mouth twice daily. tiotropium-olodaterol (STIOLTO RESPIMAT) 2.5-2.5 mcg/actuation Inhale 2 Puffs as instructed once daily. Aspirin 81 mg Tab Take 1 tablet by mouth once daily. Take with food. No current facility-administered medications for this visit. ALLERGIES: ALLERGIES Allergen Reactions Amoxil [Amoxicillin] Rash Generalized body rash- drug reaction Does well with omnicef Sulfa (Sulfonamide * PAST MEDICAL HISTORY Diagnosis Date BPH associated with nocturia COPD (chronic obstructive pulmonary disease) ([facility]) 02/22/2021 Unspecified type. Non-smoker. 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 Diarrhea Elevated prostate specific antigen (PSA) Heart attack (HCC) 07/25/2022 Internal hemorrhoids without mention of complication Renal cyst PAST SURGICAL HISTORY Procedure Laterality Date ARTHROSCOPY KNEE DIAGNOSTIC W/WO SYNOVIAL BX SPX 2002 Arthroscopy, knee COLONOSCOPY FLX DX W/COLLJ SPEC WHEN PFRMD 07/17/2017 Colonoscopy COLONOSCOPY W/BIOPSY SINGLE/MULTIPLE 01/02/2006 PAST SURGICAL HISTORY OF 01/09/[address] Dwyer PAST SURGICAL HISTORY OF 07/25/2022 Stent in heart RPR,HIATAL HERNIA; W/MESH; THORACOABDOM 2017 FAMILY HISTORY Problem Relation Age of Onset Diabetes Mother Heart Father Social History Tobacco Use Smoking status: Never Smokeless tobacco: Never Vaping Use Vaping Use: Never used Substance Use Topics Alcohol use: No Drug use: Never Reviewed current medications, allergies, past medical history, surgical history, family history andsocial history today. REVIEW OF SYSTEMS All other reviewed and negative other than HPI. VITALS: BP 126/70 Pulse 68 Ht 182.9 cm (6') Wt 85.4 kg (188 lb 3.2 oz) SpO2 97% BMI 25.52 kg/m Last 4 Encounter Wt Readings: Date: Wt: 08/11/2022 83.8 kg (184 lb 12.8 oz) 08/10/2022 83.5 kg (184 lb) 08/01/2022 84.4 kg (186 lb) 07/17/2022 85.7 kg (189 lb) PHYSICAL EXAMINATION: General appearance: Well appearing, [...] joint swelling, deformity, or tenderness ASSESSMENT/PLAN: 1. Coronary artery disease involving [place] coronary artery of [place] heart without angina pectoris- ICD9: 414.01, ICD10: I25.10 (primary diagnosis) - overall doing well. 2. Non-ST elevation myocardial infarction (NSTEMI) (HCC) - ICD9: 410.70, ICD10: I21.4 - doing cardiac rehab 3. Orthostatic hypotension - ICD9: 458.0, ICD10: I95.1 - better. 4. Stage 3 chronic kidney disease, unspecified whether stage 3a or 3b CKD (HCC) - ICD9: 585.3, ICD10: N18.30 - follow labs. - BASIC METABOLIC PNL 5. Elevated PSA - ICD9: 790.93, ICD10: R97.20 Will follow. 6. Chronic obstructive pulmonary disease, unspecified COPD type (HCC) - ICD9: 496, ICD10: J44.9 - sees pulmonary 7. Screening for prostate cancer - ICD9: V76.44, ICD10: Z12.5 - PSA/PROSTSPECAG SCRN 8. Bilateral carotid artery stenosis - ICD9: 433.10, 433.30, ICD10: I65.23 - recheck in one year. Vijay Zarco MD documented in this encounterJoint [facility]07-[facility]23 Miscellaneous Notes* Telephone Encounter - Dalia Galvan RN - 08/21/2022 7:43 PM EDT Spoke with patient. Given message from provider's office. Advised patient to go to ER. Patient verbalizes understanding. Dalia Galvan RN * Telephone Encounter - Vijay Zarco MD - 08/21/2022 7:35 PM EDT er * Telephone Encounter - Dalia Galvan RN - 08/21/2022 7:10 PM EDT Patient calling to ask if he should take his evening dose of Metoprolol. His blood pressure is low and he feels dizzy as if he could pass out. Unable to stand without feeling dizzy. Takes Metoprolol 25 mg 1/2 tablet in the evening only since ER visit on 08/07. Last dose was last evening. His lowestBP today was 78/52. He says he has only had two bottles of water and a half cup of coffee to drink today. Encouraged to drink more fluids. Advised not to take Metoprolol at this time. Disposition: ER now or PCP triage. Patient wants PCP recommendation. Dalia Galvan RN Reason for Disposition [1] Fall in systolic BP > 20 mm Hg from normal AND [2] dizzy, lightheaded, or weak Answer Assessment - Initial Assessment Questions 1. BLOOD PRESSURE: 81/55 HR 73 @ 0705 PM 2. ONSET: Has been running low all day Was 107/57 first BP in AM then it became low 94/61 Lowest today 78/52 3. HOW: Automatic home BP monitor 4. HISTORY: No history of low BP. 5. MEDICATIONS: Seen in [facility] on 08/07 for dizziness and Metoprolol was decreased. Takes Metoprolol 25 mg 1/2 tablet in the evening 6. PULSE RATE: HR-70's 7. OTHER SYMPTOMS: feels dizzy and feels like he might pass out. He last took Metoprolol last evening. Has had about two 16 ounce bottles of water to drink today and a half cup of coffee Protocols used: Blood Pressure - [id number] documented in this encounterJoint Township District Memorial Hospital07-10-2023 Miscellaneous Notes* Telephone Encounter - Shameka Chau LPN - 08/21/2022 6:56 PM EDT Significant other calling with regards to bp and dizziness. Significant other denies any new or worsening symptoms of which a provider is not aware:Yes conferenced with Bhargavi at pcp office for triage. Shameka Chau LPN documented in this encounterJoint Township District Memorial Hospital06-30-2023 NoteHNO ID: [id number] Author: Alisson Fong LPN Service: ? Author Type: ? Type: Progress Notes Filed: 08/11/2022 10:17 AM Note Text: Manual Readin/56/ Pulse: 66 Sitting Orthostatic BP Sitting 98/56 P 66 Supine 104/58 P 62 Standing 88/54 P 72 Reason for blood pressure check - Other [facility] ER Patient is: Taking medication as prescribed Yes Took medication today Yes If no, date medication last taken Metoprolol Tartrate Experiencing side effects Yes, low blood pressure reading, dizziness, weakness. Recommendations Phone call placed to providers office Dr. Zarco spoke to Neli bryan updated advised patient to return to Emergency Room. Follow-up Yes Pt has been identified by name and birthdate: Yes Allergies reviewed: Yes Latex allergy: no. Medication - prescribed and OTC reviewed and updated: Yes Do you need any prescription refills prior to your next visit: NA Health Maintenance: Reviewed and not up to date and provider notified. Patient presented verified by name and date of , alert and oriented to time, place. Alisson Fong LPChildren[facility]-30-2023 Miscellaneous Notes* Telephone Encounter - Alisson Fong LPN - 08/11/2022 10:15 AM EDT Phone call place to [facility] Emergency Room spoke to Triage Nurse updated patientinformation (Blood Pressure Readings) faxed OV 08/10/2022, Nurse visit 08/11/2022, resulted blood work values, urine results to [phone] at 10:23 AM, confirmation sheet printed. Alisson Fong LPN documented in this encounterJoint Township District Memorial Hospital06-30-2023 History of Present illness Narrative* Alisson Fong LPN - 08/11/2022 9:57 AM EDT Manual Readin/56/ Pulse: 66 Sitting Orthostatic BP Sitting 98/56 P 66 Supine 104/58 P 62 Standing 88/54 P 72 Reason for blood pressure check - Other [facility] ER Patient is: Taking medication as prescribed Yes Took medication today Yes If no, date medication last taken Metoprolol Tartrate Experiencing side effects Yes, low blood pressure reading, dizziness, weakness. Recommendations Phone call placed to providers office Dr. Zarco spoke to Neli provider updated advised patient to return to Emergency Room. Follow-up Yes Pt has been identified by name and birthdate: Yes Allergies reviewed: Yes Latex allergy: no. Medication - prescribed and OTC reviewed and updated: Yes Do you need any prescription refills prior to your next visit: NA Health Maintenance: Reviewed and not up to date and provider notified. Patient presented verified by name and date of , alert and oriented to time, place. Alisson Fong LPN documented in this encounterJoint Township District [facility]06-29-2023 NoteHNO ID: [id number] Author: Vijay Zarco MD Service: ? Author Type: Physician Type: Progress Notes Filed: 08/10/2022 2:24 PM Note Text: Patient presents with: Hospital F/U HPI: Patient presents today for office visit for follow up. HOSPITAL/ER FOLLOW UP: Reason for visit: chest pain Which facility: [facility] Date of visit: 07/25/22 Discharge: 07/27/22 Diagnosis: NSTEMI, carotid bruit Testing done: 2D echo and cardiac cath-stent placed in the LAD for 90% stenosis, Echo showed EF of 60% Treatment given: started on ASA, Brilinta, metoprolol Current symptoms: still having some lightheaded dizzy spells comes and goes today is good yesterday was not good seems to happen with the tension in his neck as before the heart started Is taking blood pressure at home. [facility] is feeling well. No current chest pain. No shortness of breath that is new. No edema. Would like to resume physical therapy for his neck. Advised I would defer to cardiology until the ok since he just had an IA. Went to [facility] ER last week for dizziness. Did ct of the head and was negative. Told her had vertigo. No changes with moving head from side to side. Only when he gets up too quickly Sometimes can happen when his neck bothers him. MEDICATIONS: Current Outpatient Medications Medication Sig metoprolol tartrate, short acting, (LOPRESSOR) 25 mg tablet Take 12.5 mg by mouth twice daily. atorvastatin (LIPITOR) 40 mg tablet Take 40 mg by mouth once daily. ticagrelor (BRILINTA) 90 mg tablet Take 90 mg by mouth twice daily. tamsulosin (FLOMAX) 0.4 mg Take 1 capsule by mouth daily at bedtime. tiotropium-olodaterol (STIOLTO RESPIMAT) 2.5-2.5 mcg/actuation Inhale 2 Puffs as instructed once daily. Aspirin 81 mg Tab Take 1 tablet by mouth once daily. Take with food. No current facility-administered medications for this visit. ALLERGIES: ALLERGIES Allergen Reactions Amoxil [Amoxicillin] Rash Generalized body rash- drug reaction Does well with omnicef Sulfa (Sulfonamide * PAST MEDICAL HISTORY Diagnosis Date BPH associated with nocturia COPD (chronic obstructive pulmonary disease) ([facility]) 02/22/2021 Unspecified type. Non-smoker. 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 Diarrhea Elevated prostate specific antigen (PSA) Heart attack ([facility]) 07/25/2022 Internal hemorrhoids without mention of complication Renal cyst PAST SURGICAL HISTORY Procedure Laterality Date ARTHROSCOPY KNEE DIAGNOSTIC W/WO SYNOVIAL BX SPX 2002 Arthroscopy, knee COLONOSCOPY FLX DX W/COLLJ SPEC WHEN PFRMD 07/17/2017 Colonoscopy COLONOSCOPY W/BIOPSY SINGLE/MULTIPLE 01/02/2006 PAST SURGICAL HISTORY OF 01/09/[address] Dwyer PAST SURGICAL HISTORY OF 07/25/2022 Stent in heart RPR,HIATAL HERNIA; W/MESH; THORACOABDOM 2017 FAMILY HISTORY Problem Relation Age of Onset Diabetes Mother Heart Father Social History Tobacco Use Smoking status: Never Smokeless tobacco: Never Vaping Use Vaping Use: Never used Substance Use Topics Alcohol use: No Drug use: Never Reviewed current medications, allergies, past medical history, surgical history, family history and social history today. REVIEW OF SYSTEMS All other reviewed and negative other than HPI. HEALTH MAINTENANCE: Reviewed health maintenance issues today and recommended the following in detail. PNEUMOCOCCAL: 65+(1 - PCV) Never done SHINGRIX VACCINE(1 of 2) Never done COVID-19 VACCINE(3 - Booster for Pfizer series) due on 02/03/2021 ADVANCE DIRECTIVE DISCUSSION Never done LDL CHOLESTEROL due on 07/09/2022 VITALS: BP 122/72 Pulse (!) 53 Wt 83.5 kg (184 lb) SpO2 98% BMI 24.95 kg/m? BP w/Orthostatic Vitals Date and Time Orthostatic BP Orthostatic Pulse BP Pulse BP Position BP Site BP Cuff Size 08/10/22 1108 100/58 75 -- -- Standing -- -- 08/10/22 1107 138/72 54 -- -- Supine -- -- 08/10/22 1023 122/72 53 -- -- Sitting -- -- Last 4 Encounter Wt Readings: Date: Wt: 08/01/2022 84.4 kg (186 lb) 07/17/2022 85.7 kg (189 lb) 02/16/2022 89.8 kg (198 lb) 08/08/2021 85.7 kg (189 lb) PHYSICAL EXAMINATION: General appearance: Well appearing, alert, in no acute distress, well-hydrated, well nourished. Skin: Skin color, texture, turgor normal, no suspicious rashes or lesions Head: Normocephalic, no masses, lesions, tenderness or abnormalities Eyes: Anicteric sclera. Pupils are equally round and reactive to light. Extraocular movements are intact. , no nystagmus Neck: Supple, no adenopathy; thyroid symmetric, normal size, no bruits Lungs: Lungs clear to auscultation. No wheezing, rhonchi, rales Heart: RRR without murmur, gallop, or rubs. No ectopy Abdomen: Normal abdominal exam, Abdomen soft, non-tender. Bowel sounds normal. No masses, organomegaly Extremities: No deformities, edema, skin discoloration, clubbing or cyanosis. Good capillary refill. Has (more content not included)...[facility]06-29-2023 History of Present illness Narrative* Vijay Zarco MD - 08/10/2022 10:09 AM EDT Patient presents with: Hospital F/U HPI: Patient presents today for office visit for follow up. HOSPITAL/ER FOLLOW UP: Reason for visit: chest pain Which facility: [facility] Date of visit: 07/25/22 Discharge: 07/27/22 Diagnosis: NSTEMI, carotid bruit Testing done: 2D echo and cardiac cath-stent placed in the LAD for 90% stenosis, Echo showed EF of 60% Treatment given: started on ASA, Brilinta, metoprolol Current symptoms: still having some lightheaded dizzy spells comes and goes today is good yesterdaywas not good seems to happen with the tension in his neck as before the heart started Is taking blood pressure at home. Follow [facility] with [facility] is feeling well. No current chest pain. No shortness of breath that is new. No edema. Would like to resume physical therapy for his neck. Advised I would defer to cardiology until the ok since he just had an IA. Went to [facility] ER last week for dizziness. Did ct of the head and was negative. Told her had vertigo. No changes with moving head from side to side. Only when he gets up too quickly Sometimes can happen when his neck bothers him. MEDICATIONS: Current Outpatient Medications Medication Sig metoprolol tartrate, short acting, (LOPRESSOR) 25 mg tablet Take 12.5 mg by mouth twice daily. atorvastatin (LIPITOR) 40 mg tablet Take 40 mg by mouth once daily. ticagrelor (BRILINTA) 90 mg tablet Take 90 mg by mouth twice daily. tamsulosin (FLOMAX) 0.4 mg Take 1 capsule by mouth daily at bedtime. tiotropium-olodaterol (STIOLTO RESPIMAT) 2.5-2.5 mcg/actuation Inhale 2 Puffs as instructed once daily. Aspirin 81 mg Tab Take 1 tablet by mouth once daily. Take with food. No current facility-administered medications for this visit. ALLERGIES: ALLERGIES Allergen Reactions Amoxil [Amoxicillin] Rash Generalized body rash- drug reaction Does well with omnicef Sulfa (Sulfonamide * PAST MEDICAL HISTORY Diagnosis Date BPH associated with nocturia COPD (chronic obstructive pulmonary disease) ([facility]) 02/22/2021 Unspecified type. 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 Diarrhea Elevated prostate specific antigen (PSA) Heart attack ([facility]) 07/25/2022 Internal hemorrhoids without mention of complication Renal cyst PAST SURGICAL HISTORY Procedure Laterality Date ARTHROSCOPY KNEE DIAGNOSTIC W/WO SYNOVIAL BX SPX 2002 Arthroscopy, knee COLONOSCOPY FLX DX W/COLLJ SPEC WHEN PFRMD 07/17/2017 Colonoscopy COLONOSCOPY W/BIOPSY SINGLE/MULTIPLE 01/02/2006 PAST SURGICAL HISTORY OF 01/09/[address] Dwyer PAST SURGICAL HISTORY OF 07/25/2022 Stent in heart RPR,HIATAL HERNIA; W/MESH; THORACOABDOM 2017 FAMILY HISTORY Problem Relation Age of Onset Diabetes Mother Heart Father Social History Tobacco Use Smoking status: Never Smokeless tobacco: Never Vaping Use Vaping Use: Never used Substance Use Topics Alcohol use: No Drug use: Never Reviewed current medications, allergies, past medical history, surgical history, family history andsocial history today. REVIEW OF SYSTEMS All other reviewed and negative other than HPI. HEALTH MAINTENANCE: Reviewed health maintenance issues today and recommended the following in detail. PNEUMOCOCCAL: 66+(1 - PCV) Never done SHINGRIX VACCINE(1 of 2) Never done COVID-19 VACCINE(3 - Booster for Pfizer series) due on 02/03/2021 ADVANCE DIRECTIVE DISCUSSION Never done LDL CHOLESTEROL due on 07/09/2022 VITALS: BP 122/72 Pulse (!) 53 Wt 83.5 kg (184 lb) SpO2 98% BMI 24.95 kg/m BP w/Orthostatic Vitals Date and Time Orthostatic BP Orthostatic Pulse BP Pulse BP Position BP Site BP Cuff Size 08/10/22 1108 100/58 75 -- -- Standing -- -- 08/10/22 1107 138/72 54 -- -- Supine -- -- 08/10/22 1023 122/72 53 -- -- Sitting -- -- Last 4 Encounter Wt Readings: Date: Wt: 08/01/2022 84.4 kg (186 lb) 07/17/2022 85.7 kg (189 lb) 02/16/2022 89.8 kg (198 lb) 08/08/2021 85.7 kg (189 lb) PHYSICAL EXAMINATION: General appearance: Well appearing, alert, in no acute distress, well-hydrated, well nourished. Skin: Skin color, texture, turgor normal, no suspicious rashes or lesions Head: Normocephalic, no masses, lesions, tenderness or abnormalities Eyes: Anicteric sclera. Pupils are equally round and reactive to light. Extraocular movements are intact. , no nystagmus Neck: Supple, no adenopathy; thyroid symmetric, normal size, no bruits Lungs: Lungs clear to auscultation. No wheezing, rhonchi, rales Heart: RRR without murmur, gallop, or rubs. No ectopy Abdomen: Normal abdominal exam, Abdomen soft, non-tender. Bowel sounds normal. No masses, organomegaly Extremities: No deformities, edema, skin discoloration, clubbing or cyanosis. Good capillary refill. Has chronic varicosities. Is not wearing his support stockings. Musculoskeletal: No joint swelling, deformity, or tenderness Peripheral pulses: Normal Neuro: Gait normal. Reflexes normal and symmetric. Sensation grossly intact., Negative findings: speech normal, mental status intact, muscle tone normal, negative gonzalez pike. ASSESSMENT/PLAN: 1. NSTEMI (non-ST elevated myocardial infarction) (HCC) - ICD9: 410.70, ICD10: I21.4 (primary diagnosis) - reinforced he needs to continue meds, follow with cardiology. Would defer decisions regarding activity to them. Red flags for re-assessment reviewed with patient in detail. - will need lipid labs at some point. 2. Post PTCA - ICD9: V45.82, ICD10: Z98.61 - stay on med.s 3. Primary hypertension - ICD9: 401.9, ICD10: I10 - continue meds. 4. Chronic obstructive pulmonary disease, unspecified COPD type (HCC) - ICD9: 496, ICD10: J44.9 - see pulmonary 5. Stage 3 chronic kidney disease, unspecified whether stage 3a or 3b CKD (HCC) - ICD9: 585.3, ICD10: N18.30 - will monitor. 6. Orthostatic dizziness - ICD9: 780.4, ICD10: R42 - wear support stockings. Get up slowly. Check labs. - CBC + DIFF - BASIC METABOLIC PNL Vijay Zarco MD documented in this encounterJoint Township District [facility]06-26-2023 Miscellaneous Notes* Telephone Encounter - Shara Cordero RN - 08/07/2022 11:06 AM EDT Patient call in for lightheaded/dizziness. This has been going on for quite a while, however patient has noticed that it has been getting worse. Patient is lightheaded with standing/ walking but states that he still walks normal. Patient was recently discharged from hospital after having IA. Nurse Triage assessment completed with protocol recommending for disposition of see pcp in 3 days. Discuss with patient and that with history of IA and that patient is feeling more lightheaded patient is going to ER to be evaluated. Care advice reviewed with patient, patient stated understanding. Reason for Disposition [1] MILD dizziness (e.g., walking normally) AND [2] has NOT been evaluated by physician for this (Exception: dizziness caused by heat exposure, sudden standing, or poor fluid intake) Answer Assessment - Initial Assessment Questions 1. DESCRIPTION: Feels dizzy and lightheaded doing anything 2. LIGHTHEADED: Weak upon standing. 3. VERTIGO: Feels like room is spinning 4. SEVERITY: Walks fine, but dizzy when moving. 5. ONSET: Quite awhile but getting worse 6. AGGRAVATING FACTORS: When patient is moving around, such as going down steps and coming back up. Sitting and then getting up makes him lightheaded. 7. CAUSE: Unsure 9. RECURRENT SYMPTOM: Has been going on but getting worse. 10. OTHER SYMPTOMS: Neck pain up back of neck Protocols used: Dizziness - [id number] documented in this encounterJoint Township District Memorial Hospital06-20-2023 NoteHNO ID: [id number] Author: Patti Moreno LPN Service: ? Author Type: ? Type: Progress Notes Filed: 08/01/2022 4:43 PM Note Text: Verified name and date of . CC Post Void Residual HPI: Maykel Morales is a 71 year old male. The patient is here now for an appointment with ALBERTO Little, VICTOR M, CARLITO. Procedure: Explained procedure to patient and verbalizes understanding. Performed a PVR. Patient urinated and instructed to empty bladder as much as possible just prior to having PVR done using bladder ultrasound scanner. Results of scan: 49 mL The patient tolerated the procedure well. Plan: Appointment with Juan Francisco.[facility]06-20-2023 NoteHNO ID: [id number] Author: Juan Francisco Tena PA-C Service: ? Author Type: Physician Slicing Machine Tender Type: Progress Notes Filed: 08/01/2022 4:43 PM Note Text: Some elements copied from his previous note, which have been updated where appropriate, and all reflect current medical decision making from date of this visit. PATIENT INFO: Maykel Morales 71 year old ( ) REFERRING PROVIDER: Vijay Zarco PCP: Vijay Zarco MD HPI: Maykel Morales 71 year old male is here today follow up of Renal Cyst and elevated PSA, LAW -unchanged but large at 50 g no nodules or tenderness He has NTF x 2-3 but PVR is 50 ml, so would liek to try Flomax again New Rx sent Renal US -pending If Flomax does not help then may need to discuss TUR LUTS: NTF - 2-3 Other symptoms: LABS: No results found for: TESTOST No results found for: TESTFREE PSA (ng/mL) Date Value 02/16/2022 1.42 09/02/2011 0.11 PSA Screening (ng/mL) Date Value 07/09/2021 2.89 Hematocrit (%) Date Value 02/01/2022 47.0 07/09/2021 46.0 12/09/2020 46.4 09/30/2020 47.6 08/31/2020 47.6 MEDICATIONS: tiotropium-olodaterol (STIOLTO RESPIMAT) 2.5-2.5 mcg/actuation Inhale 2 Puffs as instructed once daily. Aspirin 81 mg Tab Take 1 tablet by mouth once daily. Take with food. PAST MEDICAL HISTORY: PAST MEDICAL HISTORY Diagnosis Date BPH associated with nocturia COPD (chronic obstructive pulmonary disease) (HCC) 02/22/2021 Unspecified type. 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 Diarrhea Elevated prostate specific antigen (PSA) Internal hemorrhoids without mention of complication Renal cyst PAST SURGICAL HISTORY: PAST SURGICAL HISTORY Procedure Laterality Date ARTHROSCOPY KNEE DIAGNOSTIC W/WO SYNOVIAL BX SPX 2002 Arthroscopy, knee COLONOSCOPY FLX DX W/COLLJ SPEC WHEN PFRMD 07/17/2017 Colonoscopy COLONOSCOPY W/BIOPSY SINGLE/MULTIPLE 01/02/2006 PAST SURGICAL HISTORY OF 01/09/[address] Dwyer RPR,HIATAL HERNIA; W/MESH; THORACOABDOM 2017 FAMILY HISTORY: FAMILY HISTORY Problem Relation Age of Onset Diabetes Mother Heart Father SOCIAL HISTORY: Social Connections: Socially Isolated Frequency of Communication with Friends and Family: Once a week Frequency of Social Gatherings with Friends and Family: Once a week Attends Religion Services: Never Active Member of Clubs or Organizations: No Attends Club or Organization Meetings: Never Marital Status: REVIEW OF SYSTEMS: GENERAL: No fever, chills, weight loss, or fatigue. PHYSICAL EXAMINATION: There were no vitals taken for this visit. GENERAL: WNL nutrition, no deformities, healthy appearing GENITOURINARY: MALE EXAM: Rectal Exam: Prostate: size (50 grams), symmetrical, nontender, w/o nodules. PROBLEM LIST REVIEW: Yes LABS: Results for orders placed or performed in visit on 02/16/22 PSA/PROSTSPECAG DIAG Result Value Ref Range PSA 1.42 <2.60 ng/mL PROCEDURES: IMAGING: IMPRESSION/PLAN: 1. Elevated PSA of 1.42 > PSA in 1yr 2. BPH with Nocturia > restart Flomax 3. Renal Cyst > Check renal US report > Renal US in 1 yr > 1 year Appt ALBERTO Medellin, VICTOR M, PA-C with PSA and Renal US prior ALBERTO Little [place], PA-CClPro[facility]06-[facility]-2023 NoteHNO ID: [id number] Author: Nicolas Alves PT Service: ? Author Type: Physical Therapist Type: Progress Notes Filed: 08/01/2022 1:51 PM Note Text: Pt was referred to PT for neck and low back pain on 07/17/2022. Pt was admitted to the hospital on 07/25/2022 for what patient called a mild IA. He had a stent placed in his heart and was hospitalized for 2 days. He has not been seen for a follow up to this hospitalization but is scheduled to see PCP on 08/10/22 for hospital follow up. Therapist decided to cancel his PT evaluation for today. Once clearance is received from PCP, PT will begin. Pt is scheduled to begin PT on 08/11/22 assuming that PCP will give him cardiac clearance after follow up 08/10/22. Pt reports that overall he has not been having neck and low back symptoms lately and he attributes this to decreased activity level. Pt will cancel PT evaluation on 08/11/22 if he decides with PCP that it is not necessary. Pt understood and agreed with plan. Pt was provided with an appointment reminder/printout. Nicolas Alves [facility]06-20-2023 History of Present illness Narrative* Patti Moreno LPN - 08/01/2022 3:10 PM EDT Verified name and date of . CC Post Void Residual HPI: Maykel Morales is a 71 year old male. The patient is here now for an appointment with ALBERTO Little, VICTOR M, CARLITO. Procedure: Explained procedure to patient and verbalizes understanding. Performed a PVR. Patient urinated and instructed to empty bladder as much as possible just prior to having PVR done using bladder ultrasound scanner. Results of scan: 49 mL The patient tolerated the procedure well. Plan: Appointment with Juan Francisco. * Juan Francisco Tena PA-C - 08/01/2022 3:07 PM EDT Images from the original note were not included. Some elements copied from his previous note, which have been updated where appropriate, and all reflect current medical decision making from date of this visit. PATIENT INFO: Maykel Morales 71 year old ( ) REFERRING PROVIDER: Vijay Zarco PCP: Vijay Zarco MD HPI: Maykel Morales 71 year old male is here today follow up of Renal Cyst and elevated PSA, LAW -unchanged but large at 50 g no nodules or tenderness He has NTF x 2-3 but PVR is 50 ml, so would liek to try Flomax again New Rx sent Renal US -pending If Flomax does not help then may need to discuss TUR LUTS: NTF - 2-3 Other symptoms: LABS: No results found for: TESTOST No results found for: TESTFREE PSA (ng/mL) Date Value 02/16/2022 1.42 09/02/2011 0.11 PSA Screening (ng/mL) Date Value 07/09/2021 2.89 Hematocrit (%) Date Value 02/01/2022 47.0 07/09/2021 46.0 12/09/2020 46.4 09/30/2020 47.6 08/31/2020 47.6 MEDICATIONS: tiotropium-olodaterol (STIOLTO RESPIMAT) 2.5-2.5 mcg/actuation Inhale 2 Puffs as instructed once daily. Aspirin 81 mg Tab Take 1 tablet by mouth once daily. Take with food. PAST MEDICAL HISTORY: PAST MEDICAL HISTORY Diagnosis Date BPH associated with nocturia COPD (chronic obstructive pulmonary disease) ([facility]) 02/22/2021 Unspecified type. Non-smoker. 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 Diarrhea Elevated prostate specific antigen (PSA) Internal hemorrhoids without mention of complication Renal cyst PAST SURGICAL HISTORY: PAST SURGICAL HISTORY Procedure Laterality Date ARTHROSCOPY KNEE DIAGNOSTIC W/WO SYNOVIAL BX SPX 2002 Arthroscopy, knee COLONOSCOPY FLX DX W/COLLJ SPEC WHEN PFRMD 07/17/2017 Colonoscopy COLONOSCOPY W/BIOPSY SINGLE/MULTIPLE 01/02/2006 PAST SURGICAL HISTORY OF 01/09/[address] Dwyer RPR,HIATAL HERNIA; W/MESH; THORACOABDOM 2017 FAMILY HISTORY: FAMILY HISTORY Problem Relation Age of Onset Diabetes Mother Heart Father SOCIAL HISTORY: Social Connections: Socially Isolated Frequency of Communication with Friends and Family: Once a week Frequency of Social Gatherings with Friends and Family: Once a week Attends Religion Services: Never Active Member of Clubs or Organizations: No Attends Club or Organization Meetings: Never Marital Status: REVIEW OF SYSTEMS: GENERAL: No fever, chills, weight loss, or fatigue. PHYSICAL EXAMINATION: There were no vitals taken for this visit. GENERAL: WNL nutrition, no deformities, healthy appearing GENITOURINARY: MALE EXAM: Rectal Exam: Prostate: size (50 grams), symmetrical, nontender, w/o nodules. PROBLEM LIST REVIEW: Yes LABS: Results for orders placed or performed in visit on 02/16/22 PSA/PROSTSPECAG DIAG Result Value Ref Range PSA 1.42 <2.60 ng/mL PROCEDURES: IMAGING: IMPRESSION/PLAN: 1. Elevated PSA of 1.42 > PSA in 1yr 2. BPH with Nocturia > restart Flomax 3. Renal Cyst > Check renal US report > Renal US in 1 yr > 1 year Appt wALBERTO Mclain MT, PA-C with PSA and Renal US prior ALBERTO Little MT, PA-C documented in this encounterJoint [facility] Miscellaneous Notes* Telephone Encounter - Yara Ryan - 08/01/2022 1:33 PM EDT PT Nicolas Alves called stating he was canceling patients PT appointment today due to recent IA on 07/25/22. He's scheduled for follow up with Dr. Zarco on 08/10/22. Nicolas states he'll schedule patient to come back after Dr. Zarco's appt if patient is cleared for PT. Yara Ryan documented in this encounterJoint Township District [facility]06-19-2023 NoteHNO ID: [id number] Author: Alessandra Aleman RDMS Service: ? Author Type: Target Setter Type: Progress Notes Filed: 07/31/2022 9:02 AM Note Text: Radiology Service Progress Note PATIENT NAME: Maykel Morales DATE OF SERVICE: July 31, 2022 TIME: 9:02 AM PATIENT IDENTITY VERIFICATION COMPLETED USING TWO (2) IDENTIFIERS: Name and Date of confirmed by patient verbally. FALL SCREENING: Has the patient had 2 falls in the last year or 1 fall with injury or currently using an Ambulatory Assistive Device (Walker, Cane, Wheelchair, Crutches, etc.)? No PATIENT GENDER DATA: Male PATIENT RELEVANT IMPLANT DATA REVIEWED: Not Applicable RADIOLOGY DEPARTMENT: Ultrasound PERIPHERAL IV DATA: Not applicable SIGNED BY: Alessandra Aleman RDMS Janelle July 31, 2022 9:02 [facility]06-19-2023 History of Present illness Narrative* Alessandra Aleman RDMS - 07/31/2022 8:30 AM EDT Radiology Service Progress Note PATIENT NAME: Maykel Morales DATE OF SERVICE: July 31, 2022 TIME: 9:02 AM PATIENT IDENTITY VERIFICATION COMPLETED USING TWO (2) IDENTIFIERS: Name and Date of confirmedby patient verbally. FALL SCREENING: Has the patient had 2 falls in the last year or 1 fall with injury or currently using an Ambulatory Assistive Device (Walker, Cane, Wheelchair, Crutches, etc.)? No PATIENT GENDER DATA: Male PATIENT RELEVANT IMPLANT DATA REVIEWED: Not Applicable RADIOLOGY DEPARTMENT: Ultrasound PERIPHERAL IV DATA: Not applicable SIGNED BY: Alessandra Aleman RDMS Janelle July 31, 2022 9:02 AM documented in this encounterJoint Township District [facility]06-05-2023 NoteHNO ID: [id number] Author: RT John(Horacio) Service: ? Author Type: Technologist Type: Progress Notes Filed: 07/17/2022 10:31 AM Note Text: Radiology Service Progress Note PATIENT NAME: Maykel Morales DATE OF SERVICE: July 17, 2022 TIME: 10:21 AM PATIENT IDENTITY VERIFICATION COMPLETED USING TWO (2) IDENTIFIERS: Name and Date of confirmed by patient verbally. FALL SCREENING: Has the patient had 2 falls in the last year or 1 fall with injury or currently using an Ambulatory Assistive Device (Walker, Cane, Wheelchair, Crutches, etc.)? No PATIENT GENDER DATA: Male PATIENT RELEVANT IMPLANT DATA REVIEWED: Not Applicable RADIOLOGY DEPARTMENT: General X-ray: Exam(s) Completed: Spine X-Ray(s): Cervical AP / LAT / OBL and Lumbar AP / LAT / L5-S1 PERIPHERAL IV DATA: Not applicable SIGNED BY: RT John(R) July 17, 2022 10:21 [facility]06-05-2023 NoteHNO ID: [id number] Author: Vijay Zarco MD Service: ? Author Type: Physician Type: Progress Notes Filed: 07/17/2022 9:57 AM Note Text: No chief complaint on file. HPI: Patient presents today for office visit for acute visit with several complains. For a couple of months has a pain in back of neck/head. Describes as a tension. Progresses as the day goes on. Has been having for a couple of months. Sometimes will use Advil for the pain but doesn't notice any difference with it. Denies headache. Moving the head pulls in that area. Can feel the neck crunch. No radicular pain or numbness or walking down the arms. Occasionally will feel lightheadedness if he gets up quick but is mild. No true vertigo. Stretching out on the floor will improve it. For a long time has had a pain in his lower left quad of abd that radiates around into back. Has this mostly at night. If rolls over will wake him up. Rolling over will improve it. Had colonoscopy done in 2018 and was happening then. No radicular symptoms. No bowel or urinary changes. See note from 2020: Mentions since he was seeing Dr. Yepez's, he has had occasional llq pain. Comes and goes. Worse when laying on his side or worse when laying down at night. No bowel changes. No urinary issues. Suggested we can check testing like imaging etc. He is reluctant to continue doing testing. Has not changed in a number of years. Red flags for re-assessment reviewed with patient in detail. had ct scan: 1. No CT evidence of acute abnormality in the abdomen or pelvis. Stable 1.2 cm indeterminant exophytic hyperdense lesion arising from the left kidney upper pole. Although this may certainly reflect a hemorrhagic cyst given stability dating back to 2018, further evaluation with nonemergent renal ultrasound is advised to exclude the possibility of a solid lesion. 3. Mildly prominent prostate. Correlate with PSA levels. Using inhaler like prescribed. Notices no difference really with inhaler but still using. Has seen pulmonary in the past. Overdue for follow up. Willing to go back. Did us after that: The previously described indeterminant left upper pole lesion is not identified sonographically, likely due to exophytic location. Review of prior CTs demonstrates that this lesion has been present dating back to 2007 and although it measures higher than water density on prior studies is smaller in size on the most recent CT thus most consistent with a complex cyst Simple left lower pole renal cyst. Bilateral extrarenal pelves. Negative nephrolithiasis or hydronephrosis Enlarged prostate gland with moderate post void residual. He then saw urology. He recommended repeat us and psa follow up with him. Also reports no chest pain Breathing is still an issues. Has not followed with pulmonary. MEDICATIONS: Current Outpatient Medications Medication Sig tiotropium-olodaterol (STIOLTO RESPIMAT) 2.5-2.5 mcg/actuation Inhale 2 Puffs as instructed once daily. Aspirin 81 mg Tab Take 1 tablet by mouth once daily. Take with food. No current facility-administered medications for this visit. ALLERGIES: ALLERGIES Allergen Reactions Amoxil [Amoxicillin] Rash Generalized body rash- drug reaction Does well with omnicef Sulfa (Sulfonamide * PAST MEDICAL HISTORY Diagnosis Date BPH associated with nocturia COPD (chronic obstructive pulmonary disease) ([facility]) 02/22/2021 Unspecified type. Non-smoker. 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 Diarrhea Internal hemorrhoids without mention of complication PAST SURGICAL HISTORY Procedure Laterality Date ARTHROSCOPY KNEE DIAGNOSTIC W/WO SYNOVIAL BX SPX 2002 Arthroscopy, knee COLONOSCOPY FLX DX W/COLLJ SPEC WHEN PFRMD 07/17/2017 Colonoscopy COLONOSCOPY W/BIOPSY SINGLE/MULTIPLE 01/02/2006 PAST SURGICAL HISTORY OF 01/09/[address] Dwyer RPR,HIATAL HERNIA; W/MESH; THORACOABDOM 2018 FAMILY HISTORY Problem Relation Age of Onset Diabetes Mother Heart Father Social History Tobacco Use Smoking status: Never Smokeless tobacco: Never Vaping Use Vaping Use: Never used Substance Use Topics Alcohol use: No Drug use: No Reviewed current medications, allergies, past medical history, surgical history, family history and social history today. REVIEW OF SYSTEMS Bp is good. All other reviewed and negative other than HPI. HEALTH MAINTENANCE: Reviewed health maintenance issues today and recommended the following in detail. PNEUMOCOCCAL: 65+(1 - PCV) Never done BP CONTROLLED (<130/80) Never done SHINGRIX VACCINE(1 of 2) Never done COVID-19 VACCINE(3 - Booster for Pfizer series) due on 02/03/2021 ADVANCE DIRECTIVE DISCUSSION Never done LDL CHOLESTEROL due on 07/09/2022 VITALS: BP 108/62 Pulse 71 Wt 85.7 kg (189 lb) SpO2 98% BMI 25.63 kg/m? Last 4 Encounter Wt Readings: Date: Wt: 02/16/2022 89.8 kg (198 lb (more content not included)...[facility]06-05-2023 History of Present illness Narrative* Vijay Zarco MD - 07/17/2022 9:27 AM EDT No chief complaint on file. HPI: Patient presents today for office visit for acute visit with several complains. For a couple of months has a pain in back of neck/head. Describes as a tension. Progresses as the day goes on. Has been having for a couple of months. Sometimes will use Advil for the pain but doesn't notice any difference with it. Denies headache. Moving the head pulls in that area. Can feel the neck crunch. No radicular pain or numbness or walking down the arms. Occasionally will feel lightheadedness if he gets up quick but is mild. No true vertigo. Stretching out on the floor will improve it. For a long time has had a pain in his lower left quad of abd that radiates around into back. Has this mostly at night. If rolls over will wake him up. Rolling over will improve it. Had colonoscopy done in 2018 and was happening then. No radicular symptoms. No bowel or urinary changes. See note from 2020: Mentions since he was seeing Dr. Yepez'bridgette, he has had occasional llq pain. Comes and goes. Worse when laying on his side or worse when laying down at night. No bowel changes. No urinary issues. Suggested we can check testing like imaging etc. He is reluctant to continue doing testing. Has notchanged in a number of years. Red flags for re-assessment reviewed with patient in detail. had ct scan: 1. No CT evidence of acute abnormality in the abdomen or pelvis. Stable 1.2 cm indeterminant exophytic hyperdense lesion arising from the left kidney upper pole. Although this may certainly reflect a hemorrhagic cyst given stability dating back to 2018, further evaluation with nonemergent renal ultrasound is advised to exclude the possibility of a solid lesion. 3. Mildly prominent prostate. Correlate with PSA levels. Using inhaler like prescribed. Notices no difference really with inhaler but still using. Has seen pulmonary in the past. Overdue for follow up. Willing to go back. Did us after that: The previously described indeterminant left upper pole lesion is not identified sonographically, likely due to exophytic location. Review of prior CTs demonstrates that this lesion has been present dating back to 2007 and although it measures higher than water density on prior studies is smaller in size on the most recent CT thus most consistent with a complex cyst Simple left lower pole renal cyst. Bilateral extrarenal pelves. Negative nephrolithiasis or hydronephrosis Enlarged prostate gland with moderate post void residual. He then saw urology. He recommended repeat us and psa follow up with him. Also reports no chest pain Breathing is still an issues. Has not followed with pulmonary. MEDICATIONS: Current Outpatient Medications Medication Sig tiotropium-olodaterol (STIOLTO RESPIMAT) 2.5-2.5 mcg/actuation Inhale 2 Puffs as instructed once daily. Aspirin 81 mg Tab Take 1 tablet by mouth once daily. Take with food. No current facility-administered medications for this visit. ALLERGIES: ALLERGIES Allergen Reactions Amoxil [Amoxicillin] Rash Generalized body rash- drug reaction Does well with omnicef Sulfa (Sulfonamide * PAST MEDICAL HISTORY Diagnosis Date BPH associated with nocturia COPD (chronic obstructive pulmonary disease) ([facility]) 02/22/2021 Unspecified type. 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 Diarrhea Internal hemorrhoids without mention of complication PAST SURGICAL HISTORY Procedure Laterality Date ARTHROSCOPY KNEE DIAGNOSTIC W/WO SYNOVIAL BX SPX 2002 Arthroscopy, knee COLONOSCOPY FLX DX W/COLLJ SPEC WHEN PFRMD 07/17/2017 Colonoscopy COLONOSCOPY W/BIOPSY SINGLE/MULTIPLE 01/02/2006 PAST SURGICAL HISTORY OF 01/09/[address] Dwyer RPR,HIATAL HERNIA; W/MESH; THORACOABDOM 2018 FAMILY HISTORY Problem Relation Age of Onset Diabetes Mother Heart Father Social History Tobacco Use Smoking status: Never Smokeless tobacco: Never Vaping Use Vaping Use: Never used Substance Use Topics Alcohol use: No Drug use: No Reviewed current medications, allergies, past medical history, surgical history, family history andsocial history today. REVIEW OF SYSTEMS Bp is good. All other reviewed and negative other than HPI. HEALTH MAINTENANCE: Reviewed health maintenance issues today and recommended the following in detail. PNEUMOCOCCAL: 65+(1 - PCV) Never done BP CONTROLLED (<130/80) Never done SHINGRIX VACCINE(1 of 2) Never done COVID-19 VACCINE(3 - Booster for Pfizer series) due on 02/03/2021 ADVANCE DIRECTIVE DISCUSSION Never done LDL CHOLESTEROL due on 07/09/2022 VITALS: BP 108/62 Pulse 71 Wt 85.7 kg (189 lb) SpO2 98% BMI 25.63 kg/m Last 4 Encounter Wt Readings: Date: Wt: 02/16/2022 89.8 kg (198 lb) 08/08/2021 85.7 kg (189 lb) 08/04/2021 86.2 kg (190 lb) 07/26/2021 87.1 kg (192 lb) PHYSICAL EXAMINATION: General appearance: Well appearing, alert, in no acute distress, well-hydrated, well nourished. Skin: Skin color, texture, turgor normal, no suspicious rashes or lesions Head: Normocephalic, no masses, lesions, tenderness or abnormalities Eyes: Anicteric sclera. Pupils are equally round and reactive to light. Extraocular movements are intact. Neck: Supple, no adenopathy; thyroid symmetric, normal size, no bruits BACK: Normal curvature of spine. No spine tenderness. Straight leg test negative. Deep tendon reflexes 2+/4 at patellas. Normal lower extremity strength. Lungs: Lungs clear to auscultation. No wheezing, rhonchi, rales Heart: RRR without murmur, gallop, or rubs. No ectopy Abdomen: Normal abdominal exam, Abdomen soft, non-tender. Bowel sounds normal. No masses, organomegaly Extremities: No deformities, edema, skin discoloration, clubbing or cyanosis. Good capillary refill. ASSESSMENT/PLAN: 1. Chronic obstructive pulmonary disease, unspecified COPD type (HCC) - ICD9: 496, ICD10: J44.9 (primary diagnosis) - see pulmonary. - CONSULT TO PULM/CRITICAL CARE 2. Renal cyst - ICD9: 753.10, ICD10: N28.1 - see urology - CONSULT TO UROLOGY 3. Neck pain - ICD9: 723.1, ICD10: M54.2 - physical therapy. . Red flags for re-assessment reviewed with patient in detail. - XR CERV OTHER 4V AP/LAT/OBL - CONSULT TO PHYSICAL THERAPY 4. Lumbar pain - ICD9: 724.2, ICD10: M54.50 - Red flags for re-assessment reviewed with patient in detail. - XR LUMBAR GENERAL 3V AP/LAT/L5-S1 - CONSULT TO PHYSICAL THERAPY 5. Primary hypertension - ICD9: 401.9, ICD10: I10 - Controlled - Continue current medications - CBC + DIFF - COMP METABOLIC PANEL - LIPID PANEL BASIC Vijay Zarco documented in this encounterJoint [facility]03-30-2023 Miscellaneous Notes* Telephone Encounter - Marjan Pillai - 05/11/2022 11:25 AM EDT Patient has been identified by name and date of : Yes Last office visit in this department: 02/16/2022 RX INSTRUCTIONS: Patient aware RX will be sent to pharmacy. No need to notify patient. Patient phones requesting refills as follows: Requested Prescriptions Pending Prescriptions Disp Refills tiotropium-olodaterol (STIOLTO RESPIMAT) 2.5-2.5 mcg/actuation Sig: Inhale 2 Puffs as instructed once daily. Please review and advise. Marjan Pillai documented in this encounterJoint [facility]01-05-2023 Instructions* Patient Instructions* Vijay Zarco MD - 02/16/2022 9:52 AM EST Low Back Pain-Exercises What exercise can I do to reduce low back pain? Pelvic tilt Lie on your back with your knees bent. In this relaxed position, the small of your back will not betouching the floor. Tighten your abdominal muscles so that the small of your back presses flat against the floor. Hold for five seconds then relax. Repeat three times and gradually build to 10 repetitions. [id number] Lie on your back with both legs straight. Bring one knee up to your chest, pressing the small of your back into the floor (pelvic tilt). Hold for five seconds and repeat five times. Repeat exercise on other leg. Back stretch Lie on your stomach. Use your arms to push your upper body off the floor. Hold for five seconds. Let your back relax and sag. Repeat 10 times. Discontinue any exercise that produces or increases pain in the leg. Copyright 7256-1832 The [facility]. All rights reserved. This information is provided by the [facility] and is not intended to replace the medical advice of your doctor or health care provider. Please consult your health care provider for advice about a specific medical condition. For additional written health information, please contact the [facility] at the [facility] or toll-free extension [phone] or visit [email or web address] This document was last reviewed on: 2004 index#[id number] documented in this encounterJoint Township District Memorial Hospital01-05-2023 History of Present illness Narrative* Vijay Zarco MD - 02/16/2022 9:16 AM EST Patient presents with: 6 Month Exam HPI: Patient presents today for office visit for follow up. Still complains of left lower abdominal discomfort. Refers to being uncomfortable enough to wake him at night. Used to be worse when laying on left side but now any position bothers him. CT from 07/13/21 showed no mass or abnormality. Has been there for years. No urinary issues. No bowel issues. May b e a little worse since not just positional now. Has declined things like physical therapy in the past. I recommended referral for possible colonoscopy. He will consider. Not using compression stockings. Doesn't like them. Has declined vascular. Right shoulder pain still bothersome. Saw Ortho on 08/04/21. Has not gone back since. Had a biceps rupture. Declines tx. Has followed with urology. Reminded him to get his psa and folow up. Intermittent dizziness X 1 yr upon standing. Happens a lot in evening. If he gets up quickly. No syncope or presyncope. Happens only rarely. He does not feel it is significant enough to work up. No chest pain SOB with exertion Has not been back into see pulmonary. Discussed avoiding advil or aleve. Component Latest Ref Rng & Units 02/01/2022 02/08/2022 WBC 3.70 - 11.00 k/uL 5.25 RBC 4.20 - 6.00 m/uL 5.01 Hemoglobin 13.0 - 17.0 g/dL 15.7 Hematocrit 39.0 - 51.0 % 47.0 MCV 80.0 - 100.0 fL 93.8 MCH 26.0 - 34.0 pg 31.3 MCHC 30.5 - 36.0 g/dL 33.4 RDW-CV 11.5 - 15.0 % 12.2 Platelet Count 150 - 400 k/uL 151 MPV 9.0 - 12.7 fL 9.8 Neut% % 54.8 Abs Neut (ANC) 1.45 - 7.50 k/uL 2.88 Lymph% % 28.8 Abs Lymph 1.00 - 4.00 k/uL 1.51 Powell% % 11.6 Abs Powell <0.87 k/uL 0.61 Eosin% % 4.0 Abs Eosin <0.46 k/uL 0.21 Baso% % 0.6 Abs Baso <0.11 k/uL 0.03 Immature Gran % % 0.2 IMMATURE GRANS (ABS) <0.10 k/uL <0.03 NRBC /100 WBC 0.0 Absolute nRBC <0.01 k/uL <0.01 DTYPE Auto Glucose 74 - 99 mg/dL 90 88 BUN 9 - 24 mg/dL 18 15 Creatinine 0.73 - 1.22 mg/dL 1.33 (H) 1.39 (H) Sodium 136 - 144 mmol/L 141 139 Potassium 3.7 - 5.1 mmol/L 5.0 4.5 Chloride 97 - 105 mmol/L 103 101 CO2 22 - 30 mmol/L 32 (H) 32 (H) Anion Gap 9 - 18 mmol/L 6 (L) 6 (L) Calcium 8.5 - 10.2 mg/dL 9.6 9.4 eGFR >=60 mL/min/1.73m 58 (L) 55 (L) See previous: Has seen ortho. They are going to watch things for now. They may consider injections. He wants to wait on varicosities and seeing vascular surgery. Discussed compression hose. Saw urology. They will be following blood work and follow. He did not feel flomax helped and made him lightheaded. His platelets have remained low. Has been that way since 2006. Will follow labs. Reviewed ct scan. No mass or abnormality. No gi issues. Pain has been there for years. Worse when laying on his left side. Has degenerative changes in the spine. Has had colonoscopy in 2018. Seems to be musculoskeletal. Offered therapy. Declines. Home bp is reading high today. He says bp is erratic at home. Follow Up: would like to check screening labs right bicep muscle: painful with certain movements torn? has been bothersome for about a year Varicose Veins: bilateral legs would like to do something about these prostate issue: enlarged? LLQ pain: long time pain bothersome at night when lying down especially when lying on that side HPI: Patient presents today for office visit for follow up. Has a number of issues. Has seen cardiology. Cardiac scoring and echo done. They felt breathing was pulmonary related. Recommended statin drug which he refused. Saw pulmonary and added stiolto respimat. Breathing is somewhat better. No chest pain. bp has been ok at home as been good. No dizziness. He may have torn his biceps at some point. He says was a year ago. Has santosh muscle Occasional pain. Strength is not what it used to be. He might be interested to see if there is anything to do. Has chronic issues with varicose veins. Used to wear support hose. No redness or warmth. Does get occasional leg cramps. Offered vascular surgery. Concerned about his prostate. Gets up a few times at night to urinate. Sometimes feels things are blocking. Stream can sometimes be weak Has been an issue for several years. Mild caffeine use. Had discussion with patient regarding risks and benefits of prostate screening. Allowed them to decide if they wished to proceed with screening including LAW and PSA. See previous office notes. He has declined imaging last year. Feels like something is in his llq quadrant. He did have imaging in 2018. He had a colonoscopy in 2018 which was normal. No bowel changes. No bloody or black stools see previous ov: Have been working him up for shortness of breath. Following platelets and renal function. He is also following with cardiology and pulmonary Was going to get ct for calcium scoring. Declined inhaled steroids per pulmonary recommendations. Also declined bp meds when recommended by cardiology. Discussed his elevated evaristo. Has some hand pain. No rashes. No dysphagia. Reiterated seeing rheumatolology. Has been checking his bp at home. Has been very good at home. Usually under 120 in the am. Usually under 140 systolic in the am. Mentions since he was seeing Dr. Yepez's, he has had occasional llq pain. Comes and goes. Worse when laying on his side or worse when laying down at night. No bowel changes. No urinary issues. Suggested we can check testing like imaging etc. He is reluctant to continue doing testing. Has notchanged in a number of years. Red flags for re-assessment reviewed with patient in detail. See previous ov: MEDICATIONS: Current Outpatient Medications Medication Sig Aspirin 81 mg Tab Take 1 tablet by mouth once daily. Take with food. No current facility-administered medications for this visit. ALLERGIES: ALLERGIES Allergen Reactions Amoxil [Amoxicillin] Rash Generalized body rash- drug reaction Does well with omnicef Sulfa (Sulfonamide * PAST MEDICAL HISTORY Diagnosis Date COPD (chronic obstructive pulmonary disease) (HCC) 02/22/2021 Unspecified type. 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 Diarrhea Internal hemorrhoids without mention of complication PAST SURGICAL HISTORY Procedure Laterality Date ARTHROSCOPY KNEE DIAGNOSTIC W/WO SYNOVIAL BX SPX 2002 Arthroscopy, knee COLONOSCOPY FLX DX W/COLLJ SPEC WHEN PFRMD 07/17/2017 Colonoscopy COLONOSCOPY W/BIOPSY SINGLE/MULTIPLE 01/02/2006 PAST SURGICAL HISTORY OF 01/09/[address] Dwyer RPR,HIATAL HERNIA; W/MESH; THORACOABDOM 2018 FAMILY HISTORY Problem Relation Age of Onset Diabetes Mother Heart Father Social History Tobacco Use Smoking status: Never Smokeless tobacco: Never Vaping Use Vaping Use: Never used Substance Use Topics Alcohol use: No Drug use: No Reviewed current medications, allergies, past medical history, surgical history, family history andsocial history today. REVIEW OF SYSTEMS All other reviewed and negative other than HPI. HEALTH MAINTENANCE: Reviewed health maintenance issues today and recommended the following in detail. PNEUMOCOCCAL: 65+(1 - PCV) Never done BP CONTROLLED (<130/80) Never done SHINGRIX VACCINE(1 of 2) Never done COVID-19 VACCINE(3 - Booster for Pfizer series) due on 02/03/2021 INFLUENZA(1) due on 10/13/2021 ADVANCE DIRECTIVE DISCUSSION -discussed dpoa. Does not have one. DEPRESSION ASSESSMENT -done. VITALS: BP 136/82 Pulse 66 Ht 182.9 cm (6') Wt 89.8 kg (198 lb) SpO2 98% BMI 26.85 kg/m Last 4 Encounter Wt Readings: Date: Wt: 08/08/2021 85.7 kg (189 lb) 08/04/2021 86.2 kg (190 lb) 07/26/2021 87.1 kg (192 lb) 07/08/2021 87.5 kg (193 lb) PHYSICAL EXAMINATION: General appearance: Well appearing, alert, in no acute distress, well-hydrated, well nourished. Skin: Skin color, texture, turgor normal, no suspicious rashes or lesions Head: Normocephalic, no masses, lesions, tenderness or abnormalitie Lungs: Lungs clear to auscultation. No wheezing, rhonchi, rales Heart: RRR without murmur, gallop, or rubs. No ectopy Abdomen: Normal abdominal exam, Abdomen soft, non-tender. Bowel sounds normal. No masses, organomegaly Extremities: No deformities, edema, skin discoloration, clubbing or cyanosis. Good capillary refill. Musculoskeletal: No joint swelling, deformity, or tenderness ASSESSMENT/PLAN: 1. Primary hypertension - ICD9: 401.9, ICD10: I10 (primary diagnosis) - good control - Encouraged dietary sodium restriction/DASH diet - Goal of BP <130/80 - CBC - COMP METABOLIC PANEL - LIPID PANEL BASIC 2. Chronic obstructive pulmonary disease, unspecified COPD type (HCC) - ICD9: 496, ICD10: J44.9 - consider return to pulmonary 3. Thrombocytopenia (HCC) - ICD9: 287.5, ICD10: D69.6 - doing wel 4. Family history of early CAD - ICD9: V17.3, ICD10: Z82.49 5. Coronary artery disease involving [place] coronary artery of [place] heart without angina pectoris- ICD9: 414.01, ICD10: I25.10 - no complaints. 6. Stage 3 chronic kidney disease, unspecified whether stage 3a or 3b CKD (HCC) - ICD9: 585.3, ICD10: N18.30 - avoid nsaids. 7. History of sarcoidosis - ICD9: V12.29, ICD10: Z86.2 - consider return to pulmonary Vijay Zarco MD documented in this encounterJoint [facility] Miscellaneous Notes* Telephone Encounter - Frieda Fong LPN - 02/07/2022 7:06 PM EST Spoke with pt and information listed below given. Pt verbalizes understanding. Frieda Fong LPN * Telephone Encounter - Frida Han RN - 02/02/2022 1:36 PM EST Attempted to contact patient. No answer and VM box full. Please try patient again. Thank you. * Telephone Encounter - Vijay Zarco MD - 02/02/2022 1:18 PM EST His labs show he is a little dry. Make sure drinking fluids. Recheck bmp next week documented in this encounterJoint [facility]2022 Miscellaneous Notes* Telephone Encounter - Vijay Zarco MD - 01/31/2022 4:42 PM EST Labs are already in there. * Telephone Encounter - Hina Astorga LPN - 01/31/2022 2:10 PM EST Pt's is calling to make sure all labs are ordered that pt needs for upcoming appt. There is a bmp and cbc+diff ordered. reports pt is going to fast and come in the morning to lab just in case pcp wants any other labs done. Hina Astorga LPN documented in this encounterJoint [facility]06-27-2022 History of Present illness Narrative* Vijay Zarco MD - 08/08/2021 11:10 AM EDT Patient presents with: Blood Pressure: validate home cuff Recheck: saw ortho and urology HPI: Patient presents today for office visit for follow up. Has seen ortho. They are going to watch things for now. They may consider injections. He wants to wait on varicosities and seeing vascular surgery. Discussed compression hose. Saw urology. They will be following blood work and follow. He did not feel flomax helped and made him lightheaded. His platelets have remained low. Has been that way since 2006. Will follow labs. Reviewed ct scan. No mass or abnormality. No gi issues. Pain has been there for years. Worse when laying on his left side. Has degenerative changes in the spine. Has had colonoscopy in 2018. Seems to be musculoskeletal. Offered therapy. Declines. Home bp is reading high today. He says bp is erratic at home. See last ov: ASSESSMENT/PLAN: 1. Chronic left shoulder pain - ICD9: 719.41, 338.29, ICD10: M25.512, G89.29 (primary diagnosis) - he would like ortho to see if anything can fix His biceps - CONSULT TO ORTHOPAEDICS - XR SHOULDER GENERAL 3V OR MORE AP/TRUE AP/OTHER RIGHT 2. Rupture of right proximal biceps tendon, initial encounter - ICD9: 840.8, ICD10: S46.211A - CONSULT TO ORTHOPAEDICS - XR SHOULDER GENERAL 3V OR MORE AP/TRUE AP/OTHER RIGHT 3. Asymptomatic varicose veins of both lower extremities - ICD9: 454.9, ICD10: I83.93 - consider vascular surgery referall. 4. Benign prostatic hyperplasia with urinary hesitancy - ICD9: 600.01, 788.64, ICD10: N40.1, R39.11 - Discussed risks and benefits of new medication with the patient. Advised them to call if any sideeffects or questions. - PSA/PROSTSPECAG SCRN - URINALYSIS, WITH MICROSCOPIC - TAMSULOSIN 0.4 MG CAPSULE 5. LL Q pain - ICD9: 789.04, ICD10: R10.32 - since feels a mass at times and is painful. Get ct. Red flags for re- assessment reviewed with patient in detail. 6. Screening for colon cancer - ICD9: V76.51, ICD10: Z12.11 - FECAL OCCULT BLOOD TEST-negative. 7. Screening for prostate cancer - ICD9: V76.44, ICD10: Z12.5 - Counseled on healthy diet and regular exercise - PSA/PROSTSPECAG SCRN 8. History of sarcoidosis - ICD9: V12.29, ICD10: Z86.2 - stable. 9. Stage 3 chronic kidney disease, unspecified whether stage 3a or 3b CKD (HCC) - ICD9: 585.3, ICD10: N18.30 - will follow. 10. Primary hypertension - ICD9: 401.9, ICD10: I10 - suboptimal control - Bring in home cuff to validate - Goal of BP <130/80 - CBC + DIFF - COMP METABOLIC PANEL - LIPID PANEL BASIC 11. Chronic obstructive pulmonary disease, unspecified COPD type (HCC) - ICD9: 496, ICD10: J44.9 - continue meds. - STIOLTO RESPIMAT 2.5 MCG-2.5 MCG/ACTUATION SOLUTION FOR INHALATION 12. Left lower quadrant abdominal pain - ICD9: 789.04, ICD10: R10.32 - CT ABD/PEL W IVCON CT: 1. No CT evidence of acute abnormality in the abdomen or pelvis. Stable 1.2 cm indeterminant exophytic hyperdense lesion arising from the left kidney upper pole. Although this may certainly reflect a hemorrhagic cyst given stability dating back to 2018, further evaluation with nonemergent renal ultrasound is advised to exclude the possibility of a solid lesion. 3. Mildly prominent prostate. Correlate with PSA levels. Component Latest Ref Rng & Units 07/09/2021 WBC 3.70 - 11.00 k/uL 5.00 RBC 4.20 - 6.00 m/uL 4.84 Hemoglobin 13.0 - 17.0 g/dL 15.1 Hematocrit 39.0 - 51.0 % 46.0 MCV 80.0 - 100.0 fL 95.0 MCH 26.0 - 34.0 pg 31.2 MCHC 30.5 - 36.0 g/dL 32.8 RDW-CV 11.5 - 15.0 % 12.9 Platelet Count 150 - 400 k/uL 123 (L) MPV 9.0 - 12.7 fL 10.5 Neut% % 66.4 Abs Neut (ANC) 1.45 - 7.50 k/uL 3.32 Lymph% % 19.0 Abs Lymph 1.00 - 4.00 k/uL 0.95 (L) Powell% % 11.2 Abs Powell <0.87 k/uL 0.56 Eosin% % 2.8 Abs Eosin <0.46 k/uL 0.14 Baso% % 0.4 Abs Baso <0.11 k/uL <0.03 Immature Gran % % 0.2 IMMATURE GRANS (ABS) <0.10 k/uL <0.03 NRBC /100 WBC 0.0 Absolute nRBC <0.01 k/uL <0.01 DTYPE Auto Protein, Total 6.3 - 8.0 g/dL 7.5 Albumin 3.9 - 4.9 g/dL 4.6 Calcium 8.5 - 10.2 mg/dL 9.6 Bilirubin, Total 0.2 - 1.3 mg/dL 0.9 Alkaline Phosphatase 38 - 113 U/L 89 AST 14 - 40 U/L 31 ALT 10 - 54 U/L 19 Glucose 74 - 99 mg/dL 91 BUN 9 - 24 mg/dL 15 Creatinine 0.73 - 1.22 mg/dL 1.20 Sodium 136 - 144 mmol/L 140 Potassium 3.7 - 5.1 mmol/L 4.6 Chloride 97 - 105 mmol/L 103 CO2 22 - 30 mmol/L 29 Anion Gap 9 - 18 mmol/L 8 (L) eGFR >=60 mL/min/1.73m 65 Color Yellow Light Yellow Clarity Clear Clear Glucose, Urine Negative Negative Bilirubin, Urine Negative Negative Ketones, Urine Negative Negative Specific [place], Ur 1.005 - 1.030 1.013 Hemoglobin/Blood,Ur Negative Negative pH, Urine 5.0 - 8.0 7.0 Protein, Urine Negative Negative Urobilinogen Negative Negative Nitrites Negative Negative Leukest Negative Negative WBC, Urine 0-5 /HPF 0-5 /HPF RBC, Urine 0-3 /HPF 0-3 /HPF Cholesterol, Total <200 mg/dL 149 Triglyceride <150 mg/dL 74 HDL Cholesterol >39 mg/dL 43 Non HDL Cholesterol <130 mg/dL 106 Fasting Time hrs 12 VLDL Cholesterol <30 mg/dL 15 TC:HDL Ratio <5.10 3.47 LDL Cholesterol <100 mg/dL 91 LDL:HDL Ratio <2.54 2.12 PSA Screening <2.60 ng/mL 2.89 (H) MEDICATIONS: Current Outpatient Medications Medication Sig tiotropium-olodaterol (STIOLTO RESPIMAT) 2.5-2.5 mcg/actuation Inhale 2 Puffs as instructed once daily. Aspirin 81 mg Tab Take 1 tablet by mouth once daily. Take with food. Current Facility-Administered Medications Medication Dose Route Frequency perflutren lipid microspheres 1.3 mL in NaCl (PF) 0.9% 10 mL injection (DEFINITY) INTRAVENOUS DIRECTED PRN sodium chloride 0.9 % (flush) 10 mL (BD POSIFLUSH) 10 mL INTRAVENOUS DIRECTED PRN ALLERGIES: ALLERGIES Allergen Reactions Amoxil [Amoxicillin] Rash Generalized body rash- drug reaction Does well with omnicef Sulfa (Sulfonamide * PAST MEDICAL HISTORY Diagnosis Date COPD (chronic obstructive pulmonary disease) (HCC) 02/22/2021 Unspecified type. Non-smoker. 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 Diarrhea Internal hemorrhoids without mention of complication PAST SURGICAL HISTORY Procedure Laterality Date ARTHROSCOPY KNEE DIAGNOSTIC W/WO SYNOVIAL BX SPX 2002 Arthroscopy, knee COLONOSCOPY FLX DX W/COLLJ SPEC WHEN PFRMD 07/17/2017 Colonoscopy COLONOSCOPY W/BIOPSY SINGLE/MULTIPLE 01/02/2006 PAST SURGICAL HISTORY OF 01/09/[address] Dwyer RPR,HIATAL HERNIA; W/MESH; THORACOABDOM 2017 FAMILY HISTORY Problem Relation Age of Onset Diabetes Mother Heart Father Social History Tobacco Use Smoking status: Never Smoker Smokeless tobacco: Never Used Vaping Use Vaping Use: Never used Substance Use Topics Alcohol use: No Drug use: No Reviewed current medications, allergies, past medical history, surgical history, family history andsocial history today. REVIEW OF SYSTEMS All other reviewed and negative other than HPI. VITALS: BP 130/68 Pulse 68 Wt 85.7 kg (189 lb) SpO2 99% BMI 25.63 kg/m Last 4 Encounter Wt Readings: Date: Wt: 08/08/2021 85.7 kg (189 lb) 08/04/2021 86.2 kg (190 lb) 07/26/2021 87.1 kg (192 lb) 07/08/2021 87.5 kg (193 lb) PHYSICAL EXAMINATION: General appearance: Well appearing, alert, in no acute distress, well-hydrated, well nourished. Skin: Skin color, texture, turgor normal, no suspicious rashes or lesions Lungs: Lungs clear to auscultation. No wheezing, rhonchi, rales Heart: RRR without murmur, gallop, or rubs. No ectopy Abdomen: Normal abdominal exam, Abdomen soft, non-tender. Bowel sounds normal. No masses, organomegaly Extremities: No deformities, edema, skin discoloration, clubbing or cyanosis. Good capillary refill. Varicosities. ASSESSMENT/PLAN: 1. Primary hypertension - ICD9: 401.9, ICD10: I10 (primary diagnosis) - good control - Continue current medication(s) - Goal of BP <130/80 2. Thrombocytopenia (HCC) - ICD9: 287.5, ICD10: D69.6 - as above. Check labs in six months. 3. Stage 3 chronic kidney disease, unspecified whether stage 3a or 3b CKD (HCC) - ICD9: 585.3, ICD10: N18.30 - follow labs. 4. Chronic obstructive pulmonary disease, unspecified COPD type (HCC) - ICD9: 496, ICD10: J44.9 - continue meds. 5. Elevated PSA - ICD9: 790.93, ICD10: R97.20 - per urologyl 6. LLQ pain - ICD9: 789.04, ICD10: R10.32 - Consider physical therapy. Vijay Zarco RTO in six months and prn. documented in this encounterJoint [facility]06-23-2022 History of Present illness Narrative* David Serrano MD - 08/04/2021 9:06 AM EDT David Serrano MD Department of Orthopaedics Orth[facility] [address] [place] [address] Dept: [phone] Dept August 04, [address] Zarco for an opinion regarding right shoulder pain. My final recommendations will be communicated back to the requesting physician by way of shared Medical record or letter to requesting physician via US mail. CHIEF COMPLAINT: New of the Right Shoulder and ? biceps rupture (Referred by Dr. Zarco) HPI Intake information documented in the prior visit with Juan Francisco Tena on 07/26/21. Patient states he noticed over a year ago he had a bulge in his right biceps. No specific injury. Denies any pain today. 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 He is retired. X-rays done on 07/08/21. ASSESSMENT: M25.512, G89.29 Chronic left shoulder pain S46.211A Rupture of right proximal biceps tendon, initial encounter PLAN: Based on his history and exam, though he certainly has a proximal biceps rupture that is chronic now, he has impingement symptoms and likely some rotator cuff symptoms on the right side. We discussedcouple different treatment options and he like to try a topical anti-inflammatory for now. He may consider some formal therapy or possibly a cortisone injection down the line. FOLLOW UP INSTRUCTIONS: As needed Mr. Maykel Morales was advised as to contrast therapies and/or to take analgesics/anti-inflammatories as needed and all contraindications were reviewed. OBJECTIVE: Mr. Maykel Morales is a pleasant 70 year old in no apparent distress. Gen:Ht 6' 0 (1.83m) Wt 190 lb (86.2kg) BMI 25.76 kg/(m^2). nl development, non obese, no deformities ENT: Normocephalic, normal hearing, moist mucosa CV: Pulses:Radial= 2+ and symmetric, capillary refill < 2 secs, no peripheral edema/varicosities Skin: no rash, bruising or lesions. Good turgor. Psych: cooperative and appropriate, alert and oriented x 3, good mood and affect. Musculoskeletal: Supple range of motion of the cervical spine without pain. Spurling signs are negative. No atrophy of the deltoid and shoulder musculature. He does have an obvious Santosh sign on the right with an absent long head biceps. Right shoulder is nontender to palpation over the SC joint, clavicle and AC joint. No tenderness to palpation over the posterior shoulder, positive tenderness palpation over theanterior lateral corner of the shoulder and greater tuberosity. Nonpainful at the bicipital groove and coracoid. Active range of motion is 165 degrees of forward elevation, 65 degrees external rotation, and internal rotation to the mid lumbar spine. Passive range of motion is symmetrical, respectively. No laxity with anterior and posterior stress. Mildly positive Neer and Estrada impingement signs. 4+/5 strength with supraspinatus, infraspinatus and subscapularis. Sensation is intact in the axillary, radial, median and ulnar nerve distribution IMAGING: IMPRESSION: No acute pathology. Degenerative changes as discussed Ballet Dancer: TAIMR Transcribe Date/Time: Jul 08 2021 9:49A Dictated by : PONCE SHARP DO This examination was interpreted and the report reviewed and electronically signed by: PONCE SHARP DO on Jul 08 2021 9:50AM EST Results-Findings * * *Final Report* * * DATE OF EXAM: Jul 08 2021 9:45AM WOX [id number] - XR SHLDR >/=3V AP/SARAH AP/OTHR RT / PROCEDURE REASON: multiple diagnoses * * * * Physician Interpretation * * * * XR SHLDR >/=3V AP/SARAH AP/OTHR RT EXAM DATE/TIME: 07/08/2021 9:45 AM HISTORY: 70 years old Clinical information: Chronic left shoulder pain Chronic left shoulder pain Rupture of right proximal biceps tendon, initial encounter Chronic right anterior shoulder pain increasing over time without injury TECHNIQUE: Images: XR SHLDR >/=3V AP/SARAH AP/OTHR RT Comparison: None. RESULT: Findings: Severe narrowing of the AC joint. Mild narrowing of the glenohumeral joint.The acromial humeral interval is unremarkable.. The bone density is unremarkable. Degenerative changes in the spine noted. Supporting Subjective Information Below: Past Medical History: PAST MEDICAL HISTORY Diagnosis Date COPD (chronic obstructive pulmonary disease) (HCC) 02/22/2021 Unspecified type. 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 Diarrhea Internal hemorrhoids without mention of complication Past Surgical History: PAST SURGICAL HISTORY Procedure Laterality Date ARTHROSCOPY KNEE DIAGNOSTIC W/WO SYNOVIAL BX SPX 2002 Arthroscopy, knee COLONOSCOPY FLX DX W/COLLJ SPEC WHEN PFRMD 07/17/2017 Colonoscopy COLONOSCOPY W/BIOPSY SINGLE/MULTIPLE 01/02/2006 PAST SURGICAL HISTORY OF 01/09/[address] Dwyer RPR,HIATAL HERNIA; W/MESH; THORACOABDOM 2017 Family History: FAMILY HISTORY Problem Relation Age of Onset Diabetes Mother Heart Father Social History: Social History Tobacco Use Smoking status: Never Smoker Smokeless tobacco: Never Used Vaping Use Vaping Use: Never used Substance Use Topics Alcohol use: No Drug use: No Medications: Current Outpatient Medications Medication Sig tiotropium-olodaterol (STIOLTO RESPIMAT) 2.5-2.5 mcg/actuation Inhale 2 Puffs as instructed once daily. Aspirin 81 mg Tab Take 1 tablet by mouth once daily. Take with food. Current Facility-Administered Medications Medication Dose Route Frequency perflutren lipid microspheres 1.3 mL in NaCl (PF) 0.9% 10 mL injection (DEFINITY) INTRAVENOUS DIRECTED PRN sodium chloride 0.9 % (flush) 10 mL (BD POSIFLUSH) 10 mL INTRAVENOUS DIRECTED PRN Allergies: Amoxil [Amoxicillin] and Sulfa (Sulfonamide Antibiotics) ROS: General (negative for fatigue, malaise, weight loss/gain) HEENT (negative for headache, earache, recent vision changes, sinus pain, sore throat) Respiratory (no recent shortness of breath, hemoptysis) CV (negative for chest tightness, palpitations) Musculoskeletal (see HPI) Psych (no depression, anxiety) REFERRING PHYSICIAN: Mr. Maykel Morales was referred to n[place] for consultation by the following physician. This consultation note will be sent to the following physician by either mail or electronicmedical record. Vijay Zarco [address] [facility] [address] Vijay Zarco MD [address] [facility] [id number] David Serrano MD documented in this encounterJoint Township [facility]06-14-2022 History of Present illness Narrative* Juan Francisco Tena PA-C - 07/26/2021 8:24 AM EDT Images from the original note were not included. PATIENT INFO: Maykel Morales 70 year old ( ) REFERRING PROVIDER: Vijay Zarco PCP: Vijay Zarco MD July 26, 2021 HPI: Maykel Morales 70 year old male is here today for discussion and evaluation of Renal Cyst and elevated PSA of 2.89 which is first PSA since 2012 so it is not surprising it has increase based on size of prostate and age. 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 We discuss the need to follow up with PSA nd Renal US he agrees with plan LAW - 50 g no nodules or tenderness He has some NTF but PVR is 0 ml and therefore at this time Flomax may not really be needed so will hold for now. LUTS: Obstructive - weak stream: no, hesitancy: no, Intermittency: no, Double voiding no post-void dribbling: no incomplete emptying: no Irritative - NTF yes Urgency no Frequency no Dysuria no Incontinence no Gross Hematuria no Microscopic Hematuria no Other symptoms: LABS: No results found for: TESTOST No results found for: TESTFREE PSA (ng/mL) Date Value 09/02/2011 0.11 PSA Screening (ng/mL) Date Value 07/09/2021 2.89 Hematocrit (%) Date Value 07/09/2021 46.0 12/09/2020 46.4 09/30/2020 47.6 08/31/2020 47.6 MEDICATIONS: tiotropium-olodaterol (STIOLTO RESPIMAT) 2.5-2.5 mcg/actuation Inhale 2 Puffs as instructed once daily. tamsulosin (FLOMAX) 0.4 mg Take 1 capsule by mouth daily at bedtime. Aspirin 81 mg Tab Take 1 tablet by mouth once daily. Take with food. PAST MEDICAL HISTORY: PAST MEDICAL HISTORY Diagnosis Date COPD (chronic obstructive pulmonary disease) (HCC) 02/22/2021 Unspecified type. 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 Diarrhea Internal hemorrhoids without mention of complication PAST SURGICAL HISTORY: PAST SURGICAL HISTORY Procedure Laterality Date ARTHROSCOPY KNEE DIAGNOSTIC W/WO SYNOVIAL BX SPX 2002 Arthroscopy, knee COLONOSCOPY FLX DX W/COLLJ SPEC WHEN PFRMD 07/17/2017 Colonoscopy COLONOSCOPY W/BIOPSY SINGLE/MULTIPLE 01/02/2006 PAST SURGICAL HISTORY OF 01/09/[address] Dwyer RPR,HIATAL HERNIA; W/MESH; THORACOABDOM 2017 FAMILY HISTORY: FAMILY HISTORY Problem Relation Age of Onset Diabetes Mother Heart Father SOCIAL HISTORY: Social Connections: Not on file REVIEW OF SYSTEMS: GENERAL: No fever, chills, weight loss, or fatigue. ENMT: Negative CARDIOVASCULAR:NO CHEST PAIN, PALPITATIONS, ANKLE EDEMA RESPIRATORY: No chronic cough, wheezing, dyspnea, hemoptysis. GENITOURINARY: SEE HPI MUSCULOSKELETAL:NO CHRONIC BACK PAIN, ARTHRITIS, CHRONIC NECK PAIN SKIN: NO VARICOSE VEINS, RASH, ABNORMAL ITCHING HEME/LYMPH/IMMUNE:Negative for prolonged bleeding, bruising easily or swollen nodes NEUROLOGICAL: NO HEADACHES, NUMBNESS, SEIZURES, STROKE DIABETES: No All other systems reviewed and are negative PHYSICAL EXAMINATION: Blood pressure 140/78, pulse 74, temperature 36.3 C (97.3 F), temperature source Temporal, resp. rate 14, height 182.9 cm (6'), weight 87.1 kg (192 lb), SpO2 99 %. GENERAL: WNL nutrition, no deformities, healthy appearing NEURO: Awake, alert and oriented x 3 and Normal gait PSYCH: No signs of depression, anxiety, or agitation ENMT (Ear, Nose, Mouth, Throat): No masses, adenopathy, icterus. Thyroid nonpalpable RESP: NL effort, no retractions or purse-lip breathing. CV: No extremity swelling, varices, edema, pallor, erythema GASTROINTESTINAL: Soft, nontender, nondistended, no masses. HERNIAS: None SKIN: No rash, lesions No palpable lymphadenopathy MUSCULOSKELETAL: Extremities normal. No deformities, edema, clubbing or skin discoloration. GENITOURINARY: MALE EXAM: Rectal Exam: Prostate: size (50 grams), symmetrical, nontender, w/o nodules. PROBLEM LIST REVIEW: Yes LABS: Results for orders placed or performed in visit on 07/26/21 UA DIP, URINE (POC) Result Value Ref Range GLUCOSE UA (POCT) Negative Negative mg/dL BILIRUBIN UA (POCT) Negative Negative KETONE UA (POCT) Negative Negative mg/dL SPECIFIC GRAVITY UA (POCT) <=1.005 (A) 1.005 - 1.030 HEMOGLOBIN/BLOOD UA (POCT) Negative Negative PH UA (POCT) 5.5 4.5 - 8.0 PROTEIN UA (POCT) Negative Negative mg/dL UROBILINOGEN UA (POCT) 0.2 Normal E.U./dL NITRITE UA (POCT) Negative Negative LEUKOCYTES UA (POCT) Negative Negative COLOR UA (POCT) Light yellow CLARITY UA (POCT) Clear PROCEDURES: IMAGING: IMPRESSION: 1. No CT evidence of acute abnormality in the abdomen or pelvis. Stable 1.2 cm indeterminant exophytic hyperdense lesion arising from the left kidney upper pole. Although this may certainly reflect a hemorrhagic cyst given stability dating back to 2018, further evaluation with nonemergent renal ultrasound is advised to exclude the possibility of a solid lesion. 3. Mildly prominent prostate. Correlate with PSA levels. IMPRESSION/PLAN: 1. Elevated PSA of 2.89 > PSA in 6 mo no visi then 12 mo with annual visit 2. BPH with Nocturia > hold Flomax 3. Renal Cyst > Renal US in 1 yr > 6 mo PSA no visit > 1 year Appt w/ ALBERTO Carey MT, PA-C with PSA and Renal US prior I spent a total of 40 minutes on the date of the service which included preparing to see the patient, face to face patient care, completing clinical documentation, obtaining and/or reviewing separately obtained history, performing a medically appropriate examination, counseling and educating the pat ient/family/caregiver, ordering medications, tests, or procedures, and care coordination. ALBERTO Little MT, PA-C * Patti Josh CARDENAS - 07/26/2021 8:19 AM EDT CC Post Void Residual HPI: Maykel Morales is a 70 year old male. The patient is here now for an appointment with ALBERTO Little MT, PA-COV. Procedure: Explained procedure to patient and verbalizes understanding. Performed a PVR. Patient urinated and instructed to empty bladder as much as possible just prior to having PVR done using bladder ultrasound scanner. Results of scan: 0 mL The patient tolerated the procedure well. Plan: Appointment with Juan Francisco. documented in [facility] Miscellaneous Notes* Telephone Encounter - Matt Galindo LPN - 07/20/2021 9:51 AM EDT TC to pt, notified of results/provider response. Pt is scheduled to see Urology on 07/26, will plan to keep that appt. Matt Galindo LPN * Telephone Encounter - Vanita Enriquez APRN.CNP - 07/19/2021 6:24 PM EDT Can please let patient know that we received his ultrasound results. The spot that they were looking for was not able to be visualized on ultrasound. They reviewed old images and this lesion has beenthere since at least 2007 and it is noted to be a little smaller on the most recent imaging and it is felt that this is consistent as being a complex cyst. Since it has been stable for this length oftime, likely nothing more needs to be done, however; please continue to follow-up with urology for their recommendations re: if this needs any further surveillance. Referral added. Vanita Enriquez APRN.JAIME documented in this encounterJoint [facility] History of Present illness Narrative* Alessandra Aleman RDMS - 07/19/2021 7:45 AM EDT Radiology Service Progress Note PATIENT NAME: Maykel Morales DATE OF SERVICE: July 19, 2021 TIME: 10:03 AM PATIENT IDENTITY VERIFICATION COMPLETED USING TWO (2) IDENTIFIERS: Name and Date of confirmedby patient verbally. FALL SCREENING: Has the patient had 2 falls in the last year or 1 fall with injury or currently using an Ambulatory Assistive Device (Walker, Cane, Wheelchair, Crutches, etc.)? No PATIENT GENDER DATA: Male PATIENT RELEVANT IMPLANT DATA REVIEWED: Not Applicable RADIOLOGY DEPARTMENT: Ultrasound PERIPHERAL IV DATA: Not applicable SIGNED BY: Alessandra Aleman RDMS RVT July 19, 2021 10:03 AM documented in this encounterJoint [facility] History of Present illness Narrative* Patti Haque, RT(R) - 07/13/2021 10:00 AM EDT Radiology Service Progress Note DATE OF SERVICE: July 13, 2021 TIME: 1:22 PM PATIENT IDENTITY VERIFICATION COMPLETED USING TWO (2) STANDARD IDENTIFIERS: Name and Date of confirmed by patient verbally. FALL SCREENING: Has the patient had 2 falls in the last year or 1 fall with injury or currently using an Ambulatory Assistive Device (Walker, Cane, Wheelchair, Crutches, etc.)? No PATIENT GENDER DATA: Male PATIENT RELEVANT IMPLANT DATA REVIEWED: Yes ALLERGIES: Reviewed and unchanged CONTRAST ALLERGY: NO. EXAM: CT -CONTRAST INDUCED NEPHROPATHY RISK FACTORS: Patient age > 60 years CREATININE: Creatinine Date Value Ref Range Status 07/09/2021 1.20 0.73 - 1.22 mg/dL Final 12/09/2020 1.23 (H) 0.73 - 1.22 mg/dL Final 09/30/2020 1.23 (H) 0.73 - 1.22 mg/dL Final Estimated Glomerular Filtration Rate Date Value Ref Range Status 07/09/2021 65 >=60 mL/min/1.73m Final Comment: Estimated Glomerular Filtration Rate (eGFR) is calculated using the 2020 CKD-EPI creatinine equation. This equation utilizes serum creatinine, sex, and age as parameters. The creatinine assay has traceable calibration to isotope dilution- mass spectrometry. Refer to KDIGO guidelines for clinical interpretation. In patients with unstable renal function, e.g. those with acute kidney injury, the eGFRmay not accurately reflect actual GFR. eGFR- Date Value Ref Range Status 12/09/2020 >60 Final P.O.C.T. RESULTS: POC done: Yes, See Lab Tab July 13, 2021 TREATMENT: N/A PERIPHERAL IV DATA: Ambulatory: A peripheral IV was started in the Left antecubital site with a Angio cath: 22 gauge. RADIOLOGY DEPARTMENT: CT; Exam(s) Completed: Abdomen/Pelvis SIGNATURE: RT Jonathan(R) PATIENT NAME: Maykel Morales DATE: July 13, 2021 TIME: 1:22 PM documented in this encounterJoint [facility]05-[facility]22 Miscellaneous Notes* Addendum Note - Vijay Zarco MD - 07/08/2021 9:19 AM EDT Addended by: VIJAY ZARCO on: 07/08/2021 09:19 AM Modules accepted: Orders documented in this encounterJoint [facility]05-27-2022 Instructions* Patient Instructions* Vijay Zarco MD - 07/08/2021 9:10 AM EDT Bring in your home cuff to next appt and validate. documented in this encounterJoint [facility]05-27-[facility]22 History of Present illness Narrative* Vijay Zarco MD - 07/08/2021 8:45 AM EDT Patient presents with: Follow Up: would like to check screening labs right bicep muscle: painful with certain movements torn? has been bothersome for about a year Varicose Veins: bilateral legs would like to do something about these prostate issue: enlarged? LLQ pain: long time pain bothersome at night when lying down especially when lying on that side HPI: Patient presents today for office visit for follow up. Has a number of issues. Has seen cardiology. Cardiac scoring and echo done. They felt breathing was pulmonary related. Recommended statin drug which he refused. Saw pulmonary and added stiolto respimat. Breathing is somewhat better. No chest pain. bp has been ok at home as been good. No dizziness. He may have torn his biceps at some point. He says was a year ago. Has santosh muscle Occasional pain. Strength is not what it used to be. He might be interested to see if there is anything to do. Has chronic issues with varicose veins. Used to wear support hose. No redness or warmth. Does get occasional leg cramps. Offered vascular surgery. Concerned about his prostate. Gets up a few times at night to urinate. Sometimes feels things are blocking. Stream can sometimes be weak Has been an issue for several years. Mild caffeine use. Had discussion with patient regarding risks and benefits of prostate screening. Allowed them to decide if they wished to proceed with screening including LAW and PSA. See previous office notes. He has declined imaging last year. Feels like something is in his llq quadrant. He did have imaging in 2018. He had a colonoscopy in 2018 which was normal. No bowel changes. No bloody or black stools see previous ov: Have been working him up for shortness of breath. Following platelets and renal function. He is also following with cardiology and pulmonary Was going to get ct for calcium scoring. Declined inhaled steroids per pulmonary recommendations. Also declined bp meds when recommended by cardiology. Discussed his elevated evaristo. Has some hand pain. No rashes. No dysphagia. Reiterated seeing rheumatolology. Has been checking his bp at home. Has been very good at home. Usually under 120 in the am. Usually under 140 systolic in the am. Mentions since he was seeing Dr. Yepez's, he has had occasional llq pain. Comes and goes. Worse when laying on his side or worse when laying down at night. No bowel changes. No urinary issues. Suggested we can check testing like imaging etc. He is reluctant to continue doing testing. Has notchanged in a number of years. Red flags for re-assessment reviewed with patient in detail. See previous ov: MEDICATIONS: Current Outpatient Medications Medication Sig tiotropium-olodaterol (STIOLTO RESPIMAT) 2.5-2.5 mcg/actuation Inhale 2 Puffs as instructed once daily. Aspirin 81 mg Tab Take 1 tablet by mouth once daily. Take with food. Current Facility-Administered Medications Medication Dose Route Frequency perflutren lipid microspheres 1.3 mL in NaCl (PF) 0.9% 10 mL injection (DEFINITY) INTRAVENOUS DIRECTED PRN sodium chloride 0.9 % (flush) 10 mL (BD POSIFLUSH) 10 mL INTRAVENOUS DIRECTED PRN ALLERGIES: ALLERGIES Allergen Reactions Amoxil [Amoxicillin] Rash Generalized body rash- drug reaction Does well with omnicef Sulfa (Sulfonamide * PAST MEDICAL HISTORY Diagnosis Date COPD (chronic obstructive pulmonary disease) (HCC) 02/22/2021 Unspecified type. Non-smoker. 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 Diarrhea Internal hemorrhoids without mention of complication PAST SURGICAL HISTORY Procedure Laterality Date ARTHROSCOPY KNEE DIAGNOSTIC W/WO SYNOVIAL BX SPX 2002 Arthroscopy, knee COLONOSCOPY FLX DX W/COLLJ SPEC WHEN PFRMD 07/17/2017 Colonoscopy COLONOSCOPY W/BIOPSY SINGLE/MULTIPLE 01/02/2006 PAST SURGICAL HISTORY OF 01/09/[address] Dwyer RPR,HIATAL HERNIA; W/MESH; THORACOABDOM 2017 FAMILY HISTORY Problem Relation Age of Onset Diabetes Mother Heart Father Social History Tobacco Use Smoking status: Never Smoker Smokeless tobacco: Never Used Vaping Use Vaping Use: Never used Substance Use Topics Alcohol use: No Drug use: No Reviewed current medications, allergies, past medical history, surgical history, family history andsocial history today. REVIEW OF SYSTEMS All other reviewed and negative other than HPI. HEALTH MAINTENANCE: Reviewed health maintenance issues today and recommended the following in detail. PNEUMOCOCCAL: 65+(1 - PCV) Never done BP CONTROLLED (<130/80) Never done SHINGRIX VACCINE(1 of 2) Never done DEPRESSION SCREENING due on 11/30/2019 ADVANCE DIRECTIVE DISCUSSION Never done COVID-19 VACCINE(3 - Booster for Pfizer series) due on 05/09/2021 VITALS: BP 146/72 Pulse 64 Wt 87.5 kg (193 lb) BMI 26.18 kg/m Last 4 Encounter Wt Readings: Date: Wt: 07/08/2021 87.5 kg (193 lb) 04/25/2021 91.6 kg (202 lb) 04/25/2021 91.6 kg (202 lb) 02/22/2021 92.3 kg (203 lb 6.4 oz) PHYSICAL EXAMINATION: General appearance: Well appearing, alert, in no acute distress, well-hydrated, well nourished. Skin: Skin color, texture, turgor normal, no suspicious rashes or lesions Head: Normocephalic, no masses, lesions, tenderness or abnormalities Back: Normal exam Lungs: Lungs clear to auscultation. No wheezing, rhonchi, rales Heart: RRR without murmur, gallop, or rubs. No ectopy Abdomen: Normal abdominal exam, Abdomen soft, non-tender. Bowel sounds normal. No masses, organomegaly Extremities: No deformities, edema, skin discoloration, clubbing or cyanosis. Good capillary refill. Large varicose veins. Rectal: stool heme negative. Mild prostate enlargement without nodules or tenderness. Musculoskeletal: No joint swelling, deformity, or tenderness Peripheral pulses: Normal Neuro: Negative. Normal range of motion in the shoulder. No signs of impingement. Appears to have a proximal biceps tendon rupture. He would like ortho to see if anything can be done. ASSESSMENT/PLAN: 1. Chronic left shoulder pain - ICD9: 719.41, 338.29, ICD10: M25.512, G89.29 (primary diagnosis) - he would like ortho to see if anything can fix His biceps - CONSULT TO ORTHOPAEDICS - XR SHOULDER GENERAL 3V OR MORE AP/TRUE AP/OTHER RIGHT 2. Rupture of right proximal biceps tendon, initial encounter - ICD9: 840.8, ICD10: S46.211A - CONSULT TO ORTHOPAEDICS - XR SHOULDER GENERAL 3V OR MORE AP/TRUE AP/OTHER RIGHT 3. Asymptomatic varicose veins of both lower extremities - ICD9: 454.9, ICD10: I83.93 - consider vascular surgery referall. 4. Benign prostatic hyperplasia with urinary hesitancy - ICD9: 600.01, 788.64, ICD10: N40.1, R39.11 - Discussed risks and benefits of new medication with the patient. Advised them to call if any sideeffects or questions. - PSA/PROSTSPECAG SCRN - URINALYSIS, WITH MICROSCOPIC - TAMSULOSIN 0.4 MG CAPSULE 5. LL Q pain - ICD9: 789.04, ICD10: R10.32 - since feels a mass at times and is painful. Get ct. Red flags for re- assessment reviewed with patient in detail. 6. Screening for colon cancer - ICD9: V76.51, ICD10: Z12.11 - FECAL OCCULT BLOOD TEST-negative. 7. Screening for prostate cancer - ICD9: V76.44, ICD10: Z12.5 - Counseled on healthy diet and regular exercise - PSA/PROSTSPECAG SCRN 8. History of sarcoidosis - ICD9: V12.29, ICD10: Z86.2 - stable. 9. Stage 3 chronic kidney disease, unspecified whether stage 3a or 3b CKD (HCC) - ICD9: 585.3, ICD10: N18.30 - will follow. 10. Primary hypertension - ICD9: 401.9, ICD10: I10 - suboptimal control - Bring in home cuff to validate - Goal of BP <130/80 - CBC + DIFF - COMP METABOLIC PANEL - LIPID PANEL BASIC 11. Chronic obstructive pulmonary disease, unspecified COPD type (HCC) - ICD9: 496, ICD10: J44.9 - continue meds. - STIOLTO RESPIMAT 2.5 MCG-2.5 MCG/ACTUATION SOLUTION FOR INHALATION 12. Left lower quadrant abdominal pain - ICD9: 789.04, ICD10: R10.32 - CT ABD/PEL W IVCON Vijay Zarco RTO in one month and prn. documented in this encounterJoint [facility]10[facility] History of Past illness Narrative* Problem Noted Date Resolved Date Dyspnea on exertion 12/02/2020 02/16/2022 Diarrhea 01/02/2006 02/23/2014 documented as of this encounter (statuses as of 02/17/2022) [facility] of Past illness Narrative* Problem Noted Date Resolved Date Dyspnea on exertion 12/02/2020 02/16/2022 Diarrhea 01/02/2006 02/23/2014 documented as of this encounter (statuses as of 05/11/2022) [facility] of Past illness Narrative* Problem Noted Date Resolved Date Dyspnea on exertion 12/02/2020 02/16/2022 Diarrhea 01/02/2006 02/23/2014 documented as of this encounter (statuses as of 07/17/2022) [facility] of [facility] illness Narrative* Problem Noted Date Resolved Date Dyspnea on exertion 12/02/2020 02/16/2022 Diarrhea 01/02/2006 02/23/2014 documented as of this encounter (statuses as of 08/02/2022) [facility] illness Narrative* Problem Noted Date Resolved Date Dyspnea on exertion 12/02/2020 02/16/2022 Diarrhea 01/02/2006 02/23/2014 documented as of this encounter (statuses as of 08/02/2022) [facility] illness Narrative* Problem Noted Date Resolved Date Dyspnea on exertion 12/02/2020 02/16/2022 Diarrhea 01/02/2006 02/23/2014 documented as of this encounter (statuses as of 08/08/2022) [facility] illness Narrative* Problem Noted Date Resolved Date Dyspnea on exertion 12/02/2020 02/16/2022 Diarrhea 01/02/2006 02/23/2014 documented as of this encounter (statuses as of 08/10/2022) [facility] illness Narrative* Problem Noted Date Resolved Date Dyspnea on exertion 12/02/2020 02/16/2022 Diarrhea 01/02/2006 02/23/2014 documented as of this encounter (statuses as of 08/11/2022) [facility] Narrative* Problem Noted Date Resolved Date Dyspnea on exertion 12/02/2020 02/16/2022 Diarrhea 01/02/2006 02/23/2014 documented as of this encounter (statuses as of 08/11/2022) [facility] Narrative* Problem Noted Date Diagnosed Date Resolved Date Dyspnea on exertion 12/02/2020 02/16/19 23 Diarrhea 01/02/2006 02/23/2014 documented as of this encounter (statuses as of 08/22/2022) [facility] Narrative* Problem Noted Date Diagnosed Date Resolved Date Dyspnea on exertion 12/02/2020 02/16/19 23 Diarrhea 01/02/2006 02/23/2014 documented as of this encounter (statuses as of 09/15/2022) [facility] Narrative* Problem Noted Date Diagnosed Date Resolved Date Dyspnea on exertion 12/02/2020 02/16/19 23 Diarrhea 01/02/2006 02/23/2014 documented as of this encounter (statuses as of 09/19/2022) [facility] Narrative* Problem Noted Date Diagnosed Date Resolved Date Dyspnea on exertion 12/02/2020 02/16/19 23 Diarrhea 01/02/2006 02/23/2014 documented as of this encounter (statuses as of 09/20/2022) [facility] Narrative* Problem Noted Date Diagnosed Date Resolved Date Dyspnea on exertion 12/02/2020 02/16/19 23 Diarrhea 01/02/2006 02/23/2014 documented as of this encounter (statuses as of 09/25/2022) [facility] Narrative* Problem Noted Date Diagnosed Date Resolved Date Dyspnea on exertion 12/02/2020 02/16/19 23 Diarrhea 01/02/2006 02/23/2014 documented as of this encounter (statuses as of 10/18/2022) [facility] Narrative* Problem Noted Date Diagnosed Date Resolved Date Dyspnea on exertion 12/02/2020 02/16/19 23 Diarrhea 01/02/2006 02/23/2014 documented as of this encounter (statuses as of 10/27/2022) [facility] Narrative* Problem Noted Date Diagnosed Date Resolved Date Dyspnea on exertion 12/02/2020 02/16/19 23 Diarrhea 01/02/2006 02/23/2014 documented as of this encounter (statuses as of 11/03/2022) [facility] Narrative* Problem Noted Date Diagnosed Date Resolved Date Dyspnea on exertion 12/02/2020 02/16/19 23 Diarrhea 01/02/2006 02/23/2014 documented as of this encounter (statuses as of 11/23/2022) [facility] Narrative* Problem Noted Date Diagnosed Date Resolved Date Dyspnea on exertion 12/02/2020 02/16/19 23 Diarrhea 01/02/2006 02/23/2014 documented as of this encounter (statuses as of 12/17/2022) [facility] Narrative* Problem Noted Date Diagnosed Date Resolved Date Dyspnea on exertion 12/02/2020 02/16/19 23 Diarrhea 01/02/2006 02/23/2014 documented as of this encounter (statuses as of 01/01/2023) [facility] Narrative* Problem Noted Date Resolved Date Diarrhea 01/02/2006 02/23/2014 documented as of this encounter (statuses as of 07/08/2021) [address] History of Past illness Narrative* Problem Noted Date Resolved Date Diarrhea 01/02/2006 02/23/2014 documented as of this encounter (statuses as of 07/14/2021) [address] History of Past illness Narrative* Problem Noted Date Resolved Date Diarrhea 01/02/2006 02/23/2014 documented as of this encounter (statuses as of 07/14/2021) [address] History of Past illness Narrative* Problem Noted Date Resolved Date Diarrhea 01/02/2006 02/23/2014 documented as of this encounter (statuses as of 07/20/2021) [address] History of Past illness Narrative* Problem Noted Date Resolved Date Diarrhea 01/02/2006 02/23/2014 documented as of this encounter (statuses as of 07/20/2021) [address] History of Past illness Narrative* Problem Noted Date Resolved Date Diarrhea 01/02/2006 02/23/2014 documented as of this encounter (statuses as of 07/26/2021) [address] History of Past illness Narrative* Problem Noted Date Resolved Date Diarrhea 01/02/2006 02/23/2014 documented as of this encounter (statuses as of 08/04/2021) [address] History of Past illness Narrative* Problem Noted Date Resolved Date Diarrhea 01/02/2006 02/23/2014 documented as of this encounter (statuses as of 08/08/2021) [address] History of Past illness Narrative* Problem Noted Date Resolved Date Diarrhea 01/02/2006 02/23/2014 documented as of this encounter (statuses as of 01/31/2022) [address] History of Past illness Narrative* Problem Noted Date Resolved Date Diarrhea 01/02/2006 02/23/2014 documented as of this encounter (statuses as of 02/13/2022) [facility] Diagnosis Chronic left shoulder pain- Primary Pain in joint, shoulder region Rupture of right proximal biceps tendon, initial encounter Asymptomatic varicose veins of both lower extremities Asymptomatic varicose veins Benign prostatic hyperplasia with urinary hesitancy LLQ pain Abdominal pain, left lower quadrant Screening for colon cancer Special screening for malignant neoplasms, colon Screening for prostate cancer Special screening for malignant neoplasm of prostate History of sarcoidosis Personal history of other endocrine, metabolic, and immunity disorders Stage 3 chronic kidney disease, unspecified whether stage 3a or 3b CKD (HCC) Primary hypertension Unspecified essential hypertension Chronic obstructive pulmonary disease, unspecified COPD type (HCC) Left lower quadrant abdominal pain [facility] Diagnosis Left lower quadrant abdominal pain [facility] Diagnosis Renal mass Unspecified disorder of kidney and ureter documented [facility] this encounter [facility] Diagnosis 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 documented [facility] this encounter [facility] Diagnosis Renal cyst- Primary Unspecified congenital cystic kidney disease Elevated PSA Elevated prostate specific antigen (PSA) [facility] Diagnosis Chronic left shoulder pain Pain in joint, shoulder region Rupture of right proximal biceps tendon, initial encounter documented [facility] this encounter [facility] Diagnosis Primary hypertension- Primary Unspecified essential hypertension Thrombocytopenia (HCC) Thrombocytopenia, unspecified Stage 3 chronic kidney disease, unspecified whether stage 3a or 3b CKD (HCC) Chronic obstructive pulmonary disease, unspecified COPD type (HCC) Elevated PSA Elevated prostate specific antigen (PSA) LLQ pain Abdominal pain, left lower quadrant [facility] Diagnosis Renal insufficiency- Primary Unspecified disorder of kidney and ureter [facility] Diagnosis Primary hypertension- Primary Unspecified essential hypertension Chronic obstructive pulmonary disease, unspecified COPD type (HCC) Thrombocytopenia (HCC) Thrombocytopenia, unspecified Family history of early CAD Family history of ischemic heart disease Coronary artery disease involving [place] coronary artery of [place] heart without angina pectoris Stage 3 chronic kidney disease, unspecified whether stage 3a or 3b CKD (HCC) History of sarcoidosis Personal history of other endocrine, metabolic, and immunity disorders [facility] Diagnosis Chronic obstructive pulmonary disease, unspecified COPD type (HCC) documented [facility] Diagnosis Chronic obstructive pulmonary disease, unspecified COPD type (HCC)- Primary Renal cyst Unspecified congenital cystic kidney disease Neck pain Cervicalgia Lumbar pain Lumbago Primary hypertension Unspecified essential hypertension [facility] Renal cyst- Primary Unspecified congenital cystic kidney disease Elevated PSA Elevated prostate specific antigen (PSA) documented [facility] this [facility] Diagnosis NSTEMI (non-ST elevated myocardial infarction) (HCC)- Primary Acute myocardial infarction, subendocardial infarction, episode of care unspecified Post PTCA Postsurgical percutaneous transluminal coronary angioplasty status Primary hypertension Unspecified essential hypertension Chronic obstructive pulmonary disease, unspecified COPD type (HCC) Stage 3 chronic kidney disease, unspecified whether stage 3a or 3b CKD (HCC) Orthostatic dizziness documented [facility] Diagnosis Coronary artery disease involving [place] coronary artery of [place] heart without angina pectoris- Primary Hypotension determined by examination [facility] Diagnosis Coronary artery disease involving [place] coronary artery of [place] heart without angina pectoris- Primary Non-ST elevation myocardial infarction (NSTEMI) (HCC) Acute myocardial infarction, subendocardial infarction, episode of care unspecified Orthostatic hypotension Stage 3 chronic kidney disease, unspecified whether stage 3a or 3b CKD (HCC) Elevated PSA Elevated prostate specific antigen (PSA) Chronic obstructive pulmonary disease, unspecified COPD type (HCC) Screening for prostate cancer Special screening for malignant neoplasm of prostate Bilateral carotid artery stenosis Occlusion and stenosis of carotid artery without mention of cerebral infarction documented [facility] Diagnosis Chronic obstructive pulmonary disease, unspecified COPD type (HCC) documented in this [facility] Diagnosis Chronic obstructive pulmonary disease, unspecified COPD type (HCC) documented in this [facility] Diagnosis 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 Stage 1 mild COPD by GOLD classification ([facility]) [facility] Diagnosis Positive EVARISTO (antinuclear antibody)- Primary Other and unspecified nonspecific immunological findings documented [facility] this encounter [facility] Diagnosis Orthostatic hypotension- Primary documented in this [facility] Diagnosis Neck pain- Primary Cervicalgia [facility] Diagnosis Neck pain- Primary Cervicalgia Lumbar pain Lumbago [facility] Diagnosis Neuropathy Mononeuritis of unspecified site [facility] Diagnosis Elevated PSA Elevated prostate specific antigen (PSA) Renal cyst Unspecified congenital cystic kidney disease documented [facility] this [facility]* Diagnosis Symptomatic varicose veins of both lower extremities- Primary Varicose veins of lower extremities with other complications Orthostatic hypotension Atherosclerosis of both carotid arteries Occlusion and stenosis of carotid artery without mention of cerebral infarction [facility] this [facility] Diagnosis Primary hypertension- Primary Unspecified essential hypertension History of IA (myocardial infarction) Old myocardial infarction Chronic obstructive pulmonary disease, unspecified COPD type (HCC) Stage 3 chronic kidney disease, unspecified whether stage 3a or 3b CKD (HCC) Thrombocytopenia (HCC) Thrombocytopenia, unspecified History of sarcoidosis Personal history of other endocrine, metabolic, and immunity disorders Vitamin B12 deficiency Other B-complex deficiencies Orthostatic hypotension Chest discomfort Other chest pain Need for pneumococcal vaccination Need for prophylactic vaccination against streptococcus pneumoniae (pneumococcus) documented [facility] this [facility] Diagnosis Venous (peripheral) insufficiency- Primary Unspecified venous (peripheral) insufficiency documented in this encounter [facility] for referral (narrative)* Diagnostic Procedure Only (Routine) - Closed Specialty Diagnoses / Procedures Referred By Alejandraac t Referred To Contact US IMAGING Diagnoses Renal mass Procedures US KIDNEY/BLADDER US RETROPERITONEAL REAL TIME W/IMAGE COMPLETE Vijay Zarco MD [address] [place] [address] Us Imaging Referral ID Status Reason Start Date Expiration Date V isits Requested Visits Authorized [id number] Closed Auto-Generate d Referral 07/13/2021 08/12/2022 1 1 [facility] for referral (narrative)* Diagnostic Procedure Only (Routine) - Pending Review Specialty Diagnoses / Procedures Referred By Contyuliya t Referred To Contact US IMAGING Diagnoses Elevated PSA Renal cyst Procedures US KIDNEY/BLADDER US RETROPERITONEAL REAL TIME W/IMAGE COMPLETE Juan Francisco Tena PA-C [address] [place] [address] Us Imaging Referral ID Status Reason Start Date Expiration Date Visits Requested Visits Authorized [id number] Pending Review Auto-Generat ed Referral 07/26/2022 08/25/2022 1 1 [facility] for referral (narrative)* Diagnostic Procedure Only (Routine) - Pending Review Specialty Diagnoses / Procedures Referred By Contac t Referred To Contact US IMAGING Diagnoses Renal cyst Procedures US KIDNEY/BLADDER US RETROPERITONEAL REAL TIME W/IMAGE COMPLETE Juan Francisco Tena PA-C [address] [place] [address] Us Imaging Referral ID Status Reason Start Date Expiration Date Visits Requested Visits Authorized [id number] Pending Review Auto-Generat ed Referral 08/01/2022 08/31/2023 1 1 [facility] for referral (narrative)* Diagnostic Procedure Only (Routine) - Closed Specialty Diagnoses / Procedures [facility] Referred To Contact US IMAGING Diagnoses Elevated PSA Renal cyst Procedures US KIDNEY/BLADDER US RETROPERITONEAL REAL TIME W/IMAGE COMPLETE Juan Francisco Tena PA-C [address] [place] [address] Us Imaging [facility] Referral ID Status Reason Start Date Expiration Date V isits Requested Visits Authorized [id number] Closed Auto-Generate d Referral 07/26/2022 08/25/2022 1 1 [facility] for referral (narrative)* Outpatient Procedure (Routine) - Authorized Specialty Diagnoses / Procedures [facility] Referred To Contact [facility] Diagnoses Symptomatic varicose veins of both lower extremities Procedures US VENOUS INCOMPETENCY JOSE [facility]AS LAB DUP-SCAN XTR VEINS COMPLETE BILATERAL STUDY Yue Escalona DO [address] [place] [address] [facility] [address] [place] [address] Referral ID Status Reason Start Date Expiration Date Visits Requested Visits Authorized [id number] Authorized Auto-Generat ed Referral 12/12/2023 1 1 [facility] Outpatient Procedure (Routine) - Closed Specialty Diagnoses / Procedures Referred By Contac t Referred To Contact [facility] Diagnoses Neuropathy Procedures EMG(NEURO/NI) NERVE CONDUCTION STUDIES 9-10 STUDIES Keena Willson PA-C [address] [place] [address] Neurological [address] [address] [place] [address] Referral ID Status Reason Start Date Expiration Date V isits Requested Visits Authorized [id number] Closed Auto-Generate d Referral 10/25/2022 10/26/2023 1 1 [facility] Summary Purpose Family History No Family History Records FoundNo Family History Records Found Advance Directives Documents on File Type Date Recorded Patient Waiter/Waitress Informal Expl anation Advance Directive(s) 07/17/2017 5:50 AM Documents on File Type Date Recorded Patient Waiter/Waitress Informal Expl anation Advance Directive(s) 07/17/2017 5:50 AM Reason for Referral Specialty Diagnoses / Procedures Referred By Contac t Referred To Contact CT IMAGING Diagnoses Left lower quadrant abdominal pain Procedures CT ABD/PEL W IVCON CT ABD & PELVIS W/CONTRAST Vijay Zarco MD [address] [place] [address] Ct Imaging Referral ID Status Reason Start Date Expiration Date Visits Requested Visits Authorized [id number] Authorized Auto-Generat ed Referral 07/08/2021 08/07/2022 1 1 Specialty Diagnoses / Procedures Referred By Contac t Referred To Contact XR IMAGING Diagnoses Chronic left shoulder pain Rupture of right proximal biceps tendon, initial encounter Procedures XR SHOULDER GENERAL 3V OR MORE AP/TRUE AP/OTHER RIGHT RADEX SHOULDER COMPLETE MINIMUM 2 VIEWS Vijay Zarco MD [address] [place] [address] Xr Imaging Referral ID Status Reason Start Date Expiration Date V isits Requested Visits Authorized [id number] Closed Auto-Generate d Referral 07/08/2021 08/07/2022 1 1 Specialty Diagnoses / Procedures Referred By Contac t Referred To Contact Orthopedics Diagnoses Chronic left shoulder pain Rupture of right proximal biceps tendon, initial encounter Procedures CONSULT TO ORTHOPAEDICS OFFICE/OUTPATIENT NEW HIGH MDM 60-74 MINUTES Vijay Zarco MD [address] [place] [address] Referral ID Status Reason Start Date Expiration Date Visits Requested Visits Authorized [id number] Authorized PCP Requested Referral 07/08/2021 07/08/2022 1 1 Referral ID Status Reason Start Date Expiration Date V isits Requested Visits Authorized [id number] Closed Auto-Generate d Referral 07/08/2021 08/07/2022 1 1 Specialty Diagnoses / Procedures Referred By Contac t Referred To Contact Urology Diagnoses Complex renal cyst Procedures CONSULT TO UROLOGY OFFICE/OUTPATIENT [facility] 60-74 MINUTES Vanita Enriquez APRN.CNP [address] [place] [address] Referral ID Status Reason Start Date Expiration Date Visits Requested Visits Authorized [id number] Authorized PCP Requested Referral 07/19/2021 07/19/2022 1 1 Specialty Diagnoses / Procedures Referred By Contac t Referred To Contact [facility] Diagnoses Neck pain Lumbar pain Procedures CONSULT TO PHYSICAL THERAPY PHYSICAL THERAPY EVALUATION HIGH COMPLEX 45 MINS Vijay Zarco MD [address] [place] [address] [facility] [address] [place] [address] Referral ID Status Reason Start Date Expiration Date Visits Requested Visits Authorized [id number] Authorized PCP Requested Referral Auto-Generate d Referral 07/17/2022 07/17/2023 99 99 Specialty Diagnoses / Procedures Referred By Contac t Referred To Contact XR IMAGING Diagnoses Lumbar pain Procedures XR LUMBAR GENERAL 3V AP/LAT/L5-S1 RADEX SPINE LUMBOSACRAL 2/3 VIEWS Vijay Zarco MD [address] [place] [address] Xr Imaging Referral ID Status Reason Start Date Expiration Date V isits Requested Visits Authorized [id number] Closed Auto-Generate d Referral 07/17/2022 08/16/2023 1 1 Specialty Diagnoses / Procedures Referred By Contac t Referred To Contact XR IMAGING Diagnoses Neck pain Procedures XR CERV OTHER 4V AP/LAT/OBL RADEX SPINE CERVICAL 4 OR 5 VIEWS Vijay Zarco MD [address] [place] [address] Xr Imaging Referral ID Status Reason Start Date Expiration Date V isits Requested Visits Authorized [id number] Closed Auto-Generate d Referral 07/17/2022 08/16/2023 1 1 Specialty Diagnoses / Procedures Referred By Contac t Referred To Contact Urology Diagnoses Renal cyst Procedures CONSULT TO UROLOGY OFFICE/OUTPATIENT [facility] 60-74 MINUTES Vijay Zarco MD [address] [place] [phone] Referral ID Status Reason Start Date Expiration Date Visits Requested Visits Authorized [id number] Authorized PCP Requested Referral 07/17/2022 07/17/2023 1 1 Specialty Diagnoses / Procedures Referred By Contac t Referred To Contact Pulmonary and Critical Care Medicine Diagnoses Chronic obstructive pulmonary disease, unspecified COPD type (HCC) Procedures CONSULT TO PULM/CRITICAL CARE OFFICE/OUTPATIENT [facility] 60-74 MINUTES Vijay Zarco MD [address] [place] [phone] Referral ID Status Reason Start Date Expiration Date Visits Requested Visits Authorized [id number] Authorized PCP Requested Referral 07/17/2022 07/17/2023 1 1 Specialty Diagnoses / Procedures Referred By Contac t Referred To Contact CT IMAGING Diagnoses Interstitial pulmonary disease (HCC) Procedures CT CHEST WO IVCON DIAGNOSTIC COMPUTED TOMOGRAPHY THORAX W/O CNTRST Anneliese Mujica MD [address] [place] [address] Ct Imaging Referral ID Status Reason Start Date Expiration Date Visits Requested Visits Authorized [id number] Authorized Auto-Generat ed Referral 03/22/2023 10/19/2023 1 1 Specialty Diagnoses / Procedures Referred By Contac t Referred To Contact [facility] Diagnoses Stage 1 mild COPD by GOLD classification (HCC) Procedures LUNG DIFFUSION CAPACITY (DLCO) DIFFUSING CAPACITY Anneliese Mujica MD [address] [place] [address] Res[address] [place] [address] [place] [address] Referral ID Status Reason Start Date Expiration Date V isits Requested Visits Authorized [id number] Closed Auto-Generate d Referral 09/19/2022 10/19/2023 1 1 Specialty Diagnoses / Procedures Referred By Contac t Referred To Contact [facility] Diagnoses Stage 1 mild COPD by GOLD classification (HCC) Procedures SPIROMETRY WITH DILATOR IF OBSTRUCTED BRNCDILAT RSPSE SPMTRY PRE&POST-BRNCDILAT ADMN Anneliese Mujica MD [address] [place] [address] [address] [place] [address] [place] [id number] Referral ID Status Reason Start Date Expiration Date V isits Requested Visits Authorized [id number] Closed Auto-Generate d Referral 09/19/2022 10/19/2023 1 1 Specialty Diagnoses / Procedures Referred By Contac t Referred To Contact Rheumatology Diagnoses Positive EVARISTO (antinuclear antibody) Procedures CONSULT TO RHEUM/IMMUN DISEASE OFFICE/OUTPATIENT [facility] 60-74 MINUTES Anneliese Mujica MD [address] [place] [address] Referral ID Status Reason Start Date Expiration Date Visits Requested Visits Authorized [id number] Authorized PCP Requested Referral 09/25/2022 09/25/2023 1 1 Specialty Diagnoses / Procedures Referred By Contac t Referred To Contact Neurology Diagnoses Orthostatic hypotension Procedures CONSULT TO NEUROLOGY OFFICE/OUTPATIENT [facility] 60-74 MINUTES Anurag Gallo APRN.[facility] [address] [place] [address] Referral ID Status Reason Start Date Expiration Date Visits Requested Visits Authorized [id number] Authorized PCP Requested Referral 10/18/2022 10/18/2023 1 1 Specialty Diagnoses / Procedures Referred By Contac t Referred To Contact [facility] Diagnoses Neck pain Procedures CONSULT TO PHYSICAL THERAPY PHYSICAL THERAPY EVALUATION HIGH COMPLEX 45 MINS Vijay Zarco MD [address] [place] [address] [facility] [place] [address] [place] [address] Referral ID Status Reason Start Date Expiration Date Visits Requested Visits Authorized [id number] Authorized PCP Requested Referral Auto-Generate d Referral 10/26/2022 10/26/2023 99 99 Specialty Diagnoses / Procedures Referred By Froy wallis Referred To Contact Diagnoses Chest discomfort History of IA (myocardial infarction) Procedures CONSULT TO CARDIOLOGY Vijay Zarco MD [address] [place] [address] Referral ID Status Reason Start Date Expiration Date Visits Requested Visits Authorized [id number] Ref Not Required PCP Requested Referral 03/21/2023 03/20/2024 1 1 Additional Source Comments (unrecognized sect ion and content) No Status Records FoundNo Status Records Found INFORMATION SOURCE (unrecogn ized section and content) DATE CREATED AUTHOR AUTHOR'S ORGANIZ ATION 04/01/2023 [facility] Source Comments (unrecognize d section and content) In the event this informatio n is protected by the Federal Confidentiality of Alcohol and Drug Abuse Patient Records regulations: The Federal rules restrict any use of the information to criminally investigate or prosecute any alcohol or drug abuse patient.[facility] the event this information is protected by the Federal Confidentiality of Alcohol and Drug Abuse Patient Records regulations: The Federal rules restrict any use of the information to criminally investigate or prosecute any alcohol or drug abuse patient.[facility] the event this information is protected by the Federal Confidentiality of Alcohol and Drug Abuse Patient Records regulations: The Federal rules restrict any use of the information to criminally investigate or prosecute any alcohol or drug abuse patient.[facility] the event this information is protected by the Federal Confidentiality of Alcohol and Drug Abuse Patient Records regulations: The Federal rules restrict any use of the information to criminally investigate or prosecute any alcohol or drug abuse patient.[facility] the event this information is protected by the Federal Confidentiality of Alcohol and Drug Abuse Patient Records regulations: The Federal rules restrict any use of the information to criminally investigate or prosecute any alcohol or drug abuse patient.[facility] the event this information is protected by the Federal Confidentiality of Alcohol and Drug Abuse Patient Records regulations: The Federal rules restrict any use of the information to criminally investigate or prosecute any alcohol or drug abuse patient.[facility] the event this information is protected by the Federal Confidentiality of Alcohol and Drug Abuse Patient Records regulations: The Federal rules restrict any use of the information to criminally investigate or prosecute any alcohol or drug abuse patient.[facility] the event this information is protected by the Federal Confidentiality of Alcohol and Drug Abuse Patient Records regulations: The Federal rules restrict any use of the information to criminally investigate or prosecute any alcohol or drug abuse patient.[facility] the event this information is protected by the Federal Confidentiality of Alcohol and Drug Abuse Patient Records regulations: The Federal rules restrict any use of the information to criminally investigate or prosecute any alcohol or drug abuse patient.[facility] Hospital[facility] the event this information is protected by the Federal Confidentiality of Alcohol and Drug Abuse Patient Records regulations: The Federal rules restrict any use of the information to criminally investigate or prosecute any alcohol or drug abuse patient.[facility] the event this information is protected by the Federal Confidentiality of Alcohol and Drug Abuse Patient Records regulations: The Federal rules restrict any use of the information to criminally investigate or prosecute any alcohol or drug abuse patient.[facility] Hospital[facility] the event this information is protected by the Federal Confidentiality of Alcohol and Drug Abuse Patient Records regulations: The Federal rules restrict any use of the information to criminally investigate or prosecute any alcohol or drug abuse patient.[facility] HospitalIn the event this information is protected by the Federal Confidentiality of Alcohol and Drug Abuse Patient Records regulations: The Federal rules restrict any use of the information to criminally investigate or prosecute any alcohol or drug abuse patient.[facility] HospitalIn the event this information is protected by the Federal Confidentiality of Alcohol and Drug Abuse Patient Records regulations: The Federal rules restrict any use of the information to criminally investigate or prosecute any alcohol or drug abuse patient.[facility] HospitalIn the event this information is protected by the Federal Confidentiality of Alcohol and Drug Abuse Patient Records regulations: The Federal rules restrict any use of the information to criminally investigate or prosecute any alcohol or drug abuse patient.[facility] HospitalIn the event this information is protected by the Federal Confidentiality of Alcohol and Drug Abuse Patient Records regulations: The Federal rules restrict any use of the information to criminally investigate or prosecute any alcohol or drug abuse patient.[facility] HospitalIn the event this information is protected by the Federal Confidentiality of Alcohol and Drug Abuse Patient Records regulations: The Federal rules restrict any use of the information to criminally investigate or prosecute any alcohol or drug abuse patient.[facility] HospitalIn the event this information is protected by the Federal Confidentiality of Alcohol and Drug Abuse Patient Records regulations: The Federal rules restrict any use of the information to criminally investigate or prosecute any alcohol or drug abuse patient.[facility] HospitalIn the event this information is protected by the Federal Confidentiality of Alcohol and Drug Abuse Patient Records regulations: The Federal rules restrict any use of the information to criminally investigate or prosecute any alcohol or drug abuse patient.[facility] HospitalIn the event this information is protected by the Federal Confidentiality of Alcohol and Drug Abuse Patient Records regulations: The Federal rules restrict any use of the information to criminally investigate or prosecute any alcohol or drug abuse patient.[facility] HospitalIn the event this information is protected by the Federal Confidentiality of Alcohol and Drug Abuse Patient Records regulations: The Federal rules restrict any use of the information to criminally investigate or prosecute any alcohol or drug abuse patient.[facility] HospitalIn the event this information is protected by the Federal Confidentiality of Alcohol and Drug Abuse Patient Records regulations: The Federal rules restrict any use of the information to criminally investigate or prosecute any alcohol or drug abuse patient.[facility] HospitalIn the event this information is protected by the Federal Confidentiality of Alcohol and Drug Abuse Patient Records regulations: The Federal rules restrict any use of the information to criminally investigate or prosecute any alcohol or drug abuse patient.[facility] HospitalIn the event this information is protected by the Federal Confidentiality of Alcohol and Drug Abuse Patient Records regulations: The Federal rules restrict any use of the information to criminally investigate or prosecute any alcohol or drug abuse patient.[facility] HospitalIn the event this information is protected by the Federal Confidentiality of Alcohol and Drug Abuse Patient Records regulations: The Federal rules restrict any use of the information to criminally investigate or prosecute any alcohol or drug abuse patient.[facility] HospitalIn the event this information is protected by the Federal Confidentiality of Alcohol and Drug Abuse Patient Records regulations: The Federal rules restrict any use of the information to criminally investigate or prosecute any alcohol or drug abuse patient.[facility] HospitalIn the event this information is protected by the Federal Confidentiality of Alcohol and Drug Abuse Patient Records regulations: The Federal rules restrict any use of the information to criminally investigate or prosecute any alcohol or drug abuse patient.[facility] HospitalIn the event this information is protected by the Federal Confidentiality of Alcohol and Drug Abuse Patient Records regulations: The Federal rules restrict any use of the information to criminally investigate or prosecute any alcohol or drug abuse patient.[facility] HospitalIn the event this information is protected by the Federal Confidentiality of Alcohol and Drug Abuse Patient Records regulations: The Federal rules restrict any use of the information to criminally investigate or prosecute any alcohol or drug abuse patient.[facility] HospitalIn the event this information is protected by the Federal Confidentiality of Alcohol and Drug Abuse Patient Records regulations: The Federal rules restrict any use of the information to criminally investigate or prosecute any alcohol or drug abuse patient.[facility] HospitalIn the event this information is protected by the Federal Confidentiality of Alcohol and Drug Abuse Patient Records regulations: The Federal rules restrict any use of the information to criminally investigate or prosecute any alcohol or drug abuse patient.[facility] HospitalIn the event this information is protected by the Federal Confidentiality of Alcohol and Drug Abuse Patient Records regulations: The Federal rules restrict any use of the information to criminally investigate or prosecute any alcohol or drug abuse patient.[facility] HospitalIn the event this information is protected by the Federal Confidentiality of Alcohol and Drug Abuse Patient Records regulations: The Federal rules restrict any use of the information to criminally investigate or prosecute any alcohol or drug abuse patient.[facility] HospitalIn the event this information is protected by the Federal Confidentiality of Alcohol and Drug Abuse Patient Records regulations: The Federal rules restrict any use of the information to criminally investigate or prosecute any alcohol or drug abuse patient.[facility] HospitalIn the event this information is protected by the Federal Confidentiality of Alcohol and Drug Abuse Patient Records regulations: The Federal rules restrict any use of the information to criminally investigate or prosecute any alcohol or drug abuse patient.[facility] HospitalIn the event this information is protected by the Federal Confidentiality of Alcohol and Drug Abuse Patient Records regulations: The Federal rules restrict any use of the information to criminally investigate or prosecute any alcohol or drug abuse patient.[facility] Reason for Visit (unrecogniz ed section and content) Specialty Diagnoses / Procedures Referred By Contac t Referred To Contact [facility] Diagnoses Neck pain Lumbar pain Procedures CONSULT TO PHYSICAL THERAPY PHYSICAL THERAPY EVALUATION HIGH COMPLEX 45 MINS Vijay Zarco MD [address] [place] [address] [facility] [place] [address] [place] [address] Referral ID Status Reason Start Date Expiration Date Visits Requested Visits Authorized [id number] Authorized PCP Requested Referral Auto-Generate d Referral 07/17/2022 07/17/2023 [address] Specialty Diagnoses / Procedures Referred By Contac t Referred To Contact CT IMAGING Diagnoses Left lower quadrant abdominal pain Procedures CT ABD/PEL W IVCON CT ABD & PELVIS W/CONTRAST Vijay Zarco MD [address] [place] [address] Ct Imaging Referral ID Status Reason Start Date Expiration Date V isits Requested Visits Authorized [id number] Closed Auto-Generate d Referral 07/08/2021 08/07/2022 1 1 Reason Comments Follow Up would like to check screening labs right bicep muscle painful with certain movements torn? has been bothersome for about a year Varicose Veins bilateral legs would like to do something about these prostate issue enlarged? LLQ pain long time pain bothe rsome at night when lying down especially when lying on that side Reason Comments Radiology US Specialty Diagnoses / Procedures Referred By Contac t Referred To Contact US IMAGING Diagnoses Renal mass Procedures US KIDNEY/BLADDER US RETROPERITONEAL REAL TIME W/IMAGE COMPLETE Vijay Zarco MD [address] [place] [address] Us Imaging Referral ID Status Reason Start Date Expiration Date V isits Requested Visits Authorized [id number] Closed Auto-Generate d Referral 07/13/2021 08/12/2022 1 1 Reason Comments Results Reason Comments Consult Specialty Diagnoses / Procedures Referred By Contac t Referred To Contact Urology Diagnoses Elevated PSA Procedures CONSULT TO UROLOGY OFFICE/OUTPATIENT [facility] 60-74 MINUTES Vijay Zarco MD [address] [place] [address] Referral ID Status Reason Start Date Expiration Date V isits Requested Visits Authorized [id number] Closed PCP Requested Referral 07/12/2021 07/12/2022 1 1 Reason Comments ? biceps rupture Referred by Dr. Zarco New Specialty Diagnoses / Procedures Referred By Contac t Referred To Contact Orthopedics Diagnoses Chronic left shoulder pain Rupture of right proximal biceps tendon, initial encounter Procedures CONSULT TO ORTHOPAEDICS OFFICE/OUTPATIENT [facility] 60-74 MINUTES Vijay Zarco MD [address] [place] [address] Referral ID Status Reason Start Date Expiration Date V isits Requested Visits Authorized [id number] Closed PCP Requested Referral 07/08/2021 07/08/2022 1 1 Reason Comments Blood Pressure validate home cuff Recheck saw ortho and urolog y Reason Comments Lab Orders Reason Comments Results Reason Comments 6 Month Exam Reason Onset Date Comments Refill Request 05/11/2022 Reason Comments Back Pain Reason Comments Follow Up Elevated PSA Reason Comments Dizziness Reason Comments Hospital F/U Reason Comments Blood Pressure Pt presented verifie d by name and date of , reported dizziness, weakness increased from 08/10/2022. Reason Comments Patient Update Reason Onset Date Comments Symptoms 08/21/2022 Reason Comments Low Blood Pressure Reason Comments Follow Up Reason Comments Spirometry Specialty Diagnoses / Procedures Referred By Contac t Referred To Contact [facility] Diagnoses Stage 1 mild COPD by GOLD classification ([facility]) Procedures SPIROMETRY WITH DILATOR IF OBSTRUCTED BRNCDILAT RSPSE SPMTRY PRE&POST-BRNCDILAT ADMN Anneliese Mujica MD [address] [place] [id number] [facility] [id number] [place] [address] Referral ID Status Reason Start Date Expiration Date V isits Requested Visits Authorized [id number] Closed Auto-Generate d Referral 09/19/2022 10/19/2023 1 1 Specialty Diagnoses / Procedures Referred By Contac t Referred To Contact [facility] Diagnoses Stage 1 mild COPD by GOLD classification ([facility]) Procedures LUNG DIFFUSION CAPACITY (DLCO) DIFFUSING CAPACITY Anneliese Mujica MD [address] [place] [address] [id number] [place] [address] Referral ID Status Reason Start Date Expiration Date V isits Requested Visits Authorized [id number] Closed Auto-Generate d Referral 09/19/2022 10/19/2023 1 1 Reason Comments New Patient COPD Specialty Diagnoses / Procedures Referred By Contac t Referred To Contact Pulmonary [facility] Critical Care Medicine Diagnoses Chronic obstructive pulmonary disease, unspecified COPD type ([facility]) Procedures CONSULT TO PULM/CRITICAL CARE OFFICE/OUTPATIENT NEW HIGH MDM 60-74 MINUTES Vijay Zarco MD [address] [place] [address] Referral ID Status Reason Start Date Expiration Date V isits Requested Visits Authorized [id number] Closed PCP Requested Referral 07/17/2022 07/17/2023 1 1 Reason Comments Neck Pain Blood Pressure Reason Comments Orders Specialty Diagnoses / Procedures Referred By Contac t Referred To Contact US IMAGING Diagnoses Elevated PSA Renal cyst Procedures US KIDNEY/BLADDER US RETROPERITONEAL REAL TIME W/IMAGE COMPLETE Juan Francisco Tena PA-C [address] [place] [address] [place] [address] Referral ID Status Reason Start Date Expiration Date V isits Requested Visits Authorized [id number] Closed Auto-Generate d Referral 07/26/2022 08/25/2022 1 1 Reason Comments New Patient Specialty Diagnoses / Procedures Referred By Contac t Referred To Contact Vascular Medicine Diagnoses Orthostatic hypotension Atherosclerosis of both carotid arteries Procedures CONSULT TO VASCULAR MEDICINE OFFICE/OUTPATIENT NEW HIGH MDM 60-74 MINUTES Keena Willson PA-C [address] [place] [address] Referral ID Status Reason Start Date Expiration Date V isits Requested Visits Authorized [id number] Closed PCP Requested Referral 10/25/2022 10/25/2023 1 1 Reason Comments 6 Month Exam Reason Comments Patient Question Reason Comments Constipation Care Teams (unrecognized sec tion and content) Brick Mason Relationship Specialty Start Date End Date Vijay Zarco MD [address] [place], [place] [address] PCP - General Family Practice 04/15/16 Brick Mason Relationship Specialty Start Date End Date Vijay Zarco MD [address] [place], [place] [id number] PCP - General Family Practice 04/15/16 Brick Mason Relationship Specialty Start Date End Date Vijay Zarco MD [address] [place], [place] [id number] PCP - General Family Practice 04/15/16 Brick Mason Relationship Specialty Start Date End Date Vijay Zarco MD [address] [place] [address] PCP - General Family Practice 04/15/16 Brick Mason Relationship Specialty Start Date End Date Vijay Zarco MD [address] [place] [place] [address] PCP - General Family Practice 04/15/16 Brick Mason Relationship Specialty Start Date End Date Vijay Zarco MD [address] [place] [place] [address] PCP - General Family Practice 04/15/16 Brick Mason Relationship Specialty Start Date End Date Vijay Zarco MD [address] [place] [address] PCP - General Family Medicine 04/15/16 Brick Mason Relationship Specialty Start Date End Date Vijay Zarco MD [address] [place] [place] [address] PCP - General Family Medicine 04/15/16 Brick Mason Relationship Specialty Start Date End Date Vijay Zarco MD [address] [place] [address] PCP - General Family Medicine 04/15/16 Brick Mason Relationship Specialty Start Date End Date Vijay Zarco MD [address] [place] [address] PCP - General Family Medicine 04/15/16 Brick Mason Relationship Specialty Start Date End Date Vijay Zarco MD [address] [place] [address] PCP - General Family Medicine 04/15/16 Brick Mason Relationship Specialty Start Date End Date Vijay Zarco MD [address] [place] [address] PCP - General Family Medicine 04/15/16 Brick Mason Relationship Specialty Start Date End Date Vijay Zarco MD [address] [place] [address] PCP - General Family Medicine 04/15/16 Brick Mason Relationship Specialty Start Date End Date Vijay Zarco MD [address] [place] [address] PCP - General Family Medicine 04/15/16 Brick Mason Relationship Specialty Start Date End Date Vijay Zarco MD [address] [place] [address] PCP - General Family Medicine 04/15/16 Brick Mason Relationship Specialty Start Date End Date Vijay Zarco MD [address] [place] [address] PCP - General Family Medicine 04/15/16 Brick Mason Relationship Specialty Start Date End Date Vijay Zarco MD [address] [place] [address] PCP - General Family Medicine 04/15/16 Brick Mason Relationship Specialty Start Date End Date Vijay Zarco MD [address] [place] [address] PCP - General Family Medicine 04/15/16 Brick Mason Relationship Specialty Start Date End Date Vijay Zarco MD [address] [place] [address] PCP - General Family Medicine 04/15/16 Brick Mason Relationship Specialty Start Date End Date Vijay Zarco MD [address] [place] [address] PCP - General Family Medicine 04/15/16 Brick Mason Relationship Specialty Start Date End Date iVjay Zarco MD [address] [place] [address] PCP - General Family Medicine 04/15/16 Brick Mason Relationship Specialty Start Date End Date Vijay Zarco MD [address] [place] [address] PCP - General Family Medicine 04/15/16 Brick Mason Relationship Specialty Start Date End Date Vijay Zarco MD [address] [place] [address] PCP - General Family Medicine 04/15/16 Brick Mason Relationship Specialty Start Date End Date Vijay Zarco MD [address] [place] [address] PCP - General Family Medicine 04/15/16 Brick Mason Relationship Specialty Start Date End Date Vijay Zarco MD [address] [place] [address] PCP - General Family Medicine 04/15/16 Brick Mason Relationship Specialty Start Date End Date Vijay Zarco MD [address] [place] [address] PCP - General Family Medicine 04/15/16 Brick Mason Relationship Specialty Start Date End Date Vijay Zarco MD [address] [place], [place] [address] PCP - General Family Medicine 04/15/16 Brick Mason Relationship Specialty Start Date End Date Vijay Zarco MD [address] [place], [place] [address] PCP - General Family Medicine 04/15/16 Brick Mason Relationship Specialty Start Date End Date Vijay Zarco MD [address] [place], [place] [address] PCP - General [facility] 04/15/16 Brick Mason Relationship Specialty Start Date End Date Vijay Zarco MD [address] [place], [place] [address] PCP - General Family [facility] 04/15/16 FOR RECORDS PERTAINING TO PATIENTS WHO ARE OR HAVE BEEN ENROLLED IN A CHEMICAL DEPENDENCY/SUBSTANCEABUSE PROGRAM, SOME INFORMATION MAY BE OMITTED. This clinical summary was aggregated from multiple sources. Caution should be exercised in using it in the provision of clinical care. This summary normalizes information from multiple sources, and as a consequence, information in this document may materially change the coding, format and clinical context of patient data. In addition, data may be omitted in some cases. CLINICAL DECISIONS SHOULD BE BASED ON THE PRIMARY CLINICAL RECORDS. [facility]. provides no warranty or guarantee of the accuracy or completeness of information in this document.
--- NOTE | 2023-04-12 17:17 | STRESSREP_ITS ---
Stress Test Report Exercise myocardial perfusion stress test. 72-year-old man with a history of coronary disease Stress protocol: Resting EKG demonstrates normal sinus rhythm with a rate of 65 bpm resting blood pressure is 150/82 mmHg. The patient exercised according to the regular Gomez protocol for a total duration of 6 minutes and 31 seconds attaining a maximum heart rate of 120 bpm which was 85% of maximum predicted heart rate; the maximum workload was 8.5 metabolic equivalents. At rest there were no ST or T wave changes noted to suggest ischemia and at peak exercise upsloping ST changes only were noted which did not meet the criteria for ischemia. No clinical angina was noted the test was terminated due to the target heart rate being achieved/ fatigue. The peak blood pressure was 178/80 mmHg. Rate-pressure product was 13,500. Myocardial perfusion protocol. 14.7 mCi of technetium 99m sestamibi was injected at rest. The patient exercised according to regular Gomez protocol for total duration of 6 minutes and 31 seconds and at peak exercise 44.4 mCi of technetium 99m sestamibi was injected stress images were obtained stress and rest images were reconstructed in comparing the short axis vertical long and horizontal long axis. Gated images were also obtained. Perfusion SPECT analysis: Review of the stress images demonstrate normal uptake of tracer noted in all areas of the myocardium. The resting images similarly demonstrate normal uptake of tracer noted in all areas of the myocardium. No areas of reversibility are noted to suggest ischemia no previous infarct was noted. Gated SPECT analysis: The gated ejection fraction is 61%. Conclusion: Normal exercise myocardial perfusion stress test at a moderate workload Preserved ejection fraction.
== END | disposition home or self-care (01) ==
LOC: CVS 06:45
PROVIDERS: PCP Family Medicine; Referring Provider Nurse Practitioner Family; Visit Provider Nurse Practitioner Family
DX: R07.9 Chest pain, unspecified (principal); R06.09 Other forms of dyspnea; I25.10 Atherosclerotic heart disease of native coronary artery without angina pectoris; Z95.5 Presence of coronary angioplasty implant and graft
CPT/HCPCS: 78452; 93017; A9500; A4216

== ENCOUNTER 2023-05-21 07:41 | Day surgery (SDC) | payer MEDICARE, OTHER, SELFPAY ==
[2022-10-23 07:14] VITALS: BMI 25.2
--- NOTE | 2023-05-16 09:50 | RAD_ITS ---
HISTORY: CP. TECHNIQUE: XR Chest 2 Views. COMPARISON: 08/21/2022. FINDINGS: CARDIOMEDIASTINAL BORDERS: Cardiac silhouette within normal limits in size. Mediastinal contour unremarkable. LUNGS: Radiographically clear. PLEURA: No pleural effusion or pneumothorax seen. OSSEOUS STRUCTURES: Degenerative change and old right rib fractures. RAD/Chest PA and Lateral IMPRESSION: No acute cardiopulmonary process identified. Electronically Signed: Kalie Woodall MD at 9:44 EDT ,
[2023-05-16 10:41] LABS: Absolute Lymphocyte Count 0.66 X10^3/uL (0.83-4.51); Absolute Neutrophil Count 4.1 X10^3/uL (2.0-7.7); Basophil# 0.02 X10^3/uL; Basophil% 0.4 % (0-1); Eosinophil# 0.01 X10^3/uL; Eosinophils% 0.2 % (0-5); Hematocrit 38.1 % (40-54); Hemoglobin 12.9 g/dL (13.0-16.5); Lymphocyte # 0.66 X10^3/ul (0.83-4.51); Mean Corp Hgb Conc 33.9 g/dL (32-36); Mean Corpuscular Hgb 31.7 pg (27.0-32.0); Mean Corpuscular Volume 93.6 fL (80-94); Mean Platelet Vol. 9.8 fl (6.2-12.0); Monocyte# 0.75 X10^3/uL; Monocyte% 13.6 % (0-10); NRBC Flagged by Analyzer 0 % (0-5); Neutrophil # 4.05 X10^3/uL (2.7-7.7); Neutrophil % 73.3 % (47-70); Platelet Count 137 K/mm3 (150-450); RBC Distribution Width CV 12.9 % (11.6-14.6); RBC Distribution Width SD 44.3 fl (35.1-43.9); Red Blood Count 4.07 M/mm3 (4.6-6.2); White Blood Count 5.5 K/mm3 (4.4-11.0)
[2023-05-16 10:49] LABS: International Normalized Ratio 1.1; Prothrombin Time (Protime)PT. 14.2 SECONDS (11.7-14.9)
[2023-05-16 10:50] LABS: Partial Thromboplast Time 29.2 Seconds (24.1-36.2)
[2023-05-16 11:10] LABS: Anion Gap 4 (5-15); BUN 18 mg/dL (7-18); BUN/Creat Ratio 12.1 RATIO (10-20); Calcium,Total 8.8 mg/dL (8.5-10.1); Chloride 108 mmol/L (98-107); Creatinine, Serum 1.49 mg/dL (0.70-1.30); EST Glomerular Filtration Rate 49 mL/min (>60); Est Glom Filt Rate - Afr Amer 60 mL/min (>60); Glucose 108 mg/dL (74-106); Potassium 4.3 mmol/L (3.5-5.1); Sodium Level 139 mmol/L (136-145)
[2023-05-18 07:33] VITALS: BMI 25.3
--- NOTE | 2023-05-21 08:37 | EKG12_ITS ---
Test Reason : POST PCI Blood Pressure : / mmHG Vent. Rate : 067 BPM Atrial Rate : 067 BPM P-R Int : 160 ms QRS Dur : 090 ms QT Int : 400 ms P-R-T Axes : 033 004 046 degrees QTc Int : 422 ms Normal sinus rhythm Normal ECG When compared with ECG of 21-AUG-2022 21:53, No significant change was found Confirmed by Ponce Oliver ([id number]), photographic editor LUIS ENRIQUE SOUZA ([id number]) on 05/24/2023 8:38:08 AM Also confirmed by Ponce Oliver ([id number]), photographic editor LUIS ENRIQUE SOUZA ([id number]) on 05/24/2023 8:39:05 AM Referred By: Vinod Chowdhury Confirmed By:Ponce Oliver
--- NOTE | 2023-05-21 09:44 | CL.D_ITS ---
Patient Name: TERRI HERNANDEZ Study Date: 05/21/2023 Performing: Vinod Chowdhury MD Ht: 72 inches 182.88 cm : 1950 Wt: 187 lbs 84.82 kg Age: 72 Gender: male BSA: 2.07 PROCEDURE(S) PERFORMED DC01-([id number])LHC/COR/LV IC01-([id number])PTCA, SINGLE CORONARY ARTERY CLINICAL PROFILE AND INDICATIONS Indications: Suspected CAD Heart Failure: None Stress/Imaging Date: 04/12/23Stress Test with SPECT MPI: Negative CAD Presentations: Unstable angina. CONCLUSIONS High-grade LAD stenosis noted in the proximal to mid LAD with in-stent stenosis of 95% RECOMMENDATIONS Referred for immediate PCI DESCRIPTION OF PROCEDURE The patient arrived to the procedure lab. The risks and benefits of the procedure as well as a full description of our services here and current unavailability of surgical backup were fully explained to the patient and/or their significant other prior to the catheterization. The Timeout was completed, verifying the correct patient and procedure. The patient's procedural site was prepped and draped in the usual fashion. Local anesthetic was given subcutaneously to right radial region with Lidocaine 2%. Using a modified Seldinger technique, arterial access was obtained via the right radial artery, a 6Fr sheath was inserted. Right Coronary Artery selective angiography was then performed in multiple views using a 5 Fr. 4.0 Singer catheter. Left Coronary Artery selective angiography was performed in multiple views using a 5 Fr. 4.0 Singer catheter. Left Ventriculography was performed in LEE projection using a 5 Fr. Pigtail catheter. LV to AO pullback pressures were then recorded.The arterial sheath was pulled and a TR Band was applied for hemostasis 10cc of air CORONARY ANGIOGRAPHY DOMINANCE: Right Dominant LEFT HEART ASSESSMENT Left Ventricular Ejection Fraction: by LV Gram 60 % Normal LV wall motion Normal Left Ventricular systolic function LEFT MAIN: Angiographically normal LEFT ANTERIOR DESCENDING ARTERY: Medium size vessel with a previously placed stent in the proximal to mid segment with a 95% in-stent stenosis and mild distal disease. CIRCUMFLEX ARTERY: Mild luminal irregularities RIGHT CORONARY ARTERY: Mild luminal irregularities COMPLICATIONS No Complications PROCEDURE MEDICATIONS Fentanyl 50 mcg IV Versed 1 mg IV Oxygen: 2 L/min via nasal cannula Baby Aspirin (81mg) 1 Tabs PO @ 05/21/2023 08:29:19 Heparin given IA 05/21/2023 08:57:47 Heparin 5000 unit(s) IV 05/21/2023 09:30:25 Nitro 200 mcg IC 05/21/2023 09:37:08 Verapamil 2.5mg, Ntg 100mcgs, 3000 units of Heparin given IA 05/21/2023 08:57:47 SUMMARY OF HEMODYNAMIC DATA Time AIR REST ECG 08:05:54 AO 118/61 (88) SA 09:06:20 LV 117/5, 11 09:13:10 LV 114/5, 39 09:13:18 LV 129/7, 18 09:13:55 LVp 124/10, 15 09:14:00 AOp 128/1 (81) 09:14:05 Art 97/50 (68) 09:18:08 AO 145/68 (99) 09:30:47 Signed By Vinod Chowdhury MD On 05/21/2023 09:43:32 Vinod Chowdhury MD
--- NOTE | 2023-05-21 10:15 | CRPHASE1_ITS ---
Patient Communication Patient Information Former Patient:: Phase II PHII Cardiac Rehab Discussed with Patient:: Yes Guide to Cardiac Rehab Given to Patient:: Yes Cardiac Rehab Facility Choice List Given to Patient:: Yes Communication to Cardiac Rehab Choice Program [facility] CR PHII:: Communication Given to CR Slice Cutting Machine Operator:: Chadd Dodson Refer Phase II Cardiac Rehab:: Yes Sessions:: 36 sessions - 3 days/wk, 12 weeks Cardiac Rehabilitation Info Program Information Cardiac Rehabilitation Program Information: Cardiac Rehab The cardiac rehab team at [facility] consists of highly skilled exercise physiologists, nurses, respiratory therapists and physicians working together with you. Our purpose is to help you have a full recovery and achieve the goals you set for yourself. Over the years many of our patients have returned to activities they assumed they would never do again! We can help restore your confidence and motivation to make lifestyle changes that can have a significant impact on your health and quality of life! We can help answer questions and concerns you may have about exercise, lifestyle, medications, diet, stress and anxiety which are common following a hospitalization. WE monitor ECG and vital signs during exercise and discuss your progress with you and report to your physician(s). Cardiac Rehab is proven to help reduce readmissions, improve functional capacity and lower recurrence of problems with your heart. Our Cardiac Rehab program is Certified by the [place] [employer]-Vascular [employer] Pulmonary [employer] (AACVPR) and Accredited by the [place] [employer] through our [facility]. You can contact us at . We invite you to call us with your questions or to get started in our program. If you have other questions or concerns be sure to ask your physician/provider during your follow-up visit. WE look forward to seeing you!
--- NOTE | 2023-05-21 10:15 | CRPH1.INSTRU ---
General Education Discussed with Patient CAD and cardiac anatomy and function:: Patient communicates acknowledgment Explanation of diagnoses and procedures:: Patient communicates acknowledgment Sign/Symptoms of AK:: Patient communicates acknowledgment Antiplatelet therapy: Patient communicates acknowledgment Proper use of NTG-SL: Patient communicates acknowledgment Emergency procedures and activation of EMS: Patient communicates acknowledgment Compliance of all prescribed medications: Patient communicates acknowledgment Smoking Risk Factors Patient Nicotine/Smoking Risk Factors Are:: Never smoked Dyslipidemia Recommendations Recommendations Include:: Lipid profile not available Response Code Dyslipidemia Response Code:: Patient communicates acknowledgment Hypertension Recommendations Recommendations Include:: Maintain BP <130/85, Decrease/maintain normal body weight and Moderation of ETOH Response Code Hypertension:: Patient communicates acknowledgment Heart Disease Risk Factors Patient Heart Disease Risk Factors Are:: Previous cardiac event Recommendations Recommendations Include:: Educated family members of their risk Response Code Heart Disease Response Code:: Patient communicates acknowledgment Sedentary Risk Factors Patient Sedentary Risk Factors Are:: Lack of regular exercise Recommendations Recommendations Include:: Aerobic exercise 5-7 times/week for 20-30 minutes continuously, Benefits of regular exercise, Discussed home walking program and Monitored Outpatient Cardiac Rehab Response Code Sedentary Response Code:: Patient communicates acknowledgment
--- NOTE | 2023-05-26 10:29 | CL.I_ITS ---
Patient Name: TERRI HERNANDEZ Study Date: 05/21/2023 Performing: Parviz Dodson MD Ht: 72 inches 182.88 cm : 1950 Wt: 187.2 lbs 84.82 kg Age: 72 Gender: male BSA: 2.07 PROCEDURE(S) PERFORMED [id number])PTCA, SINGLE CORONARY ARTERY CLINICAL PROFILE AND CO-MORBIDITIES Indications: Suspected CAD Heart Failure: None Stress/Imaging Date: 04/12/23 Stress Test with SPECT MPI: Negative CAD Presentations: Unstable angina. CONCLUSIONS Successful PTCA to instent restenosis in pLAD RECOMMENDATIONS DESCRIPTION OF PROCEDURE The patient arrived to the procedure lab. The risks and benefits of the procedure as well as a full description of our services here and current unavailability of surgical backup were fully explained to the patient and/or their significant other prior to the catheterization. The Timeout was completed, verifying the correct patient and procedure. The patient's procedural site was prepped and draped in the usual fashion. Local anesthetic was given subcutaneously to right radial region with Lidocaine 2% Using a modified Seldinger technique,arterial access was obtained via the right radial artery, a 6Fr sheath was inserted. Right Coronary Artery selective angiography was then performed in multiple views using a 5 Fr. 4.0 Stirling catheter. Left Coronary Artery selective angiography was performed in multiple views using a 5 Fr. 4.0 Stirling catheter. Left Ventriculography was performed in LEE projection using a 5 Fr. Pigtail catheter. LV to AO pullback pressures were then recorded.The images were reviewed and options discussed. A decision was then made to proceed with an Intervention, IVUS or other adjunct procedure. XB 3 Guide catheter was inserted and engaged into the LCA. BMW Guide wire was advanced to the LAD. 2.5x8 Emerge Balloon catheter was inserted. Balloon catheter was advanced across lesion in the LAD, proximal. PTCA balloon inflated at 6 atms for 10 secs. PTCA balloon inflated at 10 atms for 30 secs. Angiogram performed post balloon dilatation. The arterial sheath was pulled and a TR Band was applied for hemostasis 10cc of air INTERVENTION INFORMATION LESION SITE: LAD (Proximal) Lesion Complexity: High/C, chronic total occlusion: No, lesion at bifurcation: Yes, thrombus present: No, lesion length: 8 mm, culprit lesion: Yes, Previously treated lesion: Yes, Timeframe of previous treatment: Time unknown, Previously treated with a stent: Yes Stent Type: with stent type unknown, In-stent Thrombosis: No, In-stent restenosis: Yes Pre Stenosis: 95 % Pre intervention BRAIN flow: 3 PROCEDURE: Balloon Angioplasty Post Stenosis: 0 % Post intervention BRAIN flow: 3 Lesion Devices: Hummel .014 190cm BMW [place] Straight Cordis 6 Fr XB3.0 100cm Guide Catheter Lalito Sci EMERGE MR 2.50x08 BALLOON COMPLICATIONS No Complications PROCEDURE MEDICATIONS Fentanyl 50 mcg IV Versed 1 mg IV Oxygen: 2 L/min via nasal cannula Baby Aspirin (81mg) 1 Tabs PO @ 05/21/2023 08:29:19 Heparin given IA 05/21/2023 08:57:47 Heparin 5000 unit(s) IV 05/21/2023 09:30:25 Nitro 200 mcg IC 05/21/2023 09:37:08 Verapamil 2.5mg, Ntg 100mcgs, 3000 units of Heparin given IA 05/21/2023 08:57:47 SUMMARY OF HEMODYNAMIC DATA Time AIR REST ECG 08:05:54 AO 118/61 (88) SA 09:06:20 LV 117/5, 11 09:13:10 LV 114/5, 39 09:13:18 LV 129/7, 18 09:13:55 LVp 124/10, 15 09:14:00 AOp 128/1 (81) 09:14:05 Art 97/50 (68) 09:18:08 AO 145/68 (99) 09:30:47 AIR REST 10:14:50 Signed By Parviz Dodson MD On 05/26/2023 10:28:57 Parviz Dodson MD
== END 2023-05-21 13:30 | disposition home or self-care (01) ==
PROVIDERS: Physician Assistant Medical; PCP Family Medicine; Referring Provider Internal Medicine Cardiovascular Disease; Visit Provider Internal Medicine Cardiovascular Disease
DX: I25.110 Atherosclerotic heart disease of native coronary artery with unstable angina pectoris (principal); R07.9 Chest pain, unspecified; Z95.5 Presence of coronary angioplasty implant and graft; Z79.82 Long term (current) use of aspirin; Z79.899 Other long term (current) drug therapy
CPT/HCPCS: 36415; 71046; 80048; 85025; 85610; 85730; 92920; 93005; 93458; 99152; 99153; J7040; Q9967; C1725; C1769; C1887; C1894

== ENCOUNTER → 2023-06-01 | Outpatient (CLI) | payer MEDICARE, OTHER, SELFPAY ==
[2022-10-23 07:14] VITALS: BMI 25.2
[2023-06-01 11:24] LABS: Absolute Lymphocyte Count 0.81 X10^3/uL (0.83-4.51); Absolute Neutrophil Count 4.6 X10^3/uL (2.0-7.7); Basophil# 0.02 X10^3/uL; Basophil% 0.3 % (0-1); Eosinophil# 0.01 X10^3/uL; Eosinophils% 0.2 % (0-5); Hemoglobin 12.9 g/dL (13.0-16.5); Lymphocyte # 0.81 X10^3/ul (0.83-4.51); Mean Corp Hgb Conc 33.1 g/dL (32-36); Mean Corpuscular Hgb 31.9 pg (27.0-32.0); Mean Corpuscular Volume 96.5 fL (80-94); Mean Platelet Vol. 9.9 fl (6.2-12.0); Monocyte# 0.72 X10^3/uL; Monocyte% 11.6 % (0-10); NRBC Flagged by Analyzer 0 % (0-5); Neutrophil # 4.64 X10^3/uL (2.7-7.7); Neutrophil % 74.6 % (47-70); Platelet Count 160 K/mm3 (150-450); RBC Distribution Width CV 13.2 % (11.6-14.6); RBC Distribution Width SD 46.5 fl (35.1-43.9); Red Blood Count 4.04 M/mm3 (4.6-6.2); White Blood Count 6.2 K/mm3 (4.4-11.0)
[2023-06-01 11:58] LABS: Anion Gap 5 (5-15); BUN 17 mg/dL (7-18); BUN/Creat Ratio 12.1 RATIO (10-20); Calcium,Total 8.6 mg/dL (8.5-10.1); Chloride 105 mmol/L (98-107); Creatinine, Serum 1.41 mg/dL (0.70-1.30); EST Glomerular Filtration Rate 53 mL/min (>60); Est Glom Filt Rate - Afr Amer 64 mL/min (>60); Glucose 98 mg/dL (74-106); Iron 60 ug/dL (65-175); Iron Binding Capacity,Total 253 ug/dL (250-450); Potassium 4.5 mmol/L (3.5-5.1); Sodium Level 140 mmol/L (136-145); Thyroid Stim Hormone (TSH) 5.75 uIU/mL (0.358-3.74)
== END | disposition home or self-care (01) ==
LOC: LAB 10:51
PROVIDERS: PCP Family Medicine; Referring Provider Nurse Practitioner Gerontology; Visit Provider Nurse Practitioner Gerontology
DX: R53.83 Other fatigue (principal); D64.9 Anemia, unspecified
CPT/HCPCS: 36415; 80048; 83540; 83550; 84443; 85025

== ENCOUNTER 2024-03-12 21:43 | Emergency (ER) | payer MEDICARE, OTHER, SELFPAY ==
[2022-10-23 07:14] VITALS: BMI 25.2
[2024-03-12 21:44] VITALS: BP 105/54; PULSE 96; RESP 20; TEMP 37.9; O2SAT 97; BMI 25.4
[2024-03-12 21:45] VITALS: BP 105/54; PULSE 96; RESP 20; TEMP 37.9; O2SAT 97
--- NOTE | 2024-03-12 21:50 | RAD_ITS ---
PROCEDURE: CHEST 1 VIEW (PORTABLE) REASON FOR EXAM: Cough. TECHNIQUE: Single frontal image including the chest and abdomen. COMPARISON: 05/16/2023. FINDINGS: The cardiothymic contour is normal. The lungs are clear. Bowel gas pattern is normal. No evidence of bowel obstruction or free air. The bones are unremarkable. No radiopaque foreign body is identified. RAD/Chest 1 View (Portable) IMPRESSION: UNREMARKABLE SINGLE VIEW OF THE CHEST AND ABDOMEN. Reading Location: [id number]
[2024-03-12 22:22] LABS: Absolute Lymphocyte Count 0.56 X10^3/uL (0.83-4.51); Absolute Neutrophil Count 5.2 X10^3/uL (2.0-7.7); Basophil# 0.02 X10^3/uL; Basophil% 0.3 % (0-1); Eosinophil# 0.04 X10^3/uL; Eosinophils% 0.6 % (0-5); Hematocrit 39.1 % (40-54); Hemoglobin 13.6 g/dL (13.0-16.5); Lymphocyte # 0.56 X10^3/ul (0.83-4.51); Lymphocyte % 8.1 % (19-41); Mean Corp Hgb Conc 34.8 g/dL (32-36); Mean Corpuscular Hgb 31.9 pg (27.0-32.0); Mean Corpuscular Volume 91.6 fL (80-94); Mean Platelet Vol. 9.9 fl (6.2-12.0); Monocyte# 1.06 X10^3/uL; Monocyte% 15.4 % (0-10); NRBC Flagged by Analyzer 0 % (0-5); Neutrophil # 5.17 X10^3/uL (2.7-7.7); POSITIVE DIFFERENTIAL YES; Platelet Count 112 K/mm3 (150-450); RBC Distribution Width CV 12.8 % (11.6-14.6); RBC Distribution Width SD 43.3 fl (35.1-43.9); Red Blood Count 4.27 M/mm3 (4.6-6.2); White Blood Count 6.9 K/mm3 (4.4-11.0)
[2024-03-12 22:24] LABS: Anion Gap 5 (5-15); BUN 23 mg/dL (7-18); BUN/Creat Ratio 14.8 RATIO (10-20); Calcium,Total 8.6 mg/dL (8.5-10.1); Chloride 103 mmol/L (98-107); Creatinine, Serum 1.55 mg/dL (0.70-1.30); EST Glomerular Filtration Rate 47 mL/min (>60); Est Glom Filt Rate - Afr Amer 57 mL/min (>60); Estimated Creatinine Clearance 47.28 ml/min; Glucose 125 mg/dL (74-106); Sodium Level 136 mmol/L (136-145)
[2024-03-12 22:53] VITALS: BP 146/71; PULSE 88; RESP 18; TEMP 37.7; O2SAT 95
--- NOTE | 2024-03-12 22:55 | EKG12_ITS ---
Test Reason : DYSRHYTHMIA Blood Pressure : */* mmHG Vent. Rate : 85 BPM Atrial Rate : 85 BPM P-R Int : 148 ms QRS Dur : 90 ms QT Int : 320 ms P-R-T Axes : 31 11 40 degrees QTcB Int : 380 ms Normal sinus rhythm Normal ECG Confirmed by MARCEL CACERES, RUSSELL ([id number]), copy editor LUIS ENRIQUE SOUZA ([id number]) on 03/13/2024 1:26:59 PM Referred By: Confirmed By: RUSSELL ROD MD
--- NOTE | 2024-03-12 22:56 | EDS_ITS ---
HPI History of Present Illness Chief Complaint: General Illness Informant: patient and spouse/S.O. Narrative Narrative: Presents 1 day history chills, productive cough, intermittent nausea and headache. States had mild dysuria. No chest pains. Reports some lightheaded symptoms. No vomiting or diarrhea. History of coronary disease and COPD. Denies wheezing or dyspnea. Tylenol taken earlier today. Denies sick contacts. [facility] Medical History 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[place] heart without angina pectoris Osteoarthritis Hemorrhoids Left inguinal hernia Spermatocele Home Medications ?Medication ?Instructions ?Recorded ?Last Taken ?Type aspirin 81 mg chewable tablet 81 mg PO DAILY@0800 [facility] 09/30/16 05/21/23 History tiotropium 2.5 mcg-olodaterol 2.5 2 puff inhalation DAILY BREATHING 07/25/22 Unknown History mcg/actuation mist for inhalation (Stiolto Respimat) atorvastatin 40 mg tablet 40 mg PO QHS #30 tabs 07/27/22 Unknown Rx ticagrelor 90 mg tablet (Brilinta) 90 mg PO BID #60 tabs 07/27/22 05/21/23 Rx cyanocobalamin (vitamin B-12) 2,500 mcg PO BID 01/09/24 Unknown History 2,500 mcg tablet cefdinir 300 mg capsule 300 mg PO Q12H #14 caps 03/13/24 Unknown Rx oseltamivir 30 mg capsule (Tamiflu) 30 mg PO BID 5 days #10 caps 03/13/24 Unknown Rx polyethylene glycol 3350 17 17 PO DAILY 03/13/24 Unknown History gram/dose oral powder tamsulosin 0.4 mg capsule mg PO 03/13/24 Unknown History Allergy/AdvReac Type Severity Reaction Status Date / Time amoxicillin Allergy Mild rash Verified 03/12/24 21:44 Sulfa (Sulfonamide Allergy Rash Verified 03/12/24 21:44 Antibiotics) Family History Father Heart disease Mother Diabetes Surgical History History of coronary artery stent placement (~07/26/22) S/P left inguinal hernia repair (~01/09/18) History of arthroscopy of left knee History of colonoscopy (~2018) Social History Smoking Status: Never smoker alcohol intake: never substance use type: does not use caffeine: Yes Type: coffee Number of servings: 1 ROS ROS ED Constitutional Constitutional ED: Reports chills; Denies fever(s) or sweats ENT ENT ED: Denies sore throat Cardiovascular Cardiovascular: Denies chest pain, leg edema, palpitations or racing heartbeat Respiratory/Chest Respiratory/Chest: Reports cough; Denies dyspnea or dyspnea on exertion Gastrointestinal Gastrointestinal: Denies abdominal pain, diarrhea, nausea or vomiting Genitourinary Genitourinary ED: Reports dysuria; Denies hematuria or urinary frequency Musculoskeletal Musculoskeletal: Denies back pain, extremity pain or neck pain Integumentary Denies rash or wounds Neurologic Neurologic: Reports headache(s); Denies paresthesias or weakness EXAM Physical Exam Const Vital Signs: 03/12/24 21:44 03/12/24 21:45 03/12/24 22:51 Temperature 100.3 F H 100.3 F H Temperature Source Oral Oral Pulse Rate 96 96 Respiratory Rate 20 H 20 H Respiratory Effort Respiratory Pattern Blood Pressure 105/54 L 105/54 L Blood Pressure Mean 71 71 Pulse Ox 97 97 Oxygen Delivery Method Room Air Room Air Room Air 03/12/24 22:51 03/12/24 22:53 03/12/24 22:54 Temperature 100 F H Temperature Source Oral Pulse Rate 88 Respiratory Rate 18 Respiratory Effort Normal Non-Labored Respiratory Pattern Normal Blood Pressure 146/71 H Blood Pressure Mean 96 Pulse Ox 95 Oxygen Delivery Method Room Air Room Air 03/13/24 00:00 03/13/24 00:24 03/13/24 01:00 Temperature 99.9 F H Temperature Source Oral Pulse Rate 86 84 Respiratory Rate 18 20 H Respiratory Effort Respiratory Pattern Blood Pressure 145/68 H 116/66 Blood Pressure Mean 89 82 Pulse Ox 98 96 Oxygen Delivery Method Positive well nourished and well developed General Appearance ED: well developed and NAD HEENT HEENT Narrative: Mild dry mucosal membranes normocephalic and atraumatic Eyes General Eye ED: Yes normal appearance of both eyes Neck full ROM Neck Narrative: No meningismus Chest Wall Chest: Negative for tenderness Resp normal respiratory effort and normal air movement Effort and Inspection: symmetric chest movement; Negative for respiratory distress Cardio regular rate, regular rhythm and no murmurs Peripheral Pulses: pulses 2+ throughout GI normal to inspection, nondistended, normoactive bowel sounds and non-tender Palpation: Negative for guarding or rebound tenderness present Extremity normal to inspection General Extremety ED: Negative for edema or tenderness General Extremity: Negative for edema Neuro oriented x3, CN's II-XII intact bilaterally and no sensory deficits noted Sensorium / Orientation: awake and alert Skin no rashes or lesions noted and no wounds MDM MDM MDM Narrative Medical decision making narrative: Interventions / MDM: Differential diagnosis: Influenza A, viral syndrome, history of coronary disease, CKD Diagnosis considered but do not suspect: Pneumonia however chest x-ray negative. My EKG interpretation: Sinus rhythm 85, no ST or T wave changes QTc 380. Imaging independently reviewed and interpreted by myself: 1 view chest x-ray: No acute process. External documents reviewed: N/A Test considered but not ordered:N/A ED course: Patient presented viral syndrome however reports lightheaded symptoms chills cough with dysuria. Cardiac history. EKG ordered. Chest x-ray ordered. Labs, viral swabs. 2308: Chest x-ray 1 view shows no acute process. Also read by radiology. EKG sinus rhythm with no acute findings. Patient labs stable with CKD being stable GFR at 47. Viral swab positive for influenza A. Urine obtained also signs of infection culture sent. Started on renal dosed Tamiflu for 5 days, started on cefdinir twice a day for 7 days. No hypoxia. No indication requiring hospitalization. Outpatient follow-up with return precautions. All questions were answered. Re-evaluation: stable Disposition discussed with patient/family/significant other: Patient and significant other Case discussed with consulting clinician: N/A This note was generated with [employer] dictation software. It may contain incorrect words, spelling, and punctuation that were not noted in checking the note before signing. Lab Data Attestation: I reviewed the patient's lab results. Labs: Laboratory Results - last 24 hr 03/12/24 03/12/24 12:55 23:55 WBC 6.9 RBC 4.27 L Hgb 13.6 Hct 39.1 L MCV 91.6 MCH 31.9 MCHC 34.8 RDW Std Deviation 43.3 RDW Coeff of Opal 12.8 Plt Count 112 L MPV 9.9 Immature Gran % (Auto) 0.600 Neut % (Auto) 75.0 H Lymph % (Auto) 8.1 L Towner % (Auto) 15.4 H Eos % (Auto) 0.6 Baso % (Auto) 0.3 Absolute Neuts (auto) 5.2 Absolute Lymphs (auto) 0.56 L Nucleated RBC % 0 Sodium 136 Potassium 4.0 Chloride 103 Carbon Dioxide 27.0 Anion Gap 5 BUN 23 H Creatinine 1.55 H Estim Creat Clear Calc 47.28 Est GFR (MDRD) Af Amer 57 L Est GFR (MDRD) Non-Af 47 L BUN/Creatinine Ratio 14.8 Glucose 125 H Calcium 8.6 Urine Color Yellow Urine Clarity Clear Urine pH 7.0 Ur Specific [place] 1.005 Urine Protein Negative Urine Glucose (UA) Normal Urine Ketones Negative Urine Occult Blood 10 H Urine Nitrite Negative Urine Bilirubin Negative Urine Urobilinogen 1 H Ur Leukocyte Esterase 25 H Urine RBC 0 SEEN Urine WBC 5-10 SEEN Ur Squamous Epith Cells 0 SEEN Urine Bacteria 1+ Urine Mucus RARE Radiography Diagnostic Testing: Clinical Impression(s) from Imaging Studies Chest X-Ray 03/12/24 21:50 IMPRESSION: UNREMARKABLE SINGLE VIEW OF THE CHEST AND ABDOMEN. Reading Location: [id number] Discharge Plan Triage Chief Complaint: General Illness ED Provider: Floyd Thurston Dx/Rx/DC Orders Clinical Impression: Influenza A, Acute UTI, CKD (chronic kidney disease) stage 3, GFR 30-59 ml/min, CAD (coronary artery disease) Instructions: Urinary Tract Infections in Men, CKD Dc, ED Influenza (Adult) Prescriptions: New cefdinir 300 mg capsule 300 mg PO Q12H Qty: 14 0RF oseltamivir [Tamiflu] 30 mg capsule 30 mg PO BID 5 Days Qty: 10 0RF No Action cyanocobalamin (vitamin B-12) 2,500 mcg tablet 2,500 mcg PO BID aspirin 81 MG tablet,chewable 81 mg PO DAILY@0800 Stiolto Respimat 2.5-2.5 mcg/actuation mist 2 puff INHALATION DAILY atorvastatin 40 mg Tablet 40 mg PO QHS Qty: 30 0RF Brilinta 90 mg Tablet 90 mg PO BID Qty: 60 0RF tamsulosin 0.4 mg capsule PO Patient Comments: [NO ORIGINAL SIG] polyethylene glycol 3350 17 gram/dose powder 17 PO DAILY Primary Care Provider: Vijay Zarco Referrals: Vijay Zarco MD [Primary Care Provider] - Activity Restrictions/Additional Instructions: Chest x-ray negative. Flu a positive. Urine with signs of infection. Culture sent. Labs stable creatinine at 1.55 with GFR of 47. Take Tamiflu as prescribed. Antibiotics for urinary tract infection. Continue Tylenol as needed for fever and chills. Follow-up with your doctor. Print Language: [place] Disposition Disposition: Home, Self Care Discharge Date/Time: 03/13/24 01:18
[2024-03-12] MEDS: 0.9% Normal Saline (500mL Bag) 500 ML 999 ML IV (23:05)
[2024-03-12] MEDS: Acetaminophen 325 MG Tablet 650 MG PO (23:05)
[2024-03-13] VITALS: BP 145/68; PULSE 86; RESP 18; O2SAT 98
[2024-03-13 00:22] LABS: Color, Urine Yellow (Yellow); Glucose, Dipstick Normal (Normal); Ketone-Dipstick Negative (Negative); Leukocyte Esterase-Dipstick 25 /ul (Negative); Nitrite-Dipstick Negative (Negative); Occult Blood-Urine 10 /ul (Negative); Protein-Dipstick Negative (Negative); Red Blood Cells-Urine 0 SEEN /hpf (0-5); Specific Gravity, Urine 1.005 (1.002-1.030); Squamous Epithelial Cells - UA 0 SEEN /hpf (0-5); Urine Bilirubin Dipstick Negative (Negative); Urine Clarity Clear (Clear); Urine Urobilinogen 1 mg/dl (Normal)
[2024-03-13 00:24] VITALS: TEMP 37.7
[2024-03-13 00:37] LABS: Bacteria 1+ /hpf (None Seen); Mucous, Urine RARE /hpf (<or=2+); White Blood Cells 5-10 SEEN /hpf (0-5)
[2024-03-13 01:00] VITALS: BP 116/66; PULSE 84; RESP 20; O2SAT 96
[2024-03-13] MEDS: Cefdinir 300 MG Capsule PO (01:00)
[2024-03-13] MEDS: Oseltamivir Phosphate 30 MG Capsule PO (01:00)
== END 2024-03-13 01:18 | disposition home or self-care (01) ==
PROVIDERS: Emergency Provider Emergency Medicine; PCP Family Medicine; Visit Provider Emergency Medicine
DX: J10.1 Influenza due to other identified influenza virus with other respiratory manifestations (principal); J44.9 Chronic obstructive pulmonary disease, unspecified; N18.30 Chronic kidney disease, stage 3 unspecified; N39.0 Urinary tract infection, site not specified; I25.10 Atherosclerotic heart disease of native coronary artery without angina pectoris; Z79.899 Other long term (current) drug therapy; Z95.5 Presence of coronary angioplasty implant and graft
CPT/HCPCS: 71045; 80048; 81001; 85025; 87086; 87631; 93005; 94760; 96360; 99284; A4216

== ENCOUNTER 2024-04-23 10:55 | Emergency (ER) | payer MEDICARE, OTHER, SELFPAY ==
[2022-10-23 07:14] VITALS: BMI 25.2
[2024-04-23 10:56] VITALS: BP 109/58; PULSE 78; RESP 15; TEMP 36.7; O2SAT 98; BMI 25.2
[2024-04-23 11:15] VITALS: BP 133/88; PULSE 78; RESP 16; TEMP 37.2; O2SAT 98
--- NOTE | 2024-04-23 11:36 | EKG12_ITS ---
Test Reason : Blood Pressure : */* mmHG Vent. Rate : 64 BPM Atrial Rate : 64 BPM P-R Int : 152 ms QRS Dur : 86 ms QT Int : 376 ms P-R-T Axes : 43 15 43 degrees QTcB Int : 387 ms Normal sinus rhythm Normal ECG Confirmed by MARCEL CACERES, RUSSELL ([id number]), book editor REMA JAMES ([id number]) on 04/28/2024 11:29:31 AM Referred By: [email or web address] Confirmed By: RUSSELL ROD MD
--- NOTE | 2024-04-23 11:39 | EX.ED.DYSGE1 ---
HPI History of Present Illness Chief Complaint: Hypotension Narrative Narrative: Chief complaint and HPI: Episodic hypotension and lightheadedness. 73-year-old male with past medical history of CAD status post PCI 2 years ago on Brilinta, HLD, BPH presents for evaluation of episodic hypotension and lightheadedness. Patient states since his MN 2 years ago he has had episodic hypotension and lightheadedness. He states he develops lightheadedness, checks his blood pressure, and is found to be hypotensive. Patient states that it has been more frequent over the past 2 days. He has been endorsing systolic blood pressure intermittently in the 80s. Denies any falls, trauma, syncope. States he called his PCPs office who referred him to the emergency department. He denies any fever, chills, shortness of breath, chest pain, blurry vision, URI symptoms, abdominal pain, nausea, vomiting, lower extremity swelling, dysuria weakness, neurological deficits. States he has been eating and drinking well. Patient currently not lightheaded and blood pressure is not hypotensive. Review of systems: See HPI Medications: As listed on the chart Allergies: As listed on the chart PFSH: Per chart Vital signs: As listed on the chart. Reviewed. Physical exam: Gen: A&O x3, NAD Head: Normocephalic, atraumatic Eyes: No sclera icterus, conjunctiva clear, PERRL, EOMI ENT: Moist mucous membranes Neck: Trachea midline, No JVD, no carotid bruit CV: RRR, no murmurs, no peripheral edema Resp: Lungs CTA BL, no w/r/c GI: Abd soft, non-distended, non-tender, no r/r/g Musc: Full ROM, no deformity Skin: Warm, dry Neuro: Alert, oriented, grossly intact, sensation intact Psych: Cooperative, appropriate mood and affect [facility] Medical History 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[place] heart without angina pectoris Osteoarthritis Hemorrhoids Left inguinal hernia Spermatocele Home Medications ?Medication ?Instructions ?Recorded ?Last Taken ?Type aspirin 81 mg chewable tablet 81 mg PO DAILY@0800 [facility] 09/30/16 05/21/23 History tiotropium 2.5 mcg-olodaterol 2.5 2 puff inhalation DAILY BREATHING 07/25/22 Unknown History mcg/actuation mist for inhalation (Stiolto Respimat) atorvastatin 40 mg tablet 40 mg PO QHS #30 tabs 07/27/22 Unknown Rx ticagrelor 90 mg tablet (Brilinta) 90 mg PO BID #60 tabs 07/27/22 05/21/23 Rx cyanocobalamin (vitamin B-12) 2,500 mcg PO BID 01/09/24 Unknown History 2,500 mcg tablet cefdinir 300 mg capsule 300 mg PO Q12H #14 caps 03/13/24 Unknown Rx oseltamivir 30 mg capsule (Tamiflu) 30 mg PO BID 5 days #10 caps 03/13/24 Unknown Rx polyethylene glycol 3350 17 17 PO DAILY 03/13/24 Unknown History gram/dose oral powder tamsulosin 0.4 mg capsule mg PO 03/13/24 Unknown History Allergy/AdvReac Type Severity Reaction Status Date / Time amoxicillin Allergy Mild rash Verified 04/23/24 10:58 Sulfa (Sulfonamide Allergy Rash Verified 04/23/24 10:58 Antibiotics) Family History Father Heart disease Mother Diabetes Surgical History History of coronary artery stent placement (~07/26/22) S/P left inguinal hernia repair (~01/09/18) History of arthroscopy of left knee History of colonoscopy (~2017) Social History Smoking Status: Never smoker alcohol intake: never substance use type: does not use caffeine: Yes Type: coffee Number of servings: 1 EXAM Physical Exam Const Vital Signs: 04/23/24 10:56 04/23/24 11:15 04/23/24 11:15 Temperature 98.1 F 98.9 F Temperature Source Temporal Oral Pulse Rate 78 78 Pulse Rate [Lying] Pulse Rate [Sitting (for 1 minute prior to obtaining)] Pulse Rate [Standing (for 1 minute prior to obtaining)] Respiratory Rate 15 16 Respiratory Effort Normal Respiratory Pattern Normal Blood Pressure 109/58 L 133/88 H Blood Pressure [Lying] Blood Pressure [Sitting (for 1 minute prior to obtaining)] Blood Pressure [Standing (for 1 minute prior to obtaining)] Blood Pressure Mean 75 103 Blood Pressure Mean [Lying] Blood Pressure Mean [Sitting (for 1 minute prior to obtaining)] Blood Pressure Mean [Standing (for 1 minute prior to obtaining)] Pulse Ox 98 98 Oxygen Delivery Method Room Air Room Air 04/23/24 12:52 04/23/24 13:00 04/23/24 15:00 Temperature Temperature Source Pulse Rate 88 69 Pulse Rate [Lying] 60 Pulse Rate [Sitting (for 1 minute prior to obtaining)] 74 Pulse Rate [Standing (for 1 minute prior to obtaining)] 106 H Respiratory Rate 17 18 Respiratory Effort Respiratory Pattern Blood Pressure 140/70 H Blood Pressure [Lying] 161/81 H Blood Pressure [Sitting (for 1 minute prior to obtaining)] 131/68 H Blood Pressure [Standing (for 1 minute prior to obtaining)] 104/64 Blood Pressure Mean 90 Blood Pressure Mean [Lying] 107 Blood Pressure Mean [Sitting (for 1 minute prior to obtaining)] 89 Blood Pressure Mean [Standing (for 1 minute prior to obtaining)] 77 Pulse Ox 98 96 Oxygen Delivery Method MDM MDM MDM Narrative Medical decision making narrative: 73-year-old male with past medical history of CAD status post PCI 2 years ago on Brilinta, HLD, BPH presents for evaluation of episodic hypotension and lightheadedness. Differential diagnosis includes but is not limited to orthostatic hypotension, dehydration, electrolyte abnormality, UTI, ACS. Not CVA. Orthostatic vital signs will be obtained. Laboratory workup ordered. No hypotension yet reported in the emergency department. Patient's orthostatic vital signs were positive. NS bolus ordered. EKG and chest x-ray reviewed see below. CBC without leukocytosis or anemia. Patient has baseline thrombocytopenia. CMP without electrolyte abnormality. Renal insufficiency at its baseline. Lactic acid unremarkable. No transaminitis. Troponin unremarkable x 2. UA negative for UTI. On reevaluation, patient is asymptomatic. He has had no hypotension here in the emergency department. He ambulated without difficulty. Patient and are educated on all his results and the plan for discharge home. Patient was educated to make sure that he is drinking plenty of fluids. He was educated to have slow positional changes. Continue to monitor blood pressure at home. Return back to the ED if symptoms change or worsen. He needs to follow-up with PCP. Will also refer him to cardiology given that he states he has recurrent hypotension. May benefit from a tilt test. EKG: Interpreted by me/EM physician: EKG shows normal sinus rhythm without any acute ischemic changes. Heart rate 64. Diagnostic: Interpreted by me/EM physician: Chest x-ray without pneumonia, effusion, cardiomegaly, pneumothorax Impression: 1. Orthostatic hypotension 2. Reported hypotension 3. Renal insufficiency Lab Data Labs: Laboratory Results - last 24 hr 04/23/24 04/23/24 04/23/24 12:15 12:50 14:18 WBC 5.1 RBC 4.27 L Hgb 13.7 Hct 39.9 L MCV 93.4 MCH 32.1 H MCHC 34.3 RDW Std Deviation 45.3 H RDW Coeff of Opal 13.3 Plt Count 126 L MPV 10.0 Immature Gran % (Auto) 0.400 Neut % (Auto) 69.4 Lymph % (Auto) 14.4 L M[place]racken % (Auto) 13.6 H Eos % (Auto) 1.8 Baso % (Auto) 0.4 Absolute Neuts (auto) 3.5 Absolute Lymphs (auto) 0.73 L Nucleated RBC % 0 Sodium 138 Potassium 4.7 Chloride 103 Carbon Dioxide 26.7 Anion Gap 8 BUN 18 Creatinine 1.30 H Estim Creat Clear Calc 56.38 Est GFR (MDRD) Non-Af 58 L BUN/Creatinine Ratio 13.9 Glucose 91 Lactic Acid 1.1 Calcium 9.5 Total Bilirubin 0.83 AST 30 ALT 24 Alkaline Phosphatase 117 Troponin T High Sens 15 Troponin T Hi Sens 2 Hr 13 Total Protein 7.0 Albumin 4.0 Globulin 3.0 Albumin/Globulin Ratio 1.3 Urine Color Yellow Urine Clarity Clear Urine pH 7.0 Ur Specific Carl[place] 1.010 Urine Protein 15 H Urine Glucose (UA) Normal Urine Ketones Negative Urine Occult Blood Negative Urine Nitrite Negative Urine Bilirubin Negative Urine Urobilinogen Normal Ur Leukocyte Esterase Negative Urine RBC 0 SEEN Urine WBC 0 SEEN Ur Squamous Epith Cells 0 SEEN Urine Bacteria 0 SEEN Urine Mucus 0 SEEN Radiography Diagnostic Testing: Clinical Impression(s) from Imaging Studies Chest X-Ray 04/23/24 12:30 IMPRESSION: Hyperinflation. No acute abnormality is seen. Reading Location: [place] [address] Discharge Plan Triage Chief Complaint: Hypotension ED Provider: Nakul Holder Dx/Rx/DC Orders Clinical Impression: Hypotensive episode, Orthostatic hypotension Instructions: Orthostatic Hypotension, ED Hypotension, Orthostatic Prescriptions: No Action cyanocobalamin (vitamin B-12) 2,500 mcg tablet 2,500 mcg PO BID aspirin 81 MG tablet,chewable 81 mg PO DAILY@0800 Stiolto Respimat 2.5-2.5 mcg/actuation mist 2 puff INHALATION DAILY atorvastatin 40 mg Tablet 40 mg PO QHS Qty: 30 0RF Brilinta 90 mg Tablet 90 mg PO BID Qty: 60 0RF cefdinir 300 mg capsule 300 mg PO Q12H Qty: 14 0RF oseltamivir [Tamiflu] 30 mg capsule 30 mg PO BID 5 Days Qty: 10 0RF tamsulosin 0.4 mg capsule PO Patient Comments: [NO ORIGINAL SIG] polyethylene glycol 3350 17 gram/dose powder 17 PO DAILY Primary Care Provider: Vijay Zarco Referrals: Ponce Oliver MD [Med Staff - Active Staff] - 3-5 Days Vijay Zarco MD [Primary Care Provider] - 3-5 Days Activity Restrictions/Additional Instructions: Follow-up with your primary care physician as well as cardiology for your recurrent episodic hypotension. Continue to check your blood pressure at home. Return back to the ED if symptoms change or worsen. Print Language: Luxembourgish Disposition Disposition: Home, Self Care Discharge Date/Time: 04/23/24 15:27
--- NOTE | 2024-04-23 12:30 | RAD_ITS ---
PROCEDURE: CHEST PA AND LATERAL REASON FOR EXAM: LIGHTHEADEDNESS TECHNIQUE: Frontal and lateral views of the chest. COMPARISON: Comparison is made with prior study dated March 12, 2024. FINDINGS: EKG electrodes are seen. Hyperinflation. No acute abnormality is seen. Degenerative changes of the thoracic vertebrae. RAD/Chest PA and Lateral IMPRESSION: Hyperinflation. No acute abnormality is seen. Reading Location: [facility]
[2024-04-23 12:32] LABS: Absolute Lymphocyte Count 0.73 X10^3/uL (0.83-4.51); Absolute Neutrophil Count 3.5 X10^3/uL (2.0-7.7); Basophil# 0.02 X10^3/uL; Basophil% 0.4 % (0-1); Eosinophil# 0.09 X10^3/uL; Eosinophils% 1.8 % (0-5); Hematocrit 39.9 % (40-54); Hemoglobin 13.7 g/dL (13.0-16.5); Lymphocyte # 0.73 X10^3/ul (0.83-4.51); Lymphocyte % 14.4 % (19-41); Mean Corp Hgb Conc 34.3 g/dL (32-36); Mean Corpuscular Hgb 32.1 pg (27.0-32.0); Mean Corpuscular Volume 93.4 fL (80-94); Monocyte# 0.69 X10^3/uL; Monocyte% 13.6 % (0-10); NRBC Flagged by Analyzer 0 % (0-5); Neutrophil # 3.53 X10^3/uL (2.7-7.7); Neutrophil % 69.4 % (47-70); Platelet Count 126 K/mm3 (150-450); RBC Distribution Width CV 13.3 % (11.6-14.6); RBC Distribution Width SD 45.3 fl (35.1-43.9); Red Blood Count 4.27 M/mm3 (4.6-6.2); White Blood Count 5.1 K/mm3 (4.4-11.0)
[2024-04-23 12:52] VITALS: BP 104/64; BP 131/68; BP 161/81; PULSE 106; PULSE 60; PULSE 74
[2024-04-23 12:53] LABS: ALB/GLOB Ratio 1.3 RATIO (0.9-2.4); AST(SGOT) 30 U/L (<=37); Alanine Aminotransfer ALT/SGPT 24 U/L (<=46); Alkaline Phosphatase 117 U/L (40-129); Anion Gap 8 (5-15); BUN 18 mg/dL (4-19); BUN/Creat Ratio 13.9 RATIO (10-20); Calcium,Total 9.5 mg/dL (7.6-11.0); Carbon Dioxide 26.7 mmol/L (21.0-32.0); Chloride 103 mmol/L (98-108); EST Glomerular Filtration Rate 58 (>60); Estimated Creatinine Clearance 56.38 ml/min (50-250); Glucose 91 mg/dL (70-99); Potassium 4.7 mmol/L (3.3-5.1); Sodium Level 138 mmol/L (133-145); Total Bilirubin 0.83 mg/dL (0.00-1.30)
[2024-04-23 13:00] VITALS: PULSE 88; RESP 17; O2SAT 98
[2024-04-23 13:03] LABS: Bacteria 0 SEEN /hpf (None Seen); Mucous, Urine 0 SEEN /hpf (<or=2+); Squamous Epithelial Cells - UA 0 SEEN /hpf (0-5); White Blood Cells 0 SEEN /hpf (0-5)
[2024-04-23 13:10] LABS: Lactic Acid 1.1 mmol/L (0.0-2.0)
[2024-04-23 13:16] LABS: Troponin T High Sensitivity 15 ng/L (<=22)
[2024-04-23 13:19] LABS: Color, Urine Yellow (Yellow); Glucose, Dipstick Normal (Normal); Ketone-Dipstick Negative (Negative); Leukocyte Esterase-Dipstick Negative /ul (Negative); Nitrite-Dipstick Negative (Negative); Occult Blood-Urine Negative /ul (Negative); Protein-Dipstick 15 mg/dl (Negative); Urine Bilirubin Dipstick Negative (Negative); Urine Clarity Clear (Clear); Urine Urobilinogen Normal (Normal)
[2024-04-23] MEDS: 0.9% Normal Saline (1000mL) 1,000 ML 1000 ML IV (13:25)
[2024-04-23 13:26] LABS: Red Blood Cells-Urine 0 SEEN /hpf (0-5)
[2024-04-23 14:44] LABS: Troponin T High Sens 2 HR 13 ng/L (<=22)
[2024-04-23 15:00] VITALS: BP 140/70; PULSE 69; RESP 18; O2SAT 96
== END 2024-04-23 15:27 | disposition home or self-care (01) ==
PROVIDERS: Emergency Provider Surgery; PCP Family Medicine; Visit Provider Surgery
DX: I95.1 Orthostatic hypotension (principal); N28.9 Disorder of kidney and ureter, unspecified; E78.5 Hyperlipidemia, unspecified; I25.10 Atherosclerotic heart disease of native coronary artery without angina pectoris; N40.0 Benign prostatic hyperplasia without lower urinary tract symptoms; I25.2 Old myocardial infarction; Z88.0 Allergy status to penicillin; Z88.2 Allergy status to sulfonamides; Z95.5 Presence of coronary angioplasty implant and graft; Z79.82 Long term (current) use of aspirin; Z79.899 Other long term (current) drug therapy
CPT/HCPCS: 71046; 80053; 81001; 83605; 84484; 85025; 93005; 96360; 99285; A4216